=== PATIENT | male | born 1950 | race Caucasian/White ===

== ENCOUNTER 2024-11-06 18:40 | Inpatient (IN) | payer MEDICARE, SELFPAY ==
--- NOTE | 2024-11-06 | ECG_ITS ---
Test Reason : AMS Blood Pressure : */* mmHG Vent. Rate : 89 BPM Atrial Rate : 89 BPM P-R Int : 200 ms QRS Dur : 84 ms QT Int : 394 ms P-R-T Axes : 104 58 30 degrees QTcB Int : 479 ms Normal sinus rhythm Nonspecific ST abnormality Abnormal ECG No previous ECGs available Referred By: Generic ED Physician Electronically Signed By: HERNAN SERRANO MD
--- NOTE | ~2024-11-06 | CT_ITS ---
CLINICAL HISTORY: AMS fall CT head without contrast Comparison: None provided Findings: No intra-axial mass, midline shift, hydrocephalus, or acute hemorrhage. Moderate atrophy-like change or white matter disease. The visualized paranasal sinuses and mastoid air cells are normal. The orbits are unremarkable. No skull fracture. IMPRESSION: 1. No acute intracranial findings, specifically no acute intracranial hemorrhage. 2. Moderate atrophy-like change or white matter disease. This document has been electronically signed by: Lobo Rodriguez MD on 11/06/2024 23:25:53
--- NOTE | ~2024-11-06 | US_ITS ---
EXAMINATION: US KIDNEY BILATERAL HISTORY: Acute urinary retention question hydronephrosis, BARRIE TECHNIQUE: Real-time grayscale ultrasound imaging of the kidneys was performed and images were reviewed. COMPARISON: There are no prior studies available for comparison. FINDINGS: Right kidney: The right kidney measures 11.1 x 4.9 x 5.0 cm. Renal parenchymal echotexture and thickness are normal. There are no masses. There is no hydronephrosis or renal calculi. Left Kidney: The left kidney measures 9.7 x 5.4 x 4.4 cm. Renal parenchymal echotexture and thickness are normal. There are no masses. There is no hydronephrosis or renal calculi. US/US renal BI IMPRESSION: Unremarkable renal ultrasound. Electronically signed by: Isreal Cox MD 11/20/2024 10:17 AM EDT
--- NOTE | ~2024-11-06 | XR_ITS ---
CLINICAL HISTORY: fall injury 3 view right elbow Comparison: None provided Findings: No acute fractures. Normal alignment. No significant arthritic change or erosions. No joint effusion. No radiopaque foreign body. IMPRESSION: 1. No acute findings. This document has been electronically signed by: Lobo Rodriguez MD on 11/06/2024 22:04:33
--- NOTE | ~2024-11-06 | CT_ITS ---
CLINICAL HISTORY: seizure CT head without contrast Comparison: CT/SR - CT HEAD/BRAIN WO IV CON - 11/06/24 22:14 EDT Findings: No intra-axial mass, midline shift, hydrocephalus, or acute hemorrhage. Involutional change of brain parenchyma, advanced for age. Moderately severe white matter disease. Chronic focus of infarction within the left basal ganglia. Mild partial opacification of the bilateral mastoid air cells, slightly improved since the prior study. Moderate mucosal thickening within the right sphenoid sinus. Mild mucosal thickening within the left maxillary sinus. Chronic deformity of the right lamina papyracea. No acute fracture. IMPRESSION: No acute abnormality of the brain. Atrophy and advanced white matter disease noted. This document has been electronically signed by: Cristina Shaikh MD on 11/12/2024 09:48:10
--- NOTE | ~2024-11-06 | CT_ITS ---
CLINICAL HISTORY: AMS fall CT cervical spine without contrast Comparison: None provided Findings: Normal vertebral body alignment. Moderate multilevel spondylosis the disc space narrowing, endplate sclerosis, and facet arthropathy. No acute fractures or dislocations. No acute findings on limited view of the intracranial contents. No cervical fluid collections or masses. Lung apices are clear. IMPRESSION: No evidence of acute fracture or traumatic listhesis of the cervical spine. Moderate multilevel spondylosis. This document has been electronically signed by: Lobo Rodriguez MD on 11/06/2024 23:25:44
--- NOTE | ~2024-11-06 | XR_ITS ---
CLINICAL HISTORY: altered mental status 1 view chest x-ray Comparison: None provided Findings: No consolidation or effusion. Heart size is normal. No acute fracture. IMPRESSION: 1. No acute findings. This document has been electronically signed by: Lobo Rodriguez MD on 11/06/2024 21:11:23
[2024-11-06 18:55] VITALS: BP 189/91; PULSE 96; O2SAT 100
[2024-11-06 19:29] VITALS: BP 200/85; PULSE 100; RESP 16; TEMP 36.8; O2SAT 100; BMI 17.1
[2024-11-06 19:47] LABS: MANUAL DIFF FLAG NO
[2024-11-06 19:48] LABS: Hematocrit 31.9 % (42.0-52.0); Hemoglobin 11.7 g/dl (14.0-18.0); Imm Gran Abs Auto 0.03 X10*3/uL (0.00-0.03); Imm Gran Pct Auto 0.4 % (0.0-0.4); Lymphocytes Absolute Auto 1.2 X10*3/uL (1.2-4.9); Mean Corpuscular HGB Conc 36.7 g/dl (31.0-36.0); Mean Corpuscular Hemoglobin 36.0 pg (27.0-33.0); Mean Corpuscular Volume 98.2 fL (80.0-98.0); NRBC Abs Auto 0.000 X10*3/uL (0.0-0.012); NRBC Pct Auto 0.0 /100WBC (0.0-0.2); Platelet Count 155 X10*3/uL (160-400); Red Blood Count 3.25 X10*6/uL (4.60-5.80); White Blood Count 7.5 X10*3/uL (4.8-10.8)
[2024-11-06 20:05] LABS: Anion Gap 17 (12-20); Blood Urea Nitrogen 11 mg/dL (9-16); Calcium 8.9 mg/dL (8.4-10.2); Carbon Dioxide 20 mmol/L (22-29); Chloride 110 mmol/L (96-108); Creatinine Clr Calc Pharmacy 46.2; Estimated Glomerular Filt Rate > 60; Magnesium 1.9 mg/dL (1.6-2.6); Potassium 3.5 mmol/L (3.3-5.1); Sodium 143 mmol/L (135-145)
[2024-11-06 20:09] VITALS: BP 180/75; PULSE 93; RESP 16; TEMP 37.1; O2SAT 100
--- OUTSIDE RECORDS SUMMARY | 2024-11-06 20:53 | XMS_ITS | Clinical Summary ---
Author Organization [facility] Address [address] [place] [id number] Phone Care Team Providers Care Admin Asst Name Role Phone Nelson Elmore MD Unavailable [phone] Pcp, Unknown Primary Care Provider Unavailabl e Allergies No known active allergies Medications aspirin 81 MG EC tablet Take 1 tablet by mouth daily. Active thiamine (VITAMIN B-1) 100 MG tablet Take 1 tablet (100 mg total) by mouth daily. 90 tablet 1 12/27/19 20 Active lovastatin (MEVACOR) 40 MG tabletIndications:Pure hypercholesterolemia TAKE 1 TABLET BY MOUTH DAILY WITH MEAL 90 tablet 1 09/16/19 22 Active lisinopril (PRINIVIL,ZESTRIL) 20 MG tabletIndications:Essent ial hypertension TAKE 1 TABLET BY MOUTH DAILY 90 tablet 3 09/16/19 22 Active Active Problems Problem Noted Date Diagnosed Date Male erectile disorder 07/05/2017 Essential hypertension 07/05/2017 Headache 07/05/2017 Hypertension 07/05/2017 Hyperlipidemia 07/05/2017 New onset seizure 07/05/2017 Peripheral vascular disease 07/05/2017 Tobacco use disorder 07/05/2017 Seizure disorder 07/05/2017 Screening for prostate cancer 07/05/2017 Immunizations Immunization Administration Dates Next Due INFLUENZA, SPLIT VIRUS, TRIVALENT W/ PRESERVATIV E IM 02/20/2014 Influenza High-Dose Quadrivalent Preservative Fr ee IM 12/26/2019 Pneumococcal polysaccharide PPSV23 08/08/2018 Tdap 08/08/2018 Family History Medical History Relation Comments Heart disease Father Diabetes Mother Cancer Sister Diabetes Sister Relation Status Comments Father Mother Sister Social History Tobacco Use Types Packs/Day Years Used Date Smoking Tobacco: Every Day Cigarettes 1 63.7 Started: 1961 Smokeless Tobacco: Never Alcohol Use Standard Drinks/Week Comments Yes 0 (1 standard drink = 0.6 oz pur e alcohol) 12-16 cans of beer QD Child or Family Care Answer Date Record ed Do you have problems with on e of the following making it difficult for you to work, study, or receive health care? No 01/27/2021 Education Answer Date Recorded Are you interested in more education? Not on roopa e 02/03/2023 Are you concerned about learning? Not on file 02/03/2023 No 02/03/2023 No 02/03/2023 Food Answer Date Recorded Within the past 6 months we worried whether our food would run out before we got money to buy more. Never True 01/27/2021 Within the past 6 months the food we bought just didn't last and we didn't have enough money to get more. Never True Residential Stability Answer Date Recor ded What is your housing situation today? I have luara fernandez 01/27/2021 How many times have you move d in the past 12 months? Zero (I did not move) 01/27/2021 Paying for Meds Answer Date Recorded Do you have trouble paying for medicines? No 01/27/2021 Paying Utility Bills Answer Date Record ed Do you have trouble paying your heating or elect ricity bill? No 01/27/2021 Transportation Answer Date Recorded Has the lack of transportati on kept you from medical appointments or from getting medications? No 01/27/2021 Unemployment Answer Date Recorded Are you currently unemployed or working on a part-time or temporary basis, and looking for work? No 01/27/2021 Digital Access Answer Date Recorded No 07/27/2022 No 07/27/2022 Reliable internet access at home? Not on file 07/27/2022 Device with a working camera? Not on file Sex and Gender Information Value Date Recorded Sex Assigned at Not on file Legal Sex Male 10:02 PM EDT Gender Identity Not on file Sexual Orientation Not on file Last Filed Vital Signs Vital Sign Reading Time Taken Comments Blood Pressure 154/80 06/24/2021 2:42 PM EDT 188/72 on L arm, sitting Pulse 59 06/24/2021 2:42 PM EDT Temperature 36.3 C (97.3 F) 06/24/2021 2:42 PM EDT Respiratory Rate 20 06/24/2021 2:42 PM EDT Oxygen Saturation 99% 06/24/2021 2:4 2 PM EDT Inhaled Oxygen Concentration - - Weight 59.5 kg (131 lb 3.2 oz) 06/24/2021 2:42 PM EDT Height 165.4 cm (5' 5.12 ) 06/24/2021 2 :42 PM EDT Body Mass Index 21.75 06/24/2021 2:42 PM EDT Plan of Treatment Health Maintenance Due Date Last Done Comments BLOOD PRESSURE 1950 SMOKING Hx and SMOKELESS TOBACCO SCREENING 1963 COLOGUARD 1995 FIT TEST 1995 FOBT 1995 SIGMOIDOSCOPY 1995 VIRTUAL COLONOSCOPY 1995 ZOSTER VACCINES (1 of 2) 2000 PNEUMOCOCCAL VACCINES (50+ years) (2 of 2 - PCV) 08/09/2019 08/08/2018 COLONOSCOPY 05/05/2020 05/05/2010 COLORECTAL CANCER SCREENING 05/05/2020 DEPRESSION SCREENING 06/22/2022 06/22/2021, 01/28/20 21 CREATININE LEVEL 06/24/2022 06/24/2021, , 12/26/2019, Additional history exists POTASSIUM LEVEL 06/24/2022 06/24/2021, 01/01, 12/26/2019, Additional history exists INFLUENZA VACCINE (#1) 2024 12/26/2019, 2013 COVID-19 VACCINE ( - 2023- season) 2024 RSV VACCINE (1 - 1-dose 75+ series) 2025 LIPID PANEL 01/28/2026 01/28/2021, 11/30, 05/23/2018, Additional history exists Adult Td,Tdap Booster 08/08/2028 08/08/2018 HEPATITIS C SCREENING Completed 12/26/2019 ABDOMINAL AORTIC ANEURYSM (AAA) SCREENING Completed 01/09/2020 HEPATITIS A VACCINES Aged Out No long er eligible based on patient's age to complete this topic HIB VACCINES Aged Out No longer eligi ble based on patient's age to complete this topic MENINGOCOCCAL VACCINES (ACWY) Aged Out No longer eligible based on patient's age to complete this topic MENINGOCOCCAL VACCINES (B) Aged Out N o longer eligible based on patient's age to complete this topic Medical Devices Not on file Procedures Procedure Name Priority Date/Time Associated Diagnosis Comments COMPREHENSIVE METABOLIC PANEL Routine 06/24/2021 3:47 PM EDT Pure hypercholesterolemia Solitary pulmonary nodule on lung CT LIPID PANEL Routine 01/28/2021 10:49 AM EST Pure hypercholesterolemia CT ABDOMEN/PELVIS Routine 01/09/2020 HEPATITIS C ANTIBODY, QUALITATIVE Routine 12/26/2019 11:16 AM EDT Need for hepatitis C screening test from Last 3 Months or Most Recently Relevant to Health Maintenance Results * (ABNORMAL) Comprehensive metabolic panel (06/24/2021 3:47 PM EDT) SODIUM 135 133 - 146 mmol/L [facility] POTASSIUM 4.1 3.3 - 5.1 mmol/L [facility] CHLORIDE 99 96 - 108 mmol/L [facility] CO2 22 21 - 35 mmol/L [facility] BUN 9 6 - 19 mg/dL [facility] CREATININE 0.90 0.5 - 1.5 mg/dL [facility] GLUCOSE 99 70 - 99 mg/dL [facility] ALBUMIN 4.9(H) 3.9 - 4.8 g/dL [facility] TOTAL PROTEIN 8.5(H) 6.5 - 8.0 g/dL [facility] CALCIUM 10.5(H) 8.4 - 10.3 mg/dL [facility] ALKALINE PHOSPHATASE 75 39 - 117 U/L [facility] TOTAL BILIRUBIN 0.6 0.0 - 1.2 mg/dL [facility] AST 20 0 - 37 U/L [facility] ALT 13 0 - 40 U/L [facility] GLOBULIN 3.6 1 - 4.8 g/dL [facility] EGFR 91 >59 mL/min/1.7 3m2 [facility] Comment:Estimated glomerular filtration rate calculated using the CKD-EPI refit equation. ANION GAP 18 10 - 20 mmol/L [facility] Blood 06/24/2021 3:47 PM EDT 06/24/2021 3:55 PM EDT us Nelson Elmore MD LAB BLOOD ORDERABLES Final Re sult Performing Organization Address City/[facility]/ZIP Co de Phone Number [address] [phone] * (ABNORMAL) Lipid panel (01/28/2021 10:49 AM EST) HDL 142 mg/dL [facility] Comment: Interpretation <40 mg/dL: Low HDL cholesterol (major risk factor for CHD) Greater than or equal to 60 mg/dL: High HDL cholesterol ( negative risk factor for CHD) HDL - cholesterol is affected by a number of factors, e.g. smoking, excerise, hormones, sex and age. CHOLESTEROL 253(H) 0 - 240 mg/dL [facility] TRIGLYCERIDES 71 30 - 160 mg/dL [facility] LDL 97 50 - 129 mg/dL [facility] Comment: LDL levels in terms of risk for coronary heart disease: <100 mg/dL: Optimal 100-129 mg/dL: Near or above optimal 130-159 mg/dL: Borderline high 160-189 mg/dL: High >190 mg/dL: Very High CARDIAC RISK RATIO 1.8(L) 3.4 - 5.0 [facility] Blood 01/28/2021 10:4 9 AM EST 01/28/2021 10:53 AM EST us Nelson Elmore MD LAB BLOOD ORDERABLES Final Re sult Performing Organization Address City/[facility]/ZIP Co de Phone Number [address] [phone] * CT Abdomen/Pelvis (01/09/2020) Anatomical Region Laterality Modality Abdomen, Pelvis CT Diagnostic us Nelson Elmore MD IMG CT ABD/PELVIS Edited Resu lt - Final * Hepatitis C antibody, qualitative (12/26/2019 11:16 AM EDT) HCV NON-REACTIV E NON-REACTI VE [facility] Blood 12/26/2019 11:1 6 AM EDT 12/26/2019 11:21 AM EDT us Nelson Elmore MD LAB BLOOD ORDERABLES Final Re sult [facility] [address] [place] [address] from Last 3 Months or Most Recently Relevant to Health Maintenance Insurance MEDICARE A [facility] MEDICARE A [facility] MEDICARE A [facility] Care Teams Admin Asst Relationship Specialty Start Date End Date Pcp, Unknown PCP - General 03/29/24 Nelson Elmore MD [address] [place] [id number] [email or web address] Historical LMR Provider 12/19/16 Additional Source Comments The information contained in this document represents components of the legal health record. It is not the complete legal health record.[facility]
[2024-11-06 21:06] LABS: Appearance Urine Clear; Glucose Urine UA Negative (Negative); PH 7.0 (5.0-9.0); Specific Gravity - Urine 1.020 (1.005-1.025); UMIC TRIGGER UA YES
--- NOTE | 2024-11-06 21:14 | ED_ITS ---
HPI - General Adult General Chief complaint: Altered Mental Status Stated complaint: R elbow lac s/p fall Time Seen by Provider: 11/06/24 21:01 Source: patient, family and EMS Mode of arrival: EMS Limitations: altered mental status History of Present Illness ED Provider: Dr. Sheridan Coy HPI narrative: 74-year-old male with a history of HTN, HLD, PAD, CVA on Plavix, tobacco use, presenting after an unwitnessed fall that occurred at home. EMS reports they are called to the scene for patient that was falling with a right elbow injury. Found sitting on his doorstep with slight confusion. According to his neighbors, this is his baseline. Patient unable to give any information secondary to his altered mental status. He denies pain. Denies shortness of breath or nausea. Related Data Home Medications ?Medication ?Instructions ?Recorded ?Confirmed clopidogrel 75 mg tablet 75 mg PO DAILY 11/07/2411/23 lisinopril 30 mg tablet 30 mg PO DAILY 11/07/2411/23 rosuvastatin 40 mg tablet 40 mg PO DAILY 11/07/2411/23 tamsulosin 0.4 mg capsule 0.4 mg PO DAILY 11/07/2411/23 Allergies Allergy/AdvReac Type Severity Reaction Status Date / Time Unable to Assess Allergy Verified 11/06/24 19:36 Review of Systems 2 Review of Systems: As per HPI, full review of systems performed and negative but for the above mentioned pertinent positives and negatives. [facility] Social History Social History Household Members: None Housing: Unknown / Unable to assess Unable to assess alcohol history related to: Unable to respond Patient Tobacco Use Status: Tobacco use Unknown Use of substances other than those prescribed or required for medical reasons: Unable to respond Currently Displaying Signs/Symptoms of Drug Intoxication Withdrawal: No Advance Directives: No Advance Directives Information Provided: No Advance Directives on File: No Do you have a plan to hurt others: No Plan Recently lost weight without trying: Unsure Nutrition Risks: No Nutritional Risk Poor oral hygiene: No service: No Physical Exam ED Exam Exam: GENERAL: Unkempt, no acute distress. SKIN: Normal skin color for ethnicity, warm, dry, superficial abrasion overlying the right elbow, bilateral knees. HEENT: Normocephalic, atraumatic, no stridor, posterior oropharynx nonerythematous, dentition intact, EOMI. NECK: Soft, supple, full ROM, midline tenderness at C3 - 5, no step-offs, no deformities, no lymphadenopathy. CHEST: Heart regular rate and rhythm, no murmurs, symmetric chest rise and fall. PULMONARY: Clear to auscultation bilaterally, no labored breathing, no wheezes/rhales/ rhonchi. ABDOMINAL: Soft, nondistended, nontender, positive bowel sounds in all quadrants. : Deferred. MUSCULOSKELETAL: Normal tone, full range of motion, right elbow with contusion, full active range of motion, neurovascularly intact distally, full function of the radial, median and ulnar nerves of the right hand, swelling of the right ankle, neurovascularly intact distally. NEURO: Alert and oriented to person, CN II through XII intact, equal strength and sensation bilateral upper and lower extremities, no focal neurologic deficits. PSYCHIATRIC: Flat affect, poor eye contact, withdrawn Vital Signs: Vital Signs - 24 hr 11/11/24 14:38 11/11/24 22:00 11/12/24 06:23 Temperature 98.3 F 98.4 F 99.0 F Pulse Rate 80 75 89 Respiratory Rate 16 16 16 Blood Pressure 170/73 H 168/70 H 155/71 H Pulse Oximetry 98 98 99 Oxygen Delivery Method Room Air Room Air Room Air Oxygen Flow Rate 11/12/24 08:10 11/12/24 08:27 11/12/24 08:27 Temperature 99.1 F Pulse Rate 127 H 123 H Respiratory Rate 18 14 Blood Pressure 216/94 H 106/61 Pulse Oximetry 99 92 96 Oxygen Delivery Method Room Air Room Air Nasal Cannula Oxygen Flow Rate 2 11/12/24 08:39 11/12/24 09:43 Temperature 98.6 F 98.2 F Pulse Rate 111 H 99 Respiratory Rate 17 18 Blood Pressure 112/60 180/81 H Pulse Oximetry 96 97 Oxygen Delivery Method Nasal Cannula Room Air Oxygen Flow Rate 2 BMI result Body Mass Index 17.1 Course Course Course Narrative: Time: 08:19 Date: 11/07/24 Provider: YOHANNES Macario Patient in physician observation for case management needs. Patient agitated this morning, confused, difficult to redirect. Prior to my arrival, patient was given po zyprexa. No current issues or complaints. hypertensive, vitals are otherwise wnl. med rec pending. Patient is pending placement PT/CM eval. Will continue to monitor. 11/09/24 10:25 SANDY Van: Physician observation continued. Notified by nursing this morning that no code status entered. Discussed code status with patient's healthcare proxy, daughter Bindu, who would like patient to be DNR/DNI. MOLST form completed, order placed in computer. Case management following for disposition. 11/09/24 1721 SANDY Van: Chelita from case management requesting daily medication for agitation. Patient seen by psychiatry and they recommended 25 milligrams of trazodone q.h.s., however, patient is agitated throughout the day. Will try 25 milligrams of Seroquel daily and reassess. Reevaluation(s) Reevaluation #1: Patient is hypertensive, he did receive a scheduled medication, amlodipine was added on, the thought is that he is becoming agitated, he may be withdrawing from alcohol, I added Zyprexa Tylenol and melatonin, my attending added Ativan Reevaluation #2: Time: 08:32 Date: 11/08/24 Provider: YOHANNES Macario Patient in physician observation for case management needs. VS stable. patient medicated w/ olanzepine + tylenol + melatonin + ativan over night with good effect. Patient is pending placement at facility/CM eval. Will continue to monitor. Reevaluation #3: Receiving call from [facility], the patient needs medication for sleep, he was assessed by Psychiatry, they had recommended trazodone 25 mg at night, we will add a standing order Additional Reevaluation(s): 117 am receiving another call from [facility], the patient remains agitated, the trazodone was not helpful, adding on Ines Nina 11/10 Physician observation continued. Uneventful night. Vital signs stable. No complaints from nursing overnight. Med reconciliation reviewed and done. Pending disposition. Will continue to monitor. Consultations Consultation #1: Time: 08:17 Date: 11/11/24 Provider: YOHANNES Macario Patient in physician observation for case management needs. No acute events reported overnight.? No current issues or complaints. VS stable. Patient is pending placement at facility per CM. Will continue to monitor. Consultation #2: 11/12/2024, 08:16: Dr. Arana The patient has been in our overflow unit for several days after initially presenting to the hospital 6 days ago on November 06 following a fall at home. The patient's workup in the emergency room was negative but the the patient was felt to be quite debilitated and possibly also exhibiting signs of dementia and so he was not discharged but kept in our emergency room for placement. Initially he had some agitation that was treated with olanzapine and Ativan. He was seen by Psychiatry who recommended trazodone. Today the patient had a seizure. He is not currently on any antiepileptic medications and his documentation at this hospital does not mention any history of seizures. The seizure lasted less than 1-2 minutes. His blood sugar was 120. The patient apparently has a history of alcoholism. It is not clear when his last alcohol might has been. I reviewed records from [facility]. The patient was last discharged from that hospital on 03/16/2023. He has been hospitalized after he presented for an elective vascular surgery of his lower extremities by Dr. Sierra. The documentation of that hospitalization indicates that the patient has a history of a seizure that was thought likely to be related to alcohol withdrawal. Apparently the possible seizure episode happened before March 2021. The note indicates that the patient stopped drinking in March of 2021. Because the patient had a seizure he was moved back to the main emergency room. We will obtain a CT scan and repeat labs. On exam the patient was clearly postictal and not responsive to verbal stimuli. His pupils were very small. He was maintaining his airway. He seemed to have symmetrical tone. No obvious lateralizing findings. 11/12/2024, 10:56: The patient has head CT was negative. The patient had an initial EKG that showed a lot of changes and a much longer QTC. Repeat labs were done. The patient's magnesium is normal. I think the EKG changes were probably postictal. The patient had repeat labs that showed what looks like an acute kidney injury with a rise in the patient's BUN and creatinine. Apparently the patient has taken very little by mouth over the last several days. The patient was therefore given a bolus of IV fluids. I called the patient's daughter, Bindu, who confirmed that the patient has a remote history of an alcohol withdrawal seizure. She also confirmed that he stopped drinking alcohol about 5 years ago. She also confirmed that the patient's mental status has been deteriorating significantly over the last several months. I explained to the daughter that the patient had had a seizure and would be hospitalized at this point. The patient's mental status improved from his initial postictal state. He was awake but extremely poorly oriented and unable to have any significant communication or conversation. I do not think this is very far from his mental status over the previous few days. Medications Administered Generic Name Dose Route Start Last Admin Trade Name Freq PRN Reason Stop Dose Admin Amlodipine Besylate 5 mg 11/12/24 10:45 11/16/24 08:53 Amlodipine Besylate 5 Mg Tablet PO 5 mg DAILY LEÓN Administration Protocol Atorvastatin Calcium 80 mg 11/07/24 13:30 11/16/24 08:53 Atorvastatin Calcium 80 Mg Tablet PO 80 mg DAILY LEÓN Administration Ceftriaxone Sodium 1 gm 11/15/24 09:00 11/16/24 08:53 Ceftriaxone Sodium 1 Gm Vial IVPUSH 1 gm Q24H LEÓN Administration Clopidogrel Bisulfate 75 mg 11/07/24 13:30 11/16/24 08:53 Clopidogrel Bisulfate 75 Mg Tablet PO 75 mg DAILY LEÓN Administration Finasteride 5 mg 11/15/24 10:30 11/16/24 08:53 Finasteride 5 Mg Tablet PO 5 mg DAILY LEÓN Administration Folic Acid 1 mg 11/13/24 17:45 11/16/24 08:53 Folic Acid 1 Mg Tablet PO 1 mg DAILY LEÓN Administration Heparin Sodium (Porcine) 5,000 unit 11/12/24 11:00 11/16/24 11:15 Heparin Sodium,Porcine 5,000 Unit/Ml Vial SUBCUT 5,000 unit Q12H LEÓN Administration Quetiapine Fumarate 25 mg 11/10/24 09:00 11/16/24 08:53 Quetiapine Fumarate 25 Mg Tablet PO 25 mg DAILY LEÓN Administration Sodium Chloride 3 ml 11/12/24 16:00 11/16/24 08:53 0.9 % Sodium Chloride Flush 3 Ml Syringe IVFLUSH 3 ml QSHIFT LEÓN Administration Tamsulosin HCl 0.4 mg 11/07/24 13:30 11/16/24 08:53 Tamsulosin Hcl 0.4 Mg Capsule PO 0.4 mg DAILY LEÓN Administration Thiamine HCl 100 mg 11/13/24 17:45 11/16/24 08:53 Thiamine Hcl 100 Mg Tablet PO 100 mg DAILY LEÓN Administration Trazodone HCl 25 mg 11/08/24 22:30 11/15/24 21:31 Trazodone Hcl 25 Mg Halftab PO 25 mg BEDTIME LEÓN Administration Discontinued Medications Generic Name Dose Route Start Last Admin Trade Name Harris PRN Reason Stop Dose Admin Acetaminophen 975 mg 11/07/24 21:40 11/07/24 23:16 Acetaminophen 325 Mg Tablet PO 11/07/24 21:41 975 mg ONCE ONE Administration Amlodipine Besylate 5 mg 11/07/24 19:06 11/07/24 19:42 Amlodipine Besylate 5 Mg Tablet PO 11/07/24 19:07 5 mg DAILY ONE Administration Protocol Heparin Sodium (Porcine) 5,000 unit 11/12/24 10:45 11/12/24 10:43 Heparin Sodium,Porcine 5,000 Unit/Ml Vial SUBCUT Not Given Q12H LEÓN Lactated Ringer's 1,000 mls @ 999 mls/hr 11/06/24 21:56 11/07/24 00:56 Lr IV 11/06/24 22:56 Infused .Q1H1M ONE Infusion Lactated Ringer's 1,000 mls @ 999 mls/hr 11/11/24 11:00 11/12/24 10:33 Lr IV 11/11/24 12:00 Infused .Q1H1M LEÓN Infusion Lactated Ringer's 1,000 mls @ 999 mls/hr 11/12/24 09:00 11/12/24 10:33 Lr IV 11/12/24 10:00 Infused .Q1H1M LEÓN Infusion Potassium Chloride 10 meq in 100 mls @ 100 mls/hr 11/12/24 11:45 11/12/24 14:43 Potassium Chloride/H20 IV 11/12/24 13:44 Infused Q1H LEÓN Infusion Lisinopril 30 mg 11/07/24 13:30 11/12/24 08:43 Lisinopril 10 Mg Tablet PO Not Given DAILY LEÓN Protocol Lorazepam 1 mg 11/07/24 21:50 11/07/24 22:08 Lorazepam 1 Mg Tablet PO 11/07/24 21:51 1 mg ONCE ONE Administration Melatonin 9 mg 11/07/24 21:40 11/08/24 00:44 Melatonin 3 Mg Tablet PO 11/07/24 21:41 Not Given ONCE ONE Olanzapine 5 mg 11/07/24 07:31 11/07/24 07:36 Olanzapine 5 Mg Tablet PO 11/07/24 07:32 5 mg ONCE ONE Administration Olanzapine 5 mg 11/07/24 19:05 11/07/24 19:42 Olanzapine 5 Mg Tablet PO 11/07/24 19:06 5 mg ONCE ONE Administration Olanzapine 10 mg 11/07/24 21:40 11/08/24 00:44 Olanzapine 10 Mg Tablet PO 11/07/24 21:41 Not Given ONCE ONE Olanzapine 10 mg 11/09/24 01:18 11/09/24 02:13 Olanzapine 10 Mg Tablet PO 11/09/24 01:19 10 mg ONCE ONE Administration Medical Decision Making Medical Decision Making [facility] Narrative: Patient presents today with a chief complaint of altered mental status. Differential diagnosis for AMS is incredibly broad and includes infection, intracranial process such as hemorrhage, stroke or mass, electrolyte abnormality, hypercarbia, hypoxia, toxic encephalopathy, among many others. Broad-based workup was initiated to further evaluate the etiology of patient's symptoms based on the above exam and history. CT imaging shows no evidence of acute traumatic process. Patient is confused. I spoke with his daughter, Bindu, who reports that this has been an ongoing issue for the last several months and he has been resistant to coming to the hospital. Has been having multiple falls at home. He lives alone. Patient is unable to give any information. Concern for safety in the setting of living by himself with frequent falls, unsteady gait. Plan for social work and physical therapy consults. Signing out to oncoming provider pending consultation and final disposition. Differential Diagnosis Differential Diagnoses: The differential diagnosis associated with the presentation includes (As above) Admission/Observation Consideration of admission/observation: Escalation of care including admission/observation considered Lab Data [facility] Lab Attestation statement: I reviewed the patient's lab results. 11/16/24 05:49 11/16/24 05:49 Labs: Lab Results 11/06/24 11/06/24 11/06/24 Range/Units 19:43 20:59 21:41 WBC 7.5 (4.8-10.8) X10*3/uL RBC 3.25 L (4.60-5.80) X10*6/uL Hgb 11.7 L (14.0-18.0) g/dl Hct 31.9 L (42.0-52.0) % MCV 98.2 H (80.0-98.0) fL MCH 36.0 H (27.0-33.0) pg MCHC 36.7 H (31.0-36.0) g/dl RDW 15.1 (11.0-16.0) % Plt Count 155 L (160-400) X10*3/uL MPV 9.6 (9.4-12.4) fL Immature Gran % (Auto) 0.4 (0.0-0.4) % Neut % (Auto) 77.5 H (45-73) % Lymph % (Auto) 15.8 L (20-40) % [place] % (Auto) 5.5 (2-11) % Eos % (Auto) 0.4 (0-4) % Baso % (Auto) 0.4 (0-2) % Lymph # (Auto) 1.2 (1.2-4.9) X10*3/uL [place] # (Auto) 0.4 (0.1-1.2) X10*3/uL Eos # (Auto) 0.0 (0.0-0.4) X10*3/uL Baso # (Auto) 0.0 (0.0-0.2) X10*3/uL Abs Immat Gran (auto) 0.03 (0.00-0.03) X10*3/uL Absolute Neuts (auto) 5.8 (2.0-8.3) x10*3/uL Absolute Nucleated RBC 0.000 (0.0-0.012) X10*3/uL Nucleated RBC % (auto) 0.0 (0.0-0.2) /100WBC Sodium 143 (135-145) mmol/L Potassium 3.5 (3.3-5.1) mmol/L Chloride 110 H (96-108) mmol/L Carbon Dioxide 20 L (22-29) mmol/L Anion Gap 17 (12-20) BUN 11 (9-16) mg/dL Creatinine 1.04 (0.5-1.4) mg/dL Estim Creat Clear Calc 46.2 Estimated GFR > 60 POC Glucose (60-115) mg/dL Random Glucose 120 H (60-115) mg/dL Calcium 8.9 (8.4-10.2) mg/dL Magnesium 1.9 (1.6-2.6) mg/dL Total Bilirubin 1.0 (0.0-1.0) mg/dL Direct Bilirubin 0.3 (0.0-0.5) mg/dL AST 29 (5-37) U/L ALT 13 (0-40) U/L Alkaline Phosphatase 62 (39-117) U/L Total Creatine Kinase 214 H (38-174) U/L Troponin I High Sens 11.3 (<3.5-35.0) ng/L Total Protein 7.0 (6.5-8.0) g/dL Albumin 4.2 (3.5-5.0) g/dL Urine Color Yellow Urine Appearance Clear Urine pH 7.0 (5.0-9.0) Ur Specific [place] 1.020 (1.005-1.025) Urine Protein 300 (3+) H (Neg-Trace) mg/dL Urine Glucose (UA) Negative (Negative) mg/dL Urine Ketones Negative (Negative) mg/dL Urine Blood Small (1+) H (Negative) Urine Nitrite Negative (Negative) Ur Leukocyte Esterase Negative (Negative) Urine RBC 3-5 H (0-2) /HPF Urine WBC 0-5 (0-5) /HPF Ur Squamous Epith Cells 0-2 (0-2) /HPF Urine Bacteria None Seen (None Seen) Hyaline Casts 0-2 (0-2) /LPF Urine Opiates Screen Not Detected (Not Detect) Ur Buprenorphine Scrn Not Detected (Not Detect) ng/mL Ur Oxycodone Screen Not Detected (Not Detect) ng/mL Urine Methadone Screen Not Detected (Not Detect) ng/mL Urine Fentanyl Screen Not Detected (Not Detect) Ur Barbiturates Screen Not Detected (Not Detect) Ur Phencyclidine Scrn Not Detected (Not Detect) Ur Amphetamines Screen Not Detected (Not Detect) U Benzodiazepines Scrn Not Detected (Not Detect) Urine Cocaine Screen Not Detected (Not Detect) U Marijuana (THC) Screen Not Detected (Not Detect) Influenza Type A (PCR) (Negative) Influenza Type B (PCR) (Negative) RSV RNA Qual (PCR) (Negative) SARS-CoV-2 RNA (RT-PCR) (Negative) 11/07/24 11/12/24 11/12/24 Range/Units 14:40 08:04 08:19 WBC 11.3 H (4.8-10.8) X10*3/uL RBC 3.41 L (4.60-5.80) X10*6/uL Hgb 11.9 L (14.0-18.0) g/dl Hct 34.1 L (42.0-52.0) % MCV 100.0 H (80.0-98.0) fL MCH 34.9 H (27.0-33.0) pg MCHC 34.9 (31.0-36.0) g/dl RDW 15.3 (11.0-16.0) % Plt Count 152 L (160-400) X10*3/uL MPV 9.6 (9.4-12.4) fL Immature Gran % (Auto) 0.4 (0.0-0.4) % Neut % (Auto) 76.5 H (45-73) % Lymph % (Auto) 15.1 L (20-40) % [place] % (Auto) 7.1 (2-11) % Eos % (Auto) 0.6 (0-4) % Baso % (Auto) 0.3 (0-2) % Lymph # (Auto) 1.7 (1.2-4.9) X10*3/uL [place] # (Auto) 0.8 (0.1-1.2) X10*3/uL Eos # (Auto) 0.1 (0.0-0.4) X10*3/uL Baso # (Auto) 0.0 (0.0-0.2) X10*3/uL Abs Immat Gran (auto) 0.05 H (0.00-0.03) X10*3/uL Absolute Neuts (auto) 8.7 H (2.0-8.3) x10*3/uL Absolute Nucleated RBC 0.000 (0.0-0.012) X10*3/uL Nucleated RBC % (auto) 0.0 (0.0-0.2) /100WBC Sodium 142 (135-145) mmol/L Potassium 3.2 L (3.3-5.1) mmol/L Chloride 108 (96-108) mmol/L Carbon Dioxide 14 L (22-29) mmol/L Anion Gap 23 H (12-20) BUN 29 H (9-16) mg/dL Creatinine 1.82 H (0.5-1.4) mg/dL Estim Creat Clear Calc 26.4 Estimated GFR 37 POC Glucose 122 H (60-115) mg/dL Random Glucose 132 H (60-115) mg/dL Calcium 8.8 (8.4-10.2) mg/dL Magnesium 2.0 (1.6-2.6) mg/dL Total Bilirubin 1.5 H (0.0-1.0) mg/dL Direct Bilirubin 0.6 H (0.0-0.5) mg/dL AST 27 (5-37) U/L ALT 13 (0-40) U/L Alkaline Phosphatase 63 (39-117) U/L Total Creatine Kinase (38-174) U/L Troponin I High Sens (<3.5-35.0) ng/L Total Protein 6.2 L (6.5-8.0) g/dL Albumin 3.5 (3.5-5.0) g/dL Urine Color Urine Appearance Urine pH (5.0-9.0) Ur Specific [place] (1.005-1.025) Urine Protein (Neg-Trace) mg/dL Urine Glucose (UA) (Negative) mg/dL Urine Ketones (Negative) mg/dL Urine Blood (Negative) Urine Nitrite (Negative) Ur Leukocyte Esterase (Negative) Urine RBC (0-2) /HPF Urine WBC (0-5) /HPF Ur Squamous Epith Cells (0-2) /HPF Urine Bacteria (None Seen) Hyaline Casts (0-2) /LPF Urine Opiates Screen (Not Detect) Ur Buprenorphine Scrn (Not Detect) ng/mL Ur Oxycodone Screen (Not Detect) ng/mL Urine Methadone Screen (Not Detect) ng/mL Urine Fentanyl Screen (Not Detect) Ur Barbiturates Screen (Not Detect) Ur Phencyclidine Scrn (Not Detect) Ur Amphetamines Screen (Not Detect) U Benzodiazepines Scrn (Not Detect) Urine Cocaine Screen (Not Detect) U Marijuana (THC) Screen (Not Detect) Influenza Type A (PCR) NEGATIVE (Negative) Influenza Type B (PCR) NEGATIVE (Negative) RSV RNA Qual (PCR) NEGATIVE (Negative) SARS-CoV-2 RNA (RT-PCR) NEGATIVE (Negative) Independent Interpretation I performed an independent interpretation of an: EKG Interpretation: My independent interpretation of the ECG reveals normal sinus rhythm with rate of 89, normal axis, normal intervals, no ST elevations or depressions to suggest ischemic changes, no previous for comparison. Radiology Impression Discussion of test interpretation with radiology: I have reviewed the radiologist's reading. Independent Historian Clinical information obtained from an independent historian. History obtained from or confirmed by: EMS and Other (Daughter) Chronic Conditions Patient?s care impacted by: Hypertension and Other (PAD, CVA) Social Determinants Patient?s care significantly limited by Social Determinants of Health including: Low income and Other Social Determinant of Health Discharge Plan Discharge Clinical Impression: Altered mental status, Frequent falls, Contusion of right elbow, initial encounter, Seizure, Acute kidney injury Patient Disposition: Admitted As Inpatient Interventions: Admission Worksheet (ED) Last Done: 11/12/24 14:01 Discharge Date/Time: 11/12/24 20:48
[2024-11-06 21:55] LABS: Alanine Aminotransferase 13 U/L (0-40); Albumin Level 4.2 g/dL (3.5-5.0); Alkaline Phosphatase 62 U/L (39-117); Aspartate Amino Transferase 29 U/L (5-37); Total Protein 7.0 g/dL (6.5-8.0)
[2024-11-06 22:07] LABS: Troponin-I High Sensitivity 11.3 ng/L (<3.5-35.0)
[2024-11-06] MEDS: Lactated Ringers 1,000 ML 999 ML IV (22:54)
[2024-11-07] VITALS (12 sets, daily range): BP systolic 160–210; BP diastolic 68–90; PULSE 56–90; RESP 16–20; TEMP 36.5–37.5; O2SAT 93–100
--- NOTE | 2024-11-07 07:57 | PC.NURSE ---
Pt repeatedly climbing OOB, very confused and difficult to redirect; pt also hypertensive at 179/70; provider made aware; placing pt on a sitter camera for safety
--- NOTE | 2024-11-07 10:45 | PC.NURSE ---
Pt sleeping at thia time; PT here earlier to attempt ordered eval and pt refused; case mgt made aware; pt on sitter camera for safety at this time
[2024-11-07 11:20] LABS: Cannabinoid Screen Urine Not Detected (Not Detect)
--- NOTE | 2024-11-07 12:48 | MHC.CM.ED ---
Received case management consult overnight. Patient came to the ER due to fall with right elbow lac. Patient typically goes to [facility]. Has never been to [facility]. Work up essentially negative. Physical therapy eval completed. Rehab is recommended. Attempted to meet with patient in regards to discharge planning. Patient currently sleeping. Spoke with patient's emergency contact, Shasha, via telephone at [phone]. Shasha reports she is patient's ex-. She believes patient lives alone but that is all she knows about him medically at this time. Shasha provided patient's daughter's name, Radha Lin and telephone number: [phone]. Spoke with Radha via telephone. Radha reports patient lives alone, ambulates independently and had no services prior to coming to the hospital. Radha verifies patient typically goes to [facility]. PCP verified as Janneth Skinner in [place]. Patient uses [facility] on [address] in [place]. Copy of HCP requested from [facility]. Radha verifies patient had no qualifying stay in the past 30 days. Agreeable to referral being broadcasted to all 3 acute rehab facilities. Continue to monitor for d/c needs.
--- NOTE | 2024-11-07 13:34 | PHA.MEDREC ---
Pharmacy Consult ? Medication Reconciliation REVIEWED MED REC DONE BY NURSING.
[2024-11-07 15:46] LABS: Resp Syncy Virus RNA Qual PCR NEGATIVE (Negative); SARS COV2 PCR INHOUSE NEGATIVE (Negative)
--- NOTE | 2024-11-07 16:11 | PC.NURSE ---
Pt continuously trying to climb OOB; difficult to redirect; 1:[address] for safety; pt urinating frequently, afebrile; UA yesterday negative for UTI; pt's regular meds gv but BP remains high at 190's systolic; provider aware
--- NOTE | 2024-11-07 16:20 | MHC.EDTECH ---
pt was 2 assist to the commode and voided 300ml
--- NOTE | 2024-11-07 17:24 | MHC.EDTECH ---
pt ate 50% of dinner
--- NOTE | 2024-11-07 18:02 | MHC.EDTECH ---
pt voided in the urinal 200ml
--- NOTE | 2024-11-07 21:14 | MHC.EDTECH ---
pt voided 150ml in the urinal
[2024-11-08 00:15] VITALS: RESP 16
[2024-11-08 04:00] VITALS: BP 126/71; PULSE 67; RESP 18; TEMP 36.6; O2SAT 98
--- NOTE | 2024-11-08 06:30 | PC.NURSE ---
Assumed care of pt at 1900. Pt confused, alert to self only. Pt restless and agitated at start?of shift. ED provider notified, one time order of olanzapine given per APR. Blood pressure elevated, ED provider notified. One time dose?amlodipine?given?per APR. Pt continues to be agitated, ED provider notified, one time dose lorazepam given per APR with good effect. 1:1 sit[address] camera in place. Bed in lowest position, wheels locked, with bed alarm on. Call cuba in reach.?
[2024-11-08 09:30] VITALS: BP 163/66; PULSE 63; RESP 16; TEMP 36.4; O2SAT 100
--- NOTE | 2024-11-08 10:05 | MHC.CM.ED ---
Patient remains in ER overflow. No acute rehab bed offers. Patient does not have Medicare B because he had secondary insurance from his ex-, Shasha, until she changed jobs recently. Bindu has been working to obtain Medicare B but has been having difficulties. Patient suffered from CVA 10/2022. September 2023, PCP was questioning vascular dementia. Bindu feels patient is no longer able to safely live at home. He is unable to live with Bindu because she works full-time and will not be able to care for him. Bindu is interested in pursuing LTC. Medicare questionnaire and list of documents required for [employer] [facility] application. Also explained [facility] Financial Counselors will reach out to her to discuss LTC application. Bindu is aware there are only certain facilities that are able to offer a bed under [facility] pending. Continue to monitor for d/c needs.
--- NOTE | 2024-11-08 13:05 | P.CNPS_ITS ---
History of Present Illness Date of Service: 11/08/2024 Chief Complaint: R elbow lac s/p fall Reason for Consult: Medication recommendation for ? Undiagnosed dementia Requesting physician: Breanna Wade Discussed with referring provider: Yes Sources of Information: patient interviewed and chart reviewed HPI Narrative: The following report is from [facility] ED: 74-year-old male with a history of HTN, HLD, PAD, CVA on Plavix, tobacco use, presenting after an unwitnessed fall that occurred at home. EMS reports they are called to the scene for patient that was falling with a right elbow injury. Found sitting on his doorstep with slight confusion. According to his neighbors, this is his baseline. Patient unable to give any information secondary to his altered mental status. He denies pain. Denies shortness of breath or nausea. Patient found sleeping in his bed with sitter at bedside. He is very confused and alert and oriented only to his name. He speaks in very shorts sentences and most of his words are unclear. According to nursing, he was very agitated last night and attempted to jump out of his bed. He eventually fell asleep after given medication for sleep and agitation. Medical Evaluation Reviewed: Yes Diagnostics Vital Signs (24Hr): Vital Signs - 24 hr 11/07/24 14:32 11/07/24 14:38 11/07/24 16:00 Temperature 98.8 F 98.7 F Pulse Rate 68 Respiratory Rate 16 Blood Pressure 188/79 H 198/80 H Pulse Oximetry 100 Oxygen Delivery Method Room Air 11/07/24 19:27 11/07/24 19:42 11/07/24 20:45 Temperature 99.5 F Pulse Rate 90 Respiratory Rate 20 Blood Pressure 210/80 H 210/80 H 210/90 H Pulse Oximetry 99 Oxygen Delivery Method Room Air 11/07/24 22:54 11/07/24 23:45 11/08/24 00:15 Temperature 98.6 F Pulse Rate 78 Respiratory Rate 18 16 Blood Pressure 183/89 H 180/68 H Pulse Oximetry 97 Oxygen Delivery Method Room Air 11/08/24 04:00 11/08/24 09:30 Temperature 98 F 97.5 F Pulse Rate 67 63 Respiratory Rate 18 16 Blood Pressure 126/71 163/66 H Pulse Oximetry 98 100 Oxygen Delivery Method Room Air Room Air BMI result Body Mass Index 17.1 Labs 11/06/24 19:43 11/06/24 19:43 Labs: Laboratory Results - last 48 hr 11/06/24 11/06/24 11/06/24 19:43 20:59 21:41 WBC 7.5 RBC 3.25 L Hgb 11.7 L Hct 31.9 L MCV 98.2 H MCH 36.0 H MCHC 36.7 H RDW 15.1 Plt Count 155 L MPV 9.6 Immature Gran % (Auto) 0.4 Neut % (Auto) 77.5 H Lymph % (Auto) 15.8 L [place] % (Auto) 5.5 Eos % (Auto) 0.4 Baso % (Auto) 0.4 Lymph # (Auto) 1.2 [place] # (Auto) 0.4 Eos # (Auto) 0.0 Baso # (Auto) 0.0 Abs Immat Gran (auto) 0.03 Absolute Neuts (auto) 5.8 Absolute Nucleated RBC 0.000 Nucleated RBC % (auto) 0.0 Sodium 143 Potassium 3.5 Chloride 110 H Carbon Dioxide 20 L Anion Gap 17 BUN 11 Creatinine 1.04 Estim Creat Clear Calc 46.2 Estimated GFR > 60 Random Glucose 120 H Calcium 8.9 Magnesium 1.9 Total Bilirubin 1.0 Direct Bilirubin 0.3 AST 29 ALT 13 Alkaline Phosphatase 62 Total Creatine Kinase 214 H Troponin I High Sens 11.3 Total Protein 7.0 Albumin 4.2 Urine Color Yellow Urine Appearance Clear Urine pH 7.0 Ur Specific [place] 1.020 Urine Protein 300 (3+) H Urine Glucose (UA) Negative Urine Ketones Negative Urine Blood Small (1+) H Urine Nitrite Negative Ur Leukocyte Esterase Negative Urine RBC 3-5 H Urine WBC 0-5 Ur Squamous Epith Cells 0-2 Urine Bacteria None Seen Hyaline Casts 0-2 Urine Opiates Screen Not Detected Ur Buprenorphine Scrn Not Detected Ur Oxycodone Screen Not Detected Urine Methadone Screen Not Detected Urine Fentanyl Screen Not Detected Ur Barbiturates Screen Not Detected Ur Phencyclidine Scrn Not Detected Ur Amphetamines Screen Not Detected U Benzodiazepines Scrn Not Detected Urine Cocaine Screen Not Detected U Marijuana (THC) Screen Not Detected Influenza Type A (PCR) Influenza Type B (PCR) RSV RNA Qual (PCR) SARS-CoV-2 RNA (RT-PCR) 11/07/24 14:40 WBC RBC Hgb Hct MCV MCH MCHC RDW Plt Count MPV Immature Gran % (Auto) Neut % (Auto) Lymph % (Auto) [place] % (Auto) Eos % (Auto) Baso % (Auto) Lymph # (Auto) [place] # (Auto) Eos # (Auto) Baso # (Auto) Abs Immat Gran (auto) Absolute Neuts (auto) Absolute Nucleated RBC Nucleated RBC % (auto) Sodium Potassium Chloride Carbon Dioxide Anion Gap BUN Creatinine Estim Creat Clear Calc Estimated GFR Random Glucose Calcium Magnesium Total Bilirubin Direct Bilirubin AST ALT Alkaline Phosphatase Total Creatine Kinase Troponin I High Sens Total Protein Albumin Urine Color Urine Appearance Urine pH Ur Specific [place] Urine Protein Urine Glucose (UA) Urine Ketones Urine Blood Urine Nitrite Ur Leukocyte Esterase Urine RBC Urine WBC Ur Squamous Epith Cells Urine Bacteria Hyaline Casts Urine Opiates Screen Ur Buprenorphine Scrn Ur Oxycodone Screen Urine Methadone Screen Urine Fentanyl Screen Ur Barbiturates Screen Ur Phencyclidine Scrn Ur Amphetamines Screen U Benzodiazepines Scrn Urine Cocaine Screen U Marijuana (THC) Screen Influenza Type A (PCR) NEGATIVE Influenza Type B (PCR) NEGATIVE RSV RNA Qual (PCR) NEGATIVE SARS-CoV-2 RNA (RT-PCR) NEGATIVE Mental Status Exam Mental Status Exam Narrative: Appearance: Casually dressed, frail, disheveled Behavior: Calm and cooperative throughout the interview. Minimal eye contact, and there are no signs of psychomotor agitation or retardation Speech: Poverty of speech Thought process: Confused Thought content: Not assessed Mood: Calm Affect: Flat SI: Not assessed HI: Not assessed VH/AH: Not assessed Delusions: Not assessed Insight/judgment: Impaired insight and judgment Memory/cog: Alert and oriented to self Medications Medications Current Medications Atorvastatin Calcium (Atorvastatin Calcium 80 Mg Tablet) 80 mg PO DAILY COUNTS INCLUDE 234 BEDS AT THE [facility] Last Admin: 11/08/24 09:39 Dose: 80 mg Clopidogrel Bisulfate (Clopidogrel Bisulfate 75 Mg Tablet) 75 mg PO DAILY COUNTS INCLUDE 234 BEDS AT THE [facility] Last Admin: 11/08/24 09:39 Dose: 75 mg Lisinopril (Lisinopril 10 Mg Tablet) 30 mg PO DAILY COUNTS INCLUDE 234 BEDS AT THE [facility]; Protocol Last Admin: 11/08/24 09:39 Dose: 30 mg Tamsulosin HCl (Tamsulosin Hcl 0.4 Mg Capsule) 0.4 mg PO DAILY COUNTS INCLUDE 234 BEDS AT THE [facility] Last Admin: 11/08/24 09:39 Dose: 0.4 mg Allergies Allergies Allergy/AdvReac Type Severity Reaction Status Date / Time Unable to Assess Allergy Verified 11/06/24 19:36 Assessment & Plan Assessment & Plan (1) Altered mental status: Status: Acute Code(s): R41.82 - Altered mental status, unspecified Assessment and Plan: Patient evaluated for medication recommendation for ? undiagnosed dementia. Patient found sleeping in his bed with sitter at bedside. He is very confused and alert and oriented only to his name. He speaks in very shorts sentences and most of his words are unclear. According to nursing, he was very agitated last night and attempted to jump out of his bed. He eventually fell asleep after given medication for sleep and agitation. Recommended trial of trazodone 25 mg at bedtime to provider; may titrate. Total time managing care of this patient today ____ minutes. Patient educated on: therapeutic strategies
--- NOTE | 2024-11-08 20:54 | PC.NURSE ---
pt alert while awake but intermittently sleeping. He did not know his name this morning but does respond to it at times. He did know his birthday but was of to location, time, and situation. bed alarm, camera, and 1:1 engine wiper for safety. He took meds well an tolerated at least half of meals. Pt had visitors today and interacted with them.
[2024-11-08 23:34] VITALS: BP 165/69; PULSE 69; RESP 16; TEMP 36.8; O2SAT 96
[2024-11-08] MEDS: traZODone HCL 25 MG HALFTAB PO (23:36)
[2024-11-09 05:59] VITALS: BP 162/74; PULSE 75; RESP 18; TEMP 36.7; O2SAT 98
--- NOTE | 2024-11-09 07:20 | PC.NURSE ---
Assumed care of pt at 1900. Pt confused, alert to self only. Pt restless and agitated at start?of shift. YOHANNES Chisholm ordered trazodone po, given per APR. Pt continues to be restless, one time order of olanzapine from YOHANNES Chisholm given per APR. 1:[address] in place. Bed in lowest position, wheels locked, with bed alarm on. Call cuba in reach.
[2024-11-09 08:33] VITALS: BP 157/80; PULSE 81; RESP 16; TEMP 36.7; O2SAT 98
[2024-11-09 08:35] VITALS: BP 157/80
--- NOTE | 2024-11-09 14:23 | MHC.CM.ED ---
Patient remains in ER overflow. Spoke with patient's daughter, Bindu, via telephone. Bindu is in the process of obtaining [facility] and completing [facility] Questionnaire. Should have Medicaid Questionnaire and 6 months of bank statements tomorrow. Continue to monitor for d/c needs.
[2024-11-09 14:43] VITALS: BP 178/94; PULSE 80; RESP 16; TEMP 36.8; O2SAT 99
--- NOTE | 2024-11-09 17:02 | PC.NURSE ---
Purewick changed due to air leak. Connected to wall suction. Sitter remains at bedside. Patient alert & oriented to self only. Has been in behavioral control since this RN assumed care of the patient at 11:00AM today. Patient occasionally mumbles to himself or his surroundings. Dinner tray given at this time. Care ongoing by this RN. STR bedsearch continues per case management.
--- NOTE | 2024-11-09 18:38 | MHC.CM.ED ---
Pt now has scheduled Seroquel 25 mg po daily and trazadone at bedtime. Family continues to work on paperwork for MH application. Family in daily contact with AL
[2024-11-09 20:23] VITALS: BP 185/79; PULSE 86; RESP 18; O2SAT 97
[2024-11-09] MEDS: traZODone HCL 25 MG HALFTAB PO (21:11)
[2024-11-10 06:00] VITALS: BP 155/78; PULSE 89; RESP 18; TEMP 37.1; O2SAT 99
--- NOTE | 2024-11-10 07:52 | PC.NURSE ---
Patient is a 74-year-old male with a history of HTN, HLD, PAD, CVA on Plavix, tobacco use, presenting after an unwitnessed fall that occurred at home. EMS reports they are called to the scene for patient that was falling with a right elbow injury. Found sitting on his doorstep with slight confusion. According to his neighbors, this is his baseline. Patient evaluated by psychiatry and added seroquel and trazodone at night for periods of agitation. Patient confused. Avasure and sitter maintained for patients safety. Patient resting quietly. Lungs essentially clear. Respirations even and non-labored. Abdomen flat soft, non-tender with positive bowel sounds. Positive pedal pulses with no edema noted.
--- NOTE | 2024-11-10 12:01 | MHC.CM.ED ---
Patient remains in ER overflow. Medicaid Questionnaire provided by daughter, Bindu. Bindu will be away for work. However, she is actively obtaining bank statements and other documents required for LTC [facility] application. Referral has already been made to [facility] Financial Counselors. Bindu is awaiting their telephone call. There is a family member that is currently in LTC at [facility]. [facility] would be 1st choice. Referral sent to [place] via [employer] with the hopes that they will be able to accept him as [facility] pending. Continue to monitor for d/c needs.
--- NOTE | 2024-11-10 13:48 | MHC.CM.ED ---
Received case management consult overnight. Physical therapy eval completed. Short term rehab is recommended. Patient agreeable to referral being broadcasted locally for bed offers. Continue to monitor for d/c needs.
[2024-11-10 14:00] VITALS: BP 170/65; PULSE 79; RESP 16; TEMP 36.6; O2SAT 97
[2024-11-10 20:03] VITALS: BP 155/70; PULSE 90; RESP 18; TEMP 37.2; O2SAT 97
[2024-11-11 05:54] VITALS: BP 177/81; PULSE 82; RESP 18; TEMP 36.7; O2SAT 97
--- NOTE | 2024-11-11 07:21 | PC.NURSE ---
Patient is a 74-year-old male with a history of HTN, HLD, PAD, CVA on Plavix, tobacco use, presenting after an unwitnessed fall that occurred at home. EMS reports they are called to the scene for patient that was falling with a right elbow injury. Found sitting on his doorstep with slight confusion. According to his neighbors, this is his baseline. Patient evaluated by psychiatry and added seroquel and trazodone at night for periods of agitation. Patient extremely confused with minimal capability to answer simple questions. Avasure and sitter maintained for patients safety. Patient resting quietly. Lungs essentially clear. Respirations even and non-labored. Abdomen flat soft, non-tender with positive bowel sounds. Purewick patent and intact draining milagro urine. Positive pedal pulses with no edema noted. PO intake poor even with encouragement and attempts to feed. Family is working [facility].
--- NOTE | 2024-11-11 08:03 | MHC.EDTECH ---
1:1 feed, Refused his breakfast this morning RN aware.
--- NOTE | 2024-11-11 08:16 | MHC.CM.ED ---
Pt remains holding in the ED [facility] Pt's dtr is in the process of obtaining financial records and [facility] financial will assist with the application. Pt has referrals made for LTC placement. No offers at this time. ED CM to follow.
--- NOTE | 2024-11-11 11:00 | PC.NURSE ---
Bed bath and bed change provided. Purewick changed. Patient's PO intake poor, refusing to eat and taking PO liquids in small amounts. Provider notified and maintenance IVF' initiated.
[2024-11-11] MEDS: Lactated Ringers 1,000 ML 999 ML IV (11:02)
[2024-11-11 14:38] VITALS: BP 170/73; PULSE 80; RESP 16; TEMP 36.8; O2SAT 98
[2024-11-11] MEDS: traZODone HCL 25 MG HALFTAB PO (21:12)
[2024-11-11 22:00] VITALS: BP 168/70; PULSE 75; RESP 16; TEMP 36.9; O2SAT 98
[2024-11-12] VITALS (32 sets, daily range): BP systolic 106–216; BP diastolic 55–150; PULSE 79–127; RESP 13–25; TEMP 36.4–37.3; O2SAT 92–100; BMI 18.4
[2024-11-12 08:08] LABS: Glucose, Whole Blood 122 mg/dL (60-115)
--- NOTE | 2024-11-12 08:10 | ECG_ITS ---
Test Reason : SEIZURE Blood Pressure : */* mmHG Vent. Rate : 119 BPM Atrial Rate : 119 BPM P-R Int : 112 ms QRS Dur : 74 ms QT Int : 442 ms P-R-T Axes : * 59 85 degrees QTcB Int : 621 ms Sinus tachycardia with Premature supraventricular complexes Nonspecific ST and T wave abnormality Prolonged QT Abnormal ECG When compared with ECG of 06-Nov-2024 19:58, Premature supraventricular complexes are now Present ST more depressed Anterior leads Nonspecific T wave abnormality no longer evident in Inferior leads Nonspecific T wave abnormality now evident in Lateral leads Referred By: Dmitriy Arana Electronically Signed By: HERNAN SERRANO MD
--- NOTE | 2024-11-12 08:13 | PC.NURSE ---
Rn to RN with [facility] in ED. Pt transferred to ED following sz at aprox 8am pt was heard makig high pitch sounds, camera alerted staff. Sz was full tonic clonic affecting all extremities, lasted aprox 45 seconds. pt was unresponsive even to moderate physical stimuli following. color remained good throughout sz. was never dusky or [place] in color. Additional ED staff were summoned to Overflow and arrived after Sz activity stopped. IV established and patient transfered to ED.
[2024-11-12 08:23] LABS: MANUAL DIFF FLAG NO
[2024-11-12 08:27] LABS: Hematocrit 34.1 % (42.0-52.0); Hemoglobin 11.9 g/dl (14.0-18.0); Imm Gran Abs Auto 0.05 X10*3/uL (0.00-0.03); Imm Gran Pct Auto 0.4 % (0.0-0.4); Lymphocytes Absolute Auto 1.7 X10*3/uL (1.2-4.9); Mean Corpuscular HGB Conc 34.9 g/dl (31.0-36.0); Mean Corpuscular Hemoglobin 34.9 pg (27.0-33.0); Mean Corpuscular Volume 100.0 fL (80.0-98.0); NRBC Abs Auto 0.000 X10*3/uL (0.0-0.012); NRBC Pct Auto 0.0 /100WBC (0.0-0.2); Platelet Count 152 X10*3/uL (160-400); Red Blood Count 3.41 X10*6/uL (4.60-5.80); White Blood Count 11.3 X10*3/uL (4.8-10.8)
--- NOTE | 2024-11-12 08:43 | PC.NURSE ---
Pt [facility] s/p witnessed seizure. No hx of seizures. Pt post ictal on arrival to ED4. Arouses to sternal rub. Confused. DNFC. VIERA. Pt placed on monitor, 2LNC. VSS. ST on the monitor. Rectal temp 99.1. EKG obtained. CT head pending. Video monitor to be placed in room d/t pt not following commands and increased confusion. Unable to give PO meds at this time d/t AMS.
[2024-11-12 08:45] LABS: Alanine Aminotransferase 13 U/L (0-40); Albumin Level 3.5 g/dL (3.5-5.0); Alkaline Phosphatase 63 U/L (39-117); Anion Gap 23 (12-20); Aspartate Amino Transferase 27 U/L (5-37); Blood Urea Nitrogen 29 mg/dL (9-16); Calcium 8.8 mg/dL (8.4-10.2); Carbon Dioxide 14 mmol/L (22-29); Chloride 108 mmol/L (96-108); Creatinine Clr Calc Pharmacy 26.4; Estimated Glomerular Filt Rate 37; Magnesium 2.0 mg/dL (1.6-2.6); Potassium 3.2 mmol/L (3.3-5.1); Sodium 142 mmol/L (135-145); Total Protein 6.2 g/dL (6.5-8.0)
[2024-11-12] MEDS: Lactated Ringers 1,000 ML 999 ML IV (09:11)
--- NOTE | 2024-11-12 10:10 | P.HPHOSP_ITS ---
History of Present Illness Date of Service: 11/12/24 Chief Complaint: Medical consultation 74-year-old male with a history of HTN, HLD, PAD, CVA on Plavix, tobacco use, presenting after an unwitnessed fall that occurred at home. EMS reports they were called to the scene for patient that was falling with a right elbow injury. Found sitting on his doorstep with slight confusion. According to his neighbors, this is his baseline. Patient unable to give any information secondary to his altered mental status. He did not even know his name or . Head CT negative, elevated blood pressure readings, creat 1.82, potassium 3.2. He was given IV fluids, IV potassium in the ED. Review of Systems 2 Review of Systems: Yes Unobtainable due to mental status PMFSH Social History Unable to assess alcohol history related to: Unable to respond Use of substances other than those prescribed or required for medical reasons: Unable to respond Advance Directives: No Advance Directives Information Provided: No Do you have a plan to hurt others: No Plan Meds Allergies Allergy/AdvReac Type Severity Reaction Status Date / Time Unable to Assess Allergy Verified 11/06/24 19:36 Active Medications: Current Medications Atorvastatin Calcium (Atorvastatin Calcium 80 Mg Tablet) 80 mg PO DAILY [facility] Last Admin: 11/12/24 08:42 Dose: Not Given Clopidogrel Bisulfate (Clopidogrel Bisulfate 75 Mg Tablet) 75 mg PO DAILY [facility] Last Admin: 11/12/24 08:42 Dose: Not Given Lisinopril (Lisinopril 10 Mg Tablet) 30 mg PO DAILY [facility]; Protocol Last Admin: 11/12/24 08:43 Dose: Not Given Quetiapine Fumarate (Quetiapine Fumarate 25 Mg Tablet) 25 mg PO DAILY [facility] Last Admin: 11/12/24 08:43 Dose: Not Given Tamsulosin HCl (Tamsulosin Hcl 0.4 Mg Capsule) 0.4 mg PO DAILY [facility] Last Admin: 11/12/24 08:43 Dose: Not Given Trazodone HCl (Trazodone Hcl 25 Mg Halftab) 25 mg PO BEDTIME [facility] Last Admin: 11/11/24 21:12 Dose: 25 mg Home Medications ?Medication ?Instructions ?Recorded ?Confirmed ?Last Taken ?Type clopidogrel 75 mg tablet 75 mg PO DAILY 11/07/2411/23 Unknown History lisinopril 30 mg tablet 30 mg PO DAILY 11/07/2411/23 Unknown History rosuvastatin 40 mg tablet 40 mg PO DAILY 11/07/2411/23 Unknown History tamsulosin 0.4 mg capsule 0.4 mg PO DAILY 11/07/2411/23 Unknown History Physical Exam 2 Vital Signs and Narrative: Vital Signs: Last Vital Signs Temp 98.2 F 11/12/24 09:43 Pulse 99 11/12/24 09:43 Resp 18 11/12/24 09:43 BP 180/81 H 11/12/24 09:43 Pulse Ox 97 11/12/24 09:43 O2 Del Method Room Air 11/12/24 09:43 O2 Flow Rate 2 11/12/24 08:39 BMI result Body Mass Index 17.1 Appearing in no acute distress head is normocephalic atraumatic eyes pupils are PERRLA sclera is anicteric mouth throat mucous membranes are intact and moist neck is supple no lymphadenopathy, no JVD noted lung sounds are clear to auscultation heart regular rate rhythm, clear S1, S2 positive bowel sounds, abdomen is soft, nontender neuro patient is alert, confused Results Labs 11/12/24 08:19 11/12/24 08:19 Labs: Laboratory Results - last 24 hr 11/12/24 11/12/24 08:04 08:19 MCV 100.0 H MCH 34.9 H MCHC 34.9 RDW 15.3 Plt Count 152 L MPV 9.6 Immature Gran % (Auto) 0.4 Neut % (Auto) 76.5 H Lymph % (Auto) 15.1 L [place] % (Auto) 7.1 Eos % (Auto) 0.6 Baso % (Auto) 0.3 Lymph # (Auto) 1.7 [place] # (Auto) 0.8 Eos # (Auto) 0.1 Baso # (Auto) 0.0 Abs Immat Gran (auto) 0.05 H Absolute Neuts (auto) 8.7 H Absolute Nucleated RBC 0.000 Nucleated RBC % (auto) 0.0 Anion Gap 23 H Estim Creat Clear Calc 26.4 Estimated GFR 37 POC Glucose 122 H Random Glucose 132 H Calcium 8.8 Magnesium 2.0 Total Bilirubin 1.5 H Direct Bilirubin 0.6 H AST 27 ALT 13 Alkaline Phosphatase 63 Total Protein 6.2 L Albumin 3.5 Assessment and Plan (1) Acute kidney injury: Status: Acute Plan 74 year old man admitted for new onset seizure and BARRIE. Patient was boarding in ED with plans for Placement to STR New onset seizure No significant electrolytes abnormalities seizure precautions EEG monitor labs closely Metabolic encephalopathy vs dementia monitor mental status with improvement of renal function and electrolyte abnormality Falls PT consultation>rec STR BARRIE Lisinopril stopped IV fluids Hypokalemia replete HTN with elevated blood pressure readings Hold lisinopril due to BARRIE Normocytic anemia No obvious blood loss Monitor DVT prophylaxis with Heparin DNR/DNI Quality Stroke Does the patient have a stroke diagnosis?: No VTE Prior VTE?: No VTE Risk Level:: Medical - moderate - high VTE Device Contraindication: Treatment Not Indicated VTE Drug Contraindication: N/A - Med Ordered
--- NOTE | 2024-11-12 10:12 | ECG_ITS ---
Test Reason : REPEAT EKG Blood Pressure : */* mmHG Vent. Rate : 90 BPM Atrial Rate : 90 BPM P-R Int : 148 ms QRS Dur : 72 ms QT Int : 380 ms P-R-T Axes : 68 58 71 degrees QTcB Int : 464 ms Normal sinus rhythm with sinus arrhythmia Nonspecific ST and T wave abnormality Abnormal ECG When compared with ECG of 12-Nov-2024 08:31, Premature supraventricular complexes are no longer Present Referred By: Dmitriy Arana Electronically Signed By: MARIZA FERRARI
[2024-11-12] MEDS: Potassium Chloride/H20 10 MEQ/100 ML PIGGYBACK 100 MEQ IV ×2 (12:08→12:57)
[2024-11-12] MEDS: traZODone HCL 25 MG HALFTAB PO (20:42)
[2024-11-12] MEDS: 0.9 % Sodium Chloride Flush 3 ML SYRINGE IVFLUSH (22:59)
[2024-11-13 03:31] VITALS: BP 155/67; PULSE 81; RESP 19; TEMP 36.6; O2SAT 97
[2024-11-13 07:18] VITALS: BP 144/66; PULSE 79; RESP 16; TEMP 36.6; O2SAT 98
--- NOTE | 2024-11-13 07:36 | P.PNIM_ITS ---
Subjective Subjective Date of Service: 11/13/24 Interval History: Significant decline in patient's health per daughter who is the healthcare proxy Patient has been falling at home, limited ADLs Prior history of alcohol use disorder, substance use disorder, Healthcare proxy invoked healthcare proxy invoked Family has been working on long-term placement If patient were to decompensate-reach out to family prior to escalating care Review of Systems Review of Systems: Yes Unobtainable due to mental condition and Unobtainable due to mental status Physical Exam 2 Exam: Exam: General: AOx3, no acute distress, pleasantly confused Resp: CTA bilaterally CVS: S1, S2, RRR GI: +BS, NT, no distention Neuro: Unable to follow directions hence exam limited Vital Signs: Vital Signs: Last Vital Signs Temp 97.8 F 11/13/24 07:18 Pulse 79 11/13/24 07:18 Resp 16 11/13/24 07:18 BP 144/66 H 11/13/24 07:18 Pulse Ox 98 11/13/24 07:18 O2 Del Method Room Air 11/13/24 07:18 O2 Flow Rate 2 11/12/24 09:51 BMI result Body Mass Index 18.4 Objective Data Active Medications Acetaminophen (Acetaminophen 325 Mg Tablet) 650 mg PO Q6H PRN PRN Reason: Pain, Mild 1-3,fever,headache Amlodipine Besylate (Amlodipine Besylate 5 Mg Tablet) 5 mg PO DAILY [facility]; Protocol Last Admin: 11/12/24 11:23 Dose: 5 mg Documented By: TREVOR Atorvastatin Calcium (Atorvastatin Calcium 80 Mg Tablet) 80 mg PO DAILY [facility] Last Admin: 11/12/24 08:42 Dose: Not Given Documented By: TREVOR Non-Admin Reason: See Note Calcium Carbonate (Calcium Carbonate 750 Mg Tab.Chew) 750 mg PO Q4H PRN PRN Reason: Heartburn Clopidogrel Bisulfate (Clopidogrel Bisulfate 75 Mg Tablet) 75 mg PO DAILY [facility] Last Admin: 11/12/24 08:42 Dose: Not Given Documented By: TREVOR Non-Admin Reason: See Note Heparin Sodium (Porcine) (Heparin Sodium,Porcine 5,000 Unit/Ml Vial) 5,000 unit SUBCUT Q12H [facility] Last Admin: 11/12/24 22:59 Dose: 5,000 unit Documented By: WALLACE Hydralazine HCl (Hydralazine Hcl 20 Mg/Ml Vial) 5 mg IVPUSH Q6H PRN; Protocol PRN Reason: SBP>190 Magnesium Hydroxide (Milk Of Magnesia 30 Ml Oral.Susp) 30 ml PO DAILY PRN PRN Reason: Constipation Magnesium Hydroxide (Milk Of Magnesia 30 Ml Oral.Susp) 30 ml PO DAILY PRN PRN Reason: Constipation Melatonin (Melatonin 3 Mg Tablet) 6 mg PO BEDTIME PRN PRN Reason: Insomnia Quetiapine Fumarate (Quetiapine Fumarate 25 Mg Tablet) 25 mg PO DAILY [facility] Last Admin: 11/12/24 08:43 Dose: Not Given Documented By: TREVOR Non-Admin Reason: See Note Sodium Chloride (0.9 % Sodium Chloride Flush 3 Ml Syringe) 3 ml IVFLUSH QSHIFT [facility] Last Admin: 11/12/24 22:59 Dose: 3 ml Documented By: WALLACE Tamsulosin HCl (Tamsulosin Hcl 0.4 Mg Capsule) 0.4 mg PO DAILY [facility] Last Admin: 11/12/24 08:43 Dose: Not Given Documented By: TREVOR Non-Admin Reason: See Note Trazodone HCl (Trazodone Hcl 25 Mg Halftab) 25 mg PO BEDTIME [facility] Last Admin: 11/12/24 20:42 Dose: 25 mg Documented By: BRAXTON Labs 11/13/24 09:30 11/13/24 09:30 Labs: Laboratory Results - last 24 hr 11/12/24 11/12/24 08:04 08:19 MCV 100.0 H MCH 34.9 H MCHC 34.9 RDW 15.3 Plt Count 152 L MPV 9.6 Immature Gran % (Auto) 0.4 Neut % (Auto) 76.5 H Lymph % (Auto) 15.1 L [place] % (Auto) 7.1 Eos % (Auto) 0.6 Baso % (Auto) 0.3 Lymph # (Auto) 1.7 [place] # (Auto) 0.8 Eos # (Auto) 0.1 Baso # (Auto) 0.0 Abs Immat Gran (auto) 0.05 H Absolute Neuts (auto) 8.7 H Absolute Nucleated RBC 0.000 Nucleated RBC % (auto) 0.0 Anion Gap 23 H Estim Creat Clear Calc 26.4 Estimated GFR 37 POC Glucose 122 H Random Glucose 132 H Calcium 8.8 Magnesium 2.0 Total Bilirubin 1.5 H Direct Bilirubin 0.6 H AST 27 ALT 13 Alkaline Phosphatase 63 Total Protein 6.2 L Albumin 3.5 Assessment and Plan (1) Frequent falls: Status: Acute Plan Patient is an elderly who appears to have gradually declining health over the past few weeks and months, with notable Alzheimer's dementia, PMH HTN, HLD, PVD, CVA on Plavix, prior substance use, alcohol use disorder who has been falling at home per his daughter who is the primary historian and healthcare proxy. Falls likely physical deconditioning ?Wernicke's encephalopathy Advanced Alzheimers Prior substance use Prior alcohol use Likely secondary to declining health Fall precautions We will check B12, folate and we will supplement Patient requires rehab Per daughter, patient has limited ADLs and they were in the process of looking for placement for him HTN HLD CVA Continue home meds Patient needs rehab placement and permanent long-term placement Patient not safe to reach PTOT consulted manager safe informed This note is constructed using voice recognition software. While every effort has been made to ensure accuracy, correction officer city or county jail errors may have been included. Quality Stroke Does the patient have a stroke diagnosis?: No VTE Prior VTE?: No VTE Risk Level:: Medical - moderate - high VTE Device Contraindication: Treatment Not Indicated VTE Drug Contraindication: N/A - Med Ordered
[2024-11-13] MEDS: 0.9 % Sodium Chloride Flush 3 ML SYRINGE IVFLUSH ×2 (08:54→18:02)
[2024-11-13 09:51] LABS: Hematocrit 31.5 % (42.0-52.0); Hemoglobin 11.1 g/dl (14.0-18.0); Mean Corpuscular HGB Conc 35.2 g/dl (31.0-36.0); Mean Corpuscular Hemoglobin 35.2 pg (27.0-33.0); Mean Corpuscular Volume 100.0 fL (80.0-98.0); NRBC Abs Auto 0.000 X10*3/uL (0.0-0.012); NRBC Pct Auto 0.0 /100WBC (0.0-0.2); Platelet Count 169 X10*3/uL (160-400); Red Blood Count 3.15 X10*6/uL (4.60-5.80); White Blood Count 10.7 X10*3/uL (4.8-10.8)
[2024-11-13 10:07] LABS: Magnesium 2.0 mg/dL (1.6-2.6)
[2024-11-13 10:32] VITALS: BMI 18.4
--- NOTE | 2024-11-13 10:34 | MHC.CLN ---
PT IS MODERATELY MALNOURISHED PT WITH MILDLY DEPLETED SUBCUTANEOUS FAT AND MUSCLE MASS WITH BMI 18.4 DIET RX: 2GM NA RECOMMEND ADDING ENSURE BID TO INCREASE KCALS SUPP TO PROVIDE 700KCALS, 40G PROTEIN MONITOR PO INTAKE AND ENCOURAGE SUPPLEMENTS SEE FULL ASSESSMENT
--- NOTE | 2024-11-13 10:42 | MHC.CM.PN ---
IMM 11/13/24, Discussed with HCP, MD Radha reported that pt. has AMS. Pt. was living alone, HCP reports that this was dangerous for him, goal is LTC in SNF, first choice is [facility]. HCP is working with financial counselor here on [facility].. CM to follow for DC needs, referral out to [facility].
[2024-11-13 11:00] LABS: Anion Gap 17 (12-20); Blood Urea Nitrogen 39 mg/dL (9-16); Calcium 9.0 mg/dL (8.4-10.2); Carbon Dioxide 20 mmol/L (22-29); Chloride 108 mmol/L (96-108); Creatinine Clr Calc Pharmacy 18.8; Estimated Glomerular Filt Rate 23; Potassium 3.9 mmol/L (3.3-5.1); Sodium 141 mmol/L (135-145)
[2024-11-13 11:25] VITALS: BP 153/70; PULSE 73; RESP 18; TEMP 36.5; O2SAT 98
--- NOTE | 2024-11-13 13:14 | HO.HCP ---
Health Care Proxy Invocation Health Care Proxy Declaration: I, , on the date cited below, have determined that, ____Bayron Lin , lacks the capacity to make or communicate, informed health care decision. This determination is made in accordance with accepted standards of medical judgment and pursuant to [place] 201[place], the [facility] Care Proxy Law. The cause, nature, extent and probable duration of the patient's inapacity are described below: Cause: Moderate to severe Alzheimer's Nature: Natural Extent: Profound Probable Duration of Patient's Incapacity: Indefinite
[2024-11-13 15:55] VITALS: BP 152/68; PULSE 78; RESP 19; TEMP 36.7; O2SAT 97
[2024-11-13 19:31] VITALS: BP 155/74; PULSE 87; RESP 18; TEMP 36.5; O2SAT 98
[2024-11-13 19:50] LABS: Folate 4.7 ng/mL (> or = 4.0); Vitamin B12 427 pg/mL (200-900)
[2024-11-13] MEDS: traZODone HCL 25 MG HALFTAB PO (20:04)
[2024-11-13 23:24] VITALS: BP 177/77; PULSE 83; RESP 18; TEMP 37.1; O2SAT 92
[2024-11-14 03:14] VITALS: BP 123/60; PULSE 89; RESP 18; TEMP 36.4; O2SAT 98
--- NOTE | 2024-11-14 07:20 | P.PNIM_ITS ---
Subjective Subjective Date of Service: 11/14/24 Interval History: contract associate manager looking for placement Appears to be significantly better-he appears to be sleeping and more peaceful Review of Systems Review of Systems: Yes Unobtainable due to mental condition and Unobtainable due to mental status Physical Exam 2 Exam: Exam: General: AOx3, no acute distress, pleasantly confused Resp: CTA bilaterally CVS: S1, S2, RRR GI: +BS, NT, no distention Neuro: Unable to follow directions hence exam limited Vital Signs: Vital Signs: Last Vital Signs Temp 97.6 F 11/14/24 03:14 Pulse 89 11/14/24 03:14 Resp 18 11/14/24 03:14 BP 123/60 11/14/24 03:14 Pulse Ox 98 11/14/24 03:14 O2 Del Method Room Air 11/14/24 03:14 O2 Flow Rate 2 11/12/24 09:51 BMI result Body Mass Index 18.4 Objective Data Active Medications Acetaminophen (Acetaminophen 325 Mg Tablet) 650 mg PO Q6H PRN PRN Reason: Pain, Mild 1-3,fever,headache Amlodipine Besylate (Amlodipine Besylate 5 Mg Tablet) 5 mg PO DAILY [facility]; Protocol Last Admin: 11/13/24 08:55 Dose: 5 mg Documented By: SHERI Atorvastatin Calcium (Atorvastatin Calcium 80 Mg Tablet) 80 mg PO DAILY [facility] Last Admin: 11/13/24 08:55 Dose: 80 mg Documented By: SHERI Calcium Carbonate (Calcium Carbonate 750 Mg Tab.Chew) 750 mg PO Q4H PRN PRN Reason: Heartburn Clopidogrel Bisulfate (Clopidogrel Bisulfate 75 Mg Tablet) 75 mg PO DAILY [facility] Last Admin: 11/13/24 08:55 Dose: 75 mg Documented By: SHERI Folic Acid (Folic Acid 1 Mg Tablet) 1 mg PO DAILY [facility] Last Admin: 11/13/24 19:04 Dose: 1 mg Documented By: GRACIE Heparin Sodium (Porcine) (Heparin Sodium,Porcine 5,000 Unit/Ml Vial) 5,000 unit SUBCUT Q12H [facility] Last Admin: 11/13/24 23:45 Dose: 5,000 unit Documented By: LOPEZ Hydralazine HCl (Hydralazine Hcl 20 Mg/Ml Vial) 5 mg IVPUSH Q6H PRN; Protocol PRN Reason: SBP>190 Magnesium Hydroxide (Milk Of Magnesia 30 Ml Oral.Susp) 30 ml PO DAILY PRN PRN Reason: Constipation Magnesium Hydroxide (Milk Of Magnesia 30 Ml Oral.Susp) 30 ml PO DAILY PRN PRN Reason: Constipation Melatonin (Melatonin 3 Mg Tablet) 6 mg PO BEDTIME PRN PRN Reason: Insomnia Quetiapine Fumarate (Quetiapine Fumarate 25 Mg Tablet) 25 mg PO DAILY [facility] Last Admin: 11/13/24 08:55 Dose: 25 mg Documented By: SHERI Sodium Chloride (0.9 % Sodium Chloride Flush 3 Ml Syringe) 3 ml IVFLUSH QSHIFT [facility] Last Admin: 11/14/24 00:10 Dose: Not Given Documented By: LOPEZ Non-Admin Reason: Previously Administered Tamsulosin HCl (Tamsulosin Hcl 0.4 Mg Capsule) 0.4 mg PO DAILY [facility] Last Admin: 11/13/24 08:55 Dose: 0.4 mg Documented By: SHERI Thiamine HCl (Thiamine Hcl 100 Mg Tablet) 100 mg PO DAILY [facility] Last Admin: 11/13/24 19:04 Dose: 100 mg Documented By: GRACIE Trazodone HCl (Trazodone Hcl 25 Mg Halftab) 25 mg PO BEDTIME [facility] Last Admin: 11/13/24 20:04 Dose: 25 mg Documented By: LOPEZ Labs 11/14/24 12:56 11/14/24 12:56 Labs: Laboratory Results - last 24 hr 11/13/24 11/13/24 09:30 18:50 MCV 100.0 H MCH 35.2 H MCHC 35.2 RDW 15.5 Plt Count 169 MPV 9.4 Absolute Nucleated RBC 0.000 Nucleated RBC % (auto) 0.0 Anion Gap 17 Estim Creat Clear Calc 18.8 Estimated GFR 23 Random Glucose 105 Calcium 9.0 Magnesium 2.0 Vitamin B12 427 Folate 4.7 Assessment and Plan (1) Frequent falls: Status: Acute Plan Patient is an elderly who appears to have gradually declining health over the past few weeks and months, with notable Alzheimer's dementia, PMH HTN, HLD, PVD, CVA on Plavix, prior substance use, alcohol use disorder who has been falling at home per his daughter who is the primary historian and healthcare proxy. Falls likely physical deconditioning ?Wernicke's encephalopathy Advanced Alzheimers Prior substance use Prior alcohol use Likely secondary to declining health Fall precautions Continue B12 and folate Patient requires rehab -showcase maker working on it Per daughter, patient has limited ADLs and they were in the process of looking for placement for him-will likely need permanent long-term placement HTN HLD CVA Continue home meds Patient needs rehab placement and permanent long-term placement Patient not safe to reach PTOT consulted contract associate manager informed This note is constructed using voice recognition software. While every effort has been made to ensure accuracy, shirt closer errors may have been included. Quality Stroke Does the patient have a stroke diagnosis?: No VTE Prior VTE?: No VTE Risk Level:: Medical - moderate - high VTE Device Contraindication: Treatment Not Indicated VTE Drug Contraindication: N/A - Med Ordered
[2024-11-14 07:41] VITALS: BP 130/52; PULSE 79; RESP 17; TEMP 36.3; O2SAT 97
[2024-11-14 11:25] VITALS: BP 150/58; PULSE 82; RESP 18; TEMP 36.5; O2SAT 95
--- NOTE | 2024-11-14 12:23 | MHC.SL.SWA ---
Speech Pathologist Impression: Risk of Aspiration Due to: Dysphasia Diet Status: Liquid Consistency and Strategies for Safe Swallow: Liquid Intake Recommendation: Thin Liquid Intake Strategies: Solid Food Consistency: Dietary Recommendations: Chopped/Advanced (NDD3) Additional Modifications to Solid Foods: Oral Medication Intake: Whole with Puree Please contact the pharmacy regarding appropriate crushable or liquid drug formulations that are available whenever modified delivery is recommended. Compensatory Strategies and Precautions to be Taken for Safe Swallow: Recommend direct supervision at meals with assistance as needed (e.g. preparation and orientation to tray items, open all containers, encourage patient to try different foods/eat, cue to slow if drinking too rapidly) Supervision While Eating and Drinking for Safe Swallow: Direct Supervision (1:1) Foods to Avoid: Tough, difficult to chew solids, mixed consistencies. Swallowing Recommended Treatments: Recommendation for Speech: Inpatient Speech Therapy Comment: Patient presents with mild oral pharyngeal dysphagia, with dyspepsia/burping and some throat clearing noted on thin liquids, and aversion/guarding noted when presented with solid foods. Patient is highly confused. Recommend DOWNGRADE diet to CHOPPED/ADVANCED (NDD3) continue on thin liquids, pills whole or crushed in puree as tolerated by patient. Patient is at risk for FTT due to behaviors. Recommend direct supervision at meals with assistance as needed (e.g. preparation and orientation to tray items, open all containers, encourage patient to try different foods/eat, cue to slow if drinking too rapidly). MD/RD/RN notified of recommendations by secure text, MANAGER OF CHANGE adjusted diet in expanse, will continue to follow while inpatient for toleration. Frequency/Duration: Date Range for Service Req: Timeline to reassess: Telegrapher Agent Clinican/Clinical Fellow: No Supervisory Statement: I have reviewed and agree with the student/clinical fellow's documentation: N/A Speech Language Pathologist: Leslie Ontiveros M.A., [facility]-MANAGER OF CHANGE
--- NOTE | 2024-11-14 12:59 | MHC.CM.PN ---
[facility] financial counselor working with HCP on LTC [facility]. Gave her info on 11/13/24, list of docs needed.
[2024-11-14 13:00] LABS: MANUAL DIFF FLAG NO
[2024-11-14 13:03] LABS: Hematocrit 33.4 % (42.0-52.0); Hemoglobin 11.5 g/dl (14.0-18.0); Imm Gran Abs Auto 0.05 X10*3/uL (0.00-0.03); Imm Gran Pct Auto 0.5 % (0.0-0.4); Lymphocytes Absolute Auto 1.0 X10*3/uL (1.2-4.9); Mean Corpuscular HGB Conc 34.4 g/dl (31.0-36.0); Mean Corpuscular Hemoglobin 34.2 pg (27.0-33.0); Mean Corpuscular Volume 99.4 fL (80.0-98.0); NRBC Abs Auto 0.000 X10*3/uL (0.0-0.012); NRBC Pct Auto 0.0 /100WBC (0.0-0.2); Platelet Count 181 X10*3/uL (160-400); Red Blood Count 3.36 X10*6/uL (4.60-5.80); White Blood Count 10.1 X10*3/uL (4.8-10.8)
[2024-11-14 13:21] LABS: Alanine Aminotransferase 20 U/L (0-40); Albumin Level 3.5 g/dL (3.5-5.0); Alkaline Phosphatase 66 U/L (39-117); Anion Gap 13 (12-20); Aspartate Amino Transferase 41 U/L (5-37); Blood Urea Nitrogen 42 mg/dL (9-16); Calcium 9.1 mg/dL (8.4-10.2); Carbon Dioxide 25 mmol/L (22-29); Chloride 110 mmol/L (96-108); Creatinine Clr Calc Pharmacy 23.5; Estimated Glomerular Filt Rate 29; Potassium 3.5 mmol/L (3.3-5.1); Sodium 144 mmol/L (135-145); Total Protein 6.5 g/dL (6.5-8.0)
[2024-11-14 15:18] VITALS: BP 152/60; PULSE 87; RESP 17; TEMP 36.7; O2SAT 99
--- NOTE | 2024-11-14 19:20 | PC.NURSE ---
Patient refused morning medication including heparin injection. Impulsive requiring frequent re-direction. Confused, resistive to care, incontinent of urine, no BM.
[2024-11-14 19:52] VITALS: BP 179/74; PULSE 78; RESP 18; TEMP 36.2; O2SAT 98
[2024-11-14] MEDS: traZODone HCL 25 MG HALFTAB PO (20:02)
[2024-11-14] MEDS: 0.9 % Sodium Chloride Flush 3 ML SYRINGE IVFLUSH (20:04)
[2024-11-14 21:00] VITALS: BP 170/65
[2024-11-15] VITALS (7 sets, daily range): BP systolic 136–174; BP diastolic 58–66; PULSE 74–99; RESP 16–20; TEMP 35.7–36.5; O2SAT 95–100
--- NOTE | 2024-11-15 05:39 | PM.EVENT ---
Event Note Date of Service: 11/15/24 Event Note: 05:34 - Patient was found to have urinary retention by nursing; bladder scan showed 1300 mL as residual. We will place a indwelling urinary catheter for bladder decompression in the setting of acute kidney injury. Time Spent With Patient Time: Total time managing care of this patient today ____ minutes.
[2024-11-15 06:09] LABS: Appearance Urine Clear; Glucose Urine UA Negative (Negative); PH 7.0 (5.0-9.0); Specific Gravity - Urine 1.015 (1.005-1.025); UMIC TRIGGER UACC YES
--- NOTE | 2024-11-15 06:10 | PC.NURSE ---
Patient bladder scanned at 05:34 for 1,300mls. notified. Chisholm catheter ordered and placed. UA ordered and obtained. Chisholm draining dark yellow urine
[2024-11-15 06:11] LABS: UACC Culture Trigger YES
[2024-11-15 06:24] LABS: MANUAL DIFF FLAG NO
[2024-11-15 06:27] LABS: Hematocrit 31.7 % (42.0-52.0); Hemoglobin 11.2 g/dl (14.0-18.0); Imm Gran Abs Auto 0.06 X10*3/uL (0.00-0.03); Imm Gran Pct Auto 0.6 % (0.0-0.4); Lymphocytes Absolute Auto 1.4 X10*3/uL (1.2-4.9); Mean Corpuscular HGB Conc 35.3 g/dl (31.0-36.0); Mean Corpuscular Hemoglobin 34.8 pg (27.0-33.0); Mean Corpuscular Volume 98.4 fL (80.0-98.0); NRBC Abs Auto 0.000 X10*3/uL (0.0-0.012); NRBC Pct Auto 0.0 /100WBC (0.0-0.2); Platelet Count 190 X10*3/uL (160-400); Red Blood Count 3.22 X10*6/uL (4.60-5.80); White Blood Count 9.4 X10*3/uL (4.8-10.8)
[2024-11-15 06:46] LABS: Alanine Aminotransferase 19 U/L (0-40); Albumin Level 3.4 g/dL (3.5-5.0); Alkaline Phosphatase 68 U/L (39-117); Anion Gap 12 (12-20); Aspartate Amino Transferase 37 U/L (5-37); Blood Urea Nitrogen 46 mg/dL (9-16); Calcium 8.9 mg/dL (8.4-10.2); Carbon Dioxide 24 mmol/L (22-29); Chloride 109 mmol/L (96-108); Creatinine Clr Calc Pharmacy 16.6; Estimated Glomerular Filt Rate 20; Potassium 3.4 mmol/L (3.3-5.1); Sodium 142 mmol/L (135-145); Total Protein 6.3 g/dL (6.5-8.0)
--- NOTE | 2024-11-15 08:43 | P.PNIM_ITS ---
Subjective Subjective Date of Service: 11/15/24 Interval History: Apparently overnight patient appears to have had acute urinary retention Physical Exam 2 Exam: Exam: General: AOx3, no acute distress, pleasantly confused Resp: CTA bilaterally CVS: S1, S2, RRR GI: +BS, NT, no distention : Has a Chisholm catheter in place draining clear yellow colored urine Neuro: Unable to follow directions hence exam limited Vital Signs: Vital Signs: Last Vital Signs Temp 97.6 F 11/15/24 04:00 Pulse 99 11/15/24 04:00 Resp 16 11/15/24 04:00 BP 174/58 H 11/15/24 04:00 Pulse Ox 99 11/15/24 04:00 O2 Del Method Room Air 11/15/24 04:00 O2 Flow Rate 2 11/12/24 09:51 BMI result Body Mass Index 18.4 Objective Data Active Medications Acetaminophen (Acetaminophen 325 Mg Tablet) 650 mg PO Q6H PRN PRN Reason: Pain, Mild 1-3,fever,headache Amlodipine Besylate (Amlodipine Besylate 5 Mg Tablet) 5 mg PO DAILY [facility]; Protocol Last Admin: 11/14/24 10:53 Dose: Not Given Documented By: YESENIA Non-Admin Reason: Patient Refused Atorvastatin Calcium (Atorvastatin Calcium 80 Mg Tablet) 80 mg PO DAILY [facility] Last Admin: 11/14/24 10:53 Dose: Not Given Documented By: YESENIA Non-Admin Reason: Patient Refused Calcium Carbonate (Calcium Carbonate 750 Mg Tab.Chew) 750 mg PO Q4H PRN PRN Reason: Heartburn Ceftriaxone Sodium (Ceftriaxone Sodium 1 Gm Vial) 1 gm IVPUSH Q24H [facility] Clopidogrel Bisulfate (Clopidogrel Bisulfate 75 Mg Tablet) 75 mg PO DAILY [facility] Last Admin: 11/14/24 10:54 Dose: Not Given Documented By: YESENIA Non-Admin Reason: Patient Refused Folic Acid (Folic Acid 1 Mg Tablet) 1 mg PO DAILY [facility] Last Admin: 11/14/24 10:54 Dose: Not Given Documented By: YESENIA Non-Admin Reason: Patient Refused Heparin Sodium (Porcine) (Heparin Sodium,Porcine 5,000 Unit/Ml Vial) 5,000 unit SUBCUT Q12H [facility] Last Admin: 11/14/24 23:36 Dose: 5,000 unit Documented By: NATASHA Hydralazine HCl (Hydralazine Hcl 20 Mg/Ml Vial) 5 mg IVPUSH Q6H PRN; Protocol PRN Reason: SBP>190 Magnesium Hydroxide (Milk Of Magnesia 30 Ml Oral.Susp) 30 ml PO DAILY PRN PRN Reason: Constipation Melatonin (Melatonin 3 Mg Tablet) 6 mg PO BEDTIME PRN PRN Reason: Insomnia Quetiapine Fumarate (Quetiapine Fumarate 25 Mg Tablet) 25 mg PO DAILY [facility] Last Admin: 11/14/24 10:54 Dose: Not Given Documented By: YESENIA Non-Admin Reason: Patient Refused Sodium Chloride (0.9 % Sodium Chloride Flush 3 Ml Syringe) 3 ml IVFLUSH QSHIFT [facility] Last Admin: 11/14/24 20:04 Dose: 3 ml Documented By: NATASHA Tamsulosin HCl (Tamsulosin Hcl 0.4 Mg Capsule) 0.4 mg PO DAILY [facility] Last Admin: 11/14/24 10:54 Dose: Not Given Documented By: YESENIA Non-Admin Reason: Patient Refused Thiamine HCl (Thiamine Hcl 100 Mg Tablet) 100 mg PO DAILY [facility] Last Admin: 11/14/24 10:54 Dose: Not Given Documented By: YESENIA Non-Admin Reason: Patient Refused Trazodone HCl (Trazodone Hcl 25 Mg Halftab) 25 mg PO BEDTIME [facility] Last Admin: 11/14/24 20:02 Dose: 25 mg Documented By: NATASHA Labs 11/15/24 05:57 11/15/24 05:57 Labs: Laboratory Results - last 24 hr 11/14/24 11/15/24 11/15/24 12:56 05:45 05:57 MCV 99.4 H 98.4 H MCH 34.2 H 34.8 H MCHC 34.4 35.3 RDW 15.6 15.1 Plt Count 181 190 MPV 9.1 L 9.5 Immature Gran % (Auto) 0.5 H 0.6 H Neut % (Auto) 81.6 H 77.6 H Lymph % (Auto) 10.1 L 14.8 L [place] % (Auto) 6.8 5.9 Eos % (Auto) 0.7 0.8 Baso % (Auto) 0.3 0.3 Lymph # (Auto) 1.0 L 1.4 [place] # (Auto) 0.7 0.6 Eos # (Auto) 0.1 0.1 Baso # (Auto) 0.0 0.0 Abs Immat Gran (auto) 0.05 H 0.06 H Absolute Neuts (auto) 8.2 7.3 Absolute Nucleated RBC 0.000 0.000 Nucleated RBC % (auto) 0.0 0.0 Anion Gap 13 12 Estim Creat Clear Calc 23.5 16.6 Estimated GFR 29 20 Random Glucose 133 H 118 H Calcium 9.1 8.9 Total Bilirubin 0.6 0.7 AST 41 H 37 ALT 20 19 Alkaline Phosphatase 66 68 Total Protein 6.5 6.3 L Albumin 3.5 3.4 L Urine Color Yellow Urine Appearance Clear Urine pH 7.0 Ur Specific [place] 1.015 Urine Protein 100 (2+) H Urine Glucose (UA) Negative Urine Ketones Negative Urine Blood Large (3+) H Urine Nitrite Positive H Ur Leukocyte Esterase Small (1+) H Urine RBC >20 H Urine WBC 11-20 H Ur Squamous Epith Cells 0-2 Urine Bacteria 4+ Hyaline Casts 0-2 Assessment and Plan (1) Frequent falls: Status: Acute Plan Patient is an elderly who appears to have gradually declining health over the past few weeks and months, with notable Alzheimer's dementia, PMH HTN, HLD, PVD, CVA on Plavix, prior substance use, alcohol use disorder who has been falling at home per his daughter who is the primary historian and healthcare proxy. BARRIE prerenal-started IV fluids Acute urinary retention - Chisholm catheter placed overnight as of 11 14 2024 ? Possible UTI- likely secondary to urinary retention Started the patient on ceftriaxone and IV fluids with good response-remains hemodynamically stable, can deescalate based on C/S Patient has likely developed prerenal azotemia in the setting of acute urinary retention likely in the setting of BPH versus deconditioning Chisholm was placed and is now draining clear yellow urine Falls likely physical deconditioning ?Wernicke's encephalopathy Advanced Alzheimers Prior substance use Prior alcohol use Likely secondary to declining health Fall precautions Continue B12 and folate Patient requires rehab -high risk case manager working on it Per daughter, patient has limited ADLs and they were in the process of looking for placement for him-will likely need permanent long-term placement HTN HLD CVA Continue home meds Patient needs rehab placement and permanent long-term placement Patient not safe to reach PTOT consulted preparation room manager informed This note is constructed using voice recognition software. While every effort has been made to ensure accuracy, medical insurance collector errors may have been included. Quality Stroke Does the patient have a stroke diagnosis?: No VTE Prior VTE?: No VTE Risk Level:: Medical - moderate - high VTE Device Contraindication: Treatment Not Indicated VTE Drug Contraindication: N/A - Med Ordered
--- NOTE | 2024-11-15 09:15 | P.CONNP_ITS ---
History of Present Illness Reason for Consult Consult date: 11/15/24 Chief Complaint Chief complaint: barrie, seizure History of Present Illness Narrative: 74 y/o male with alzheimer's dementia, HTN, HLD, PAD, CVA on plavix, tobacco use. 11/12 presented after unwitnessed fall at home. found on doorstep at home with confusion (reportedly his baseline). CK 214. Nephrology consulted for BARRIE creatinine prior to admission on 11/06 was 1.04 11/12 1.82 11/13 2.75 11/14 2.20 11/15 3.10 11/15 a.m. bladder scanned and found to have 1300mL urine in bladder, drained with short. patient was on lisinopril 30mg daily at home, this has been held since arrival. patient resting comfortably at bedside. Review of Systems Review of Systems Yes Unobtainable due to mental status PMFSH Social History Social History Household Members: None Housing: Unknown / Unable to assess Unable to assess alcohol history related to: Unable to respond Patient Tobacco Use Status: Tobacco use Unknown Use of substances other than those prescribed or required for medical reasons: Unable to respond Currently Displaying Signs/Symptoms of Drug Intoxication Withdrawal: No Advance Directives: No Advance Directives Information Provided: No Advance Directives on File: No Do you have a plan to hurt others: No Plan Recently lost weight without trying: Unsure Nutrition Risks: No Nutritional Risk Poor oral hygiene: No service: No Meds Allergies Allergy/AdvReac Type Severity Reaction Status Date / Time Unable to Assess Allergy Verified 11/06/24 19:36 Active Medications: Current Medications Acetaminophen (Acetaminophen 325 Mg Tablet) 650 mg PO Q6H PRN PRN Reason: Pain, Mild 1-3,fever,headache Amlodipine Besylate (Amlodipine Besylate 5 Mg Tablet) 5 mg PO DAILY [facility]; Protocol Last Admin: 11/14/24 10:53 Dose: Not Given Atorvastatin Calcium (Atorvastatin Calcium 80 Mg Tablet) 80 mg PO DAILY [facility] Last Admin: 11/14/24 10:53 Dose: Not Given Calcium Carbonate (Calcium Carbonate 750 Mg Tab.Chew) 750 mg PO Q4H PRN PRN Reason: Heartburn Ceftriaxone Sodium (Ceftriaxone Sodium 1 Gm Vial) 1 gm IVPUSH Q24H [facility] Clopidogrel Bisulfate (Clopidogrel Bisulfate 75 Mg Tablet) 75 mg PO DAILY [facility] Last Admin: 11/14/24 10:54 Dose: Not Given Folic Acid (Folic Acid 1 Mg Tablet) 1 mg PO DAILY [facility] Last Admin: 11/14/24 10:54 Dose: Not Given Heparin Sodium (Porcine) (Heparin Sodium,Porcine 5,000 Unit/Ml Vial) 5,000 unit SUBCUT Q12H [facility] Last Admin: 11/14/24 23:36 Dose: 5,000 unit Hydralazine HCl (Hydralazine Hcl 20 Mg/Ml Vial) 5 mg IVPUSH Q6H PRN; Protocol PRN Reason: SBP>190 Magnesium Hydroxide (Milk Of Magnesia 30 Ml Oral.Susp) 30 ml PO DAILY PRN PRN Reason: Constipation Melatonin (Melatonin 3 Mg Tablet) 6 mg PO BEDTIME PRN PRN Reason: Insomnia Quetiapine Fumarate (Quetiapine Fumarate 25 Mg Tablet) 25 mg PO DAILY [facility] Last Admin: 11/14/24 10:54 Dose: Not Given Sodium Chloride (0.9 % Sodium Chloride Flush 3 Ml Syringe) 3 ml IVFLUSH QSHIFT [facility] Last Admin: 11/14/24 20:04 Dose: 3 ml Tamsulosin HCl (Tamsulosin Hcl 0.4 Mg Capsule) 0.4 mg PO DAILY [facility] Last Admin: 11/14/24 10:54 Dose: Not Given Thiamine HCl (Thiamine Hcl 100 Mg Tablet) 100 mg PO DAILY [facility] Last Admin: 11/14/24 10:54 Dose: Not Given Trazodone HCl (Trazodone Hcl 25 Mg Halftab) 25 mg PO BEDTIME [facility] Last Admin: 11/14/24 20:02 Dose: 25 mg Home Medications ?Medication ?Instructions ?Recorded ?Confirmed ?Last Taken ?Type clopidogrel 75 mg tablet 75 mg PO DAILY 11/07/2411/23 Unknown History lisinopril 30 mg tablet 30 mg PO DAILY 11/07/2411/23 Unknown History rosuvastatin 40 mg tablet 40 mg PO DAILY 11/07/2411/23 Unknown History tamsulosin 0.4 mg capsule 0.4 mg PO DAILY 11/07/2411/23 Unknown History Physical Exam Vital Signs: Last Vital Signs Temp 97.6 F 11/15/24 04:00 Pulse 99 11/15/24 04:00 Resp 16 11/15/24 04:00 BP 174/58 H 11/15/24 04:00 Pulse Ox 99 11/15/24 04:00 O2 Del Method Room Air 11/15/24 04:00 O2 Flow Rate 2 11/12/24 09:51 BMI result Body Mass Index 18.4 Const General: no acute distress Resp Effort & Inspection: normal respiratory effort Auscultation: clear to auscultation bilaterally Cardio Rate: regular rate Rhythm: regular rhythm Heart sounds: S1 normal heart sound present and S2 normal heart sound present GI Palpation (GI): Soft to palpation and nontender Skin Rashes: no rashes Extrem General: No edema Results Lab Results 11/15/24 05:57 11/15/24 05:57 Lab results: Chemistry 11/13/24 11/14/24 11/15/24 09:30 12:56 05:57 Sodium 141 144 142 Potassium 3.9 D 3.5 3.4 Carbon Dioxide 20 L 25 24 BUN 39 H 42 H 46 H Creatinine 2.75 H 2.20 H 3.10 H Calcium 9.0 9.1 8.9 Hematology 11/13/24 11/14/24 11/15/24 09:30 12:56 05:57 WBC 10.7 10.1 9.4 Hgb 11.1 L 11.5 L 11.2 L Plt Count 169 181 190 Urinalysis 11/15/24 05:45 Urine Color Yellow Urine Appearance Clear Urine pH 7.0 Ur Specific [place] 1.015 Urine Protein 100 (2+) H Urine Glucose (UA) Negative Urine Ketones Negative Urine Blood Large (3+) H Urine Nitrite Positive H Ur Leukocyte Esterase Small (1+) H Urine RBC >20 H Urine WBC 11-20 H Ur Squamous Epith Cells 0-2 Hyaline Casts 0-2 Assessment and Plan (1) Acute kidney injury: Status: Acute Plan BARRIE likely multifactorial ATN- urinary obstruction, lisinopril use as outpatient in setting of hypovolemia, and hemodynamic BARRIE. may have initially also had a component of ATN from dehydration in setting of reduced oral intake while taking an fred inhibitor, may also have had some obstruction on presentation, as documented urine output minimal since arrival recommend urology consult, short recommend IVF renal ultrasound and urine protein/creatinine ratio orders placed recommend avoiding nephrotoxins recommend regular blood pressure checks, clsoe I&O monitoring, daily weights recommend daily renal function and electrolyte studies continue supportive care Discussed with Dr Rivera Procedures Date of Service Date of Service: 11/15/24
--- NOTE | 2024-11-15 10:09 | PM.UROCN ---
History of Present Illness Consult details Consult date: 11/15/24 Narrative: CC: urinary retention 74-year-old male Admitted with question of dementia versus new onset seizure Unwitnessed fall at home Was found at door step with slight confusion. According to reports this is baseline Initial creatinine 1.8 Went into urinary retention in hospital. Escalating creatinine. Chisholm catheter placed for 1400 cc Catheter to remain for 4 weeks Start alpha-delicia and Proscar Outpatient voiding trial May benefit from catheter cap if has adequate hand dexterity and acuity Review of Systems Constitutional: Constitutional: Reports as per HPI and Reports no additional constitutional complaints Cardiovascular: Cardiovascular: Reports as per HPI and Reports no additional cardiovascular complaints Respiratory: Respiratory: Reports as per HPI and Reports no additional respiratory complaints Gastrointestinal: Gastrointestinal: Reports as per HPI and Reports no additional gastrointestinal complaints Genitourinary: Genitourinary: Reports as per HPI Musculoskeletal: Musculoskeletal: Reports no additional musculoskeletal complaints and Reports as per HPI Neurologic: Reports system reviewed and no additional complaints, except as documented and Reports as per HPI [facility] Social History Social History Household Members: None Housing: Unknown / Unable to assess Unable to assess alcohol history related to: Unable to respond Patient Tobacco Use Status: Tobacco use Unknown Use of substances other than those prescribed or required for medical reasons: Unable to respond Currently Displaying Signs/Symptoms of Drug Intoxication Withdrawal: No Advance Directives: No Advance Directives Information Provided: No Advance Directives on File: No Do you have a plan to hurt others: No Plan Recently lost weight without trying: Unsure Nutrition Risks: No Nutritional Risk Poor oral hygiene: No service: No Meds Allergies Allergy/AdvReac Type Severity Reaction Status Date / Time Unable to Assess Allergy Verified 11/06/24 19:36 Active Medications: Current Medications Acetaminophen (Acetaminophen 325 Mg Tablet) 650 mg PO Q6H PRN PRN Reason: Pain, Mild 1-3,fever,headache Amlodipine Besylate (Amlodipine Besylate 5 Mg Tablet) 5 mg PO DAILY [facility]; Protocol Last Admin: 11/14/24 10:53 Dose: Not Given Atorvastatin Calcium (Atorvastatin Calcium 80 Mg Tablet) 80 mg PO DAILY [facility] Last Admin: 11/14/24 10:53 Dose: Not Given Calcium Carbonate (Calcium Carbonate 750 Mg Tab.Chew) 750 mg PO Q4H PRN PRN Reason: Heartburn Ceftriaxone Sodium (Ceftriaxone Sodium 1 Gm Vial) 1 gm IVPUSH Q24H [facility] Clopidogrel Bisulfate (Clopidogrel Bisulfate 75 Mg Tablet) 75 mg PO DAILY [facility] Last Admin: 11/14/24 10:54 Dose: Not Given Folic Acid (Folic Acid 1 Mg Tablet) 1 mg PO DAILY [facility] Last Admin: 11/14/24 10:54 Dose: Not Given Heparin Sodium (Porcine) (Heparin Sodium,Porcine 5,000 Unit/Ml Vial) 5,000 unit SUBCUT Q12H [facility] Last Admin: 11/14/24 23:36 Dose: 5,000 unit Hydralazine HCl (Hydralazine Hcl 20 Mg/Ml Vial) 5 mg IVPUSH Q6H PRN; Protocol PRN Reason: SBP>190 Magnesium Hydroxide (Milk Of Magnesia 30 Ml Oral.Susp) 30 ml PO DAILY PRN PRN Reason: Constipation Melatonin (Melatonin 3 Mg Tablet) 6 mg PO BEDTIME PRN PRN Reason: Insomnia Quetiapine Fumarate (Quetiapine Fumarate 25 Mg Tablet) 25 mg PO DAILY [facility] Last Admin: 11/14/24 10:54 Dose: Not Given Sodium Chloride (0.9 % Sodium Chloride Flush 3 Ml Syringe) 3 ml IVFLUSH QSHIFT [facility] Last Admin: 11/14/24 20:04 Dose: 3 ml Tamsulosin HCl (Tamsulosin Hcl 0.4 Mg Capsule) 0.4 mg PO DAILY [facility] Last Admin: 11/14/24 10:54 Dose: Not Given Thiamine HCl (Thiamine Hcl 100 Mg Tablet) 100 mg PO DAILY [facility] Last Admin: 11/14/24 10:54 Dose: Not Given Trazodone HCl (Trazodone Hcl 25 Mg Halftab) 25 mg PO BEDTIME [facility] Last Admin: 11/14/24 20:02 Dose: 25 mg Home Medications ?Medication ?Instructions ?Recorded ?Confirmed ?Last Taken ?Type clopidogrel 75 mg tablet 75 mg PO DAILY 11/07/24 11/07/24 Unknown History lisinopril 30 mg tablet 30 mg PO DAILY 11/07/24 11/07/24 Unknown History rosuvastatin 40 mg tablet 40 mg PO DAILY 11/07/24 11/07/24 Unknown History tamsulosin 0.4 mg capsule 0.4 mg PO DAILY 11/07/24 11/07/24 Unknown History Physical Exam Vital Signs: Vital Signs: Last Vital Signs Temp 97.5 F 11/15/24 08:00 Pulse 74 11/15/24 08:00 Resp 16 11/15/24 08:00 BP 152/60 H 11/15/24 08:00 Pulse Ox 100 11/15/24 08:00 O2 Del Method Room Air 11/15/24 08:00 O2 Flow Rate 2 11/12/24 09:51 BMI result Body Mass Index 18.4 Const: General: cooperative, healthy appearing, comfortable and no acute distress Orientation/consciousness: patient oriented x3 HEENT: Face and sinus: Yes normal facial exam Mouth: moist mucous membranes Neck: Neck: Yes normal visual inspection, Yes full ROM and Yes trachea midline Chest: Chest palpation & inspection: normal inspection of the chest Resp: Effort & Inspection: normal respiratory effort, able to speak in complete sentences and no respiratory distress GI: Inspection: Yes normal to inspection Back/Spine/Pelvis: Cervical Spine: normal cervical lordosis Thoracic/Lumbar Spine: thoracic and lumbar spine normal to inspection Skin: General skin exam: no rashes or lesions noted Neuro: General: patient oriented x3, tone normal and moves all extremities Extrem: General: Yes normal to inspection and Yes capillary refill normal Results Labs 11/15/24 05:57 11/15/24 05:57 Labs: Abnormal lab results 11/14/24 11/15/24 11/15/24 Range/Units 12:56 05:45 05:57 RBC 3.36 L 3.22 L (4.60-5.80) X10*6/uL Hgb 11.5 L 11.2 L (14.0-18.0) g/dl Hct 33.4 L 31.7 L (42.0-52.0) % MCV 99.4 H 98.4 H (80.0-98.0) fL MCH 34.2 H 34.8 H (27.0-33.0) pg MPV 9.1 L (9.4-12.4) fL Immature Gran % (Auto) 0.5 H 0.6 H (0.0-0.4) % Neut % (Auto) 81.6 H 77.6 H (45-73) % Lymph % (Auto) 10.1 L 14.8 L (20-40) % Lymph # (Auto) 1.0 L (1.2-4.9) X10*3/uL Abs Immat Gran (auto) 0.05 H 0.06 H (0.00-0.03) X10*3/uL Chloride 110 H 109 H (96-108) mmol/L BUN 42 H 46 H (9-16) mg/dL Creatinine 2.20 H 3.10 H (0.5-1.4) mg/dL Random Glucose 133 H 118 H (60-115) mg/dL AST 41 H (5-37) U/L Total Protein 6.3 L (6.5-8.0) g/dL Albumin 3.4 L (3.5-5.0) g/dL Urine Protein 100 (2+) H (Neg-Trace) mg/dL Urine Blood Large (3+) H (Negative) Urine Nitrite Positive H (Negative) Ur Leukocyte Esterase Small (1+) H (Negative) Urine RBC >20 H (0-2) /HPF Urine WBC 11-20 H (0-5) /HPF Short CBC 11/14/24 11/15/24 Range/Units 12:56 05:57 WBC 10.1 9.4 (4.8-10.8) X10*3/uL Hgb 11.5 L 11.2 L (14.0-18.0) g/dl Hct 33.4 L 31.7 L (42.0-52.0) % Plt Count 181 190 (160-400) X10*3/uL BMP 11/14/24 11/15/24 12:56 05:57 Sodium 144 142 Potassium 3.5 3.4 Chloride 110 H 109 H Carbon Dioxide 25 24 BUN 42 H 46 H Creatinine 2.20 H 3.10 H Calcium 9.1 8.9 Liver Function 11/14/24 11/15/24 Range/Units 12:56 05:57 Total Bilirubin 0.6 0.7 (0.0-1.0) mg/dL AST 41 H 37 (5-37) U/L ALT 20 19 (0-40) U/L Alkaline Phosphatase 66 68 (39-117) U/L Albumin 3.5 3.4 L (3.5-5.0) g/dL Urine 11/06/24 11/15/24 Range/Units 20:59 05:45 Urine Color Yellow Yellow Urine Appearance Clear Clear Urine pH 7.0 7.0 (5.0-9.0) Ur Specific [place] 1.020 1.015 (1.005-1.025) Urine Protein 300 (3+) H 100 (2+) H (Neg-Trace) mg/dL Urine Glucose (UA) Negative Negative (Negative) mg/dL All other labs normal. Assessment and Plan (1) Obstructive uropathy: Status: Acute Plan Alpha-delicia Proscar Four week follow-up voiding trial Procedures Date of Service Date of Service: 11/15/24
[2024-11-15] MEDS: 0.9 % Sodium Chloride Flush 3 ML SYRINGE IVFLUSH ×2 (10:30→21:32)
--- NOTE | 2024-11-15 11:19 | MHC.CLN ---
F/U PT IS MODERATELY MALNOURISHED SEE FULL ASSESSMENT DATED 11/13/24 PO INTAKE 0-50% DIET RX: 2GM NA CHOPPED RECEIVING ENSURE BID TO INCREASE KCALS SUPP PROVIDES 700KCALS, 40G PROTEIN MONITOR PO INTAKE AND ENCOURAGE SUPPLEMENTS
--- NOTE | 2024-11-15 11:59 | MHC.SLORD ---
Speech Language Pathology Order Status: RN at bedside, noted pt pocketed meds, RN administered pt meds crushed in puree. Pt looks at others when spoken to, occasionally responding but generally confused. Pt refused PO this morning and afternoon. Pt endorsed being comfortable in bed, ceased interaction as he was watching TV. PLASTIC SURGERY SPECIALIST to check PO tolerance this afternoon as possible downgrade indicated given evidence of pocketing.
--- NOTE | 2024-11-15 13:15 | MHC.CM.PN ---
Per rounds, pt. retaining urine last night, will have urology consult. DCP: LTC, [facility].
[2024-11-15 18:41] LABS: Protein/Creatinine Ratio, Ur 1.61 (<0.2); Total Protein Urine Random 140 mg/dL (<12)
[2024-11-15] MEDS: traZODone HCL 25 MG HALFTAB PO (21:31)
[2024-11-16 03:50] VITALS: BP 155/69; PULSE 75; RESP 16; TEMP 36.3; O2SAT 97
[2024-11-16 06:04] LABS: MANUAL DIFF FLAG NO
[2024-11-16 06:07] LABS: Hematocrit 30.6 % (42.0-52.0); Hemoglobin 10.5 g/dl (14.0-18.0); Imm Gran Abs Auto 0.05 X10*3/uL (0.00-0.03); Imm Gran Pct Auto 0.6 % (0.0-0.4); Lymphocytes Absolute Auto 1.7 X10*3/uL (1.2-4.9); Mean Corpuscular HGB Conc 34.3 g/dl (31.0-36.0); Mean Corpuscular Hemoglobin 34.2 pg (27.0-33.0); Mean Corpuscular Volume 99.7 fL (80.0-98.0); NRBC Abs Auto 0.000 X10*3/uL (0.0-0.012); NRBC Pct Auto 0.0 /100WBC (0.0-0.2); Platelet Count 191 X10*3/uL (160-400); Red Blood Count 3.07 X10*6/uL (4.60-5.80); White Blood Count 8.4 X10*3/uL (4.8-10.8)
[2024-11-16 06:44] LABS: Alanine Aminotransferase 39 U/L (0-40); Albumin Level 3.0 g/dL (3.5-5.0); Alkaline Phosphatase 101 U/L (39-117); Anion Gap 12 (12-20); Aspartate Amino Transferase 76 U/L (5-37); Blood Urea Nitrogen 29 mg/dL (9-16); Calcium 8.5 mg/dL (8.4-10.2); Carbon Dioxide 22 mmol/L (22-29); Chloride 113 mmol/L (96-108); Creatinine Clr Calc Pharmacy 46.5; Estimated Glomerular Filt Rate > 60; Potassium 3.2 mmol/L (3.3-5.1); Sodium 144 mmol/L (135-145); Total Protein 5.7 g/dL (6.5-8.0)
[2024-11-16 07:25] VITALS: BP 150/62; PULSE 78; RESP 18; TEMP 36.6; O2SAT 94
--- NOTE | 2024-11-16 08:01 | HO.PM.IMPN ---
Subjective Subjective Date of Service: 11/16/24 Interval History: Patient appears more alert today Physical Exam Exam: Exam: General: AOx3, no acute distress, pleasantly confused Resp: CTA bilaterally CVS: S1, S2, RRR GI: +BS, NT, no distention : Has a Chisholm catheter in place draining clear yellow colored urine Neuro: Unable to follow directions hence exam limited Vital Signs: Vital Signs: Last Vital Signs Temp 97.6 F 11/15/24 04:00 Pulse 99 11/15/24 04:00 Resp 16 11/15/24 04:00 BP 174/58 H 11/15/24 04:00 Pulse Ox 99 11/15/24 04:00 O2 Del Method Room Air 11/15/24 04:00 O2 Flow Rate 2 11/12/24 09:51 BMI result Body Mass Index 18.4 Objective Data Active Medications Acetaminophen (Acetaminophen 325 Mg Tablet) 650 mg PO Q6H PRN PRN Reason: Pain, Mild 1-3,fever,headache Amlodipine Besylate (Amlodipine Besylate 5 Mg Tablet) 5 mg PO DAILY [facility]; Protocol Last Admin: 11/15/24 10:29 Dose: 5 mg Documented By: YESENIA Atorvastatin Calcium (Atorvastatin Calcium 80 Mg Tablet) 80 mg PO DAILY [facility] Last Admin: 11/15/24 10:29 Dose: 80 mg Documented By: YESENIA Calcium Carbonate (Calcium Carbonate 750 Mg Tab.Chew) 750 mg PO Q4H PRN PRN Reason: Heartburn Ceftriaxone Sodium (Ceftriaxone Sodium 1 Gm Vial) 1 gm IVPUSH Q24H [facility] Last Admin: 11/15/24 10:30 Dose: 1 gm Documented By: YESENIA Clopidogrel Bisulfate (Clopidogrel Bisulfate 75 Mg Tablet) 75 mg PO DAILY [facility] Last Admin: 11/15/24 10:29 Dose: 75 mg Documented By: YESENIA Finasteride (Finasteride 5 Mg Tablet) 5 mg PO DAILY [facility] Last Admin: 11/15/24 10:29 Dose: 5 mg Documented By: YESENIA Folic Acid (Folic Acid 1 Mg Tablet) 1 mg PO DAILY [facility] Last Admin: 11/15/24 10:29 Dose: 1 mg Documented By: YESENIA Heparin Sodium (Porcine) (Heparin Sodium,Porcine 5,000 Unit/Ml Vial) 5,000 unit SUBCUT Q12H [facility] Last Admin: 11/15/24 22:37 Dose: 5,000 unit Documented By: KIMMIE Hydralazine HCl (Hydralazine Hcl 20 Mg/Ml Vial) 5 mg IVPUSH Q6H PRN; Protocol PRN Reason: SBP>190 Magnesium Hydroxide (Milk Of Magnesia 30 Ml Oral.Susp) 30 ml PO DAILY PRN PRN Reason: Constipation Melatonin (Melatonin 3 Mg Tablet) 6 mg PO BEDTIME PRN PRN Reason: Insomnia Quetiapine Fumarate (Quetiapine Fumarate 25 Mg Tablet) 25 mg PO DAILY [facility] Last Admin: 11/15/24 10:29 Dose: 25 mg Documented By: YESENIA Sodium Chloride (0.9 % Sodium Chloride Flush 3 Ml Syringe) 3 ml IVFLUSH QSHIFT [facility] Last Admin: 11/15/24 21:32 Dose: 3 ml Documented By: KIMMIE Tamsulosin HCl (Tamsulosin Hcl 0.4 Mg Capsule) 0.4 mg PO DAILY [facility] Last Admin: 11/15/24 10:29 Dose: 0.4 mg Documented By: YESENIA Thiamine HCl (Thiamine Hcl 100 Mg Tablet) 100 mg PO DAILY [facility] Last Admin: 11/15/24 10:29 Dose: 100 mg Documented By: YESENIA Trazodone HCl (Trazodone Hcl 25 Mg Halftab) 25 mg PO BEDTIME [facility] Last Admin: 11/15/24 21:31 Dose: 25 mg Documented By: KIMMIE Labs 11/16/24 05:49 11/16/24 05:49 Labs: Laboratory Results - last 24 hr 11/15/24 11/16/24 18:01 05:49 MCV 99.7 H MCH 34.2 H MCHC 34.3 RDW 15.2 Plt Count 191 MPV 9.1 L Immature Gran % (Auto) 0.6 H Neut % (Auto) 69.6 Lymph % (Auto) 19.7 L [place] % (Auto) 6.6 Eos % (Auto) 3.0 Baso % (Auto) 0.5 Lymph # (Auto) 1.7 [place] # (Auto) 0.6 Eos # (Auto) 0.3 Baso # (Auto) 0.0 Abs Immat Gran (auto) 0.05 H Absolute Neuts (auto) 5.8 Absolute Nucleated RBC 0.000 Nucleated RBC % (auto) 0.0 Anion Gap 12 Estim Creat Clear Calc 46.5 Estimated GFR > 60 Random Glucose 109 Calcium 8.5 Total Bilirubin 0.5 AST 76 H ALT 39 Alkaline Phosphatase 101 Total Protein 5.7 L Albumin 3.0 L U Random Total Protein 140 H Urine Creatinine 86.96 Protein/Creatinin Ratio 1.61 H Assessment and Plan (1) Frequent falls: Status: Acute Plan Patient is an elderly who appears to have gradually declining health over the past few weeks and months, with notable Alzheimer's dementia, PMH HTN, HLD, PVD, CVA on Plavix, prior substance use, alcohol use disorder who has been falling at home per his daughter who is the primary historian and healthcare proxy. Also was noted to have acute prerenal, postrenal and intrarenal BARRIE with acute urinary retention, strep UTI requiring a Chisholm. BARRIE prerenal-started IV fluids responding Acute urinary retention - Chisholm catheter placed overnight as of 11 14 2024 Intrarenal,Possible UTI- likely secondary to urinary retention Switch ceftriaxone to Augmentin, DC fluids Patient has likely developed prerenal azotemia in the setting of acute urinary retention likely in the setting of BPH versus deconditioning Postrenal- Chisholm was placed on 11/15/2024 we will need Chisholm and outpatient voiding trials If patient remains hemodynamically stable can be discharged to rehab tomorrow For BPH-initiated on finasteride and tamsulosin by Urology, we will continue to follow output Falls likely physical deconditioning Advanced Alzheimers Prior substance use Prior alcohol use Likely secondary to declining health Fall precautions Continue B12 and folate Patient requires rehab -keycase assembler working on it Per daughter, patient has limited ADLs and they were in the process of looking for placement for him-will likely need permanent long-term placement HTN HLD CVA Continue home meds Patient needs rehab placement and permanent long-term placement Patient not safe to be placed back at home PTOT consulted manager integrity informed DVT prophylaxis with heparin This note is constructed using voice recognition software. While every effort has been made to ensure accuracy, concrete block plant supervisor errors may have been included. Quality Stroke Does the patient have a stroke diagnosis?: No VTE Prior VTE?: No VTE Risk Level:: Medical - moderate - high VTE Device Contraindication: Treatment Not Indicated VTE Drug Contraindication: N/A - Med Ordered
[2024-11-16] MEDS: 0.9 % Sodium Chloride Flush 3 ML SYRINGE IVFLUSH ×2 (08:53→19:49)
--- NOTE | 2024-11-16 09:27 | P.PNNP_ITS ---
Subjective Subjective Date of Service: 11/16/24 Interval history: Following for BARRIE. Creatinine 3.10 yesterday, 11/15. Had acute urinary retention, short placed and 1300ml urine drained. Today creatinine is 1.11. Physical Exam 2 Vital Signs: Vital Signs: Last Vital Signs Temp 97.9 F 11/16/24 07:25 Pulse 78 11/16/24 07:25 Resp 18 11/16/24 07:25 BP 150/62 H 11/16/24 07:25 Pulse Ox 94 11/16/24 07:25 O2 Del Method Room Air 11/16/24 07:25 O2 Flow Rate 2 11/12/24 09:51 BMI result Body Mass Index 18.4 Const: General: no acute distress Resp: Effort & Inspection: normal respiratory effort Auscultation: clear to auscultation bilaterally Cardio: Rate: regular rate Rhythm: regular rhythm Heart sounds: S1 normal heart sound present and S2 normal heart sound present GI: Palpation (GI): Soft to palpation and nontender Skin: Rashes: no rashes Extrem: General: No edema Objective Data Labs 11/16/24 05:49 11/16/24 05:49 Labs: Laboratory Results - last 24 hr 11/15/24 11/16/24 18:01 05:49 WBC 8.4 RBC 3.07 L Hgb 10.5 L Hct 30.6 L MCV 99.7 H MCH 34.2 H MCHC 34.3 RDW 15.2 Plt Count 191 MPV 9.1 L Immature Gran % (Auto) 0.6 H Neut % (Auto) 69.6 Lymph % (Auto) 19.7 L [place] % (Auto) 6.6 Eos % (Auto) 3.0 Baso % (Auto) 0.5 Lymph # (Auto) 1.7 [place] # (Auto) 0.6 Eos # (Auto) 0.3 Baso # (Auto) 0.0 Abs Immat Gran (auto) 0.05 H Absolute Neuts (auto) 5.8 Absolute Nucleated RBC 0.000 Nucleated RBC % (auto) 0.0 Sodium 144 Potassium 3.2 L Chloride 113 H Carbon Dioxide 22 Anion Gap 12 BUN 29 H Creatinine 1.11 Estim Creat Clear Calc 46.5 Estimated GFR > 60 Random Glucose 109 Calcium 8.5 Total Bilirubin 0.5 AST 76 H ALT 39 Alkaline Phosphatase 101 Total Protein 5.7 L Albumin 3.0 L U Random Total Protein 140 H Urine Creatinine 86.96 Protein/Creatinin Ratio 1.61 H Procedures Date of Service Date of Service: 11/16/24 Assessment & Plan Assessment and plan (1) Acute kidney injury: Status: Acute (2) Obstructive uropathy: Status: Acute Plan BARRIE likely multifactorial ATN- primarily urinary obstruction, lisinopril use in setting of hypovolemia and hemodynamic BARRIE may have also contributed. creatinine has essentially normalized, BARRIE has resolved. patient has significant proteinuria, 1.6 grams. Will ensure outpatient follow up upon discharge.Will sign off, happy to follow up if any changes or new concerns arise. recommend avoiding nephrotoxins continue supportive care Discussed with Dr Park. Time Spent With Patient Time: Total time managing care of this patient today ____ minutes. Progress Note: Quality Stroke Does the patient have a stroke diagnosis?: No
--- NOTE | 2024-11-16 10:10 | MHC.SL.SWA ---
Speech Pathologist Impression: Risk of Aspiration Due to: Dysphasia Diet Status: Recommend continue on current diet of CHOPPED/ADVANCED (NDD3) with THIN liquids, pills whole or crushed in puree. Liquid Consistency and Strategies for Safe Swallow: Liquid Intake Recommendation: Thin Liquid Intake Strategies: Solid Food Consistency: Dietary Recommendations: Chopped/Advanced (NDD3) Additional Modifications to Solid Foods: Oral Medication Intake: Whole with Puree Please contact the pharmacy regarding appropriate crushable or liquid drug formulations that are available whenever modified delivery is recommended. Compensatory Strategies and Precautions to be Taken for Safe Swallow: Sitting Upright (90 deg) Liquids from Cup Small Bites and Sips Alternate Liquids/Solids Supervision While Eating and Drinking for Safe Swallow: Direct Supervision (1:1) Foods to Avoid: Tough, difficult to chew solids, mixed consistencies. Swallowing Recommended Treatments: Compens. Strategy Educat. Recommendation for Speech: Inpatient Speech Therapy Comment: Patient seen at breakfast this morning, tray was already present, patient was well seated in bed and had begun meal. DRIP MOLDER assisted with adding syrup to Pancakes with patient agreeing to this. However, in general, DRIP MOLDER stood back while patient fed himself his meal, which he steadily engaged in while watching a movie on TV. Patient fed himself bites of both the pancake and eggs of the tray, producing good management of these foods, timely swallow. On sips of juice, patient again demonstrated burping immediately after swallow along with one episode of throat clearing. As patient was clearly engaged and progressing with his meal, DRIP MOLDER left to allow patient to continue without distraction. Recommend continue on current diet of CHOPPED/ADVANCED (NDD3) with THIN liquids, pills whole or crushed in puree. Frequency/Duration: Date Range for Service Req: Timeline to reassess: Burr Grinder Clinican/Clinical Fellow: No Supervisory Statement: I have reviewed and agree with the student/clinical fellow's documentation: N/A Speech Language Pathologist: Leslie Ontiveros M.A., [facility]-DRIP MOLDER
[2024-11-16 11:19] VITALS: BP 149/67; PULSE 69; RESP 16; TEMP 36.7; O2SAT 97
[2024-11-16 15:15] VITALS: BP 152/60; PULSE 75; RESP 16; TEMP 36.9; O2SAT 98
[2024-11-16 19:40] VITALS: BP 171/70; PULSE 83; RESP 18; TEMP 36.8; O2SAT 99
[2024-11-16] MEDS: traZODone HCL 25 MG HALFTAB PO (19:45)
[2024-11-16 23:36] VITALS: BP 161/72; PULSE 65; RESP 18; TEMP 36.6; O2SAT 99
[2024-11-17 03:11] VITALS: BP 153/70; PULSE 71; RESP 18; TEMP 36.6; O2SAT 98
[2024-11-17 06:14] LABS: MANUAL DIFF FLAG NO
[2024-11-17 06:20] LABS: Hematocrit 28.7 % (42.0-52.0); Hemoglobin 10.1 g/dl (14.0-18.0); Imm Gran Abs Auto 0.06 X10*3/uL (0.00-0.03); Imm Gran Pct Auto 0.8 % (0.0-0.4); Lymphocytes Absolute Auto 2.2 X10*3/uL (1.2-4.9); Mean Corpuscular HGB Conc 35.2 g/dl (31.0-36.0); Mean Corpuscular Hemoglobin 34.9 pg (27.0-33.0); Mean Corpuscular Volume 99.3 fL (80.0-98.0); NRBC Abs Auto 0.000 X10*3/uL (0.0-0.012); NRBC Pct Auto 0.0 /100WBC (0.0-0.2); Platelet Count 224 X10*3/uL (160-400); Red Blood Count 2.89 X10*6/uL (4.60-5.80); White Blood Count 7.1 X10*3/uL (4.8-10.8)
[2024-11-17 06:45] LABS: Alanine Aminotransferase 29 U/L (0-40); Albumin Level 3.1 g/dL (3.5-5.0); Alkaline Phosphatase 87 U/L (39-117); Anion Gap 9 (12-20); Aspartate Amino Transferase 44 U/L (5-37); Blood Urea Nitrogen 19 mg/dL (9-16); Calcium 8.5 mg/dL (8.4-10.2); Carbon Dioxide 28 mmol/L (22-29); Chloride 110 mmol/L (96-108); Creatinine Clr Calc Pharmacy 50.1; Estimated Glomerular Filt Rate > 60; Potassium 3.3 mmol/L (3.3-5.1); Sodium 144 mmol/L (135-145); Total Protein 5.7 g/dL (6.5-8.0)
--- NOTE | 2024-11-17 07:37 | HO.PM.IMPN ---
Subjective Subjective Date of Service: 11/17/24 Interval History: Continues to improve clinically Currently awaiting bed placement Physical Exam Exam: Exam: General: AOx3, no acute distress, pleasantly confused Resp: CTA bilaterally CVS: S1, S2, RRR GI: +BS, NT, no distention : Has a Short catheter in place draining clear yellow colored urine Neuro: Unable to follow directions hence exam limited Vital Signs: Vital Signs: Last Vital Signs Temp 97.9 F 11/17/24 03:11 Pulse 71 11/17/24 03:11 Resp 18 11/17/24 03:11 BP 153/70 H 11/17/24 03:11 Pulse Ox 98 11/17/24 03:11 O2 Del Method Room Air 11/17/24 03:11 O2 Flow Rate 2 11/12/24 09:51 BMI result Body Mass Index 18.4 Objective Data Active Medications Acetaminophen (Acetaminophen 325 Mg Tablet) 650 mg PO Q6H PRN PRN Reason: Pain, Mild 1-3,fever,headache Amlodipine Besylate (Amlodipine Besylate 5 Mg Tablet) 5 mg PO DAILY [facility]; Protocol Last Admin: 11/16/24 08:53 Dose: 5 mg Documented By: ALLYSSA Amoxicillin/Clavulanate Potassium (Amoxicillin/Potassium Clav 875 Mg Tablet) 875 mg PO Q12H [facility] Last Admin: 11/17/24 05:49 Dose: 875 mg Documented By: FIDE Atorvastatin Calcium (Atorvastatin Calcium 80 Mg Tablet) 80 mg PO DAILY [facility] Last Admin: 11/16/24 08:53 Dose: 80 mg Documented By: ALLYSSA Calcium Carbonate (Calcium Carbonate 750 Mg Tab.Chew) 750 mg PO Q4H PRN PRN Reason: Heartburn Clopidogrel Bisulfate (Clopidogrel Bisulfate 75 Mg Tablet) 75 mg PO DAILY [facility] Last Admin: 11/16/24 08:53 Dose: 75 mg Documented By: ALLYSSA Finasteride (Finasteride 5 Mg Tablet) 5 mg PO DAILY [facility] Last Admin: 11/16/24 08:53 Dose: 5 mg Documented By: ALLYSSA Folic Acid (Folic Acid 1 Mg Tablet) 1 mg PO DAILY [facility] Last Admin: 11/16/24 08:53 Dose: 1 mg Documented By: ALLYSSA Heparin Sodium (Porcine) (Heparin Sodium,Porcine 5,000 Unit/Ml Vial) 5,000 unit SUBCUT Q12H [facility] Last Admin: 11/16/24 23:42 Dose: 5,000 unit Documented By: FIDE Hydralazine HCl (Hydralazine Hcl 20 Mg/Ml Vial) 5 mg IVPUSH Q6H PRN; Protocol PRN Reason: SBP>190 Magnesium Hydroxide (Milk Of Magnesia 30 Ml Oral.Susp) 30 ml PO DAILY PRN PRN Reason: Constipation Melatonin (Melatonin 3 Mg Tablet) 6 mg PO BEDTIME PRN PRN Reason: Insomnia Quetiapine Fumarate (Quetiapine Fumarate 25 Mg Tablet) 25 mg PO DAILY [facility] Last Admin: 11/16/24 08:53 Dose: 25 mg Documented By: ALLYSSA Sodium Chloride (0.9 % Sodium Chloride Flush 3 Ml Syringe) 3 ml IVFLUSH QSHIFT [facility] Last Admin: 11/16/24 19:49 Dose: 3 ml Documented By: FIDE Tamsulosin HCl (Tamsulosin Hcl 0.4 Mg Capsule) 0.4 mg PO DAILY [facility] Last Admin: 11/16/24 08:53 Dose: 0.4 mg Documented By: ALLYSSA Thiamine HCl (Thiamine Hcl 100 Mg Tablet) 100 mg PO DAILY [facility] Last Admin: 11/16/24 08:53 Dose: 100 mg Documented By: ALLYSSA Trazodone HCl (Trazodone Hcl 25 Mg Halftab) 25 mg PO BEDTIME [facility] Last Admin: 11/16/24 19:45 Dose: 25 mg Documented By: FIDE Labs 11/17/24 05:37 11/17/24 05:37 Labs: Laboratory Results - last 24 hr 11/17/24 05:37 MCV 99.3 H MCH 34.9 H MCHC 35.2 RDW 15.3 Plt Count 224 MPV 10.3 Immature Gran % (Auto) 0.8 H Neut % (Auto) 54.7 Lymph % (Auto) 31.0 Dunn % (Auto) 9.0 Eos % (Auto) 4.1 H Baso % (Auto) 0.4 Lymph # (Auto) 2.2 Dunn # (Auto) 0.6 Eos # (Auto) 0.3 Baso # (Auto) 0.0 Abs Immat Gran (auto) 0.06 H Absolute Neuts (auto) 3.9 Absolute Nucleated RBC 0.000 Nucleated RBC % (auto) 0.0 Anion Gap 9 L Estim Creat Clear Calc 50.1 Estimated GFR > 60 Random Glucose 101 Calcium 8.5 Total Bilirubin 0.4 AST 44 H ALT 29 Alkaline Phosphatase 87 Total Protein 5.7 L Albumin 3.1 L Microbiology Microbiology Results: Microbiology 11/15/24 05:45 Urine Culture - Preliminary Urine Catheterized - Short Catheter Staphylococcus species Assessment and Plan (1) Frequent falls: Status: Acute Plan Patient is an elderly who appears to have gradually declining health over the past few weeks and months, with notable Alzheimer's dementia, PMH HTN, HLD, PVD, CVA on Plavix, prior substance use, alcohol use disorder who has been falling at home per his daughter who is the primary historian and healthcare proxy. Also was noted to have acute prerenal, postrenal and intrarenal BARRIE with acute urinary retention, strep UTI requiring a Short. HDS after abx and short, awaiting placement BARRIE prerenal-DC fluids as good po intake and sepsis resolving and to prevent clinical worsening Acute urinary retention - Short catheter placed overnight as of 11 14 2024 Intrarenal,Possible UTI- likely secondary to urinary retention, Cont Augmentin 5 day total abx course Patient has likely developed prerenal azotemia in the setting of acute urinary retention likely in the setting of BPH versus deconditioning Postrenal- Short was placed on 11/15/2024 we will need Short and outpatient voiding trials If patient remains hemodynamically stable can be discharged to rehab tomorrow - currently pending placement For BPH-initiated on finasteride and tamsulosin by Urology, we will continue to follow output post DC Falls likely physical deconditioning Advanced Alzheimers Prior substance use Prior alcohol use Likely secondary to declining health Fall precautions Continue B12 and folate Patient requires rehab -manager case management working on it Per daughter, patient has limited ADLs HTN HLD CVA Continue home meds Patient needs rehab placement PTOT consulted horticultural farm manager informed DVT prophylaxis with heparin This note is constructed using voice recognition software. While every effort has been made to ensure accuracy, core extruder errors may have been included. Quality Stroke Does the patient have a stroke diagnosis?: No VTE Prior VTE?: No VTE Risk Level:: Medical - moderate - high VTE Device Contraindication: Treatment Not Indicated VTE Drug Contraindication: N/A - Med Ordered
[2024-11-17] MEDS: 0.9 % Sodium Chloride Flush 3 ML SYRINGE IVFLUSH (07:39)
[2024-11-17 07:56] VITALS: BP 158/70; PULSE 68; RESP 16; TEMP 36.7; O2SAT 98
--- NOTE | 2024-11-17 10:18 | MHC.SL.SWA ---
Speech Pathologist Impression: Risk of Aspiration Due to: Dysphasia Diet Status: Recommend continue on current diet of CHOPPED/ADVANCED (NDD3) with THIN liquids, pills whole or crushed in puree. Liquid Consistency and Strategies for Safe Swallow: Liquid Intake Recommendation: Thin Liquid Intake Strategies: Solid Food Consistency: Dietary Recommendations: Chopped/Advanced (NDD3) Additional Modifications to Solid Foods: Oral Medication Intake: Whole with Puree Please contact the pharmacy regarding appropriate crushable or liquid drug formulations that are available whenever modified delivery is recommended. Compensatory Strategies and Precautions to be Taken for Safe Swallow: Sitting Upright (90 deg) Liquids from Cup Small Bites and Sips Alternate Liquids/Solids Supervision While Eating and Drinking for Safe Swallow: Direct Supervision (1:1) Foods to Avoid: Tough, difficult to chew solids, mixed consistencies. Swallowing Recommended Treatments: Compens. Strategy Educat. Recommendation for Speech: Inpatient Speech Therapy Comment: Patient seen at breakfast this morning. Patient was initially lethargic, closed eyes and appeared to fall asleep again as CAREER ADVISOR was assisting with tray and retrieving juices which did not come with tray this morning (no fluids present). However, after CAREER ADVISOR put a more engaging program on the television, patient woke, smiled at the program, and initiated eating independently (bites of [place] Amasa). Patient appears to be improving with engaging in routine of meals, current diet allows patient to reliably and safely eat independently (pre-cut soft foods) which is optimum. CAREER ADVISOR will continue to follow while inpatient, 2-3X per week. Frequency/Duration: Date Range for Service Req: Timeline to reassess: Vat Washer Clinican/Clinical Fellow: No Supervisory Statement: I have reviewed and agree with the student/clinical fellow's documentation: N/A Speech Language Pathologist: Leslie Ontiveros M.A., [facility]-CAREER ADVISOR
--- NOTE | 2024-11-17 11:18 | MHC.CLN ---
F/U PT IS MODERATELY MALNOURISHED PO INTAKE SLIGHTLY IMPROVED 75% X2 MEALS DIET RX: 2GM NA CHOPPED RECEIVING ENSURE BID TO INCREASE KCALS SUPP PROVIDES 700KCALS, 40G PROTEIN CONTINUE TO MONITOR PO INTAKE AND ENCOURAGE SUPPLEMENTS
--- NOTE | 2024-11-17 11:57 | MHC.CM.PN ---
Per rounds, pt. is very weak, he is eating and taking meds. Per financial counselor, dtr is working to obtain financial records for [facility]. awaiting this to refer pt. for LTC in SNF.
[2024-11-17 12:00] VITALS: BP 131/60; PULSE 77; RESP 16; TEMP 36.2; O2SAT 96
[2024-11-17 15:29] VITALS: BP 139/63; PULSE 85; RESP 18; TEMP 37.1; O2SAT 99
[2024-11-17 19:15] VITALS: BP 160/65; PULSE 99; RESP 16; TEMP 37.6; O2SAT 100
[2024-11-17] MEDS: traZODone HCL 25 MG HALFTAB PO (19:55)
[2024-11-18 03:22] VITALS: BP 114/75; PULSE 63; RESP 14; TEMP 36.3; O2SAT 97
[2024-11-18 07:04] LABS: MANUAL DIFF FLAG NO
[2024-11-18 07:10] LABS: Hematocrit 29.6 % (42.0-52.0); Hemoglobin 9.9 g/dl (14.0-18.0); Imm Gran Abs Auto 0.05 X10*3/uL (0.00-0.03); Imm Gran Pct Auto 0.9 % (0.0-0.4); Lymphocytes Absolute Auto 0.8 X10*3/uL (1.2-4.9); Mean Corpuscular HGB Conc 33.4 g/dl (31.0-36.0); Mean Corpuscular Hemoglobin 33.7 pg (27.0-33.0); Mean Corpuscular Volume 100.7 fL (80.0-98.0); NRBC Abs Auto 0.020 X10*3/uL (0.0-0.012); NRBC Pct Auto 0.4 /100WBC (0.0-0.2); Platelet Count 236 X10*3/uL (160-400); Red Blood Count 2.94 X10*6/uL (4.60-5.80); White Blood Count 5.6 X10*3/uL (4.8-10.8)
--- NOTE | 2024-11-18 07:25 | P.PNIM_ITS ---
Subjective Subjective Date of Service: 11/18/24 Interval History: Continues to improve clinically Currently awaiting bed placement Physical Exam 2 Exam: Exam: General: AOx3, no acute distress, pleasantly confused Resp: CTA bilaterally CVS: S1, S2, RRR GI: +BS, NT, no distention : Has a Short catheter in place draining clear yellow colored urine Neuro: Unable to follow directions hence exam limited Vital Signs: Vital Signs: Last Vital Signs Temp 97.3 F 11/18/24 03:22 Pulse 63 11/18/24 03:22 Resp 14 11/18/24 03:22 BP 114/75 11/18/24 03:22 Pulse Ox 97 11/18/24 03:22 O2 Del Method Room Air 11/18/24 03:22 O2 Flow Rate 2 11/12/24 09:51 BMI result Body Mass Index 18.4 Objective Data Active Medications Acetaminophen (Acetaminophen 325 Mg Tablet) 650 mg PO Q6H PRN PRN Reason: Pain, Mild 1-3,fever,headache Amlodipine Besylate (Amlodipine Besylate 5 Mg Tablet) 5 mg PO DAILY [facility]; Protocol Last Admin: 11/17/24 07:38 Dose: 5 mg Documented By: ALLYSSA Amoxicillin/Clavulanate Potassium (Amoxicillin/Potassium Clav 875 Mg Tablet) 875 mg PO Q12H [facility] Last Admin: 11/18/24 05:57 Dose: 875 mg Documented By: SAMANTHA Atorvastatin Calcium (Atorvastatin Calcium 80 Mg Tablet) 80 mg PO DAILY [facility] Last Admin: 11/17/24 07:38 Dose: 80 mg Documented By: ALLYSSA Calcium Carbonate (Calcium Carbonate 750 Mg Tab.Chew) 750 mg PO Q4H PRN PRN Reason: Heartburn Clopidogrel Bisulfate (Clopidogrel Bisulfate 75 Mg Tablet) 75 mg PO DAILY [facility] Last Admin: 11/17/24 07:38 Dose: 75 mg Documented By: ALLYSSA Finasteride (Finasteride 5 Mg Tablet) 5 mg PO DAILY [facility] Last Admin: 11/17/24 07:39 Dose: 5 mg Documented By: ALLYSSA Folic Acid (Folic Acid 1 Mg Tablet) 1 mg PO DAILY [facility] Last Admin: 11/17/24 07:38 Dose: 1 mg Documented By: ALLYSSA Heparin Sodium (Porcine) (Heparin Sodium,Porcine 5,000 Unit/Ml Vial) 5,000 unit SUBCUT Q12H [facility] Last Admin: 11/17/24 22:54 Dose: 5,000 unit Documented By: SAMANTHA Hydralazine HCl (Hydralazine Hcl 20 Mg/Ml Vial) 5 mg IVPUSH Q6H PRN; Protocol PRN Reason: SBP>190 Magnesium Hydroxide (Milk Of Magnesia 30 Ml Oral.Susp) 30 ml PO DAILY PRN PRN Reason: Constipation Melatonin (Melatonin 3 Mg Tablet) 6 mg PO BEDTIME PRN PRN Reason: Insomnia Last Admin: 11/17/24 19:54 Dose: 6 mg Documented By: SAMANTHA Quetiapine Fumarate (Quetiapine Fumarate 25 Mg Tablet) 25 mg PO DAILY [facility] Last Admin: 11/17/24 07:38 Dose: 25 mg Documented By: ALLYSSA Sodium Chloride (0.9 % Sodium Chloride Flush 3 Ml Syringe) 3 ml IVFLUSH QSHIFT [facility] Last Admin: 11/17/24 20:03 Dose: Not Given Documented By: SAMANTHA Non-Admin Reason: No Access Tamsulosin HCl (Tamsulosin Hcl 0.4 Mg Capsule) 0.4 mg PO DAILY [facility] Last Admin: 11/17/24 07:38 Dose: 0.4 mg Documented By: ALLYSSA Thiamine HCl (Thiamine Hcl 100 Mg Tablet) 100 mg PO DAILY [facility] Last Admin: 11/17/24 07:38 Dose: 100 mg Documented By: ALLYSSA Trazodone HCl (Trazodone Hcl 25 Mg Halftab) 25 mg PO BEDTIME [facility] Last Admin: 11/17/24 19:55 Dose: 25 mg Documented By: SAMANTHA Labs 11/18/24 05:49 11/18/24 05:49 Labs: Laboratory Results - last 24 hr 11/18/24 05:49 MCV 100.7 H MCH 33.7 H MCHC 33.4 RDW 14.9 Plt Count 236 MPV 10.1 Immature Gran % (Auto) 0.9 H Neut % (Auto) 67.2 Lymph % (Auto) 14.8 L Catron % (Auto) 14.1 H Eos % (Auto) 2.3 Baso % (Auto) 0.7 Lymph # (Auto) 0.8 L Catron # (Auto) 0.8 Eos # (Auto) 0.1 Baso # (Auto) 0.0 Abs Immat Gran (auto) 0.05 H Absolute Neuts (auto) 3.8 Absolute Nucleated RBC 0.020 H Nucleated RBC % (auto) 0.4 H Microbiology Microbiology Results: Microbiology 11/15/24 05:45 Urine Culture - Final Urine Catheterized - Short Catheter Staphylococcus epidermidis Assessment and Plan (1) Frequent falls: Status: Acute Plan Patient is an elderly who appears to have gradually declining health over the past few weeks and months, with notable Alzheimer's dementia, PMH HTN, HLD, PVD, CVA on Plavix, prior substance use, alcohol use disorder who has been falling at home per his daughter who is the primary historian and healthcare proxy. Also was noted to have acute prerenal, postrenal and intrarenal BARRIE with acute urinary retention, strep UTI requiring a Short. HDS after abx and hsort, awaiting placement BARRIE prerenal-DC fluids as good po intake and sepsis resolving and to prevent clinical worsening Acute urinary retention - Short catheter placed overnight as of 11 14 2024 Intrarenal,Possible UTI- likely secondary to urinary retention, Cont Augmentin 5 day total abx course Patient has likely developed prerenal azotemia in the setting of acute urinary retention likely in the setting of BPH versus deconditioning Postrenal- Short was placed on 11/15/2024 we will need Short and outpatient voiding trials If patient remains hemodynamically stable can be discharged to rehab tomorrow - currently pending placement For BPH-initiated on finasteride and tamsulosin by Urology, we will continue to follow output post DC Falls likely physical deconditioning Advanced Alzheimers Prior substance use Prior alcohol use Likely secondary to declining health Fall precautions Continue B12 and folate Patient requires rehab -foster care case manager working on it Per daughter, patient has limited ADLs HTN HLD CVA Continue home meds Patient needs rehab placement PTOT consulted admitting manager informed DVT prophylaxis with heparin This note is constructed using voice recognition software. While every effort has been made to ensure accuracy, rug measurer errors may have been included. Pt requires STR : awaiting short-term rehabilitation (STR) after a urinary tract infection (UTI) and deconditioning because they are too weak to return home safely. While the infection has been medically treated, the resulting physical decline requires intensive therapy to regain strength and mobility before discharge Quality Stroke Does the patient have a stroke diagnosis?: No VTE Prior VTE?: No VTE Risk Level:: Medical - moderate - high VTE Device Contraindication: Treatment Not Indicated VTE Drug Contraindication: N/A - Med Ordered
[2024-11-18 07:28] LABS: Alanine Aminotransferase 27 U/L (0-40); Albumin Level 3.0 g/dL (3.5-5.0); Alkaline Phosphatase 75 U/L (39-117); Anion Gap 9 (12-20); Aspartate Amino Transferase 42 U/L (5-37); Blood Urea Nitrogen 14 mg/dL (9-16); Calcium 8.4 mg/dL (8.4-10.2); Carbon Dioxide 24 mmol/L (22-29); Chloride 113 mmol/L (96-108); Creatinine Clr Calc Pharmacy 51.7; Estimated Glomerular Filt Rate > 60; Potassium 3.3 mmol/L (3.3-5.1); Sodium 143 mmol/L (135-145); Total Protein 5.8 g/dL (6.5-8.0)
[2024-11-18 07:29] VITALS: BP 138/64; PULSE 67; RESP 12; TEMP 36.8; O2SAT 98
[2024-11-18 09:13] VITALS: BP 121/72
[2024-11-18 14:57] VITALS: BP 129/61; PULSE 77; RESP 17; TEMP 37.2; O2SAT 98
--- NOTE | 2024-11-18 17:41 | PC.NURSE ---
Pt sleeping most of sleep but arousable when spoken to. A/O X1. Forgetful and confused. Feeds self if set up. Chisholm draining yellow urine. Denies pain. Foam to coccyx CDI- redness blanchable underneath foam.
[2024-11-18 19:13] VITALS: BP 139/63; PULSE 90; RESP 16; TEMP 37.3; O2SAT 98
[2024-11-18] MEDS: traZODone HCL 25 MG HALFTAB PO (19:40)
--- NOTE | 2024-11-19 06:56 | P.PNIM_ITS ---
Subjective Subjective Date of Service: 11/19/24 Interval History: Continues to improve clinically Currently awaiting bed placement Physical Exam 2 Exam: Exam: General: AOx3, no acute distress, pleasantly confused Resp: CTA bilaterally CVS: S1, S2, RRR GI: +BS, NT, no distention : Has a Short catheter in place draining clear yellow colored urine Neuro: Unable to follow directions hence exam limited Vital Signs: Vital Signs: Last Vital Signs Temp 99.1 F 11/18/24 19:13 Pulse 90 11/18/24 19:13 Resp 16 11/18/24 19:13 BP 139/63 11/18/24 19:13 Pulse Ox 98 11/18/24 19:13 O2 Del Method Room Air 11/18/24 19:13 O2 Flow Rate 2 11/12/24 09:51 BMI result Body Mass Index 18.4 Objective Data Active Medications Acetaminophen (Acetaminophen 325 Mg Tablet) 650 mg PO Q6H PRN PRN Reason: Pain, Mild 1-3,fever,headache Amlodipine Besylate (Amlodipine Besylate 5 Mg Tablet) 5 mg PO DAILY [facility]; Protocol Last Admin: 11/18/24 09:13 Dose: 5 mg Documented By: JENNIFER Amoxicillin/Clavulanate Potassium (Amoxicillin/Potassium Clav 875 Mg Tablet) 875 mg PO Q12H [facility] Last Admin: 11/19/24 05:56 Dose: 875 mg Documented By: SAMANTHA Atorvastatin Calcium (Atorvastatin Calcium 80 Mg Tablet) 80 mg PO DAILY [facility] Last Admin: 11/18/24 09:13 Dose: 80 mg Documented By: JENNIFER Calcium Carbonate (Calcium Carbonate 750 Mg Tab.Chew) 750 mg PO Q4H PRN PRN Reason: Heartburn Clopidogrel Bisulfate (Clopidogrel Bisulfate 75 Mg Tablet) 75 mg PO DAILY [facility] Last Admin: 11/18/24 09:13 Dose: 75 mg Documented By: JENNIFER Finasteride (Finasteride 5 Mg Tablet) 5 mg PO DAILY [facility] Last Admin: 11/18/24 09:13 Dose: 5 mg Documented By: JENNIFER Folic Acid (Folic Acid 1 Mg Tablet) 1 mg PO DAILY [facility] Last Admin: 11/18/24 09:13 Dose: 1 mg Documented By: JENNIFER Heparin Sodium (Porcine) (Heparin Sodium,Porcine 5,000 Unit/Ml Vial) 5,000 unit SUBCUT Q12H [facility] Last Admin: 11/18/24 22:23 Dose: Not Given Documented By: SAMANTHA Non-Admin Reason: Patient Asleep Comments: Hydralazine HCl (Hydralazine Hcl 20 Mg/Ml Vial) 5 mg IVPUSH Q6H PRN; Protocol PRN Reason: SBP>190 Magnesium Hydroxide (Milk Of Magnesia 30 Ml Oral.Susp) 30 ml PO DAILY PRN PRN Reason: Constipation Melatonin (Melatonin 3 Mg Tablet) 6 mg PO BEDTIME PRN PRN Reason: Insomnia Last Admin: 11/18/24 19:41 Dose: 6 mg Documented By: SAMANTHA Quetiapine Fumarate (Quetiapine Fumarate 25 Mg Tablet) 25 mg PO DAILY [facility] Last Admin: 11/18/24 09:13 Dose: 25 mg Documented By: JENNIFER Sodium Chloride (0.9 % Sodium Chloride Flush 3 Ml Syringe) 3 ml IVFLUSH QSHIFT [facility] Last Admin: 11/18/24 19:41 Dose: Not Given Documented By: SAMANTHA Non-Admin Reason: No Access Tamsulosin HCl (Tamsulosin Hcl 0.4 Mg Capsule) 0.4 mg PO DAILY [facility] Last Admin: 11/18/24 09:13 Dose: 0.4 mg Documented By: JENNIFER Thiamine HCl (Thiamine Hcl 100 Mg Tablet) 100 mg PO DAILY [facility] Last Admin: 11/18/24 09:13 Dose: 100 mg Documented By: JENNIFER Trazodone HCl (Trazodone Hcl 25 Mg Halftab) 25 mg PO BEDTIME [facility] Last Admin: 11/18/24 19:40 Dose: 25 mg Documented By: SAMANTHA Labs 11/19/24 06:07 11/19/24 06:07 Labs: Laboratory Results - last 24 hr 11/18/24 05:49 MCV 100.7 H MCH 33.7 H MCHC 33.4 RDW 14.9 Plt Count 236 MPV 10.1 Immature Gran % (Auto) 0.9 H Neut % (Auto) 67.2 Lymph % (Auto) 14.8 L [place] % (Auto) 14.1 H Eos % (Auto) 2.3 Baso % (Auto) 0.7 Lymph # (Auto) 0.8 L [place] # (Auto) 0.8 Eos # (Auto) 0.1 Baso # (Auto) 0.0 Abs Immat Gran (auto) 0.05 H Absolute Neuts (auto) 3.8 Absolute Nucleated RBC 0.020 H Nucleated RBC % (auto) 0.4 H Anion Gap 9 L Estim Creat Clear Calc 51.7 Estimated GFR > 60 Random Glucose 101 Calcium 8.4 Total Bilirubin 0.5 AST 42 H ALT 27 Alkaline Phosphatase 75 Total Protein 5.8 L Albumin 3.0 L Assessment and Plan (1) Frequent falls: Status: Acute Plan Patient is an elderly who appears to have gradually declining health over the past few weeks and months, with notable Alzheimer's dementia, PMH HTN, HLD, PVD, CVA on Plavix, prior substance use, alcohol use disorder who has been falling at home per his daughter who is the primary historian and healthcare proxy. Also was noted to have acute prerenal, postrenal and intrarenal BARRIE with acute urinary retention, strep UTI requiring a Short. HDS after abx and short, awaiting placement BARRIE prerenal-DC fluids as good po intake and sepsis resolving and to prevent clinical worsening Acute urinary retention - Short catheter placed overnight as of 11 14 2024 Intrarenal,Possible UTI- likely secondary to urinary retention, Cont Augmentin 5 day total abx course Patient has likely developed prerenal azotemia in the setting of acute urinary retention likely in the setting of BPH versus deconditioning Postrenal- Short was placed on 11/15/2024 we will need Short and outpatient voiding trials If patient remains hemodynamically stable can be discharged to rehab tomorrow - currently pending placement For BPH-initiated on finasteride and tamsulosin by Urology, we will continue to follow output post DC Falls likely physical deconditioning Advanced Alzheimers Prior substance use Prior alcohol use Likely secondary to declining health Fall precautions Continue B12 and folate Patient requires rehab -case work aide working on it Per daughter, patient has limited ADLs HTN HLD CVA Continue home meds Patient needs rehab placement PTOT consulted assurance sourcing manager informed DVT prophylaxis with heparin This note is constructed using voice recognition software. While every effort has been made to ensure accuracy, deputy sheriff lieutenant errors may have been included. Pt requires STR : awaiting short-term rehabilitation (STR) after a urinary tract infection (UTI) and deconditioning because they are too weak to return home safely. While the infection has been medically treated, the resulting physical decline requires intensive therapy to regain strength and mobility before discharge Quality Stroke Does the patient have a stroke diagnosis?: No VTE Prior VTE?: No VTE Risk Level:: Medical - moderate - high VTE Device Contraindication: Treatment Not Indicated VTE Drug Contraindication: N/A - Med Ordered
[2024-11-19 07:25] LABS: MANUAL DIFF FLAG NO
[2024-11-19 07:32] VITALS: BP 122/60; PULSE 64; RESP 16; TEMP 36.5; O2SAT 98
[2024-11-19 08:02] LABS: Hematocrit 29.0 % (42.0-52.0); Hemoglobin 10.0 g/dl (14.0-18.0); Imm Gran Abs Auto 0.03 X10*3/uL (0.00-0.03); Imm Gran Pct Auto 0.6 % (0.0-0.4); Lymphocytes Absolute Auto 1.4 X10*3/uL (1.2-4.9); Mean Corpuscular HGB Conc 34.5 g/dl (31.0-36.0); Mean Corpuscular Hemoglobin 34.5 pg (27.0-33.0); Mean Corpuscular Volume 100.0 fL (80.0-98.0); NRBC Abs Auto 0.000 X10*3/uL (0.0-0.012); NRBC Pct Auto 0.0 /100WBC (0.0-0.2); Platelet Count 229 X10*3/uL (160-400); Red Blood Count 2.90 X10*6/uL (4.60-5.80); White Blood Count 5.0 X10*3/uL (4.8-10.8)
[2024-11-19 08:09] LABS: Alanine Aminotransferase 31 U/L (0-40); Albumin Level 3.0 g/dL (3.5-5.0); Alkaline Phosphatase 71 U/L (39-117); Anion Gap 10 (12-20); Aspartate Amino Transferase 60 U/L (5-37); Blood Urea Nitrogen 15 mg/dL (9-16); Calcium 8.2 mg/dL (8.4-10.2); Carbon Dioxide 24 mmol/L (22-29); Chloride 108 mmol/L (96-108); Creatinine Clr Calc Pharmacy 50.1; Estimated Glomerular Filt Rate > 60; Potassium 3.4 mmol/L (3.3-5.1); Sodium 139 mmol/L (135-145); Total Protein 5.7 g/dL (6.5-8.0)
[2024-11-19 15:39] VITALS: BP 123/58; PULSE 71; RESP 14; TEMP 36.7; O2SAT 98
[2024-11-19] MEDS: traZODone HCL 25 MG HALFTAB PO (19:34)
[2024-11-19 19:37] VITALS: BP 145/64; PULSE 80; RESP 17; TEMP 36.6; O2SAT 98
[2024-11-20 03:49] VITALS: BP 139/67; PULSE 60; RESP 18; TEMP 36.4; O2SAT 98
[2024-11-20 06:07] LABS: MANUAL DIFF FLAG NO
[2024-11-20 06:16] LABS: Hematocrit 32.0 % (42.0-52.0); Hemoglobin 11.0 g/dl (14.0-18.0); Imm Gran Abs Auto 0.03 X10*3/uL (0.00-0.03); Imm Gran Pct Auto 0.6 % (0.0-0.4); Lymphocytes Absolute Auto 1.8 X10*3/uL (1.2-4.9); Mean Corpuscular HGB Conc 34.4 g/dl (31.0-36.0); Mean Corpuscular Hemoglobin 34.5 pg (27.0-33.0); Mean Corpuscular Volume 100.3 fL (80.0-98.0); NRBC Abs Auto 0.000 X10*3/uL (0.0-0.012); NRBC Pct Auto 0.0 /100WBC (0.0-0.2); Platelet Count 258 X10*3/uL (160-400); Red Blood Count 3.19 X10*6/uL (4.60-5.80); White Blood Count 5.2 X10*3/uL (4.8-10.8)
[2024-11-20 06:31] LABS: Alanine Aminotransferase 48 U/L (0-40); Albumin Level 3.1 g/dL (3.5-5.0); Alkaline Phosphatase 73 U/L (39-117); Anion Gap 8 (12-20); Aspartate Amino Transferase 81 U/L (5-37); Blood Urea Nitrogen 21 mg/dL (9-16); Calcium 8.2 mg/dL (8.4-10.2); Carbon Dioxide 26 mmol/L (22-29); Chloride 109 mmol/L (96-108); Creatinine Clr Calc Pharmacy 51.7; Estimated Glomerular Filt Rate > 60; Potassium 3.6 mmol/L (3.3-5.1); Sodium 139 mmol/L (135-145); Total Protein 5.7 g/dL (6.5-8.0)
--- NOTE | 2024-11-20 07:22 | P.PNIM_ITS ---
Subjective Subjective Date of Service: 11/20/24 Interval History: Placement pending Review of Systems Review of Systems: Yes Unobtainable due to mental condition and Unobtainable due to mental status Physical Exam 2 Exam: Exam: General: AOx3, no acute distress, pleasantly confused Resp: CTA bilaterally CVS: S1, S2, RRR GI: +BS, NT, no distention : Has a Short catheter in place draining clear yellow colored urine Neuro: Unable to follow directions hence exam limited Vital Signs: Vital Signs: Last Vital Signs Temp 97.5 F 11/20/24 03:49 Pulse 60 11/20/24 03:49 Resp 18 11/20/24 03:49 BP 139/67 11/20/24 03:49 Pulse Ox 98 11/20/24 03:49 O2 Del Method Room Air 11/20/24 03:49 O2 Flow Rate 2 11/12/24 09:51 BMI result Body Mass Index 18.4 Objective Data Active Medications Acetaminophen (Acetaminophen 325 Mg Tablet) 650 mg PO Q6H PRN PRN Reason: Pain, Mild 1-3,fever,headache Last Admin: 11/19/24 19:34 Dose: 650 mg Documented By: KAR Amlodipine Besylate (Amlodipine Besylate 5 Mg Tablet) 5 mg PO DAILY [facility]; Protocol Last Admin: 11/19/24 08:31 Dose: 5 mg Documented By: YOBANI Amoxicillin/Clavulanate Potassium (Amoxicillin/Potassium Clav 875 Mg Tablet) 875 mg PO Q12H [facility] Last Admin: 11/20/24 05:40 Dose: 875 mg Documented By: ZEN Atorvastatin Calcium (Atorvastatin Calcium 80 Mg Tablet) 80 mg PO DAILY [facility] Last Admin: 11/19/24 08:32 Dose: 80 mg Documented By: YOBANI Calcium Carbonate (Calcium Carbonate 750 Mg Tab.Chew) 750 mg PO Q4H PRN PRN Reason: Heartburn Clopidogrel Bisulfate (Clopidogrel Bisulfate 75 Mg Tablet) 75 mg PO DAILY [facility] Last Admin: 11/19/24 08:32 Dose: 75 mg Documented By: YOBANI Finasteride (Finasteride 5 Mg Tablet) 5 mg PO DAILY [facility] Last Admin: 11/19/24 08:32 Dose: 5 mg Documented By: YOBANI Folic Acid (Folic Acid 1 Mg Tablet) 1 mg PO DAILY [facility] Last Admin: 11/19/24 08:31 Dose: 1 mg Documented By: YOBANI Heparin Sodium (Porcine) (Heparin Sodium,Porcine 5,000 Unit/Ml Vial) 5,000 unit SUBCUT Q12H [facility] Last Admin: 11/19/24 20:05 Dose: 5,000 unit Documented By: KAR Hydralazine HCl (Hydralazine Hcl 20 Mg/Ml Vial) 5 mg IVPUSH Q6H PRN; Protocol PRN Reason: SBP>190 Magnesium Hydroxide (Milk Of Magnesia 30 Ml Oral.Susp) 30 ml PO DAILY PRN PRN Reason: Constipation Melatonin (Melatonin 3 Mg Tablet) 6 mg PO BEDTIME PRN PRN Reason: Insomnia Last Admin: 11/19/24 19:34 Dose: 6 mg Documented By: KAR Quetiapine Fumarate (Quetiapine Fumarate 25 Mg Tablet) 25 mg PO DAILY [facility] Last Admin: 11/19/24 08:32 Dose: 25 mg Documented By: YOBANI Sodium Chloride (0.9 % Sodium Chloride Flush 3 Ml Syringe) 3 ml IVFLUSH QSHIFT [facility] Last Admin: 11/20/24 00:19 Dose: Not Given Documented By: ZEN Non-Admin Reason: No Access Tamsulosin HCl (Tamsulosin Hcl 0.4 Mg Capsule) 0.4 mg PO DAILY [facility] Last Admin: 11/19/24 08:32 Dose: 0.4 mg Documented By: YOBANI Thiamine HCl (Thiamine Hcl 100 Mg Tablet) 100 mg PO DAILY [facility] Last Admin: 11/19/24 08:50 Dose: 100 mg Documented By: YOBANI Trazodone HCl (Trazodone Hcl 25 Mg Halftab) 25 mg PO BEDTIME [facility] Last Admin: 11/19/24 19:34 Dose: 25 mg Documented By: KAR Labs 11/20/24 05:28 11/20/24 05:28 Labs: Laboratory Results - last 24 hr 11/19/24 11/20/24 06:07 05:28 MCV 100.0 H 100.3 H MCH 34.5 H 34.5 H MCHC 34.5 34.4 RDW 15.5 15.3 Plt Count 229 258 MPV 9.2 L 9.6 Immature Gran % (Auto) 0.6 H 0.6 H Neut % (Auto) 54.2 49.9 Lymph % (Auto) 28.4 34.3 [place] % (Auto) 14.6 H 11.7 H Eos % (Auto) 1.6 3.1 Baso % (Auto) 0.6 0.4 Lymph # (Auto) 1.4 1.8 [place] # (Auto) 0.7 0.6 Eos # (Auto) 0.1 0.2 Baso # (Auto) 0.0 0.0 Abs Immat Gran (auto) 0.03 0.03 Absolute Neuts (auto) 2.7 2.6 Absolute Nucleated RBC 0.000 0.000 Nucleated RBC % (auto) 0.0 0.0 Anion Gap 10 L 8 L Estim Creat Clear Calc 50.1 51.7 Estimated GFR > 60 > 60 Random Glucose 98 102 Calcium 8.2 L 8.2 L Total Bilirubin 0.4 0.4 AST 60 H 81 H ALT 31 48 H Alkaline Phosphatase 71 73 Total Protein 5.7 L 5.7 L Albumin 3.0 L 3.1 L Assessment and Plan (1) Frequent falls: Status: Acute Plan Patient is an elderly who appears to have gradually declining health over the past few weeks and months, with notable Alzheimer's dementia, PMH HTN, HLD, PVD, CVA on Plavix, prior substance use, alcohol use disorder who has been falling at home per his daughter who is the primary historian and healthcare proxy. Also was noted to have acute prerenal, postrenal and intrarenal BARRIE with acute urinary retention, strep UTI requiring a Short. HDS after abx and short, awaiting placement BARRIE prerenal resolved with fluids Acute urinary retention - Short catheter placed overnight as of 11 14 2024 Intrarenal,Possible UTI- ATN- likely secondary to urinary retention, Cont Augmentin 5 day total abx course Patient has likely developed prerenal azotemia in the setting of acute urinary retention likely in the setting of BPH versus deconditioning Postrenal- Short was placed on 11/15/2024 we will need Short and outpatient voiding trials If patient remains hemodynamically stable can be discharged to rehab tomorrow - currently pending placement BPH For BPH-initiated on finasteride and tamsulosin by Urology, we will continue to follow output post DC Falls likely physical deconditioning Advanced cognitive decline Prior substance use Prior alcohol use Likely secondary to declining health Fall precautions Continue B12 and folate Patient requires rehab -bilingual patient support caseworker working on it Per daughter, patient has limited ADLs HTN HLD CVA Continue home meds Patient needs rehab placement , expected to last less than 30 days. PTOT consulted major gifts manager informed DVT prophylaxis with heparin This note is constructed using voice recognition software. While every effort has been made to ensure accuracy, mounter errors may have been included. Pt requires STR : awaiting short-term rehabilitation (STR) after a urinary tract infection (UTI) and deconditioning because they are too weak to return home safely. While the infection has been medically treated, the resulting physical decline requires intensive therapy to regain strength and mobility before discharge Quality Stroke Does the patient have a stroke diagnosis?: No VTE Prior VTE?: No VTE Risk Level:: Medical - moderate - high VTE Device Contraindication: Treatment Not Indicated VTE Drug Contraindication: N/A - Med Ordered
[2024-11-20 07:43] VITALS: BP 136/64; PULSE 65; RESP 18; TEMP 36.1; O2SAT 99
--- NOTE | 2024-11-20 11:12 | MHC.CM.PN ---
Patient medically cleared. Awaiting safe dc plan. PT will reattempt eval today. CM spoke w/ daughter/HCP Bindu. Reports she has obtained bank statements (current balance ~$1800) and is still waiting for life insurance information and SS letter in the mail. She lives in [place] and will deliver these documents to the hospital as soon as they are received. CM will continue to follow.
--- NOTE | 2024-11-20 13:38 | MHC.CLN ---
F/U DIET RX: 2GM NA CHOPPED. RECEIVING ENSURE BID TO INCREASE KCALS. SUPP PROVIDES 700KCALS, 40G PROTEIN. PO INTAKE VARIABLE, 25-75%. CONTINUE TO MONITOR PO INTAKE AND ENCOURAGE SUPPLEMENTS.
--- NOTE | 2024-11-20 14:49 | MHC.SL.SWA ---
Speech Pathologist Impression: Dysphagia secondary to confustion/poor PO intake Risk of Aspiration Due to: Deconditioning Confusion Dysphasia Diet Status: Recommend continue on current diet of CHOPPED/ADVANCED (NDD3) with THIN liquids, pills whole or crushed in puree. Liquid Consistency and Strategies for Safe Swallow: Liquid Intake Recommendation: Thin Liquid Intake Strategies: Solid Food Consistency: Dietary Recommendations: Chopped/Advanced (NDD3) Additional Modifications to Solid Foods: Oral Medication Intake: Whole with Puree Please contact the pharmacy regarding appropriate crushable or liquid drug formulations that are available whenever modified delivery is recommended. Compensatory Strategies and Precautions to be Taken for Safe Swallow: Sitting Upright (90 deg) Liquids from Cup Small Bites and Sips Alternate Liquids/Solids Supervision While Eating and Drinking for Safe Swallow: Direct Supervision (1:1) Foods to Avoid: Tough, difficult to chew solids, mixed consistencies. Swallowing Recommended Treatments: Compens. Strategy Educat. Recommendation for Speech: Inpatient Speech Therapy Comment: No changes to diet as pt is tolerating without difficulty. Pt remains at high risk for FTT d/t weakness, poor PO intake. MD and RN consulted. [facility] to follow up x2 as oropharyngeal swallow mechanism WFL. Frequency/Duration: Date Range for Service Req: Timeline to reassess: Window Dresser Clinican/Clinical Fellow: No Supervisory Statement: I have reviewed and agree with the student/clinical fellow's documentation: N/A Speech Language Pathologist: Traci Rodriguez M.S., [facility]
[2024-11-20 15:27] VITALS: BP 149/65; PULSE 74; RESP 16; TEMP 37; O2SAT 98
[2024-11-20 19:40] VITALS: BP 133/64; PULSE 76; RESP 18; TEMP 36.6; O2SAT 99
[2024-11-20] MEDS: traZODone HCL 25 MG HALFTAB PO (20:10)
[2024-11-21 04:00] VITALS: RESP 18
[2024-11-21 06:22] LABS: Hematocrit 30.6 % (42.0-52.0); Hemoglobin 10.6 g/dl (14.0-18.0); Mean Corpuscular Volume 99.7 fL (80.0-98.0); Platelet Count 255 X10*3/uL (160-400); Red Blood Count 3.07 X10*6/uL (4.60-5.80)
[2024-11-21 06:34] LABS: Calcium 8.1 mg/dL (8.4-10.2); Chloride 109 mmol/L (96-108); Potassium 3.9 mmol/L (3.3-5.1); Sodium 139 mmol/L (135-145)
--- NOTE | 2024-11-21 07:51 | P.PNIM_ITS ---
Subjective Subjective Date of Service: 11/21/24 Interval History: Patient was supposed to go to rehab, however he is unable to follow basic instructions hence he likely needs different placement Review of Systems Review of Systems: Yes all other systems are reviewed and are negative Physical Exam 2 Exam: Exam: General: AOx3, no acute distress, pleasantly confused Resp: CTA bilaterally CVS: S1, S2, RRR GI: +BS, NT, no distention : Has a Short catheter in place draining clear yellow colored urine Neuro: Unable to follow directions hence exam limited Vital Signs: Vital Signs: Last Vital Signs Temp 97.9 F 11/20/24 19:40 Pulse 76 11/20/24 19:40 Resp 18 11/21/24 04:00 BP 133/64 11/20/24 19:40 Pulse Ox 99 11/20/24 19:40 O2 Del Method Room Air 11/20/24 19:40 O2 Flow Rate 2 11/12/24 09:51 BMI result Body Mass Index 18.4 Objective Data Active Medications Acetaminophen (Acetaminophen 325 Mg Tablet) 650 mg PO Q6H PRN PRN Reason: Pain, Mild 1-3,fever,headache Last Admin: 11/19/24 19:34 Dose: 650 mg Documented By: KAR Amlodipine Besylate (Amlodipine Besylate 5 Mg Tablet) 5 mg PO DAILY [facility]; Protocol Last Admin: 11/20/24 08:16 Dose: 5 mg Documented By: SHREI Amoxicillin/Clavulanate Potassium (Amoxicillin/Potassium Clav 875 Mg Tablet) 875 mg PO Q12H [facility] Last Admin: 11/21/24 06:22 Dose: 875 mg Documented By: ZEN Atorvastatin Calcium (Atorvastatin Calcium 80 Mg Tablet) 80 mg PO DAILY [facility] Last Admin: 11/20/24 08:17 Dose: 80 mg Documented By: SHEIR Calcium Carbonate (Calcium Carbonate 750 Mg Tab.Chew) 750 mg PO Q4H PRN PRN Reason: Heartburn Clopidogrel Bisulfate (Clopidogrel Bisulfate 75 Mg Tablet) 75 mg PO DAILY [facility] Last Admin: 11/20/24 08:16 Dose: 75 mg Documented By: SHERI Finasteride (Finasteride 5 Mg Tablet) 5 mg PO DAILY [facility] Last Admin: 11/20/24 08:16 Dose: 5 mg Documented By: SHERI Folic Acid (Folic Acid 1 Mg Tablet) 1 mg PO DAILY [facility] Last Admin: 11/20/24 08:16 Dose: 1 mg Documented By: SHERI Heparin Sodium (Porcine) (Heparin Sodium,Porcine 5,000 Unit/Ml Vial) 5,000 unit SUBCUT Q12H [facility] Last Admin: 11/20/24 20:10 Dose: 5,000 unit Documented By: ZEN Hydralazine HCl (Hydralazine Hcl 20 Mg/Ml Vial) 5 mg IVPUSH Q6H PRN; Protocol PRN Reason: SBP>190 Magnesium Hydroxide (Milk Of Magnesia 30 Ml Oral.Susp) 30 ml PO DAILY PRN PRN Reason: Constipation Melatonin (Melatonin 3 Mg Tablet) 6 mg PO BEDTIME PRN PRN Reason: Insomnia Last Admin: 11/19/24 19:34 Dose: 6 mg Documented By: KAR Quetiapine Fumarate (Quetiapine Fumarate 25 Mg Tablet) 25 mg PO DAILY [facility] Last Admin: 11/20/24 08:17 Dose: 25 mg Documented By: SHERI Tamsulosin HCl (Tamsulosin Hcl 0.4 Mg Capsule) 0.4 mg PO DAILY [facility] Last Admin: 11/20/24 08:17 Dose: 0.4 mg Documented By: SHERI Thiamine HCl (Thiamine Hcl 100 Mg Tablet) 100 mg PO DAILY [facility] Last Admin: 11/20/24 08:17 Dose: 100 mg Documented By: SHERI Trazodone HCl (Trazodone Hcl 25 Mg Halftab) 25 mg PO BEDTIME [facility] Last Admin: 11/20/24 20:10 Dose: 25 mg Documented By: ZEN Labs 11/21/24 06:08 11/21/24 06:08 Labs: Laboratory Results - last 24 hr 11/21/24 06:08 MCV 99.7 H MCH 34.5 H MCHC 34.6 RDW 15.4 Plt Count 255 MPV 8.7 L Immature Gran % (Auto) 0.2 Neut % (Auto) 45.9 Lymph % (Auto) 39.9 [place] % (Auto) 10.3 Eos % (Auto) 3.3 Baso % (Auto) 0.4 Lymph # (Auto) 1.9 [place] # (Auto) 0.5 Eos # (Auto) 0.2 Baso # (Auto) 0.0 Abs Immat Gran (auto) 0.01 Absolute Neuts (auto) 2.2 Absolute Nucleated RBC 0.000 Nucleated RBC % (auto) 0.0 Anion Gap 9 L Estim Creat Clear Calc 59.4 Estimated GFR > 60 Random Glucose 101 Calcium 8.1 L Total Bilirubin 0.3 AST 68 H ALT 42 H Alkaline Phosphatase 70 Total Protein 5.6 L Albumin 3.0 L Assessment and Plan (1) Frequent falls: Status: Acute Plan Patient is an elderly who appears to have gradually declining health over the past few weeks and months, with notable Alzheimer's dementia, PMH HTN, HLD, PVD, CVA on Plavix, prior substance use, alcohol use disorder who has been falling at home per his daughter who is the primary historian and healthcare proxy. Also was noted to have acute prerenal, postrenal and intrarenal BARRIE with acute urinary retention, strep UTI requiring a Short. HDS after abx and short, awaiting placement which has been challenging case the patient unable to follow basic directions BARRIE prerenal likely secondary to resolved with fluids Intrarenal,Possible UTI- ATN-resolved, completed Augmentin 5 day total abx course as of 11/21/2024 BPH Patient has likely developed prerenal azotemia in the setting of acute urinary retention likely in the setting of BPH versus deconditioning Acute urinary retention - Short catheter placed overnight as of 11 14 2024 , per Urology we will need to be discharged on a Short and outpatient voiding trials Postrenal- Short was placed on 11/15/2024 we will need Short and outpatient voiding trials For BPH-initiated on finasteride and tamsulosin by Urology, we will continue to follow output post DC Falls likely physical deconditioning Advanced cognitive decline Prior substance use Prior alcohol use Likely secondary to declining health Fall precautions Continue B12 and folate Patient unable to follow basic directions, initially was supposed to go to short-term placement challenging given his inability to follow basic directions Per daughter, patient has limited ADLs HTN HLD CVA Continue home meds Patient unable to follow basic directions, initially was supposed to go to short-term placement challenging given his inability to follow basic directions PTOT consulted general manager land department informed DVT prophylaxis with heparin This note is constructed using voice recognition software. While every effort has been made to ensure accuracy, soap chipper errors may have been included. Pt requires STR : Patient unable to follow basic directions, initially was supposed to go to short-term placement challenging given his inability to follow basic directions awaiting placement after a urinary tract infection (UTI) and deconditioning because they are too weak to return home safely. While the infection has been medically treated, the resulting physical decline requires intensive therapy to regain strength and mobility before discharge Quality Stroke Does the patient have a stroke diagnosis?: No VTE Prior VTE?: No VTE Risk Level:: Medical - moderate - high VTE Device Contraindication: Treatment Not Indicated VTE Drug Contraindication: N/A - Med Ordered
[2024-11-21 08:05] VITALS: BP 139/63; PULSE 63; RESP 12; TEMP 36.4; O2SAT 99
[2024-11-21 16:02] VITALS: BP 129/63; PULSE 69; RESP 18; TEMP 36.4; O2SAT 98
--- NOTE | 2024-11-21 17:47 | MHC.SLORD ---
Speech Language Pathology Order Status: Patient not seen on 11/21/24, however FOOD PRODUCTION ASSOCIATE asked by both RN and SHOT POLISHER AND INSPECTOR about recommendation for direct supervision at meals. FOOD PRODUCTION ASSOCIATE clarified that patient needs tray set up and periodic checks, but has been eating independently and well over several days. Direct supervision is not required at this time. FOOD PRODUCTION ASSOCIATE adjusted white board in room, edited most recent note to reflect this level of support/need.
[2024-11-21 19:30] VITALS: BP 142/63; PULSE 68; RESP 18; TEMP 36.6; O2SAT 100
[2024-11-21] MEDS: traZODone HCL 25 MG HALFTAB PO (19:54)
[2024-11-22 04:00] VITALS: BP 157/67; PULSE 60; RESP 19; TEMP 35.9; O2SAT 99
[2024-11-22 05:55] LABS: MANUAL DIFF FLAG NO
[2024-11-22 06:06] LABS: Hematocrit 30.9 % (42.0-52.0); Hemoglobin 10.8 g/dl (14.0-18.0); Imm Gran Abs Auto 0.02 X10*3/uL (0.00-0.03); Imm Gran Pct Auto 0.4 % (0.0-0.4); Lymphocytes Absolute Auto 2.3 X10*3/uL (1.2-4.9); Mean Corpuscular HGB Conc 35.0 g/dl (31.0-36.0); Mean Corpuscular Hemoglobin 34.7 pg (27.0-33.0); Mean Corpuscular Volume 99.4 fL (80.0-98.0); NRBC Abs Auto 0.000 X10*3/uL (0.0-0.012); NRBC Pct Auto 0.0 /100WBC (0.0-0.2); Platelet Count 284 X10*3/uL (160-400); Red Blood Count 3.11 X10*6/uL (4.60-5.80); White Blood Count 5.1 X10*3/uL (4.8-10.8)
[2024-11-22 06:14] LABS: Alanine Aminotransferase 47 U/L (0-40); Albumin Level 3.1 g/dL (3.5-5.0); Alkaline Phosphatase 69 U/L (39-117); Anion Gap 10 (12-20); Aspartate Amino Transferase 67 U/L (5-37); Blood Urea Nitrogen 20 mg/dL (9-16); Calcium 8.2 mg/dL (8.4-10.2); Carbon Dioxide 25 mmol/L (22-29); Chloride 108 mmol/L (96-108); Creatinine Clr Calc Pharmacy 58.7; Estimated Glomerular Filt Rate > 60; Potassium 4.2 mmol/L (3.3-5.1); Sodium 139 mmol/L (135-145); Total Protein 5.9 g/dL (6.5-8.0)
[2024-11-22 08:00] VITALS: BP 153/69; PULSE 59; RESP 16; TEMP 36; O2SAT 99
--- NOTE | 2024-11-22 09:15 | MHC.CLN ---
F/U DIET RX: 2GM NA CHOPPED. RECEIVING ENSURE BID TO INCREASE KCALS. SUPP PROVIDES 700KCALS, 40G PROTEIN. PO INTAKE VARIABLE, 25-100%. CONTINUE TO MONITOR PO INTAKE AND ENCOURAGE SUPPLEMENTS.
--- NOTE | 2024-11-22 09:45 | HO.PM.IMPN ---
Subjective Subjective Date of Service: 11/22/24 Interval History: Patient was supposed to go to rehab, however he is unable to follow basic instructions hence he likely needs different placement Review of Systems Review of Systems: Yes all other systems are reviewed and are negative Physical Exam Vital Signs: Vital Signs: Last Vital Signs Temp 96.8 F 11/22/24 08:00 Pulse 59 11/22/24 08:00 Resp 16 11/22/24 08:00 BP 153/69 H 11/22/24 08:00 Pulse Ox 99 11/22/24 08:00 O2 Del Method Room Air 11/22/24 08:00 O2 Flow Rate 2 11/12/24 09:51 BMI result Body Mass Index 18.4 Objective Data Active Medications Acetaminophen (Acetaminophen 325 Mg Tablet) 650 mg PO Q6H PRN PRN Reason: Pain, Mild 1-3,fever,headache Last Admin: 11/19/24 19:34 Dose: 650 mg Documented By: KAR Amlodipine Besylate (Amlodipine Besylate 5 Mg Tablet) 5 mg PO DAILY [facility]; Protocol Last Admin: 11/22/24 08:38 Dose: 5 mg Documented By: AUBREY Atorvastatin Calcium (Atorvastatin Calcium 80 Mg Tablet) 80 mg PO DAILY [facility] Last Admin: 11/22/24 08:39 Dose: 80 mg Documented By: AUBREY Calcium Carbonate (Calcium Carbonate 750 Mg Tab.Chew) 750 mg PO Q4H PRN PRN Reason: Heartburn Clopidogrel Bisulfate (Clopidogrel Bisulfate 75 Mg Tablet) 75 mg PO DAILY [facility] Last Admin: 11/22/24 08:38 Dose: 75 mg Documented By: AUBREY Finasteride (Finasteride 5 Mg Tablet) 5 mg PO DAILY [facility] Last Admin: 11/22/24 08:38 Dose: 5 mg Documented By: AUBREY Folic Acid (Folic Acid 1 Mg Tablet) 1 mg PO DAILY [facility] Last Admin: 11/22/24 08:38 Dose: 1 mg Documented By: AUBREY Heparin Sodium (Porcine) (Heparin Sodium,Porcine 5,000 Unit/Ml Vial) 5,000 unit SUBCUT Q12H [facility] Last Admin: 11/22/24 08:38 Dose: 5,000 unit Documented By: AUBREY Hydralazine HCl (Hydralazine Hcl 20 Mg/Ml Vial) 5 mg IVPUSH Q6H PRN; Protocol PRN Reason: SBP>190 Magnesium Hydroxide (Milk Of Magnesia 30 Ml Oral.Susp) 30 ml PO DAILY PRN PRN Reason: Constipation Melatonin (Melatonin 3 Mg Tablet) 6 mg PO BEDTIME PRN PRN Reason: Insomnia Last Admin: 11/19/24 19:34 Dose: 6 mg Documented By: KAR Quetiapine Fumarate (Quetiapine Fumarate 25 Mg Tablet) 25 mg PO DAILY [facility] Last Admin: 11/22/24 08:38 Dose: 25 mg Documented By: AUBREY Tamsulosin HCl (Tamsulosin Hcl 0.4 Mg Capsule) 0.4 mg PO DAILY [facility] Last Admin: 11/22/24 08:38 Dose: 0.4 mg Documented By: AUBREY Thiamine HCl (Thiamine Hcl 100 Mg Tablet) 100 mg PO DAILY [facility] Last Admin: 11/22/24 08:38 Dose: 100 mg Documented By: AUBREY Trazodone HCl (Trazodone Hcl 25 Mg Halftab) 25 mg PO BEDTIME [facility] Last Admin: 11/21/24 19:54 Dose: 25 mg Documented By: ZEN Labs 11/23/24 05:33 11/23/24 05:33 Labs: Laboratory Results - last 24 hr 11/22/24 05:46 MCV 99.4 H MCH 34.7 H MCHC 35.0 RDW 15.5 Plt Count 284 MPV 9.5 Immature Gran % (Auto) 0.4 Neut % (Auto) 40.5 L Lymph % (Auto) 46.0 H [place] % (Auto) 8.5 Eos % (Auto) 4.2 H Baso % (Auto) 0.4 Lymph # (Auto) 2.3 [place] # (Auto) 0.4 Eos # (Auto) 0.2 Baso # (Auto) 0.0 Abs Immat Gran (auto) 0.02 Absolute Neuts (auto) 2.1 Absolute Nucleated RBC 0.000 Nucleated RBC % (auto) 0.0 Anion Gap 10 L Estim Creat Clear Calc 58.7 Estimated GFR > 60 Random Glucose 99 Calcium 8.2 L Total Bilirubin 0.3 AST 67 H ALT 47 H Alkaline Phosphatase 69 Total Protein 5.9 L Albumin 3.1 L Assessment and Plan (1) Frequent falls: Status: Acute Plan Patient is an elderly who appears to have gradually declining health over the past few weeks and months, with notable Alzheimer's dementia, PMH HTN, HLD, PVD, CVA on Plavix, prior substance use, alcohol use disorder who has been falling at home per his daughter who is the primary historian and healthcare proxy. Also was noted to have acute prerenal, postrenal and intrarenal BARRIE with acute urinary retention, strep UTI requiring a Short. HDS after abx and short, awaiting placement which has been challenging case the patient unable to follow basic directions BARRIE, likely pre renal, resolved with IVF0 Intrarenal,Possible UTI- ATN-resolved, completed Augmentin 5 day total abx course as of 11/21/2024 BPH Patient has likely developed prerenal azotemia in the setting of acute urinary retention likely in the setting of BPH versus deconditioning Acute urinary retention - Short catheter placed overnight as of 11 14 2024 , per Urology we will need to be discharged on a Short and outpatient voiding trials Postrenal- Short was placed on 11/15/2024 we will need Short and outpatient voiding trials For BPH-initiated on finasteride and tamsulosin by Urology, we will continue to follow output post DC Falls likely physical deconditioning Advanced cognitive decline Prior substance use Prior alcohol use Likely secondary to declining health Fall precautions Continue B12 and folate Patient unable to follow basic directions, initially was supposed to go to short-term placement challenging given his inability to follow basic directions Per daughter, patient has limited ADLs HTN HLD CVA Continue home meds Patient unable to follow basic directions, initially was supposed to go to short-term placement challenging given his inability to follow basic directions PTOT consulted supplier quality engineering manager informed DVT prophylaxis with heparin This note is constructed using voice recognition software. While every effort has been made to ensure accuracy, monorail crane operator errors may have been included. Pt requires STR : Patient unable to follow basic directions, initially was supposed to go to short-term placement challenging given his inability to follow basic directions awaiting placement after a urinary tract infection (UTI) and deconditioning because they are too weak to return home safely. While the infection has been medically treated, the resulting physical decline requires intensive therapy to regain strength and mobility before discharge Quality Stroke Does the patient have a stroke diagnosis?: No VTE Prior VTE?: No VTE Risk Level:: Medical - moderate - high VTE Device Contraindication: Treatment Not Indicated VTE Drug Contraindication: N/A - Med Ordered
--- NOTE | 2024-11-22 12:41 | MHC.CM.PN ---
DP LTC via BLS. Patient requires MH for LTC Payer source. HCP is working with [facility] Financial hardwood floor sander. The documents required are being obtained. [facility] has been referred and are following for MH.
--- NOTE | 2024-11-22 15:24 | MHC.SL.SWA ---
Speech Pathologist Impression: Oropharyngeal swallow WFL Risk of Aspiration Due to: Dysphasia Diet Status: Recommend continue on current diet of CHOPPED/ADVANCED (NDD3) with THIN liquids, pills whole or crushed in puree. Liquid Consistency and Strategies for Safe Swallow: Liquid Intake Recommendation: Thin Liquid Intake Strategies: Solid Food Consistency: Dietary Recommendations: Chopped/Advanced (NDD3) Additional Modifications to Solid Foods: Oral Medication Intake: Whole with Puree Please contact the pharmacy regarding appropriate crushable or liquid drug formulations that are available whenever modified delivery is recommended. Compensatory Strategies and Precautions to be Taken for Safe Swallow: Sitting Upright (90 deg) Liquids from Cup Small Bites and Sips Alternate Liquids/Solids Supervision While Eating and Drinking for Safe Swallow: Tray Set Up Foods to Avoid: Tough, difficult to chew solids, mixed consistencies. Swallowing Recommended Treatments: Compens. Strategy Educat. Recommendation for Speech: Inpatient Speech Therapy Comment: Pt seen for dysphagia treatment, pt is tolerating NDD3 diet with thin liquids as ordered without overt s/s of aspiration. RN and MD consulted. No further RADIOGRAPHY TECHNICIAN tx indicated at this time. RADIOGRAPHY TECHNICIAN signing off. Frequency/Duration: Date Range for Service Req: Timeline to reassess: Sales Merchandising Specialist Clinican/Clinical Fellow: No Supervisory Statement: I have reviewed and agree with the student/clinical fellow's documentation: N/A Speech Language Pathologist: Traci Rodriguez M.S., [facility]-RADIOGRAPHY TECHNICIAN
[2024-11-22 15:38] VITALS: BP 131/59; PULSE 68; RESP 14; TEMP 36.6; O2SAT 98
[2024-11-22 19:52] VITALS: BP 139/60; PULSE 65; RESP 18; TEMP 36.2; O2SAT 97
[2024-11-22] MEDS: traZODone HCL 25 MG HALFTAB PO (21:14)
[2024-11-23 06:14] LABS: MANUAL DIFF FLAG NO
[2024-11-23 06:26] LABS: Hematocrit 35.6 % (42.0-52.0); Hemoglobin 12.1 g/dl (14.0-18.0); Imm Gran Abs Auto 0.03 X10*3/uL (0.00-0.03); Imm Gran Pct Auto 0.3 % (0.0-0.4); Lymphocytes Absolute Auto 2.3 X10*3/uL (1.2-4.9); Mean Corpuscular HGB Conc 34.0 g/dl (31.0-36.0); Mean Corpuscular Hemoglobin 34.5 pg (27.0-33.0); Mean Corpuscular Volume 101.4 fL (80.0-98.0); NRBC Abs Auto 0.000 X10*3/uL (0.0-0.012); NRBC Pct Auto 0.0 /100WBC (0.0-0.2); Platelet Count 312 X10*3/uL (160-400); Red Blood Count 3.51 X10*6/uL (4.60-5.80); White Blood Count 9.0 X10*3/uL (4.8-10.8)
[2024-11-23 06:36] LABS: Alanine Aminotransferase 46 U/L (0-40); Albumin Level 3.5 g/dL (3.5-5.0); Alkaline Phosphatase 81 U/L (39-117); Anion Gap 13 (12-20); Aspartate Amino Transferase 58 U/L (5-37); Blood Urea Nitrogen 16 mg/dL (9-16); Calcium 8.7 mg/dL (8.4-10.2); Carbon Dioxide 23 mmol/L (22-29); Chloride 109 mmol/L (96-108); Creatinine Clr Calc Pharmacy 60.8; Estimated Glomerular Filt Rate > 60; Potassium 4.3 mmol/L (3.3-5.1); Sodium 141 mmol/L (135-145); Total Protein 6.6 g/dL (6.5-8.0)
[2024-11-23 07:09] VITALS: BP 139/63; PULSE 72; RESP 18; TEMP 36.1; O2SAT 98
--- NOTE | 2024-11-23 09:50 | P.PNIM_ITS ---
Subjective Subjective Date of Service: 11/22/24 Interval History: Patient was supposed to go to rehab, however he is unable to follow basic instructions hence he likely needs different placement Review of Systems Review of Systems: Yes all other systems are reviewed and are negative Physical Exam 2 Vital Signs: Vital Signs: Last Vital Signs Temp 96.9 F 11/23/24 07:09 Pulse 72 11/23/24 07:09 Resp 18 11/23/24 07:09 BP 139/63 11/23/24 07:09 Pulse Ox 98 11/23/24 07:09 O2 Del Method Room Air 11/23/24 07:09 O2 Flow Rate 2 11/12/24 09:51 BMI result Body Mass Index 18.4 Objective Data Active Medications Acetaminophen (Acetaminophen 325 Mg Tablet) 650 mg PO Q6H PRN PRN Reason: Pain, Mild 1-3,fever,headache Last Admin: 11/19/24 19:34 Dose: 650 mg Documented By: KAR Amlodipine Besylate (Amlodipine Besylate 5 Mg Tablet) 5 mg PO DAILY [facility]; Protocol Last Admin: 11/23/24 08:54 Dose: 5 mg Documented By: KAR Atorvastatin Calcium (Atorvastatin Calcium 80 Mg Tablet) 80 mg PO DAILY [facility] Last Admin: 11/23/24 08:54 Dose: 80 mg Documented By: KAR Calcium Carbonate (Calcium Carbonate 750 Mg Tab.Chew) 750 mg PO Q4H PRN PRN Reason: Heartburn Clopidogrel Bisulfate (Clopidogrel Bisulfate 75 Mg Tablet) 75 mg PO DAILY [facility] Last Admin: 11/23/24 08:54 Dose: 75 mg Documented By: KAR Finasteride (Finasteride 5 Mg Tablet) 5 mg PO DAILY [facility] Last Admin: 11/23/24 08:54 Dose: 5 mg Documented By: KAR Folic Acid (Folic Acid 1 Mg Tablet) 1 mg PO DAILY [facility] Last Admin: 11/23/24 08:54 Dose: 1 mg Documented By: KAR Heparin Sodium (Porcine) (Heparin Sodium,Porcine 5,000 Unit/Ml Vial) 5,000 unit SUBCUT Q12H [facility] Last Admin: 11/23/24 08:54 Dose: 5,000 unit Documented By: KAR Hydralazine HCl (Hydralazine Hcl 20 Mg/Ml Vial) 5 mg IVPUSH Q6H PRN; Protocol PRN Reason: SBP>190 Magnesium Hydroxide (Milk Of Magnesia 30 Ml Oral.Susp) 30 ml PO DAILY PRN PRN Reason: Constipation Melatonin (Melatonin 3 Mg Tablet) 6 mg PO BEDTIME PRN PRN Reason: Insomnia Last Admin: 11/19/24 19:34 Dose: 6 mg Documented By: KAR Quetiapine Fumarate (Quetiapine Fumarate 25 Mg Tablet) 25 mg PO DAILY [facility] Last Admin: 11/22/24 08:38 Dose: 25 mg Documented By: AUBREY Tamsulosin HCl (Tamsulosin Hcl 0.4 Mg Capsule) 0.4 mg PO DAILY [facility] Last Admin: 11/23/24 08:54 Dose: 0.4 mg Documented By: KAR Thiamine HCl (Thiamine Hcl 100 Mg Tablet) 100 mg PO DAILY [facility] Last Admin: 11/23/24 08:54 Dose: 100 mg Documented By: KAR Trazodone HCl (Trazodone Hcl 25 Mg Halftab) 25 mg PO BEDTIME [facility] Last Admin: 11/22/24 21:14 Dose: 25 mg Documented By: SAMANTHA Labs 11/23/24 05:33 11/23/24 05:33 Labs: Laboratory Results - last 24 hr 11/23/24 05:33 MCV 101.4 H MCH 34.5 H MCHC 34.0 RDW 15.4 Plt Count 312 MPV 9.5 Immature Gran % (Auto) 0.3 Neut % (Auto) 65.1 Lymph % (Auto) 25.1 [place] % (Auto) 6.8 Eos % (Auto) 2.3 Baso % (Auto) 0.4 Lymph # (Auto) 2.3 [place] # (Auto) 0.6 Eos # (Auto) 0.2 Baso # (Auto) 0.0 Abs Immat Gran (auto) 0.03 Absolute Neuts (auto) 5.9 Absolute Nucleated RBC 0.000 Nucleated RBC % (auto) 0.0 Anion Gap 13 Estim Creat Clear Calc 60.8 Estimated GFR > 60 Random Glucose 101 Calcium 8.7 D Total Bilirubin 0.5 AST 58 H ALT 46 H Alkaline Phosphatase 81 Total Protein 6.6 Albumin 3.5 Assessment and Plan (1) Frequent falls: Status: Acute Plan Patient is an elderly who appears to have gradually declining health over the past few weeks and months, with notable Alzheimer's dementia, PMH HTN, HLD, PVD, CVA on Plavix, prior substance use, alcohol use disorder who has been falling at home per his daughter who is the primary historian and healthcare proxy. Also was noted to have acute prerenal, postrenal and intrarenal BARRIE with acute urinary retention, strep UTI requiring a Short. HDS after abx and short, awaiting placement which has been challenging case the patient unable to follow basic directions BARRIE, likely pre renal, resolved with IVF0 Intrarenal,Possible UTI- ATN-resolved, completed Augmentin 5 day total abx course as of 11/21/2024 BPH Patient has likely developed prerenal azotemia in the setting of acute urinary retention likely in the setting of BPH versus deconditioning Acute urinary retention - Short catheter placed overnight as of 11 14 2024 , per Urology we will need to be discharged on a Short and outpatient voiding trials Postrenal- Short was placed on 11/15/2024 we will need Short and outpatient voiding trials For BPH-initiated on finasteride and tamsulosin by Urology, we will continue to follow output post DC Falls likely physical deconditioning Advanced cognitive decline Prior substance use Prior alcohol use Likely secondary to declining health Fall precautions Continue B12 and folate Patient unable to follow basic directions, initially was supposed to go to short-term placement challenging given his inability to follow basic directions Per daughter, patient has limited ADLs HTN HLD CVA Continue home meds Patient unable to follow basic directions, initially was supposed to go to short-term placement challenging given his inability to follow basic directions PTOT consulted area manager informed DVT prophylaxis with heparin This note is constructed using voice recognition software. While every effort has been made to ensure accuracy, certified wellness program coordinator errors may have been included. Pt requires STR : Patient unable to follow basic directions, initially was supposed to go to short-term placement challenging given his inability to follow basic directions awaiting placement after a urinary tract infection (UTI) and deconditioning because they are too weak to return home safely. While the infection has been medically treated, the resulting physical decline requires intensive therapy to regain strength and mobility before discharge Quality Stroke Does the patient have a stroke diagnosis?: No VTE Prior VTE?: No VTE Risk Level:: Medical - moderate - high VTE Device Contraindication: Treatment Not Indicated VTE Drug Contraindication: N/A - Med Ordered
--- NOTE | 2024-11-23 09:53 | HO.PM.IMPN ---
Subjective Subjective Date of Service: 11/23/24 Interval History: No new issues, awaiting placement Review of Systems Review of Systems: Yes all other systems are reviewed and are negative Physical Exam Vital Signs: Vital Signs: Last Vital Signs Temp 96.9 F 11/23/24 07:09 Pulse 72 11/23/24 07:09 Resp 18 11/23/24 07:09 BP 139/63 11/23/24 07:09 Pulse Ox 98 11/23/24 07:09 O2 Del Method Room Air 11/23/24 07:09 O2 Flow Rate 2 11/12/24 09:51 BMI result Body Mass Index 18.4 Objective Data Active Medications Acetaminophen (Acetaminophen 325 Mg Tablet) 650 mg PO Q6H PRN PRN Reason: Pain, Mild 1-3,fever,headache Last Admin: 11/19/24 19:34 Dose: 650 mg Documented By: KAR Amlodipine Besylate (Amlodipine Besylate 5 Mg Tablet) 5 mg PO DAILY [facility]; Protocol Last Admin: 11/23/24 08:54 Dose: 5 mg Documented By: KAR Atorvastatin Calcium (Atorvastatin Calcium 80 Mg Tablet) 80 mg PO DAILY [facility] Last Admin: 11/23/24 08:54 Dose: 80 mg Documented By: KAR Calcium Carbonate (Calcium Carbonate 750 Mg Tab.Chew) 750 mg PO Q4H PRN PRN Reason: Heartburn Clopidogrel Bisulfate (Clopidogrel Bisulfate 75 Mg Tablet) 75 mg PO DAILY [facility] Last Admin: 11/23/24 08:54 Dose: 75 mg Documented By: KAR Finasteride (Finasteride 5 Mg Tablet) 5 mg PO DAILY [facility] Last Admin: 11/23/24 08:54 Dose: 5 mg Documented By: KAR Folic Acid (Folic Acid 1 Mg Tablet) 1 mg PO DAILY [facility] Last Admin: 11/23/24 08:54 Dose: 1 mg Documented By: KAR Heparin Sodium (Porcine) (Heparin Sodium,Porcine 5,000 Unit/Ml Vial) 5,000 unit SUBCUT Q12H [facility] Last Admin: 11/23/24 08:54 Dose: 5,000 unit Documented By: KAR Hydralazine HCl (Hydralazine Hcl 20 Mg/Ml Vial) 5 mg IVPUSH Q6H PRN; Protocol PRN Reason: SBP>190 Magnesium Hydroxide (Milk Of Magnesia 30 Ml Oral.Susp) 30 ml PO DAILY PRN PRN Reason: Constipation Melatonin (Melatonin 3 Mg Tablet) 6 mg PO BEDTIME PRN PRN Reason: Insomnia Last Admin: 11/19/24 19:34 Dose: 6 mg Documented By: KAR Quetiapine Fumarate (Quetiapine Fumarate 25 Mg Tablet) 25 mg PO DAILY [facility] Last Admin: 11/22/24 08:38 Dose: 25 mg Documented By: AUBREY Tamsulosin HCl (Tamsulosin Hcl 0.4 Mg Capsule) 0.4 mg PO DAILY [facility] Last Admin: 11/23/24 08:54 Dose: 0.4 mg Documented By: KAR Thiamine HCl (Thiamine Hcl 100 Mg Tablet) 100 mg PO DAILY [facility] Last Admin: 11/23/24 08:54 Dose: 100 mg Documented By: KAR Trazodone HCl (Trazodone Hcl 25 Mg Halftab) 25 mg PO BEDTIME [facility] Last Admin: 11/22/24 21:14 Dose: 25 mg Documented By: SAMANTHA Labs 11/23/24 05:33 11/23/24 05:33 Labs: Laboratory Results - last 24 hr 11/23/24 05:33 MCV 101.4 H MCH 34.5 H MCHC 34.0 RDW 15.4 Plt Count 312 MPV 9.5 Immature Gran % (Auto) 0.3 Neut % (Auto) 65.1 Lymph % (Auto) 25.1 [place] % (Auto) 6.8 Eos % (Auto) 2.3 Baso % (Auto) 0.4 Lymph # (Auto) 2.3 [place] # (Auto) 0.6 Eos # (Auto) 0.2 Baso # (Auto) 0.0 Abs Immat Gran (auto) 0.03 Absolute Neuts (auto) 5.9 Absolute Nucleated RBC 0.000 Nucleated RBC % (auto) 0.0 Anion Gap 13 Estim Creat Clear Calc 60.8 Estimated GFR > 60 Random Glucose 101 Calcium 8.7 D Total Bilirubin 0.5 AST 58 H ALT 46 H Alkaline Phosphatase 81 Total Protein 6.6 Albumin 3.5 Assessment and Plan (1) Frequent falls: Status: Acute Plan Patient is an elderly who appears to have gradually declining health over the past few weeks and months, with notable Alzheimer's dementia, PMH HTN, HLD, PVD, CVA on Plavix, prior substance use, alcohol use disorder who has been falling at home per his daughter who is the primary historian and healthcare proxy. Also was noted to have acute prerenal, postrenal and intrarenal BARRIE with acute urinary retention, strep UTI requiring a Short. HDS after abx and short, awaiting placement which has been challenging case the patient unable to follow basic directions Essentially no new issues BARRIE, likely pre renal, resolved with IVF Intrarenal,Possible UTI- ATN-resolved, completed Augmentin 5 day total abx course as of 11/21/2024 BPH Patient has likely developed prerenal azotemia in the setting of acute urinary retention likely in the setting of BPH versus deconditioning Acute urinary retention - Short catheter placed overnight as of 11 14 2024 , per Urology we will need to be discharged on a Short and outpatient voiding trials Postrenal- Short was placed on 11/15/2024 we will need Short and outpatient voiding trials For BPH-initiated on finasteride and tamsulosin by Urology, we will continue to follow output post DC Falls likely physical deconditioning Advanced cognitive decline Prior substance use Prior alcohol use Likely secondary to declining health Fall precautions Continue B12 and folate Patient unable to follow basic directions, initially was supposed to go to short-term placement challenging given his inability to follow basic directions Per daughter, patient has limited ADLs HTN HLD CVA Continue home meds Patient unable to follow basic directions, initially was supposed to go to short-term placement challenging given his inability to follow basic directions PTOT consulted retail bakery manager informed DVT prophylaxis with heparin This note is constructed using voice recognition software. While every effort has been made to ensure accuracy, environmental educator errors may have been included. Pt requires STR : Patient unable to follow basic directions, initially was supposed to go to short-term placement challenging given his inability to follow basic directions awaiting placement after a urinary tract infection (UTI) and deconditioning because they are too weak to return home safely. While the infection has been medically treated, the resulting physical decline requires intensive therapy to regain strength and mobility before discharge Quality Stroke Does the patient have a stroke diagnosis?: No VTE Prior VTE?: No VTE Risk Level:: Medical - moderate - high VTE Device Contraindication: Treatment Not Indicated VTE Drug Contraindication: N/A - Med Ordered
[2024-11-23 17:50] VITALS: BP 151/72; PULSE 67; RESP 18; TEMP 36.4; O2SAT 94
[2024-11-23 19:27] VITALS: BP 149/67; PULSE 77; RESP 16; TEMP 36.1; O2SAT 99
[2024-11-23] MEDS: traZODone HCL 25 MG HALFTAB PO (21:02)
[2024-11-24 02:59] VITALS: BP 175/71; PULSE 75; RESP 14; TEMP 36.1; O2SAT 98
[2024-11-24 04:00] VITALS: BP 152/48
[2024-11-24 07:58] VITALS: BP 163/72; PULSE 82; RESP 18; TEMP 37.4; O2SAT 97
--- NOTE | 2024-11-24 09:41 | HO.PM.IMPN ---
Subjective Subjective Date of Service: 11/24/24 Interval History: No new issues, awaiting placement Review of Systems Review of Systems: Yes all other systems are reviewed and are negative Physical Exam Vital Signs: Vital Signs: Last Vital Signs Temp 99.3 F 11/24/24 07:58 Pulse 82 11/24/24 07:58 Resp 18 11/24/24 07:58 BP 163/72 H 11/24/24 07:58 Pulse Ox 97 11/24/24 07:58 O2 Del Method Room Air 11/24/24 07:58 O2 Flow Rate 2 11/12/24 09:51 BMI result Body Mass Index 18.4 Objective Data Active Medications Acetaminophen (Acetaminophen 325 Mg Tablet) 650 mg PO Q6H PRN PRN Reason: Pain, Mild 1-3,fever,headache Last Admin: 11/19/24 19:34 Dose: 650 mg Documented By: KAR Amlodipine Besylate (Amlodipine Besylate 5 Mg Tablet) 5 mg PO DAILY [facility]; Protocol Last Admin: 11/24/24 08:25 Dose: 5 mg Documented By: YOBANI Atorvastatin Calcium (Atorvastatin Calcium 80 Mg Tablet) 80 mg PO DAILY [facility] Last Admin: 11/24/24 08:25 Dose: 80 mg Documented By: YOBANI Calcium Carbonate (Calcium Carbonate 750 Mg Tab.Chew) 750 mg PO Q4H PRN PRN Reason: Heartburn Clopidogrel Bisulfate (Clopidogrel Bisulfate 75 Mg Tablet) 75 mg PO DAILY [facility] Last Admin: 11/24/24 08:25 Dose: 75 mg Documented By: YOBANI Finasteride (Finasteride 5 Mg Tablet) 5 mg PO DAILY [facility] Last Admin: 11/24/24 08:25 Dose: 5 mg Documented By: YOBANI Folic Acid (Folic Acid 1 Mg Tablet) 1 mg PO DAILY [facility] Last Admin: 11/24/24 08:25 Dose: 1 mg Documented By: YOBANI Heparin Sodium (Porcine) (Heparin Sodium,Porcine 5,000 Unit/Ml Vial) 5,000 unit SUBCUT Q12H [facility] Last Admin: 11/24/24 08:25 Dose: 5,000 unit Documented By: YOBANI Hydralazine HCl (Hydralazine Hcl 20 Mg/Ml Vial) 5 mg IVPUSH Q6H PRN; Protocol PRN Reason: SBP>190 Magnesium Hydroxide (Milk Of Magnesia 30 Ml Oral.Susp) 30 ml PO DAILY PRN PRN Reason: Constipation Melatonin (Melatonin 3 Mg Tablet) 6 mg PO BEDTIME PRN PRN Reason: Insomnia Last Admin: 11/23/24 21:02 Dose: 6 mg Documented By: MILLICENT Quetiapine Fumarate (Quetiapine Fumarate 25 Mg Tablet) 25 mg PO DAILY [facility] Last Admin: 11/24/24 08:25 Dose: 25 mg Documented By: YOBANI Tamsulosin HCl (Tamsulosin Hcl 0.4 Mg Capsule) 0.4 mg PO DAILY [facility] Last Admin: 11/24/24 08:25 Dose: 0.4 mg Documented By: YOBANI Thiamine HCl (Thiamine Hcl 100 Mg Tablet) 100 mg PO DAILY [facility] Last Admin: 11/24/24 08:25 Dose: 100 mg Documented By: YOBANI Trazodone HCl (Trazodone Hcl 25 Mg Halftab) 25 mg PO BEDTIME [facility] Last Admin: 11/23/24 21:02 Dose: 25 mg Documented By: MILLICENT Labs 11/23/24 05:33 11/23/24 05:33 Labs: Laboratory Results - last 24 hr 11/23/24 05:33 MCV 101.4 H MCH 34.5 H MCHC 34.0 RDW 15.4 Plt Count 312 MPV 9.5 Immature Gran % (Auto) 0.3 Neut % (Auto) 65.1 Lymph % (Auto) 25.1 [place] % (Auto) 6.8 Eos % (Auto) 2.3 Baso % (Auto) 0.4 Lymph # (Auto) 2.3 [place] # (Auto) 0.6 Eos # (Auto) 0.2 Baso # (Auto) 0.0 Abs Immat Gran (auto) 0.03 Absolute Neuts (auto) 5.9 Absolute Nucleated RBC 0.000 Nucleated RBC % (auto) 0.0 Anion Gap 13 Estim Creat Clear Calc 60.8 Estimated GFR > 60 Random Glucose 101 Calcium 8.7 D Total Bilirubin 0.5 AST 58 H ALT 46 H Alkaline Phosphatase 81 Total Protein 6.6 Albumin 3.5 Assessment and Plan (1) Frequent falls: Status: Acute Plan Patient is an elderly who appears to have gradually declining health over the past few weeks and months, with notable Alzheimer's dementia, PMH HTN, HLD, PVD, CVA on Plavix, prior substance use, alcohol use disorder who has been falling at home per his daughter who is the primary historian and healthcare proxy. Also was noted to have acute prerenal, postrenal and intrarenal BARRIE with acute urinary retention, strep UTI requiring a Short. HDS after abx and short, awaiting placement which has been challenging case the patient unable to follow basic directions Essentially no new issues BARRIE, likely pre renal, resolved with IVF Intrarenal,Possible UTI- ATN-resolved, completed Augmentin 5 day total abx course as of 11/21/2024 BPH Patient has likely developed prerenal azotemia in the setting of acute urinary retention likely in the setting of BPH versus deconditioning Acute urinary retention - Short catheter placed overnight as of 11 14 2024 , per Urology we will need to be discharged on a Short and outpatient voiding trials Postrenal- Short was placed on 11/15/2024 we will need Short and outpatient voiding trials For BPH-initiated on finasteride and tamsulosin by Urology, we will continue to follow output post DC Falls likely physical deconditioning Advanced cognitive decline Prior substance use Prior alcohol use Likely secondary to declining health Fall precautions Continue B12 and folate Patient unable to follow basic directions, initially was supposed to go to short-term placement challenging given his inability to follow basic directions Per daughter, patient has limited ADLs HTN HLD CVA Continue home meds Patient unable to follow basic directions, initially was supposed to go to short-term placement challenging given his inability to follow basic directions PTOT consulted manager of international informed DVT prophylaxis with heparin This note is constructed using voice recognition software. While every effort has been made to ensure accuracy, grievance manager errors may have been included. Pt requires STR : Patient unable to follow basic directions, initially was supposed to go to short-term placement challenging given his inability to follow basic directions awaiting placement after a urinary tract infection (UTI) and deconditioning because they are too weak to return home safely. While the infection has been medically treated, the resulting physical decline requires intensive therapy to regain strength and mobility before discharge Quality Stroke Does the patient have a stroke diagnosis?: No VTE Prior VTE?: No VTE Risk Level:: Medical - moderate - high VTE Device Contraindication: Treatment Not Indicated VTE Drug Contraindication: N/A - Med Ordered
--- NOTE | 2024-11-24 12:40 | MHC.CM.PN ---
DP LTC via BLS. [facility] is 1st choice. They have been referred and are following for MH. Patient requires MH for LTC Payer source. HCP is working with [facility] Financial product safety administrator. The documents required are being obtained by fabiano Perez. CM will continue to follow for placement.
[2024-11-24 16:00] VITALS: BP 143/63; PULSE 80; RESP 18; TEMP 36.3; O2SAT 98
[2024-11-24 19:09] VITALS: BP 125/56; PULSE 79; RESP 17; TEMP 36.3; O2SAT 99
[2024-11-24] MEDS: traZODone HCL 25 MG HALFTAB PO (20:32)
[2024-11-24 21:31] VITALS: RESP 20
[2024-11-25 03:04] VITALS: BP 143/67; PULSE 75; RESP 18; TEMP 36.6; O2SAT 100
--- NOTE | 2024-11-25 03:31 | PC.NURSE ---
0330 Pt sleeping in naps during the night and intermittently trying to get OOB. Pt denies pain. Persoanl care and short cath care provided. Warm blankets provided for comfort. VSS. Plan of care ongoing, will continue to observe for changes in behavior.
[2024-11-25 08:10] VITALS: BP 141/66; PULSE 75; RESP 16; TEMP 37.1; O2SAT 99
--- NOTE | 2024-11-25 10:20 | P.PNIM_ITS ---
Subjective Subjective Date of Service: 11/25/24 Interval History: No new issues, awaiting placement Review of Systems Review of Systems: Yes all other systems are reviewed and are negative Physical Exam 2 Vital Signs: Vital Signs: Last Vital Signs Temp 97.8 F 11/25/24 03:04 Pulse 75 11/25/24 03:04 Resp 18 11/25/24 03:04 BP 143/67 H 11/25/24 03:04 Pulse Ox 100 11/25/24 03:04 O2 Del Method Room Air 11/25/24 03:04 O2 Flow Rate 2 11/12/24 09:51 BMI result Body Mass Index 18.4 Objective Data Active Medications Acetaminophen (Acetaminophen 325 Mg Tablet) 650 mg PO Q6H PRN PRN Reason: Pain, Mild 1-3,fever,headache Last Admin: 11/19/24 19:34 Dose: 650 mg Documented By: KAR Amlodipine Besylate (Amlodipine Besylate 5 Mg Tablet) 5 mg PO DAILY [facility]; Protocol Last Admin: 11/25/24 09:07 Dose: 5 mg Documented By: TAL Atorvastatin Calcium (Atorvastatin Calcium 80 Mg Tablet) 80 mg PO DAILY [facility] Last Admin: 11/25/24 09:07 Dose: 80 mg Documented By: TAL Calcium Carbonate (Calcium Carbonate 750 Mg Tab.Chew) 750 mg PO Q4H PRN PRN Reason: Heartburn Clopidogrel Bisulfate (Clopidogrel Bisulfate 75 Mg Tablet) 75 mg PO DAILY [facility] Last Admin: 11/25/24 09:07 Dose: 75 mg Documented By: TAL Finasteride (Finasteride 5 Mg Tablet) 5 mg PO DAILY [facility] Last Admin: 11/25/24 09:07 Dose: 5 mg Documented By: TAL Folic Acid (Folic Acid 1 Mg Tablet) 1 mg PO DAILY [facility] Last Admin: 11/25/24 09:07 Dose: 1 mg Documented By: TAL Heparin Sodium (Porcine) (Heparin Sodium,Porcine 5,000 Unit/Ml Vial) 5,000 unit SUBCUT Q12H [facility] Last Admin: 11/25/24 09:07 Dose: 5,000 unit Documented By: TAL Hydralazine HCl (Hydralazine Hcl 20 Mg/Ml Vial) 5 mg IVPUSH Q6H PRN; Protocol PRN Reason: SBP>190 Magnesium Hydroxide (Milk Of Magnesia 30 Ml Oral.Susp) 30 ml PO DAILY PRN PRN Reason: Constipation Melatonin (Melatonin 3 Mg Tablet) 6 mg PO BEDTIME PRN PRN Reason: Insomnia Last Admin: 11/24/24 20:31 Dose: 6 mg Documented By: TISHA Comments: requested for sleep. pt reports I dont sleep well Quetiapine Fumarate (Quetiapine Fumarate 25 Mg Tablet) 25 mg PO DAILY [facility] Last Admin: 11/25/24 09:07 Dose: 25 mg Documented By: TAL Tamsulosin HCl (Tamsulosin Hcl 0.4 Mg Capsule) 0.4 mg PO DAILY [facility] Last Admin: 11/25/24 09:07 Dose: 0.4 mg Documented By: TAL Thiamine HCl (Thiamine Hcl 100 Mg Tablet) 100 mg PO DAILY [facility] Last Admin: 11/25/24 09:07 Dose: 100 mg Documented By: TAL Trazodone HCl (Trazodone Hcl 25 Mg Halftab) 25 mg PO BEDTIME [facility] Last Admin: 11/24/24 20:32 Dose: 25 mg Documented By: TISHA Labs 11/23/24 05:33 11/23/24 05:33 Labs: Laboratory Results - last 24 hr 11/23/24 05:33 MCV 101.4 H MCH 34.5 H MCHC 34.0 RDW 15.4 Plt Count 312 MPV 9.5 Immature Gran % (Auto) 0.3 Neut % (Auto) 65.1 Lymph % (Auto) 25.1 [place] % (Auto) 6.8 Eos % (Auto) 2.3 Baso % (Auto) 0.4 Lymph # (Auto) 2.3 [place] # (Auto) 0.6 Eos # (Auto) 0.2 Baso # (Auto) 0.0 Abs Immat Gran (auto) 0.03 Absolute Neuts (auto) 5.9 Absolute Nucleated RBC 0.000 Nucleated RBC % (auto) 0.0 Anion Gap 13 Estim Creat Clear Calc 60.8 Estimated GFR > 60 Random Glucose 101 Calcium 8.7 D Total Bilirubin 0.5 AST 58 H ALT 46 H Alkaline Phosphatase 81 Total Protein 6.6 Albumin 3.5 Assessment and Plan (1) Frequent falls: Status: Acute Plan Patient is an elderly who appears to have gradually declining health over the past few weeks and months, with notable Alzheimer's dementia, PMH HTN, HLD, PVD, CVA on Plavix, prior substance use, alcohol use disorder who has been falling at home per his daughter who is the primary historian and healthcare proxy. Also was noted to have acute prerenal, postrenal and intrarenal BARRIE with acute urinary retention, strep UTI requiring a Short. HDS after abx and short, awaiting placement which has been challenging case the patient unable to follow basic directions Essentially no new issues BARRIE, likely pre renal, resolved with IVF Intrarenal,Possible UTI- ATN-resolved, completed Augmentin 5 day total abx course as of 11/21/2024 BPH Patient has likely developed prerenal azotemia in the setting of acute urinary retention likely in the setting of BPH versus deconditioning Acute urinary retention - Short catheter placed overnight as of 11 14 2024 , per Urology we will need to be discharged on a Short and outpatient voiding trials Postrenal- Short was placed on 11/15/2024 we will need Short and outpatient voiding trials For BPH-initiated on finasteride and tamsulosin by Urology, we will continue to follow output post DC Falls likely physical deconditioning Advanced cognitive decline Prior substance use Prior alcohol use Likely secondary to declining health Fall precautions Continue B12 and folate Patient unable to follow basic directions, initially was supposed to go to short-term placement challenging given his inability to follow basic directions Per daughter, patient has limited ADLs HTN HLD CVA Continue home meds Patient unable to follow basic directions, initially was supposed to go to short-term placement challenging given his inability to follow basic directions PTOT consulted environmental conflict manager informed DVT prophylaxis with heparin This note is constructed using voice recognition software. While every effort has been made to ensure accuracy, corporate travel expert errors may have been included. Pt requires STR : Patient unable to follow basic directions, initially was supposed to go to short-term placement challenging given his inability to follow basic directions awaiting placement after a urinary tract infection (UTI) and deconditioning because they are too weak to return home safely. While the infection has been medically treated, the resulting physical decline requires intensive therapy to regain strength and mobility before discharge Quality Stroke Does the patient have a stroke diagnosis?: No VTE Prior VTE?: No VTE Risk Level:: Medical - moderate - high VTE Device Contraindication: Treatment Not Indicated VTE Drug Contraindication: N/A - Med Ordered
[2024-11-25 16:00] VITALS: BP 144/64; PULSE 73; RESP 16; TEMP 36.9; O2SAT 96
[2024-11-25 19:19] VITALS: BP 131/60; PULSE 103; RESP 22; TEMP 38.3; O2SAT 96
[2024-11-25 20:01] VITALS: PULSE 95; RESP 20; TEMP 38.1
[2024-11-25] MEDS: traZODone HCL 25 MG HALFTAB PO (20:06)
[2024-11-25 22:04] VITALS: TEMP 36.7
[2024-11-26 07:52] VITALS: BP 150/67; PULSE 73; RESP 18; TEMP 36.3; O2SAT 97
--- NOTE | 2024-11-26 10:33 | P.PNIM_ITS ---
Subjective Subjective Date of Service: 11/26/24 Interval History: No new issues, awaiting placement Review of Systems Review of Systems: Yes all other systems are reviewed and are negative Physical Exam 2 Vital Signs: Vital Signs: Last Vital Signs Temp 97.4 F 11/26/24 07:52 Pulse 73 11/26/24 07:52 Resp 18 11/26/24 07:52 BP 150/67 H 11/26/24 07:52 Pulse Ox 97 11/26/24 07:52 O2 Del Method Room Air 11/26/24 07:52 O2 Flow Rate 2 11/12/24 09:51 BMI result Body Mass Index 18.4 Objective Data Active Medications Acetaminophen (Acetaminophen 325 Mg Tablet) 650 mg PO Q6H PRN PRN Reason: Pain, Mild 1-3,fever,headache Last Admin: 11/25/24 20:06 Dose: 650 mg Documented By: SHRUTI Amlodipine Besylate (Amlodipine Besylate 5 Mg Tablet) 5 mg PO DAILY [facility]; Protocol Last Admin: 11/26/24 09:32 Dose: 5 mg Documented By: TAL Atorvastatin Calcium (Atorvastatin Calcium 80 Mg Tablet) 80 mg PO DAILY [facility] Last Admin: 11/26/24 09:32 Dose: 80 mg Documented By: TAL Calcium Carbonate (Calcium Carbonate 750 Mg Tab.Chew) 750 mg PO Q4H PRN PRN Reason: Heartburn Clopidogrel Bisulfate (Clopidogrel Bisulfate 75 Mg Tablet) 75 mg PO DAILY [facility] Last Admin: 11/26/24 09:32 Dose: 75 mg Documented By: TAL Finasteride (Finasteride 5 Mg Tablet) 5 mg PO DAILY [facility] Last Admin: 11/26/24 09:32 Dose: 5 mg Documented By: TAL Folic Acid (Folic Acid 1 Mg Tablet) 1 mg PO DAILY [facility] Last Admin: 11/26/24 09:32 Dose: 1 mg Documented By: TAL Heparin Sodium (Porcine) (Heparin Sodium,Porcine 5,000 Unit/Ml Vial) 5,000 unit SUBCUT Q12H [facility] Last Admin: 11/26/24 09:32 Dose: 5,000 unit Documented By: TAL Hydralazine HCl (Hydralazine Hcl 20 Mg/Ml Vial) 5 mg IVPUSH Q6H PRN; Protocol PRN Reason: SBP>190 Magnesium Hydroxide (Milk Of Magnesia 30 Ml Oral.Susp) 30 ml PO DAILY PRN PRN Reason: Constipation Melatonin (Melatonin 3 Mg Tablet) 6 mg PO BEDTIME PRN PRN Reason: Insomnia Last Admin: 11/25/24 20:06 Dose: 6 mg Documented By: SHRUTI Quetiapine Fumarate (Quetiapine Fumarate 25 Mg Tablet) 25 mg PO DAILY [facility] Last Admin: 11/26/24 09:32 Dose: 25 mg Documented By: TAL Tamsulosin HCl (Tamsulosin Hcl 0.4 Mg Capsule) 0.4 mg PO DAILY [facility] Last Admin: 11/26/24 09:32 Dose: 0.4 mg Documented By: TAL Thiamine HCl (Thiamine Hcl 100 Mg Tablet) 100 mg PO DAILY [facility] Last Admin: 11/26/24 09:32 Dose: 100 mg Documented By: TAL Trazodone HCl (Trazodone Hcl 25 Mg Halftab) 25 mg PO BEDTIME [facility] Last Admin: 11/25/24 20:06 Dose: 25 mg Documented By: SHRUTI Labs 11/23/24 05:33 11/23/24 05:33 Labs: Laboratory Results - last 24 hr 11/23/24 05:33 MCV 101.4 H MCH 34.5 H MCHC 34.0 RDW 15.4 Plt Count 312 MPV 9.5 Immature Gran % (Auto) 0.3 Neut % (Auto) 65.1 Lymph % (Auto) 25.1 [place] % (Auto) 6.8 Eos % (Auto) 2.3 Baso % (Auto) 0.4 Lymph # (Auto) 2.3 [place] # (Auto) 0.6 Eos # (Auto) 0.2 Baso # (Auto) 0.0 Abs Immat Gran (auto) 0.03 Absolute Neuts (auto) 5.9 Absolute Nucleated RBC 0.000 Nucleated RBC % (auto) 0.0 Anion Gap 13 Estim Creat Clear Calc 60.8 Estimated GFR > 60 Random Glucose 101 Calcium 8.7 D Total Bilirubin 0.5 AST 58 H ALT 46 H Alkaline Phosphatase 81 Total Protein 6.6 Albumin 3.5 Assessment and Plan (1) Frequent falls: Status: Acute Plan Elderly patient with advanced Alzheimer?s dementia, multiple comorbidities, and recent BARRIE/UTI now resolved, but with significant deconditioning and functional decline. Discharge planning is complicated by cognitive impairment and inability to follow directions. Awaiting placement for continued care and rehabilitation. Assessment and Plan 1. Acute Kidney Injury (BARRIE): * The patient experienced multifactorial BARRIE (prerenal, postrenal, and possible intrarenal components) in the setting of acute urinary retention and UTI. * Prerenal azotemia likely due to volume depletion and acute urinary retention, resolved with IV fluids. * Intrarenal component (possible ATN) likely secondary to UTI, now resolved after completing a 5-day course of Augmentin (completed 11/21/2024). * Postrenal component due to BPH and urinary retention; Chisholm catheter placed on 11/14/2024. * Plan: Continue to monitor renal function and urine output. Chisholm catheter to remain in place per Urology, with outpatient voiding trials planned after discharge. 2. Benign Prostatic Hyperplasia (BPH) and Acute Urinary Retention: * Acute urinary retention managed with Chisholm catheter. * Started on finasteride and tamsulosin per Urology recommendations. * Will require discharge with Chisholm and outpatient follow-up for voiding trials. * Monitor for signs of infection or catheter complications. 3. Urinary Tract Infection (UTI): * Streptococcal UTI treated with Augmentin, completed 11/21/2024. * No current signs or symptoms of ongoing infection. * Continue to monitor for recurrence, especially with indwelling Chisholm. 4. Falls and Physical Deconditioning: * Multiple recent falls at home, likely due to advanced cognitive decline, physical deconditioning, and overall declining health. * Patient is unable to follow basic directions, limiting rehabilitation potential and complicating discharge planning. * PT/OT consulted for ongoing assessment and therapy. * Fall precautions in place. * Continue B12 and folate supplementation. 5. Advanced Alzheimer?s Dementia: * Progressive cognitive decline with significant impairment in ADLs. * Daughter is primary historian and healthcare proxy. * Patient unable to participate in care planning or follow instructions, making short-term rehabilitation placement challenging. * Awaiting appropriate placement; case management involved. 6. Hypertension, Hyperlipidemia, History of CVA: * Continue home medications for blood pressure, lipid management, and secondary stroke prevention (on Plavix). * Monitor for any new neurological changes. 7. Prior Substance Use and Alcohol Use Disorder: * History noted; no acute withdrawal or related complications during this admission. 8. DVT Prophylaxis: * Continue prophylaxis with heparin while inpatient. DNR/DNI 9. Disposition: * Patient is medically stable after treatment of UTI and BARRIE but remains functionally and cognitively impaired. * Not safe for discharge home due to inability to follow directions and limited ADLs. * Awaiting placement in a facility capable of providing the necessary level of care and rehabilitation. * Case management and social work are actively involved in placement planning. Quality Stroke Does the patient have a stroke diagnosis?: No VTE Prior VTE?: No VTE Risk Level:: Medical - moderate - high VTE Device Contraindication: Treatment Not Indicated VTE Drug Contraindication: N/A - Med Ordered
[2024-11-26 16:00] VITALS: BP 143/61; PULSE 75; RESP 18; TEMP 36.8; O2SAT 96
[2024-11-26 20:00] VITALS: BP 120/59; PULSE 87; RESP 18; TEMP 36.7; O2SAT 94
[2024-11-26] MEDS: traZODone HCL 25 MG HALFTAB PO (20:11)
[2024-11-27 04:00] VITALS: BP 157/50; PULSE 83; RESP 18; TEMP 36.7; O2SAT 97
[2024-11-27 07:34] VITALS: BP 148/67; PULSE 80; RESP 16; TEMP 36.4; O2SAT 97
--- NOTE | 2024-11-27 09:32 | P.PNIM_ITS ---
Subjective Subjective Date of Service: 11/27/24 Interval History: Doing well, has no complaint this morning Review of Systems Review of Systems: Yes all other systems are reviewed and are negative Physical Exam 2 Vital Signs: Vital Signs: Last Vital Signs Temp 97.5 F 11/27/24 07:34 Pulse 80 11/27/24 07:34 Resp 16 11/27/24 07:34 BP 148/67 H 11/27/24 07:34 Pulse Ox 97 11/27/24 07:34 O2 Del Method Room Air 11/27/24 07:34 O2 Flow Rate 2 11/12/24 09:51 BMI result Body Mass Index 18.4 Objective Data Active Medications Acetaminophen (Acetaminophen 325 Mg Tablet) 650 mg PO Q6H PRN PRN Reason: Pain, Mild 1-3,fever,headache Last Admin: 11/25/24 20:06 Dose: 650 mg Documented By: SHRUTI Amlodipine Besylate (Amlodipine Besylate 5 Mg Tablet) 5 mg PO DAILY [facility]; Protocol Last Admin: 11/27/24 08:29 Dose: 5 mg Documented By: YOBANI Atorvastatin Calcium (Atorvastatin Calcium 80 Mg Tablet) 80 mg PO DAILY [facility] Last Admin: 11/27/24 08:29 Dose: 80 mg Documented By: YOBANI Calcium Carbonate (Calcium Carbonate 750 Mg Tab.Chew) 750 mg PO Q4H PRN PRN Reason: Heartburn Clopidogrel Bisulfate (Clopidogrel Bisulfate 75 Mg Tablet) 75 mg PO DAILY [facility] Last Admin: 11/27/24 08:29 Dose: 75 mg Documented By: YOBANI Finasteride (Finasteride 5 Mg Tablet) 5 mg PO DAILY [facility] Last Admin: 11/27/24 08:29 Dose: 5 mg Documented By: YOBANI Folic Acid (Folic Acid 1 Mg Tablet) 1 mg PO DAILY [facility] Last Admin: 11/27/24 08:29 Dose: 1 mg Documented By: YOBANI Heparin Sodium (Porcine) (Heparin Sodium,Porcine 5,000 Unit/Ml Vial) 5,000 unit SUBCUT Q12H [facility] Last Admin: 11/27/24 08:28 Dose: 5,000 unit Documented By: YOBANI Hydralazine HCl (Hydralazine Hcl 20 Mg/Ml Vial) 5 mg IVPUSH Q6H PRN; Protocol PRN Reason: SBP>190 Magnesium Hydroxide (Milk Of Magnesia 30 Ml Oral.Susp) 30 ml PO DAILY PRN PRN Reason: Constipation Melatonin (Melatonin 3 Mg Tablet) 6 mg PO BEDTIME PRN PRN Reason: Insomnia Last Admin: 11/26/24 20:11 Dose: 6 mg Documented By: ABEL Quetiapine Fumarate (Quetiapine Fumarate 25 Mg Tablet) 25 mg PO DAILY [facility] Last Admin: 11/27/24 08:29 Dose: 25 mg Documented By: YOBANI Tamsulosin HCl (Tamsulosin Hcl 0.4 Mg Capsule) 0.4 mg PO DAILY [facility] Last Admin: 11/27/24 08:29 Dose: 0.4 mg Documented By: YOBANI Thiamine HCl (Thiamine Hcl 100 Mg Tablet) 100 mg PO DAILY [facility] Last Admin: 11/27/24 08:29 Dose: 100 mg Documented By: YOBANI Trazodone HCl (Trazodone Hcl 25 Mg Halftab) 25 mg PO BEDTIME [facility] Last Admin: 11/26/24 20:11 Dose: 25 mg Documented By: ABEL Labs 11/23/24 05:33 11/23/24 05:33 Labs: Laboratory Results - last 24 hr 11/23/24 05:33 MCV 101.4 H MCH 34.5 H MCHC 34.0 RDW 15.4 Plt Count 312 MPV 9.5 Immature Gran % (Auto) 0.3 Neut % (Auto) 65.1 Lymph % (Auto) 25.1 [place] % (Auto) 6.8 Eos % (Auto) 2.3 Baso % (Auto) 0.4 Lymph # (Auto) 2.3 [place] # (Auto) 0.6 Eos # (Auto) 0.2 Baso # (Auto) 0.0 Abs Immat Gran (auto) 0.03 Absolute Neuts (auto) 5.9 Absolute Nucleated RBC 0.000 Nucleated RBC % (auto) 0.0 Anion Gap 13 Estim Creat Clear Calc 60.8 Estimated GFR > 60 Random Glucose 101 Calcium 8.7 D Total Bilirubin 0.5 AST 58 H ALT 46 H Alkaline Phosphatase 81 Total Protein 6.6 Albumin 3.5 Assessment and Plan (1) Frequent falls: Status: Acute Plan Elderly patient with advanced Alzheimer?s dementia, multiple comorbidities, and recent BARRIE/UTI now resolved, but with significant deconditioning and functional decline. Discharge planning is complicated by cognitive impairment and inability to follow directions. Awaiting placement for continued care and rehabilitation. Essentially no new issues Assessment and Plan 1. Acute Kidney Injury (BARRIE): * The patient experienced multifactorial BARRIE (prerenal, postrenal, and possible intrarenal components) in the setting of acute urinary retention and UTI. * Prerenal azotemia likely due to volume depletion and acute urinary retention, resolved with IV fluids. * Intrarenal component (possible ATN) likely secondary to UTI, now resolved after completing a 5-day course of Augmentin (completed 11/21/2024). * Postrenal component due to BPH and urinary retention; Chisholm catheter placed on 11/14/2024. * Plan: Continue to monitor renal function and urine output. Chisholm catheter to remain in place per Urology, with outpatient voiding trials planned after discharge. 2. Benign Prostatic Hyperplasia (BPH) and Acute Urinary Retention: * Acute urinary retention managed with Chisholm catheter. * Started on finasteride and tamsulosin per Urology recommendations. * Will require discharge with Chisholm and outpatient follow-up for voiding trials. * Monitor for signs of infection or catheter complications. 3. Urinary Tract Infection (UTI): * Streptococcal UTI treated with Augmentin, completed 11/21/2024. * No current signs or symptoms of ongoing infection. * Continue to monitor for recurrence, especially with indwelling Chisholm. 4. Falls and Physical Deconditioning: * Multiple recent falls at home, likely due to advanced cognitive decline, physical deconditioning, and overall declining health. * Patient is unable to follow basic directions, limiting rehabilitation potential and complicating discharge planning. * PT/OT consulted for ongoing assessment and therapy. * Fall precautions in place. * Continue B12 and folate supplementation. 5. Advanced Alzheimer?s Dementia: * Progressive cognitive decline with significant impairment in ADLs. * Daughter is primary historian and healthcare proxy. * Patient unable to participate in care planning or follow instructions, making short-term rehabilitation placement challenging. * Awaiting appropriate placement; case management involved. 6. Hypertension, Hyperlipidemia, History of CVA: * Continue home medications for blood pressure, lipid management, and secondary stroke prevention (on Plavix). * Monitor for any new neurological changes. 7. Prior Substance Use and Alcohol Use Disorder: * History noted; no acute withdrawal or related complications during this admission. 8. DVT Prophylaxis: * Continue prophylaxis with heparin while inpatient. DNR/DNI 9. Disposition: * Patient is medically stable after treatment of UTI and BARRIE but remains functionally and cognitively impaired. * Not safe for discharge home due to inability to follow directions and limited ADLs. * Awaiting placement in a facility capable of providing the necessary level of care and rehabilitation. * Case management and social work are actively involved in placement planning. Quality Stroke Does the patient have a stroke diagnosis?: No VTE Prior VTE?: No VTE Risk Level:: Medical - moderate - high VTE Device Contraindication: Treatment Not Indicated VTE Drug Contraindication: N/A - Med Ordered
--- NOTE | 2024-11-27 11:26 | MHC.CLN ---
F/U DIET RX: 2GM NA CHOPPED. RECEIVING ENSURE BID TO INCREASE KCALS. SUPP PROVIDES 700KCALS, 40G PROTEIN. PO INTAKE CONTINUES TO BE VARIABLE, 25-100%. AWAITING LTC PLACEMENT. FOLLOW FOR PO INTAKE. RD TO MONITOR WEEKLY.
--- NOTE | 2024-11-27 11:34 | MHC.CM.PN ---
DP LTC via S. He does not have a Payer for LTC. [facility] [place] Financial Clinical Assessment Manager is working with HCP towards MH application.
[2024-11-27 15:35] VITALS: PULSE 95; RESP 18; TEMP 37.6
[2024-11-27 16:19] VITALS: BP 135/63; PULSE 101
[2024-11-27] MEDS: traZODone HCL 25 MG HALFTAB PO (19:11)
[2024-11-27 19:36] VITALS: BP 128/60; PULSE 96; RESP 18; TEMP 38; O2SAT 94
[2024-11-28 03:15] VITALS: BP 115/59; PULSE 61; RESP 16; TEMP 36.1; O2SAT 96
[2024-11-28 07:56] VITALS: BP 146/66; PULSE 64; RESP 16; TEMP 36.6; O2SAT 97
--- NOTE | 2024-11-28 11:50 | P.PNIM_ITS ---
Subjective Subjective Date of Service: 11/28/24 Interval History: No new issues Review of Systems Review of Systems: Yes all other systems are reviewed and are negative Physical Exam 2 Vital Signs: Vital Signs: Last Vital Signs Temp 97.8 F 11/28/24 07:56 Pulse 64 11/28/24 07:56 Resp 16 11/28/24 07:56 BP 146/66 H 11/28/24 07:56 Pulse Ox 97 11/28/24 07:56 O2 Del Method Room Air 11/28/24 07:56 O2 Flow Rate 2 11/12/24 09:51 BMI result Body Mass Index 18.4 Objective Data Active Medications Acetaminophen (Acetaminophen 325 Mg Tablet) 650 mg PO Q6H PRN PRN Reason: Pain, Mild 1-3,fever,headache Last Admin: 11/28/24 04:05 Dose: 650 mg Documented By: ALYSON Amlodipine Besylate (Amlodipine Besylate 5 Mg Tablet) 5 mg PO DAILY [facility]; Protocol Last Admin: 11/28/24 08:57 Dose: 5 mg Documented By: YOBANI Atorvastatin Calcium (Atorvastatin Calcium 80 Mg Tablet) 80 mg PO DAILY [facility] Last Admin: 11/28/24 08:57 Dose: 80 mg Documented By: YOBANI Calcium Carbonate (Calcium Carbonate 750 Mg Tab.Chew) 750 mg PO Q4H PRN PRN Reason: Heartburn Clopidogrel Bisulfate (Clopidogrel Bisulfate 75 Mg Tablet) 75 mg PO DAILY [facility] Last Admin: 11/28/24 08:57 Dose: 75 mg Documented By: YOBANI Finasteride (Finasteride 5 Mg Tablet) 5 mg PO DAILY [facility] Last Admin: 11/28/24 08:57 Dose: 5 mg Documented By: YOBANI Folic Acid (Folic Acid 1 Mg Tablet) 1 mg PO DAILY [facility] Last Admin: 11/28/24 08:57 Dose: 1 mg Documented By: YOBANI Heparin Sodium (Porcine) (Heparin Sodium,Porcine 5,000 Unit/Ml Vial) 5,000 unit SUBCUT Q12H [facility] Last Admin: 11/28/24 08:57 Dose: 5,000 unit Documented By: YOBANI Hydralazine HCl (Hydralazine Hcl 20 Mg/Ml Vial) 5 mg IVPUSH Q6H PRN; Protocol PRN Reason: SBP>190 Magnesium Hydroxide (Milk Of Magnesia 30 Ml Oral.Susp) 30 ml PO DAILY PRN PRN Reason: Constipation Melatonin (Melatonin 3 Mg Tablet) 6 mg PO BEDTIME PRN PRN Reason: Insomnia Last Admin: 11/27/24 19:11 Dose: 6 mg Documented By: ALYSON Quetiapine Fumarate (Quetiapine Fumarate 25 Mg Tablet) 25 mg PO DAILY [facility] Last Admin: 11/28/24 08:57 Dose: 25 mg Documented By: YOBANI Tamsulosin HCl (Tamsulosin Hcl 0.4 Mg Capsule) 0.4 mg PO DAILY [facility] Last Admin: 11/28/24 08:57 Dose: 0.4 mg Documented By: YOBANI Thiamine HCl (Thiamine Hcl 100 Mg Tablet) 100 mg PO DAILY [facility] Last Admin: 11/28/24 08:57 Dose: 100 mg Documented By: YOBANI Trazodone HCl (Trazodone Hcl 25 Mg Halftab) 25 mg PO BEDTIME [facility] Last Admin: 11/27/24 19:11 Dose: 25 mg Documented By: ALYSON Labs 11/23/24 05:33 11/23/24 05:33 Labs: Laboratory Results - last 24 hr 11/23/24 05:33 MCV 101.4 H MCH 34.5 H MCHC 34.0 RDW 15.4 Plt Count 312 MPV 9.5 Immature Gran % (Auto) 0.3 Neut % (Auto) 65.1 Lymph % (Auto) 25.1 [place] % (Auto) 6.8 Eos % (Auto) 2.3 Baso % (Auto) 0.4 Lymph # (Auto) 2.3 [place] # (Auto) 0.6 Eos # (Auto) 0.2 Baso # (Auto) 0.0 Abs Immat Gran (auto) 0.03 Absolute Neuts (auto) 5.9 Absolute Nucleated RBC 0.000 Nucleated RBC % (auto) 0.0 Anion Gap 13 Estim Creat Clear Calc 60.8 Estimated GFR > 60 Random Glucose 101 Calcium 8.7 D Total Bilirubin 0.5 AST 58 H ALT 46 H Alkaline Phosphatase 81 Total Protein 6.6 Albumin 3.5 Assessment and Plan (1) Frequent falls: Status: Acute Plan Elderly patient with advanced Alzheimer?s dementia, multiple comorbidities, and recent BARRIE/UTI now resolved, but with significant deconditioning and functional decline. Discharge planning is complicated by cognitive impairment and inability to follow directions. Awaiting placement for continued care and rehabilitation. Essentially no new issues Assessment and Plan 1. Acute Kidney Injury (BARRIE): * The patient experienced multifactorial BARRIE (prerenal, postrenal, and possible intrarenal components) in the setting of acute urinary retention and UTI. * Prerenal azotemia likely due to volume depletion and acute urinary retention, resolved with IV fluids. * Intrarenal component (possible ATN) likely secondary to UTI, now resolved after completing a 5-day course of Augmentin (completed 11/21/2024). * Postrenal component due to BPH and urinary retention; Chisholm catheter placed on 11/14/2024. * Plan: Continue to monitor renal function and urine output. Chisholm catheter to remain in place per Urology, with outpatient voiding trials planned after discharge. 2. Benign Prostatic Hyperplasia (BPH) and Acute Urinary Retention: * Acute urinary retention managed with Chisholm catheter. * Started on finasteride and tamsulosin per Urology recommendations. * Will require discharge with Chisholm and outpatient follow-up for voiding trials. * Monitor for signs of infection or catheter complications. 3. Urinary Tract Infection (UTI): * Streptococcal UTI treated with Augmentin, completed 11/21/2024. * No current signs or symptoms of ongoing infection. * Continue to monitor for recurrence, especially with indwelling Chisholm. 4. Falls and Physical Deconditioning: * Multiple recent falls at home, likely due to advanced cognitive decline, physical deconditioning, and overall declining health. * Patient is unable to follow basic directions, limiting rehabilitation potential and complicating discharge planning. * PT/OT consulted for ongoing assessment and therapy. * Fall precautions in place. * Continue B12 and folate supplementation. 5. Advanced Alzheimer?s Dementia: * Progressive cognitive decline with significant impairment in ADLs. * Daughter is primary historian and healthcare proxy. * Patient unable to participate in care planning or follow instructions, making short-term rehabilitation placement challenging. * Awaiting appropriate placement; case management involved. 6. Hypertension, Hyperlipidemia, History of CVA: * Continue home medications for blood pressure, lipid management, and secondary stroke prevention (on Plavix). * Monitor for any new neurological changes. 7. Prior Substance Use and Alcohol Use Disorder: * History noted; no acute withdrawal or related complications during this admission. 8. DVT Prophylaxis: * Continue prophylaxis with heparin while inpatient. DNR/DNI 9. Disposition: * Patient is medically stable after treatment of UTI and BARRIE but remains functionally and cognitively impaired. * Not safe for discharge home due to inability to follow directions and limited ADLs. * Awaiting placement in a facility capable of providing the necessary level of care and rehabilitation. * Case management and social work are actively involved in placement planning. Quality Stroke Does the patient have a stroke diagnosis?: No VTE Prior VTE?: No VTE Risk Level:: Medical - moderate - high VTE Device Contraindication: Treatment Not Indicated VTE Drug Contraindication: N/A - Med Ordered
[2024-11-28] MEDS: Milk of Magnesia 30 ML ORAL.SUSP PO (14:41)
[2024-11-28 15:04] VITALS: BP 147/69; PULSE 77; RESP 18; TEMP 37; O2SAT 95
[2024-11-28 19:05] VITALS: BP 159/69; PULSE 91; RESP 17; TEMP 37.4; O2SAT 97
[2024-11-28] MEDS: traZODone HCL 25 MG HALFTAB PO (19:55)
[2024-11-29 08:00] VITALS: BP 144/66; PULSE 81; RESP 18; TEMP 36.8; O2SAT 96
--- NOTE | 2024-11-29 14:50 | MHC.CM.PN ---
In the process of completing a M.[facility]. application for LTC. Ninfa Alves working with the [facility] to obtain a LTC payer source. [facility] LTC via BLS.
[2024-11-29 16:00] VITALS: BP 140/63; PULSE 80; RESP 16; TEMP 36.9; O2SAT 98
--- NOTE | 2024-11-29 17:21 | P.PNIM_ITS ---
Subjective Subjective Date of Service: 11/30/24 Interval History: No new issues Review of Systems Patient has intermittent agitated, Taken out his Chisholm No other new events. Review of Systems: Yes all other systems are reviewed and are negative Physical Exam 2 Exam: Exam: Appearance: awake , comfortable cvs: rrr, [id number]. res: clear to auscultation ,no rhonchii or wheezing abd: no rebound or guarding ,nt, bs present. ext pulses present , no cyanosis. neuro:moves all ext Vital Signs: Vital Signs: Last Vital Signs Temp 98.4 F 11/29/24 16:00 Pulse 80 11/29/24 16:00 Resp 16 11/29/24 16:00 BP 140/63 H 11/29/24 16:00 Pulse Ox 98 11/29/24 16:00 O2 Del Method Room Air 11/29/24 16:00 O2 Flow Rate 2 11/12/24 09:51 BMI result Body Mass Index 18.4 Objective Data Active Medications Acetaminophen (Acetaminophen 325 Mg Tablet) 650 mg PO Q6H PRN PRN Reason: Pain, Mild 1-3,fever,headache Last Admin: 11/29/24 04:22 Dose: 650 mg Documented By: BRIE Amlodipine Besylate (Amlodipine Besylate 5 Mg Tablet) 5 mg PO DAILY [facility]; Protocol Last Admin: 11/29/24 08:41 Dose: 5 mg Documented By: YELITZA Atorvastatin Calcium (Atorvastatin Calcium 80 Mg Tablet) 80 mg PO DAILY [facility] Last Admin: 11/29/24 08:41 Dose: 80 mg Documented By: YELITZA Calcium Carbonate (Calcium Carbonate 750 Mg Tab.Chew) 750 mg PO Q4H PRN PRN Reason: Heartburn Clopidogrel Bisulfate (Clopidogrel Bisulfate 75 Mg Tablet) 75 mg PO DAILY [facility] Last Admin: 11/29/24 08:41 Dose: 75 mg Documented By: YELITZA Finasteride (Finasteride 5 Mg Tablet) 5 mg PO DAILY [facility] Last Admin: 11/29/24 08:41 Dose: 5 mg Documented By: YELITZA Folic Acid (Folic Acid 1 Mg Tablet) 1 mg PO DAILY [facility] Last Admin: 11/29/24 08:41 Dose: 1 mg Documented By: YELITZA Heparin Sodium (Porcine) (Heparin Sodium,Porcine 5,000 Unit/Ml Vial) 5,000 unit SUBCUT Q12H [facility] Last Admin: 11/29/24 08:41 Dose: 5,000 unit Documented By: YELITZA Hydralazine HCl (Hydralazine Hcl 20 Mg/Ml Vial) 5 mg IVPUSH Q6H PRN; Protocol PRN Reason: SBP>190 Magnesium Hydroxide (Milk Of Magnesia 30 Ml Oral.Susp) 30 ml PO DAILY PRN PRN Reason: Constipation Last Admin: 11/28/24 14:41 Dose: 30 ml Documented By: YOBANI Melatonin (Melatonin 3 Mg Tablet) 6 mg PO BEDTIME PRN PRN Reason: Insomnia Last Admin: 11/28/24 19:55 Dose: 6 mg Documented By: BRIE Quetiapine Fumarate (Quetiapine Fumarate 25 Mg Tablet) 25 mg PO DAILY [facility] Last Admin: 11/29/24 08:41 Dose: 25 mg Documented By: YELITZA Tamsulosin HCl (Tamsulosin Hcl 0.4 Mg Capsule) 0.4 mg PO DAILY [facility] Last Admin: 11/29/24 08:41 Dose: 0.4 mg Documented By: YELITZA Thiamine HCl (Thiamine Hcl 100 Mg Tablet) 100 mg PO DAILY [facility] Last Admin: 11/29/24 08:41 Dose: 100 mg Documented By: YELITZA Trazodone HCl (Trazodone Hcl 25 Mg Halftab) 25 mg PO BEDTIME [facility] Last Admin: 11/28/24 19:55 Dose: 25 mg Documented By: BRIE Labs 11/23/24 05:33 11/23/24 05:33 Assessment and Plan (1) Frequent falls: Status: Acute Plan Elderly patient with advanced Alzheimer?s dementia, multiple comorbidities, and recent BARRIE/UTI now resolved, but with significant deconditioning and functional decline. Discharge planning is complicated by cognitive impairment and inability to follow directions. Awaiting placement for continued care and rehabilitation. Essentially no new issues Assessment and Plan 1. Acute Kidney Injury (BARRIE): * The patient experienced multifactorial BARRIE (prerenal, postrenal, and possible intrarenal components) in the setting of acute urinary retention and UTI. * Prerenal azotemia likely due to volume depletion and acute urinary retention, resolved with IV fluids. * Intrarenal component (possible ATN) likely secondary to UTI, now resolved after completing a 5-day course of Augmentin (completed 11/21/2024). * Postrenal component due to BPH and urinary retention; Chisholm catheter placed on 11/14/2024. * Plan: Continue to monitor renal function and urine output. Chisholm catheter to remain in place per Urology, with outpatient voiding trials planned after discharge. 2. Benign Prostatic Hyperplasia (BPH) and Acute Urinary Retention: * Acute urinary retention managed with Chisholm catheter. * Started on finasteride and tamsulosin per Urology recommendations. * Will require discharge with Chisholm and outpatient follow-up for voiding trials. * Monitor for signs of infection or catheter complications. 3. Urinary Tract Infection (UTI): * Streptococcal UTI treated with Augmentin, completed 11/21/2024. * No current signs or symptoms of ongoing infection. * Continue to monitor for recurrence, especially with indwelling Chisholm. 4. Falls and Physical Deconditioning: * Multiple recent falls at home, likely due to advanced cognitive decline, physical deconditioning, and overall declining health. * Patient is unable to follow basic directions, limiting rehabilitation potential and complicating discharge planning. * PT/OT consulted for ongoing assessment and therapy. * Fall precautions in place. * Continue B12 and folate supplementation. 5. Advanced Alzheimer?s Dementia: * Progressive cognitive decline with significant impairment in ADLs. * Daughter is primary historian and healthcare proxy. * Patient unable to participate in care planning or follow instructions, making short-term rehabilitation placement challenging. * Awaiting appropriate placement; case management involved. 6. Hypertension, Hyperlipidemia, History of CVA: * Continue home medications for blood pressure, lipid management, and secondary stroke prevention (on Plavix). * Monitor for any new neurological changes. 7. Prior Substance Use and Alcohol Use Disorder: * History noted; no acute withdrawal or related complications during this admission. 8. DVT Prophylaxis: * Continue prophylaxis with heparin while inpatient. Urinary catheter is out: Monitor PVR/straight cath if needed. DNR/DNI 9. Disposition: * Patient is medically stable after treatment of UTI and BARRIE but remains functionally and cognitively impaired. * Not safe for discharge home due to inability to follow directions and limited ADLs. * Awaiting placement in a facility capable of providing the necessary level of care and rehabilitation. * Case management and social work are actively involved in placement planning. Quality Stroke Does the patient have a stroke diagnosis?: No VTE Prior VTE?: No VTE Risk Level:: Medical - moderate - high VTE Device Contraindication: Treatment Not Indicated VTE Drug Contraindication: N/A - Med Ordered
[2024-11-29] MEDS: traZODone HCL 25 MG HALFTAB PO (19:06)
[2024-11-29 19:32] VITALS: BP 136/63; PULSE 85; RESP 16; TEMP 37.2; O2SAT 95
--- NOTE | 2024-11-29 20:00 | PC.NURSE ---
pt agitated, trying to get out of bed, pulling at short catheter, being combative with staff. [place] text to Dr. Mendez, 2.5 mg IV Haldol ordered and administered at 1912. Will continue to monitor.
[2024-11-30 03:22] VITALS: BP 101/52; PULSE 69; RESP 14; TEMP 36.6; O2SAT 91
[2024-11-30 07:56] VITALS: BP 138/63; PULSE 76; RESP 16; TEMP 36.6; O2SAT 98
[2024-11-30 16:07] VITALS: BP 155/67; PULSE 75; RESP 12; TEMP 37; O2SAT 98
--- NOTE | 2024-11-30 16:25 | PC.NURSE ---
7012 pt removed short cath , pt ripped off port where we inflate the balloon so when pt pulled out short the balloon was not inflated . made aware , will attempt void trial , Pt DTV [id number]
--- NOTE | 2024-11-30 17:48 | PC.NURSE ---
1700 pt being resistive to care , pt attempting to get out of bed , not redirectable , pt combative . aware , new order for PO seroquil given at 1730 in ice cream
[2024-11-30] MEDS: traZODone HCL 25 MG HALFTAB PO (19:30)
[2024-11-30 20:00] VITALS: BP 115/56; PULSE 70; RESP 19; TEMP 36.4; O2SAT 98
--- NOTE | 2024-11-30 20:57 | PC.NURSE ---
pt agitated, being aggressive with staff, trying to hit staff, tiger text to Dr. Mendez - 2.5 mg IM haldol ordered and administered at 1958, will continue to monitor.
--- NOTE | 2024-11-30 22:57 | PC.NURSE ---
Pt bladder scanned for 185 ml, august continue to monitor.
--- NOTE | 2024-12-01 03:43 | PC.NURSE ---
bladder scanned pt for 318 ml, will continue to monitor.
[2024-12-01 04:00] VITALS: BP 130/61; PULSE 58; RESP 16; TEMP 36.1; O2SAT 98
--- NOTE | 2024-12-01 04:47 | PC.NURSE ---
Bladder scanned pt at 0400 and pt had 350 mL in the bladder. Pt straight catheterized at this time and 350 mL of clear yellow urine was drained. Patient was attempting to hit nurses during and was verbally redirected
--- NOTE | 2024-12-01 04:56 | PC.NURSE ---
Addendum entered by MAURO Davis 12/01/24 05:04: Patient is due to void at 11:30. Original Note: Pt was bladder scanned at 0400 and had 350 mL in bladder. Patient straight catheterized and 350 mL of clear yellow urine was drained. Patient was attempting to strike nurses, more staff was called to assist. Patient is now comfortably resting and will continue to monitor patient.
[2024-12-01 07:32] VITALS: BP 127/70; PULSE 68; RESP 16; TEMP 36.4; O2SAT 98
--- NOTE | 2024-12-01 08:01 | PM.IMPN ---
Progress Note: A&P (1) Acute kidney injury: Status: Acute Plan Elderly patient with advanced Alzheimer?s dementia, multiple comorbidities, and recent BARRIE/UTI now resolved, but with significant deconditioning and functional decline. Discharge planning is complicated by cognitive impairment and inability to follow directions. Awaiting placement for continued care and rehabilitation. Essentially no new issues dementis with behavioral agitation: Adjusted Seroquel, added sister, psych follow-up. Patient taken out Chisholm: Monitor PVR and if retains more than 350 mL consider straight cath. Assessment and Plan 1. Acute Kidney Injury (BARRIE): The patient experienced multifactorial BARRIE (prerenal, postrenal, and possible intrarenal components) in the setting of acute urinary retention and UTI. Prerenal azotemia likely due to volume depletion and acute urinary retention, resolved with IV fluids. Intrarenal component (possible ATN) likely secondary to UTI, now resolved after completing a 5-day course of Augmentin (completed 11/21/2024). Postrenal component due to BPH and urinary retention; Chisholm catheter placed on 11/14/2024. Plan: Continue to monitor renal function and urine output. Chisholm catheter to remain in place per Urology, with outpatient voiding trials planned after discharge. 2. Benign Prostatic Hyperplasia (BPH) and Acute Urinary Retention: Acute urinary retention managed with Chisholm catheter. Started on finasteride and tamsulosin per Urology recommendations. Will require discharge with Chisholm and outpatient follow-up for voiding trials. Monitor for signs of infection or catheter complications. 3. Urinary Tract Infection (UTI): Streptococcal UTI treated with Augmentin, completed 11/21/2024. No current signs or symptoms of ongoing infection. Continue to monitor for recurrence, especially with indwelling Chisholm. 4. Falls and Physical Deconditioning: Multiple recent falls at home, likely due to advanced cognitive decline, physical deconditioning, and overall declining health. Patient is unable to follow basic directions, limiting rehabilitation potential and complicating discharge planning. PT/OT consulted for ongoing assessment and therapy. Fall precautions in place. Continue B12 and folate supplementation. 5. Advanced Alzheimer?s Dementia: Progressive cognitive decline with significant impairment in ADLs. Daughter is primary historian and healthcare proxy. Patient unable to participate in care planning or follow instructions, making short-term rehabilitation placement challenging. Awaiting appropriate placement; case management involved. 6. Hypertension, Hyperlipidemia, History of CVA: Continue home medications for blood pressure, lipid management, and secondary stroke prevention (on Plavix). Monitor for any new neurological changes. 7. Prior Substance Use and Alcohol Use Disorder: History noted; no acute withdrawal or related complications during this admission.8. DVT Prophylaxis: Continue prophylaxis with heparin while inpatient.Urinary catheter is out: Monitor PVR/straight cath if needed. DNR/DNI 9. Disposition: Patient is medically stable after treatment of UTI and BARRIE but remains functionally and cognitively impaired. Not safe for discharge home due to inability to follow directions and limited ADLs. Awaiting placement in a facility capable of providing the necessary level of care and rehabilitation. Case management and social work are actively involved in placement planning. Subjective Subjective Date of Service: 12/01/24 Interval History: no new events , except has intermittent agitation Review of Systems Review of Systems: Yes all other systems are reviewed and are negative Physical Exam Exam: Exam: Appearance: awake , comfortable cvs: [id number], [id number]. res: clear to auscultation ,no rhonchii or wheezing abd: no rebound or guarding ,nt, bs present. ext pulses present , no cyanosis. neuro:moves all ext Vital Signs: Vital Signs: Last Vital Signs Temp 97.5 F 12/01/24 07:32 Pulse 68 12/01/24 07:32 Resp 16 12/01/24 07:32 BP 127/70 12/01/24 07:32 Pulse Ox 98 12/01/24 07:32 O2 Del Method Room Air 12/01/24 07:32 O2 Flow Rate 2 11/12/24 09:51 BMI result Body Mass Index 18.4 Objective Data Current Medications Acetaminophen (Acetaminophen 325 Mg Tablet) 650 mg PO Q6H PRN PRN Reason: Pain, Mild 1-3,fever,headache Last Admin: 11/30/24 19:30 Dose: 650 mg Amlodipine Besylate (Amlodipine Besylate 5 Mg Tablet) 5 mg PO DAILY [facility]; Protocol Last Admin: 12/01/24 07:49 Dose: 5 mg Atorvastatin Calcium (Atorvastatin Calcium 80 Mg Tablet) 80 mg PO DAILY [facility] Last Admin: 12/01/24 07:48 Dose: 80 mg Calcium Carbonate (Calcium Carbonate 750 Mg Tab.Chew) 750 mg PO Q4H PRN PRN Reason: Heartburn Clopidogrel Bisulfate (Clopidogrel Bisulfate 75 Mg Tablet) 75 mg PO DAILY [facility] Last Admin: 12/01/24 07:49 Dose: 75 mg Finasteride (Finasteride 5 Mg Tablet) 5 mg PO DAILY [facility] Last Admin: 12/01/24 07:48 Dose: 5 mg Folic Acid (Folic Acid 1 Mg Tablet) 1 mg PO DAILY [facility] Last Admin: 12/01/24 07:48 Dose: 1 mg Heparin Sodium (Porcine) (Heparin Sodium,Porcine 5,000 Unit/Ml Vial) 5,000 unit SUBCUT Q12H [facility] Last Admin: 12/01/24 07:49 Dose: 5,000 unit Hydralazine HCl (Hydralazine Hcl 20 Mg/Ml Vial) 5 mg IVPUSH Q6H PRN; Protocol PRN Reason: SBP>190 Magnesium Hydroxide (Milk Of Magnesia 30 Ml Oral.Susp) 30 ml PO DAILY PRN PRN Reason: Constipation Last Admin: 11/28/24 14:41 Dose: 30 ml Melatonin (Melatonin 3 Mg Tablet) 6 mg PO BEDTIME PRN PRN Reason: Insomnia Last Admin: 11/30/24 19:30 Dose: 6 mg Quetiapine Fumarate (Quetiapine Fumarate 25 Mg Tablet) 25 mg PO BID [facility] Last Admin: 12/01/24 07:50 Dose: 25 mg Tamsulosin HCl (Tamsulosin Hcl 0.4 Mg Capsule) 0.4 mg PO DAILY [facility] Last Admin: 12/01/24 07:49 Dose: 0.4 mg Thiamine HCl (Thiamine Hcl 100 Mg Tablet) 100 mg PO DAILY [facility] Last Admin: 12/01/24 07:48 Dose: 100 mg Trazodone HCl (Trazodone Hcl 25 Mg Halftab) 25 mg PO BEDTIME [facility] Last Admin: 11/30/24 19:30 Dose: 25 mg Labs 11/23/24 05:33 11/23/24 05:33 Microbiology Microbiology Results: Microbiology 11/15/24 05:45 Urine Catheterized - Chisholm Catheter Urine Culture - Final Staphylococcus epidermidis Quality Stroke Does the patient have a stroke diagnosis?: No VTE Prior VTE?: No VTE Risk Level:: Medical - moderate - high VTE Device Contraindication: Treatment Not Indicated VTE Drug Contraindication: N/A - Med Ordered
--- NOTE | 2024-12-01 09:35 | PC.NURSE ---
foam on coccyx for protection, skin red, bleachable.
--- NOTE | 2024-12-01 10:52 | MHC.CM.PN ---
PT AWAITING LTC PLACEMENT, MH PONCHO IN PROCESS. CM FOLLOWING FOR MH PENDING
[2024-12-01 15:29] VITALS: BP 149/64; PULSE 91; RESP 18; TEMP 36.3; O2SAT 96
--- NOTE | 2024-12-01 16:26 | PM.PSYCN ---
History of Present Illness Date of Service: 12/01/24 Chief Complaint: barrie, seizure Reason for Consult: ?dementia/behavioral agitation Requesting physician: Milagros Hernandez Discussed with referring provider: Yes Sources of Information: patient interviewed and chart reviewed HPI Narrative: Patient is a 74 year old male with advanced Alzheimer?s dementia, multiple comorbidities, and recent BARRIE/UTI now resolved, but with significant deconditioning and functional decline. Discharge planning is complicated by cognitive impairment and inability to follow directions. Awaiting placement for continued care and rehabilitation. Psychiatric consult placed for: ?dementia/behavioral agitation During psychiatric assessment, pt not oriented to self, place, time or situation. Laying in bed. When asked his name, pt responded with, I don't know my name . Speech is mumbled and unclear; difficult to understand. Confused. Disorganized. Per nursing, pt became agitated earlier in shift and attempted to hit sitter. Medical Evaluation Reviewed: Yes Diagnostics Vital Signs (24Hr): Vital Signs - 24 hr 11/30/24 20:00 12/01/24 04:00 12/01/24 07:32 Temperature 97.6 F 97 F 97.5 F Pulse Rate 70 58 68 Respiratory Rate 19 16 16 Blood Pressure 115/56 L 130/61 127/70 Pulse Oximetry 98 98 98 Oxygen Delivery Method Room Air Room Air Room Air 12/01/24 15:29 Temperature 97.3 F Pulse Rate 91 Respiratory Rate 18 Blood Pressure 149/64 H Pulse Oximetry 96 Oxygen Delivery Method Room Air BMI result Body Mass Index 18.4 Labs 11/23/24 05:33 11/23/24 05:33 Imaging Radiology Impressions: ITS Impressions Renal Ultrasound 11/15/24 13:53 IMPRESSION: Unremarkable renal ultrasound. Electronically signed by: Isreal Cox MD 11/20/2024 10:17 AM EDT RP Mental Status Exam Mental Status Exam Patient Appearance: Appropriate Level of Consciousness: Awake Patient Behavior: Good Eye Contact Mood Description: Calm Affect Description: Blunted Ability to Follow Directions: Fair Speech Pattern: Soft-Spoken, Mumbled and Includes Profanity Memory Description: Long-Term Impaired Thought Process: Confusion Thought Content: positive for Slowed Thinking Medications Medications Current Medications Acetaminophen (Acetaminophen 325 Mg Tablet) 650 mg PO Q6H PRN PRN Reason: Pain, Mild 1-3,fever,headache Last Admin: 11/30/24 19:30 Dose: 650 mg Amlodipine Besylate (Amlodipine Besylate 5 Mg Tablet) 5 mg PO DAILY [facility]; Protocol Last Admin: 12/01/24 07:49 Dose: 5 mg Atorvastatin Calcium (Atorvastatin Calcium 80 Mg Tablet) 80 mg PO DAILY [facility] Last Admin: 12/01/24 07:48 Dose: 80 mg Calcium Carbonate (Calcium Carbonate 750 Mg Tab.Chew) 750 mg PO Q4H PRN PRN Reason: Heartburn Clopidogrel Bisulfate (Clopidogrel Bisulfate 75 Mg Tablet) 75 mg PO DAILY [facility] Last Admin: 12/01/24 07:49 Dose: 75 mg Finasteride (Finasteride 5 Mg Tablet) 5 mg PO DAILY [facility] Last Admin: 12/01/24 07:48 Dose: 5 mg Folic Acid (Folic Acid 1 Mg Tablet) 1 mg PO DAILY [facility] Last Admin: 12/01/24 07:48 Dose: 1 mg Heparin Sodium (Porcine) (Heparin Sodium,Porcine 5,000 Unit/Ml Vial) 5,000 unit SUBCUT Q12H [facility] Last Admin: 12/01/24 07:49 Dose: 5,000 unit Hydralazine HCl (Hydralazine Hcl 20 Mg/Ml Vial) 5 mg IVPUSH Q6H PRN; Protocol PRN Reason: SBP>190 Magnesium Hydroxide (Milk Of Magnesia 30 Ml Oral.Susp) 30 ml PO DAILY PRN PRN Reason: Constipation Last Admin: 11/28/24 14:41 Dose: 30 ml Melatonin (Melatonin 3 Mg Tablet) 6 mg PO BEDTIME PRN PRN Reason: Insomnia Last Admin: 11/30/24 19:30 Dose: 6 mg Quetiapine Fumarate (Quetiapine Fumarate 25 Mg Tablet) 25 mg PO BID [facility] Last Admin: 12/01/24 07:50 Dose: 25 mg Tamsulosin HCl (Tamsulosin Hcl 0.4 Mg Capsule) 0.4 mg PO DAILY [facility] Last Admin: 12/01/24 07:49 Dose: 0.4 mg Thiamine HCl (Thiamine Hcl 100 Mg Tablet) 100 mg PO DAILY [facility] Last Admin: 12/01/24 07:48 Dose: 100 mg Trazodone HCl (Trazodone Hcl 25 Mg Halftab) 25 mg PO BEDTIME [facility] Last Admin: 11/30/24 19:30 Dose: 25 mg Allergies Allergies Allergy/AdvReac Type Severity Reaction Status Date / Time Unable to Assess Allergy Verified 11/06/24 19:36 Assessment & Plan Assessment & Plan (1) Altered mental status: Status: Acute Code(s): R41.82 - Altered mental status, unspecified Plan Recommendations: -check CMP for any acute abnormalities. -Increase seroquel to 25mg po TID. -Add olanzapine 2.5mg-5mg po q6h for agitation. -If severe agitation and needs IM can give Olanzapine 2.5mg-5mg IM. Monitor EKG, Qtc <500ms, k>4, Mg>2. -avoid over sedation, maintain appropriate hydration/nutrition, ambulate pt daily, maintain wake/sleep cycle. Total time managing care of this patient today _30___ minutes.
[2024-12-01 19:32] VITALS: BP 144/63; PULSE 85; RESP 18; TEMP 36.4; O2SAT 97
[2024-12-01] MEDS: traZODone HCL 25 MG HALFTAB PO (20:11)
[2024-12-02 03:15] VITALS: BP 136/56; PULSE 80; RESP 16; TEMP 36.2; O2SAT 97
--- NOTE | 2024-12-02 07:26 | PC.NURSE ---
Patient bladder scanned at 00 for >465, st cath at 0030 for 650 cloudy yellow urine. Bladder scanned at 0630 for 159.
[2024-12-02 07:32] VITALS: BP 143/67; PULSE 86; RESP 18; TEMP 36.3; O2SAT 98
--- NOTE | 2024-12-02 07:57 | P.PNIM_ITS ---
Subjective Subjective Date of Service: 12/02/24 Interval History: no new events Review of Systems has urinary retention less agiated Review of Systems: Yes all other systems are reviewed and are negative Physical Exam 2 Exam: Exam: Appearance: awake , comfortable cvs: rrr, [id number]. res: clear to auscultation ,no rhonchii or wheezing abd: no rebound or guarding ,nt, bs present. ext pulses present , no cyanosis. neuro:moves all ext Vital Signs: Vital Signs: Last Vital Signs Temp 97.4 F 12/02/24 07:32 Pulse 86 12/02/24 07:32 Resp 18 12/02/24 07:32 BP 143/67 H 12/02/24 07:32 Pulse Ox 98 12/02/24 07:32 O2 Del Method Room Air 12/02/24 07:32 O2 Flow Rate 2 11/12/24 09:51 BMI result Body Mass Index 18.4 Objective Data Active Medications Acetaminophen (Acetaminophen 325 Mg Tablet) 650 mg PO Q6H PRN PRN Reason: Pain, Mild 1-3,fever,headache Last Admin: 11/30/24 19:30 Dose: 650 mg Documented By: LINOQC Amlodipine Besylate (Amlodipine Besylate 5 Mg Tablet) 5 mg PO DAILY [facility]; Protocol Last Admin: 12/01/24 07:49 Dose: 5 mg Documented By: AUBREY Atorvastatin Calcium (Atorvastatin Calcium 80 Mg Tablet) 80 mg PO DAILY [facility] Last Admin: 12/01/24 07:48 Dose: 80 mg Documented By: AUBREY Calcium Carbonate (Calcium Carbonate 750 Mg Tab.Chew) 750 mg PO Q4H PRN PRN Reason: Heartburn Clopidogrel Bisulfate (Clopidogrel Bisulfate 75 Mg Tablet) 75 mg PO DAILY [facility] Last Admin: 12/01/24 07:49 Dose: 75 mg Documented By: AUBREY Finasteride (Finasteride 5 Mg Tablet) 5 mg PO DAILY [facility] Last Admin: 12/01/24 07:48 Dose: 5 mg Documented By: AUBREY Folic Acid (Folic Acid 1 Mg Tablet) 1 mg PO DAILY [facility] Last Admin: 12/01/24 07:48 Dose: 1 mg Documented By: AUBREY Heparin Sodium (Porcine) (Heparin Sodium,Porcine 5,000 Unit/Ml Vial) 5,000 unit SUBCUT Q12H [facility] Last Admin: 12/01/24 20:17 Dose: 5,000 unit Documented By: KATHERYN Hydralazine HCl (Hydralazine Hcl 20 Mg/Ml Vial) 5 mg IVPUSH Q6H PRN; Protocol PRN Reason: SBP>190 Magnesium Hydroxide (Milk Of Magnesia 30 Ml Oral.Susp) 30 ml PO DAILY PRN PRN Reason: Constipation Last Admin: 11/28/24 14:41 Dose: 30 ml Documented By: TROMBNINA Melatonin (Melatonin 3 Mg Tablet) 6 mg PO BEDTIME PRN PRN Reason: Insomnia Last Admin: 12/01/24 20:11 Dose: 6 mg Documented By: KATHERYN Quetiapine Fumarate (Quetiapine Fumarate 25 Mg Tablet) 25 mg PO BID [facility] Last Admin: 12/01/24 20:11 Dose: 25 mg Documented By: KATHERYN Tamsulosin HCl (Tamsulosin Hcl 0.4 Mg Capsule) 0.4 mg PO DAILY [facility] Last Admin: 12/01/24 07:49 Dose: 0.4 mg Documented By: AUBREY Thiamine HCl (Thiamine Hcl 100 Mg Tablet) 100 mg PO DAILY [facility] Last Admin: 12/01/24 07:48 Dose: 100 mg Documented By: AUBREY Trazodone HCl (Trazodone Hcl 25 Mg Halftab) 25 mg PO BEDTIME [facility] Last Admin: 12/01/24 20:11 Dose: 25 mg Documented By: KATHERYN Labs 11/23/24 05:33 11/23/24 05:33 Assessment and Plan (1) Frequent falls: Status: Acute Plan Elderly patient with advanced Alzheimer?s dementia, multiple comorbidities, and recent BARRIE/UTI now resolved, but with significant deconditioning and functional decline. Discharge planning is complicated by cognitive impairment and inability to follow directions. Awaiting placement for continued care and rehabilitation. Essentially no new issues Assessment and Plan 1. Acute Kidney Injury (BARRIE): * The patient experienced multifactorial BARRIE (prerenal, postrenal, and possible intrarenal components) in the setting of acute urinary retention and UTI. * Prerenal azotemia likely due to volume depletion and acute urinary retention, resolved with IV fluids. * Intrarenal component (possible ATN) likely secondary to UTI, now resolved after completing a 5-day course of Augmentin (completed 11/21/2024). * Postrenal component due to BPH and urinary retention; Chisholm catheter placed on 11/14/2024. * Plan: Continue to monitor renal function and urine output. Chisholm catheter to remain in place per Urology, with outpatient voiding trials planned after discharge. 2. Benign Prostatic Hyperplasia (BPH) and Acute Urinary Retention: * Acute urinary retention managed with Chisholm catheter. * Started on finasteride and tamsulosin per Urology recommendations. * Will require discharge with Chisholm and outpatient follow-up for voiding trials. * Monitor for signs of infection or catheter complications. 3. Urinary Tract Infection (UTI): * Streptococcal UTI treated with Augmentin, completed 11/21/2024. * No current signs or symptoms of ongoing infection. * Continue to monitor for recurrence, especially with indwelling Chisholm. 4. Falls and Physical Deconditioning: * Multiple recent falls at home, likely due to advanced cognitive decline, physical deconditioning, and overall declining health. * Patient is unable to follow basic directions, limiting rehabilitation potential and complicating discharge planning. * PT/OT consulted for ongoing assessment and therapy. * Fall precautions in place. * Continue B12 and folate supplementation. 5. Advanced Alzheimer?s Dementia: * Progressive cognitive decline with significant impairment in ADLs. * Daughter is primary historian and healthcare proxy. * Patient unable to participate in care planning or follow instructions, making short-term rehabilitation placement challenging. * Awaiting appropriate placement; case management involved. * adjusted seroquel to 25 mg tid ,may need to add olazapine prn if needed (please see psych note from 12/01/24) 6. Hypertension, Hyperlipidemia, History of CVA: * Continue home medications for blood pressure, lipid management, and secondary stroke prevention (on Plavix). * Monitor for any new neurological changes. 7. Prior Substance Use and Alcohol Use Disorder: * History noted; no acute withdrawal or related complications during this admission. 8. DVT Prophylaxis: * Continue prophylaxis with heparin while inpatient. * Urinary catheter is out: Monitor PVR/straight cath if needed. DNR/DNI 9. Disposition: * Patient is medically stable after treatment of UTI and BARRIE but remains functionally and cognitively impaired. * Not safe for discharge home due to inability to follow directions and limited ADLs. * Awaiting placement in a facility capable of providing the necessary level of care and rehabilitation. * Case management and social work are actively involved in placement planning. Quality Stroke Does the patient have a stroke diagnosis?: No VTE Prior VTE?: No VTE Risk Level:: Medical - moderate - high VTE Device Contraindication: Treatment Not Indicated VTE Drug Contraindication: N/A - Med Ordered
--- NOTE | 2024-12-02 07:57 | HO.PM.IMPN ---
Subjective Subjective Date of Service: 12/02/24 Interval History: no new events Review of Systems has urinary retention less agiated Review of Systems: Yes all other systems are reviewed and are negative Physical Exam Exam: Exam: Appearance: awake , comfortable cvs: rrr, [id number]. res: clear to auscultation ,no rhonchii or wheezing abd: no rebound or guarding ,nt, bs present. ext pulses present , no cyanosis. neuro:moves all ext Vital Signs: Vital Signs: Last Vital Signs Temp 97.4 F 12/02/24 07:32 Pulse 86 12/02/24 07:32 Resp 18 12/02/24 07:32 BP 143/67 H 12/02/24 07:32 Pulse Ox 98 12/02/24 07:32 O2 Del Method Room Air 12/02/24 07:32 O2 Flow Rate 2 11/12/24 09:51 BMI result Body Mass Index 18.4 Objective Data Active Medications Acetaminophen (Acetaminophen 325 Mg Tablet) 650 mg PO Q6H PRN PRN Reason: Pain, Mild 1-3,fever,headache Last Admin: 11/30/24 19:30 Dose: 650 mg Documented By: LINOQC Amlodipine Besylate (Amlodipine Besylate 5 Mg Tablet) 5 mg PO DAILY [facility]; Protocol Last Admin: 12/01/24 07:49 Dose: 5 mg Documented By: AUBREY Atorvastatin Calcium (Atorvastatin Calcium 80 Mg Tablet) 80 mg PO DAILY [facility] Last Admin: 12/01/24 07:48 Dose: 80 mg Documented By: AUBREY Calcium Carbonate (Calcium Carbonate 750 Mg Tab.Chew) 750 mg PO Q4H PRN PRN Reason: Heartburn Clopidogrel Bisulfate (Clopidogrel Bisulfate 75 Mg Tablet) 75 mg PO DAILY [facility] Last Admin: 12/01/24 07:49 Dose: 75 mg Documented By: AUBREY Finasteride (Finasteride 5 Mg Tablet) 5 mg PO DAILY [facility] Last Admin: 12/01/24 07:48 Dose: 5 mg Documented By: AUBREY Folic Acid (Folic Acid 1 Mg Tablet) 1 mg PO DAILY [facility] Last Admin: 12/01/24 07:48 Dose: 1 mg Documented By: AUBREY Heparin Sodium (Porcine) (Heparin Sodium,Porcine 5,000 Unit/Ml Vial) 5,000 unit SUBCUT Q12H [facility] Last Admin: 12/01/24 20:17 Dose: 5,000 unit Documented By: KATHERYN Hydralazine HCl (Hydralazine Hcl 20 Mg/Ml Vial) 5 mg IVPUSH Q6H PRN; Protocol PRN Reason: SBP>190 Magnesium Hydroxide (Milk Of Magnesia 30 Ml Oral.Susp) 30 ml PO DAILY PRN PRN Reason: Constipation Last Admin: 11/28/24 14:41 Dose: 30 ml Documented By: TROMBNINA Melatonin (Melatonin 3 Mg Tablet) 6 mg PO BEDTIME PRN PRN Reason: Insomnia Last Admin: 12/01/24 20:11 Dose: 6 mg Documented By: KATHERYN Quetiapine Fumarate (Quetiapine Fumarate 25 Mg Tablet) 25 mg PO BID [facility] Last Admin: 12/01/24 20:11 Dose: 25 mg Documented By: KATHERYN Tamsulosin HCl (Tamsulosin Hcl 0.4 Mg Capsule) 0.4 mg PO DAILY [facility] Last Admin: 12/01/24 07:49 Dose: 0.4 mg Documented By: AUBREY Thiamine HCl (Thiamine Hcl 100 Mg Tablet) 100 mg PO DAILY [facility] Last Admin: 12/01/24 07:48 Dose: 100 mg Documented By: AUBREY Trazodone HCl (Trazodone Hcl 25 Mg Halftab) 25 mg PO BEDTIME [facility] Last Admin: 12/01/24 20:11 Dose: 25 mg Documented By: KATHERYN Labs 11/23/24 05:33 11/23/24 05:33 Assessment and Plan (1) Frequent falls: Status: Acute Plan Elderly patient with advanced Alzheimer?s dementia, multiple comorbidities, and recent BARRIE/UTI now resolved, but with significant deconditioning and functional decline. Discharge planning is complicated by cognitive impairment and inability to follow directions. Awaiting placement for continued care and rehabilitation. Essentially no new issues Assessment and Plan 1. Acute Kidney Injury (BARRIE): The patient experienced multifactorial BARRIE (prerenal, postrenal, and possible intrarenal components) in the setting of acute urinary retention and UTI. Prerenal azotemia likely due to volume depletion and acute urinary retention, resolved with IV fluids. Intrarenal component (possible ATN) likely secondary to UTI, now resolved after completing a 5-day course of Augmentin (completed 11/21/2024). Postrenal component due to BPH and urinary retention; Chisholm catheter placed on 11/14/2024. Plan: Continue to monitor renal function and urine output. Chisholm catheter to remain in place per Urology, with outpatient voiding trials planned after discharge. 2. Benign Prostatic Hyperplasia (BPH) and Acute Urinary Retention: Acute urinary retention managed with Chisholm catheter. Started on finasteride and tamsulosin per Urology recommendations. Will require discharge with Chisholm and outpatient follow-up for voiding trials. Monitor for signs of infection or catheter complications. 3. Urinary Tract Infection (UTI): Streptococcal UTI treated with Augmentin, completed 11/21/2024. No current signs or symptoms of ongoing infection. Continue to monitor for recurrence, especially with indwelling Chisholm. 4. Falls and Physical Deconditioning: Multiple recent falls at home, likely due to advanced cognitive decline, physical deconditioning, and overall declining health. Patient is unable to follow basic directions, limiting rehabilitation potential and complicating discharge planning. PT/OT consulted for ongoing assessment and therapy. Fall precautions in place. Continue B12 and folate supplementation. 5. Advanced Alzheimer?s Dementia: Progressive cognitive decline with significant impairment in ADLs. Daughter is primary historian and healthcare proxy. Patient unable to participate in care planning or follow instructions, making short-term rehabilitation placement challenging. Awaiting appropriate placement; case management involved. adjusted seroquel to 25 mg tid ,may need to add olazapine prn if needed (please see psych note from 12/01/24) 6. Hypertension, Hyperlipidemia, History of CVA: Continue home medications for blood pressure, lipid management, and secondary stroke prevention (on Plavix). Monitor for any new neurological changes. 7. Prior Substance Use and Alcohol Use Disorder: History noted; no acute withdrawal or related complications during this admission. 8. DVT Prophylaxis: Continue prophylaxis with heparin while inpatient. Urinary catheter is out: Monitor PVR/straight cath if needed. DNR/DNI 9. Disposition: Patient is medically stable after treatment of UTI and BARRIE but remains functionally and cognitively impaired. Not safe for discharge home due to inability to follow directions and limited ADLs. Awaiting placement in a facility capable of providing the necessary level of care and rehabilitation. Case management and social work are actively involved in placement planning. Quality Stroke Does the patient have a stroke diagnosis?: No VTE Prior VTE?: No VTE Risk Level:: Medical - moderate - high VTE Device Contraindication: Treatment Not Indicated VTE Drug Contraindication: N/A - Med Ordered
[2024-12-02 16:00] VITALS: BP 122/58; PULSE 89; RESP 18; TEMP 36.9; O2SAT 98
--- NOTE | 2024-12-02 17:59 | PC.NURSE ---
Pt up into recliner this am. Attempting to gett out of chair. Telesitter in room. Assisted by 2 back to bed where pt continuously attempting to get out of bed. Sitter placed at bedside for safety. Assisted with meals.
[2024-12-02 20:00] VITALS: BP 154/67; PULSE 76; RESP 18; TEMP 36.9; O2SAT 98
--- NOTE | 2024-12-02 21:00 | PC.NURSE ---
pt refusing to take 2100 meds, spitting pudding at staff, will continue to try to administer.
[2024-12-02] MEDS: traZODone HCL 25 MG HALFTAB PO (23:31)
[2024-12-03 04:00] VITALS: BP 149/67; PULSE 75; RESP 19; TEMP 36.7; O2SAT 98
[2024-12-03 07:08] VITALS: BP 149/68; PULSE 80; RESP 20; TEMP 36.4; O2SAT 96
--- NOTE | 2024-12-03 08:08 | P.PNIM_ITS ---
Subjective Subjective Date of Service: 12/03/24 Interval History: no new events Review of Systems sitting ,eating breakfast seems calm Review of Systems: Yes all other systems are reviewed and are negative Physical Exam 2 Exam: Exam: Appearance: awake , comfortable cvs: rrr, [id number]. res: clear to auscultation ,no rhonchii or wheezing abd: no rebound or guarding ,nt, bs present. ext pulses present , no cyanosis. neuro:moves all ext Vital Signs: Vital Signs: Last Vital Signs Temp 97.5 F 12/03/24 07:08 Pulse 80 12/03/24 07:08 Resp 20 12/03/24 07:08 BP 149/68 H 12/03/24 07:08 Pulse Ox 96 12/03/24 07:08 O2 Del Method Room Air 12/03/24 07:08 O2 Flow Rate 2 11/12/24 09:51 BMI result Body Mass Index 18.4 Objective Data Active Medications Acetaminophen (Acetaminophen 325 Mg Tablet) 650 mg PO Q6H PRN PRN Reason: Pain, Mild 1-3,fever,headache Last Admin: 11/30/24 19:30 Dose: 650 mg Documented By: ALYSON Amlodipine Besylate (Amlodipine Besylate 5 Mg Tablet) 5 mg PO DAILY [facility]; Protocol Last Admin: 12/02/24 08:15 Dose: 5 mg Documented By: JENNIFER Atorvastatin Calcium (Atorvastatin Calcium 80 Mg Tablet) 80 mg PO DAILY [facility] Last Admin: 12/02/24 08:14 Dose: 80 mg Documented By: JENNIFER Calcium Carbonate (Calcium Carbonate 750 Mg Tab.Chew) 750 mg PO Q4H PRN PRN Reason: Heartburn Clopidogrel Bisulfate (Clopidogrel Bisulfate 75 Mg Tablet) 75 mg PO DAILY [facility] Last Admin: 12/02/24 08:15 Dose: 75 mg Documented By: JENNIFER Finasteride (Finasteride 5 Mg Tablet) 5 mg PO DAILY [facility] Last Admin: 12/02/24 08:14 Dose: 5 mg Documented By: JENNIFER Folic Acid (Folic Acid 1 Mg Tablet) 1 mg PO DAILY [facility] Last Admin: 12/02/24 08:14 Dose: 1 mg Documented By: JENNIFER Heparin Sodium (Porcine) (Heparin Sodium,Porcine 5,000 Unit/Ml Vial) 5,000 unit SUBCUT Q12H [facility] Last Admin: 12/02/24 21:00 Dose: 5,000 unit Documented By: RAHEL Hydralazine HCl (Hydralazine Hcl 20 Mg/Ml Vial) 5 mg IVPUSH Q6H PRN; Protocol PRN Reason: SBP>190 Magnesium Hydroxide (Milk Of Magnesia 30 Ml Oral.Susp) 30 ml PO DAILY PRN PRN Reason: Constipation Last Admin: 11/28/24 14:41 Dose: 30 ml Documented By: YOBANI Melatonin (Melatonin 3 Mg Tablet) 6 mg PO BEDTIME PRN PRN Reason: Insomnia Last Admin: 12/01/24 20:11 Dose: 6 mg Documented By: KATHERYN Quetiapine Fumarate (Quetiapine Fumarate 25 Mg Tablet) 25 mg PO TID [facility] Last Admin: 12/02/24 23:31 Dose: 25 mg Documented By: RAHEL Comments: pt refused Tamsulosin HCl (Tamsulosin Hcl 0.4 Mg Capsule) 0.4 mg PO DAILY [facility] Last Admin: 12/02/24 08:14 Dose: 0.4 mg Documented By: JENNIFER Thiamine HCl (Thiamine Hcl 100 Mg Tablet) 100 mg PO DAILY [facility] Last Admin: 12/02/24 08:15 Dose: 100 mg Documented By: JENNIFER Trazodone HCl (Trazodone Hcl 25 Mg Halftab) 25 mg PO BEDTIME [facility] Last Admin: 12/02/24 23:31 Dose: 25 mg Documented By: RAHEL Labs 11/23/24 05:33 11/23/24 05:33 Assessment and Plan (1) Frequent falls: Status: Acute Plan Elderly patient with advanced Alzheimer?s dementia, multiple comorbidities, and recent BARRIE/UTI now resolved, but with significant deconditioning and functional decline. Discharge planning is complicated by cognitive impairment and inability to follow directions. Awaiting placement for continued care and rehabilitation. Essentially no new issues Assessment and Plan 1. Acute Kidney Injury (BARRIE): * The patient experienced multifactorial BARRIE (prerenal, postrenal, and possible intrarenal components) in the setting of acute urinary retention and UTI. * Prerenal azotemia likely due to volume depletion and acute urinary retention, resolved with IV fluids. * Intrarenal component (possible ATN) likely secondary to UTI, now resolved after completing a 5-day course of Augmentin (completed 11/21/2024). * Postrenal component due to BPH and urinary retention; Chisholm catheter placed on 11/14/2024. * Plan: Continue to monitor renal function and urine output. Chisholm catheter to remain in place per Urology, with outpatient voiding trials planned after discharge. 2. Benign Prostatic Hyperplasia (BPH) and Acute Urinary Retention: * Acute urinary retention managed with Chisholm catheter. * Started on finasteride and tamsulosin per Urology recommendations. * Will require discharge with Chisholm and outpatient follow-up for voiding trials. * Monitor for signs of infection or catheter complications. 3. Urinary Tract Infection (UTI): * Streptococcal UTI treated with Augmentin, completed 11/21/2024. * No current signs or symptoms of ongoing infection. * Continue to monitor for recurrence, especially with indwelling Chisholm. 4. Falls and Physical Deconditioning: * Multiple recent falls at home, likely due to advanced cognitive decline, physical deconditioning, and overall declining health. * Patient is unable to follow basic directions, limiting rehabilitation potential and complicating discharge planning. * PT/OT consulted for ongoing assessment and therapy. * Fall precautions in place. * Continue B12 and folate supplementation. 5. Advanced Alzheimer?s Dementia: * Progressive cognitive decline with significant impairment in ADLs. * Daughter is primary historian and healthcare proxy. * Patient unable to participate in care planning or follow instructions, making short-term rehabilitation placement challenging. * Awaiting appropriate placement; case management involved. * adjusted seroquel to 25 mg tid ,may need to add olazapine prn if needed (please see psych note from 12/01/24) 6. Hypertension, Hyperlipidemia, History of CVA: * Continue home medications for blood pressure, lipid management, and secondary stroke prevention (on Plavix). * Monitor for any new neurological changes. 7. Prior Substance Use and Alcohol Use Disorder: * History noted; no acute withdrawal or related complications during this admission. 8. DVT Prophylaxis: * Continue prophylaxis with heparin while inpatient. * Urinary catheter is out: Monitor PVR/straight cath if needed. DNR/DNI 9. Disposition: * Patient is medically stable after treatment of UTI and BARRIE but remains functionally and cognitively impaired. * Not safe for discharge home due to inability to follow directions and limited ADLs. * Awaiting placement in a facility capable of providing the necessary level of care and rehabilitation. * Case management and social work are actively involved in placement planning. Quality Stroke Does the patient have a stroke diagnosis?: No VTE Prior VTE?: No VTE Risk Level:: Medical - moderate - high VTE Device Contraindication: Treatment Not Indicated VTE Drug Contraindication: N/A - Med Ordered
--- NOTE | 2024-12-03 08:08 | HO.PM.IMPN ---
Subjective Subjective Date of Service: 12/03/24 Interval History: no new events Review of Systems sitting ,eating breakfast seems calm Review of Systems: Yes all other systems are reviewed and are negative Physical Exam Exam: Exam: Appearance: awake , comfortable cvs: rrr, [id number]. res: clear to auscultation ,no rhonchii or wheezing abd: no rebound or guarding ,nt, bs present. ext pulses present , no cyanosis. neuro:moves all ext Vital Signs: Vital Signs: Last Vital Signs Temp 97.5 F 12/03/24 07:08 Pulse 80 12/03/24 07:08 Resp 20 12/03/24 07:08 BP 149/68 H 12/03/24 07:08 Pulse Ox 96 12/03/24 07:08 O2 Del Method Room Air 12/03/24 07:08 O2 Flow Rate 2 11/12/24 09:51 BMI result Body Mass Index 18.4 Objective Data Active Medications Acetaminophen (Acetaminophen 325 Mg Tablet) 650 mg PO Q6H PRN PRN Reason: Pain, Mild 1-3,fever,headache Last Admin: 11/30/24 19:30 Dose: 650 mg Documented By: ALYSON Amlodipine Besylate (Amlodipine Besylate 5 Mg Tablet) 5 mg PO DAILY [facility]; Protocol Last Admin: 12/02/24 08:15 Dose: 5 mg Documented By: JENNIFER Atorvastatin Calcium (Atorvastatin Calcium 80 Mg Tablet) 80 mg PO DAILY [facility] Last Admin: 12/02/24 08:14 Dose: 80 mg Documented By: JENNIFER Calcium Carbonate (Calcium Carbonate 750 Mg Tab.Chew) 750 mg PO Q4H PRN PRN Reason: Heartburn Clopidogrel Bisulfate (Clopidogrel Bisulfate 75 Mg Tablet) 75 mg PO DAILY [facility] Last Admin: 12/02/24 08:15 Dose: 75 mg Documented By: JENNIFER Finasteride (Finasteride 5 Mg Tablet) 5 mg PO DAILY [facility] Last Admin: 12/02/24 08:14 Dose: 5 mg Documented By: JENNIFER Folic Acid (Folic Acid 1 Mg Tablet) 1 mg PO DAILY [facility] Last Admin: 12/02/24 08:14 Dose: 1 mg Documented By: JENNIFER Heparin Sodium (Porcine) (Heparin Sodium,Porcine 5,000 Unit/Ml Vial) 5,000 unit SUBCUT Q12H [facility] Last Admin: 12/02/24 21:00 Dose: 5,000 unit Documented By: RAHEL Hydralazine HCl (Hydralazine Hcl 20 Mg/Ml Vial) 5 mg IVPUSH Q6H PRN; Protocol PRN Reason: SBP>190 Magnesium Hydroxide (Milk Of Magnesia 30 Ml Oral.Susp) 30 ml PO DAILY PRN PRN Reason: Constipation Last Admin: 11/28/24 14:41 Dose: 30 ml Documented By: YOBANI Melatonin (Melatonin 3 Mg Tablet) 6 mg PO BEDTIME PRN PRN Reason: Insomnia Last Admin: 12/01/24 20:11 Dose: 6 mg Documented By: KATHERYN Quetiapine Fumarate (Quetiapine Fumarate 25 Mg Tablet) 25 mg PO TID [facility] Last Admin: 12/02/24 23:31 Dose: 25 mg Documented By: RAHEL Comments: pt refused Tamsulosin HCl (Tamsulosin Hcl 0.4 Mg Capsule) 0.4 mg PO DAILY [facility] Last Admin: 12/02/24 08:14 Dose: 0.4 mg Documented By: JENNIFER Thiamine HCl (Thiamine Hcl 100 Mg Tablet) 100 mg PO DAILY [facility] Last Admin: 12/02/24 08:15 Dose: 100 mg Documented By: JENNIFER Trazodone HCl (Trazodone Hcl 25 Mg Halftab) 25 mg PO BEDTIME [facility] Last Admin: 12/02/24 23:31 Dose: 25 mg Documented By: RAHEL Labs 11/23/24 05:33 11/23/24 05:33 Assessment and Plan (1) Frequent falls: Status: Acute Plan Elderly patient with advanced Alzheimer?s dementia, multiple comorbidities, and recent BARRIE/UTI now resolved, but with significant deconditioning and functional decline. Discharge planning is complicated by cognitive impairment and inability to follow directions. Awaiting placement for continued care and rehabilitation. Essentially no new issues Assessment and Plan 1. Acute Kidney Injury (BARRIE): The patient experienced multifactorial BARRIE (prerenal, postrenal, and possible intrarenal components) in the setting of acute urinary retention and UTI. Prerenal azotemia likely due to volume depletion and acute urinary retention, resolved with IV fluids. Intrarenal component (possible ATN) likely secondary to UTI, now resolved after completing a 5-day course of Augmentin (completed 11/21/2024). Postrenal component due to BPH and urinary retention; Chisholm catheter placed on 11/14/2024. Plan: Continue to monitor renal function and urine output. Chisholm catheter to remain in place per Urology, with outpatient voiding trials planned after discharge. 2. Benign Prostatic Hyperplasia (BPH) and Acute Urinary Retention: Acute urinary retention managed with Chisholm catheter. Started on finasteride and tamsulosin per Urology recommendations. Will require discharge with Chisholm and outpatient follow-up for voiding trials. Monitor for signs of infection or catheter complications. 3. Urinary Tract Infection (UTI): Streptococcal UTI treated with Augmentin, completed 11/21/2024. No current signs or symptoms of ongoing infection. Continue to monitor for recurrence, especially with indwelling Chisholm. 4. Falls and Physical Deconditioning: Multiple recent falls at home, likely due to advanced cognitive decline, physical deconditioning, and overall declining health. Patient is unable to follow basic directions, limiting rehabilitation potential and complicating discharge planning. PT/OT consulted for ongoing assessment and therapy. Fall precautions in place. Continue B12 and folate supplementation. 5. Advanced Alzheimer?s Dementia: Progressive cognitive decline with significant impairment in ADLs. Daughter is primary historian and healthcare proxy. Patient unable to participate in care planning or follow instructions, making short-term rehabilitation placement challenging. Awaiting appropriate placement; case management involved. adjusted seroquel to 25 mg tid ,may need to add olazapine prn if needed (please see psych note from 12/01/24) 6. Hypertension, Hyperlipidemia, History of CVA: Continue home medications for blood pressure, lipid management, and secondary stroke prevention (on Plavix). Monitor for any new neurological changes. 7. Prior Substance Use and Alcohol Use Disorder: History noted; no acute withdrawal or related complications during this admission. 8. DVT Prophylaxis: Continue prophylaxis with heparin while inpatient. Urinary catheter is out: Monitor PVR/straight cath if needed. DNR/DNI 9. Disposition: Patient is medically stable after treatment of UTI and BARRIE but remains functionally and cognitively impaired. Not safe for discharge home due to inability to follow directions and limited ADLs. Awaiting placement in a facility capable of providing the necessary level of care and rehabilitation. Case management and social work are actively involved in placement planning. Quality Stroke Does the patient have a stroke diagnosis?: No VTE Prior VTE?: No VTE Risk Level:: Medical - moderate - high VTE Device Contraindication: Treatment Not Indicated VTE Drug Contraindication: N/A - Med Ordered
[2024-12-03 09:08] VITALS: BP 150/68
[2024-12-03] MEDS: Milk of Magnesia 30 ML ORAL.SUSP PO (09:09)
--- NOTE | 2024-12-03 12:25 | HO.NURTONUR ---
B......1120- bladder scanned for 191ml. Will continue to monitor
--- NOTE | 2024-12-03 14:37 | PC.NURSE ---
bladder scanned for 234ml, will continue to monitor
[2024-12-03 15:45] VITALS: BP 146/62; PULSE 90; RESP 18; TEMP 36.3; O2SAT 98
[2024-12-03 20:00] VITALS: BP 137/64; PULSE 83; RESP 16; TEMP 36.1; O2SAT 95
[2024-12-03] MEDS: traZODone HCL 25 MG HALFTAB PO (20:57)
--- NOTE | 2024-12-04 00:32 | PC.NURSE ---
Bladder scanned pt at 2040 for 237 ml, bladder scanned pt at 0000 for 367 ml, straight cath'd pt at 0015 for 350 ml, will continue to monitor.
[2024-12-04 03:38] VITALS: BP 136/55; PULSE 78; RESP 16; TEMP 36; O2SAT 95
--- NOTE | 2024-12-04 06:13 | PC.NURSE ---
Bladder scanned pt at 0610 for 76 ml, will continue to monitor.
[2024-12-04 07:41] VITALS: BP 134/72; PULSE 72; RESP 16; TEMP 36.6; O2SAT 97
[2024-12-04 09:26] VITALS: BP 130/70
[2024-12-04 12:15] VITALS: BMI 18.4
--- NOTE | 2024-12-04 12:24 | MHC.CLN ---
F/U DIET LIBERALIZED FROM 2 GRAM SODIUM TO REGULAR TO PROMOTE PO INTAKE. DIET RX: REGULAR, CHOPPED WITH ENSURE BID. SUPPLEMENT PROVIDES 700 KCALS, 40 G PROTEIN. AVERAGE PO INTAKE APPROX 25% WITH PATIENT REFUSING SOME MEALS. PER PROVIDER, START PPN TODAY. REC PPN AT 45 ML PER HOUR TO PROVIDE 46 G PROTEIN, 108 G DEXTROSE, 551 KCALS. REPLETE LYUES S NEEDED, CHECK TRIGLYCERIDES. MONITOR LABS, PO INTAKE, PPN TOLERANCE AND PLAN OF CARE.
[2024-12-04 12:59] LABS: Anion Gap 11 (12-20); Blood Urea Nitrogen 32 mg/dL (9-16); Calcium 9.5 mg/dL (8.4-10.2); Carbon Dioxide 26 mmol/L (22-29); Chloride 110 mmol/L (96-108); Creatinine Clr Calc Pharmacy 39.4; Estimated Glomerular Filt Rate 53; Magnesium 2.9 mg/dL (1.6-2.6); Potassium 5.3 mmol/L (3.3-5.1); Sodium 142 mmol/L (135-145)
--- NOTE | 2024-12-04 14:08 | MHC.CM.PN ---
CM CONTINUES TO WORK ON LTC PLACEMENT. [facility] WORKING WITH DAUGHTER ON FINANCIALS. [facility] REACHING OUT TO DAUGHTER CARIN TO OBTAIN MORE INFO ON FINANCIAL SITUATION . CM WILL CONTINUE TO FOLLOW.
--- NOTE | 2024-12-04 15:24 | HO.PM.IMPN ---
Subjective Subjective Date of Service: 12/04/24 Interval History: no new events Review of Systems awake ,calm\ po intake low Review of Systems: Yes all other systems are reviewed and are negative Physical Exam Exam: Exam: Appearance: awake , comfortable cvs: rrr, [id number]. res: clear to auscultation ,no rhonchii or wheezing abd: no rebound or guarding ,nt, bs present. ext pulses present , no cyanosis. neuro:moves all ext Vital Signs: Vital Signs: Last Vital Signs Temp 98 F 12/04/24 07:41 Pulse 72 12/04/24 07:41 Resp 16 12/04/24 07:41 BP 130/70 12/04/24 09:26 Pulse Ox 97 12/04/24 07:41 O2 Del Method Room Air 12/04/24 07:41 O2 Flow Rate 2 11/12/24 09:51 BMI result Body Mass Index 18.4 Objective Data Active Medications Acetaminophen (Acetaminophen 325 Mg Tablet) 650 mg PO Q6H PRN PRN Reason: Pain, Mild 1-3,fever,headache Last Admin: 12/03/24 20:57 Dose: 650 mg Documented By: ALYSON Amlodipine Besylate (Amlodipine Besylate 5 Mg Tablet) 5 mg PO DAILY [facility]; Protocol Last Admin: 12/04/24 09:26 Dose: 5 mg Documented By: JENNIFER Atorvastatin Calcium (Atorvastatin Calcium 80 Mg Tablet) 80 mg PO DAILY [facility] Last Admin: 12/04/24 09:27 Dose: 80 mg Documented By: JENNIFER Calcium Carbonate (Calcium Carbonate 750 Mg Tab.Chew) 750 mg PO Q4H PRN PRN Reason: Heartburn Clopidogrel Bisulfate (Clopidogrel Bisulfate 75 Mg Tablet) 75 mg PO DAILY [facility] Last Admin: 12/04/24 09:27 Dose: 75 mg Documented By: JENNIFER Finasteride (Finasteride 5 Mg Tablet) 5 mg PO DAILY [facility] Last Admin: 12/04/24 09:27 Dose: 5 mg Documented By: JENNIFER Folic Acid (Folic Acid 1 Mg Tablet) 1 mg PO DAILY [facility] Last Admin: 12/04/24 09:27 Dose: 1 mg Documented By: JENNIFER Heparin Sodium (Porcine) (Heparin Sodium,Porcine 5,000 Unit/Ml Vial) 5,000 unit SUBCUT Q12H [facility] Last Admin: 12/04/24 09:41 Dose: 5,000 unit Documented By: JENNIFER Hydralazine HCl (Hydralazine Hcl 20 Mg/Ml Vial) 5 mg IVPUSH Q6H PRN; Protocol PRN Reason: SBP>190 Nutrition (Parenteral) (Parenteral Nutrition) 1,080 mls @ 45 mls/hr IV .Q24H [facility]; Protocol Stop: 12/05/24 20:59 Magnesium Hydroxide (Milk Of Magnesia 30 Ml Oral.Susp) 30 ml PO DAILY PRN PRN Reason: Constipation Last Admin: 12/03/24 09:09 Dose: 30 ml Documented By: JENNIFER Melatonin (Melatonin 3 Mg Tablet) 6 mg PO BEDTIME PRN PRN Reason: Insomnia Last Admin: 12/03/24 20:57 Dose: 6 mg Documented By: ALYSON Pharmacy Consult (Consult Rx Parenteral Nutrition Ordering) 1 each MISCELLANE DAILY PRN PRN Reason: Consult order Quetiapine Fumarate (Quetiapine Fumarate 25 Mg Tablet) 25 mg PO TID [facility] Last Admin: 12/04/24 09:27 Dose: 25 mg Documented By: JENNIFER Tamsulosin HCl (Tamsulosin Hcl 0.4 Mg Capsule) 0.4 mg PO DAILY [facility] Last Admin: 12/04/24 09:27 Dose: 0.4 mg Documented By: JENNIFER Thiamine HCl (Thiamine Hcl 100 Mg Tablet) 100 mg PO DAILY [facility] Last Admin: 12/04/24 09:26 Dose: 100 mg Documented By: JENNIFER Trazodone HCl (Trazodone Hcl 25 Mg Halftab) 25 mg PO BEDTIME [facility] Last Admin: 12/03/24 20:57 Dose: 25 mg Documented By: ALYSON Labs 11/23/24 05:33 12/04/24 12:39 Labs: Laboratory Results - last 24 hr 12/04/24 12:39 Anion Gap 11 L Estim Creat Clear Calc 39.4 Estimated GFR 53 Random Glucose 117 H Calcium 9.5 D Phosphorus 4.2 Magnesium 2.9 H Assessment and Plan (1) Frequent falls: Status: Acute Plan Elderly patient with advanced Alzheimer?s dementia, multiple comorbidities, and recent BARRIE/UTI now resolved, but with significant deconditioning and functional decline. Discharge planning is complicated by cognitive impairment and inability to follow directions. Awaiting placement for continued care and rehabilitation. Essentially no new issues Assessment and Plan 1. Acute Kidney Injury (BARRIE): The patient experienced multifactorial BARRIE (prerenal, postrenal, and possible intrarenal components) in the setting of acute urinary retention and UTI. Prerenal azotemia likely due to volume depletion and acute urinary retention, resolved with IV fluids. Intrarenal component (possible ATN) likely secondary to UTI, now resolved after completing a 5-day course of Augmentin (completed 11/21/2024). Postrenal component due to BPH and urinary retention; Chisholm catheter placed on 11/14/2024. Plan: Continue to monitor renal function and urine output. Chisholm catheter to remain in place per Urology, with outpatient voiding trials planned after discharge. 2. Benign Prostatic Hyperplasia (BPH) and Acute Urinary Retention: Acute urinary retention managed with Chisholm catheter. Started on finasteride and tamsulosin per Urology recommendations. Will require discharge with Chisholm and outpatient follow-up for voiding trials. Monitor for signs of infection or catheter complications. 3. Urinary Tract Infection (UTI): Streptococcal UTI treated with Augmentin, completed 11/21/2024. No current signs or symptoms of ongoing infection. Continue to monitor for recurrence, especially with indwelling Chisholm. 4. Falls and Physical Deconditioning: Multiple recent falls at home, likely due to advanced cognitive decline, physical deconditioning, and overall declining health. Patient is unable to follow basic directions, limiting rehabilitation potential and complicating discharge planning. PT/OT consulted for ongoing assessment and therapy. Fall precautions in place. Continue B12 and folate supplementation. 5. Advanced Alzheimer?s Dementia: Progressive cognitive decline with significant impairment in ADLs. Daughter is primary historian and healthcare proxy. Patient unable to participate in care planning or follow instructions, making short-term rehabilitation placement challenging. Awaiting appropriate placement; case management involved. adjusted seroquel to 25 mg tid ,may need to add olazapine prn if needed (please see psych note from 12/01/24) 6. Hypertension, Hyperlipidemia, History of CVA: Continue home medications for blood pressure, lipid management, and secondary stroke prevention (on Plavix). Monitor for any new neurological changes. 7. Prior Substance Use and Alcohol Use Disorder: History noted; no acute withdrawal or related complications during this admission. 8. DVT Prophylaxis: Continue prophylaxis with heparin while inpatient. Urinary catheter is out: Monitor PVR/straight cath if needed. DNR/DNI 9. Disposition: Patient is medically stable after treatment of UTI and BARRIE but remains functionally and cognitively impaired. Not safe for discharge home due to inability to follow directions and limited ADLs. Awaiting placement in a facility capable of providing the necessary level of care and rehabilitation. Case management and social work are actively involved in placement planning. need ppn for dec po intake. called patient daughter miss murphy ([phone]) and message left. Quality Stroke Does the patient have a stroke diagnosis?: No VTE Prior VTE?: No VTE Risk Level:: Medical - moderate - high VTE Device Contraindication: Treatment Not Indicated VTE Drug Contraindication: N/A - Med Ordered
[2024-12-04 15:53] VITALS: BP 114/56; PULSE 79; RESP 20; TEMP 37.1; O2SAT 93
--- NOTE | 2024-12-04 17:41 | PC.NURSE ---
Pt drowsy most of shift but arousable. Only answered to name, did not answer other questions of orientation. Does not appear to have pain. Po food and drink intake poor. Takes po meds in pudding. Resistive to care at times. Bladder scanned at 1115 for 122ml, 1430 for 178ml and 1720 for 247 ml. Will continue to monitor. This RN requested Dr Hernandez to contact daughter with an update on pt.
--- NOTE | 2024-12-04 18:27 | PC.NURSE ---
IV placed to left forearm for PPN to be started this evening. IV site wrapped and VMT room notified to monitor pt as pt pulls at clothing and tubes
[2024-12-04 19:47] VITALS: BP 123/60; PULSE 86; RESP 18; TEMP 36.3; O2SAT 96
[2024-12-04] MEDS: Parenteral Nutrition 1,080 ML 45 ML IV (20:29)
[2024-12-04] MEDS: traZODone HCL 25 MG HALFTAB PO (20:30)
[2024-12-05 03:34] VITALS: BP 104/51; PULSE 77; RESP 18; TEMP 36.2; O2SAT 96
[2024-12-05 06:42] LABS: Albumin Level 3.3 g/dL (3.5-5.0); Anion Gap 14 (12-20); Blood Urea Nitrogen 41 mg/dL (9-16); Calcium 9.2 mg/dL (8.4-10.2); Carbon Dioxide 22 mmol/L (22-29); Chloride 111 mmol/L (96-108); Creatinine Clr Calc Pharmacy 40.0; Estimated Glomerular Filt Rate 54; Magnesium 2.9 mg/dL (1.6-2.6); Potassium 5.1 mmol/L (3.3-5.1); Sodium 142 mmol/L (135-145)
--- NOTE | 2024-12-05 07:08 | PC.NURSE ---
patient bladder scanned at 00:25 for 188cc, then again at 06:30 for 449cc. attempted to get patient OOB to void but no success, straight cath performed and let it drain for about 30 min and only 350 came out with PVR 81cc
[2024-12-05 07:58] VITALS: BP 155/65; PULSE 77; RESP 18; TEMP 37.2; O2SAT 96
--- NOTE | 2024-12-05 09:50 | MHC.CLN ---
F/U DIET RX: REGULAR, CHOPPED WITH ENSURE BID. SUPPLEMENT PROVIDES 700 KCALS, 40 G PROTEIN. PO INTAKE USUALLY POOR, 0-25%. CONTINUES WITH PPN. REVIEWED LABS. COMMUNICATED WITH PHARMACY. REC ADVANCE PPN TO 70 ML PER HOUR TO PROVIDE 71 G PROTEIN (1.3 G/KG), 168 G DEXTROSE, 857 KCALS. REPLETE LYTES NEEDED, CHECK TRIGLYCERIDES. MONITOR LABS, PO INTAKE, PPN TOLERANCE AND PLAN OF CARE.
--- NOTE | 2024-12-05 10:51 | PC.NURSE ---
at 1030 pt noted to have pulled IV out. PPN paused until access can be resumed.
--- NOTE | 2024-12-05 11:34 | MHC.CM.PN ---
This policy writer typist placed call to [employer]- no answer. Placed call to Shasha (ex-) reports she will attempt to text [employer] for assistance.
--- NOTE | 2024-12-05 13:18 | MHC.CM.PN ---
CM PLACED CALL TO CARIN CASTRO (HCP) REGARDING BRINGING FINANCIAL DOCUMENTS TO FINANCIAL COUNSELOR, NO ANSWER. MESSAGE LEFT WITH RETURN CALL INFORMATION. THIS CM EXPRESSED THE SENSE OF URGENCY TO PROVIDE THESE DOCUMENTS.
--- NOTE | 2024-12-05 15:27 | HO.PM.IMPN ---
Subjective Subjective Date of Service: 12/05/24 Interval History: no new events low po intake Review of Systems as above Review of Systems: Yes all other systems are reviewed and are negative Physical Exam Exam: Exam: Appearance: awake , comfortable cvs: rrr, [id number]. res: clear to auscultation ,no rhonchii or wheezing abd: no rebound or guarding ,nt, bs present. ext pulses present , no cyanosis. neuro:moves all ext Vital Signs: Vital Signs: Last Vital Signs Temp 98.9 F 12/05/24 07:58 Pulse 77 12/05/24 07:58 Resp 18 12/05/24 07:58 BP 155/65 H 12/05/24 07:58 Pulse Ox 96 12/05/24 07:58 O2 Del Method Room Air 12/05/24 07:58 O2 Flow Rate 2 11/12/24 09:51 BMI result Body Mass Index 18.4 Objective Data Active Medications Acetaminophen (Acetaminophen 325 Mg Tablet) 650 mg PO Q6H PRN PRN Reason: Pain, Mild 1-3,fever,headache Last Admin: 12/05/24 15:02 Dose: 650 mg Documented By: ALYSON Amlodipine Besylate (Amlodipine Besylate 5 Mg Tablet) 5 mg PO DAILY [facility]; Protocol Last Admin: 12/05/24 10:48 Dose: 5 mg Documented By: JOSE ALFREDO Atorvastatin Calcium (Atorvastatin Calcium 80 Mg Tablet) 80 mg PO DAILY [facility] Last Admin: 12/05/24 10:48 Dose: 80 mg Documented By: JOSE ALFREDO Calcium Carbonate (Calcium Carbonate 750 Mg Tab.Chew) 750 mg PO Q4H PRN PRN Reason: Heartburn Clopidogrel Bisulfate (Clopidogrel Bisulfate 75 Mg Tablet) 75 mg PO DAILY [facility] Last Admin: 12/05/24 10:48 Dose: 75 mg Documented By: JOSE ALFREDO Finasteride (Finasteride 5 Mg Tablet) 5 mg PO DAILY [facility] Last Admin: 12/05/24 10:48 Dose: 5 mg Documented By: JOSE ALFREDO Folic Acid (Folic Acid 1 Mg Tablet) 1 mg PO DAILY [facility] Last Admin: 12/05/24 10:48 Dose: 1 mg Documented By: JOSE ALFREDO Heparin Sodium (Porcine) (Heparin Sodium,Porcine 5,000 Unit/Ml Vial) 5,000 unit SUBCUT Q12H [facility] Last Admin: 12/05/24 10:47 Dose: 5,000 unit Documented By: JOSE ALFREDO Hydralazine HCl (Hydralazine Hcl 20 Mg/Ml Vial) 5 mg IVPUSH Q6H PRN; Protocol PRN Reason: SBP>190 Nutrition (Parenteral) (Parenteral Nutrition) 1,080 mls @ 45 mls/hr IV .Q24H [facility]; Protocol Stop: 12/05/24 20:59 Last Admin: 12/04/24 20:29 Dose: 45 mls/hr Documented By: KESHA Nutrition (Parenteral) (Parenteral Nutrition) 1,680 mls @ 70 mls/hr IV .Q24H [facility]; Protocol Stop: 12/06/24 20:59 Magnesium Hydroxide (Milk Of Magnesia 30 Ml Oral.Susp) 30 ml PO DAILY PRN PRN Reason: Constipation Last Admin: 12/03/24 09:09 Dose: 30 ml Documented By: JENNIFER Melatonin (Melatonin 3 Mg Tablet) 6 mg PO BEDTIME PRN PRN Reason: Insomnia Last Admin: 12/04/24 20:30 Dose: 6 mg Documented By: KESHA Pharmacy Consult (Consult Rx Parenteral Nutrition Ordering) 1 each MISCELLANE DAILY PRN PRN Reason: Consult order Quetiapine Fumarate (Quetiapine Fumarate 25 Mg Tablet) 25 mg PO TID [facility] Last Admin: 12/05/24 15:02 Dose: 25 mg Documented By: ALYSON Tamsulosin HCl (Tamsulosin Hcl 0.4 Mg Capsule) 0.4 mg PO DAILY [facility] Last Admin: 12/05/24 10:48 Dose: 0.4 mg Documented By: JOSE ALFREDO Thiamine HCl (Thiamine Hcl 100 Mg Tablet) 100 mg PO DAILY [facility] Last Admin: 12/05/24 10:48 Dose: 100 mg Documented By: JOSE ALFREDO Trazodone HCl (Trazodone Hcl 25 Mg Halftab) 25 mg PO BEDTIME [facility] Last Admin: 12/04/24 20:30 Dose: 25 mg Documented By: KESHA Labs 11/23/24 05:33 12/05/24 05:39 Labs: Laboratory Results - last 24 hr 12/05/24 05:39 Anion Gap 14 Estim Creat Clear Calc 40.0 Estimated GFR 54 Random Glucose 111 Calcium 9.2 Phosphorus 4.3 Magnesium 2.9 H Albumin 3.3 L Assessment and Plan (1) Frequent falls: Status: Acute Plan Elderly patient with advanced Alzheimer?s dementia, multiple comorbidities, and recent BARRIE/UTI now resolved, but with significant deconditioning and functional decline. Discharge planning is complicated by cognitive impairment and inability to follow directions. Awaiting placement for continued care and rehabilitation. Essentially no new issues Assessment and Plan 1. Acute Kidney Injury (BARRIE): The patient experienced multifactorial BARRIE (prerenal, postrenal, and possible intrarenal components) in the setting of acute urinary retention and UTI. Prerenal azotemia likely due to volume depletion and acute urinary retention, resolved with IV fluids. Intrarenal component (possible ATN) likely secondary to UTI, now resolved after completing a 5-day course of Augmentin (completed 11/21/2024). Postrenal component due to BPH and urinary retention; Chisholm catheter placed on 11/14/2024. Plan: Continue to monitor renal function and urine output. Chisholm catheter to remain in place per Urology, with outpatient voiding trials planned after discharge. 2. Benign Prostatic Hyperplasia (BPH) and Acute Urinary Retention: Acute urinary retention managed with Chisholm catheter. Started on finasteride and tamsulosin per Urology recommendations. Will require discharge with Chisholm and outpatient follow-up for voiding trials. Monitor for signs of infection or catheter complications. 3. Urinary Tract Infection (UTI): Streptococcal UTI treated with Augmentin, completed 11/21/2024. No current signs or symptoms of ongoing infection. Continue to monitor for recurrence, especially with indwelling Chisholm. 4. Falls and Physical Deconditioning: Multiple recent falls at home, likely due to advanced cognitive decline, physical deconditioning, and overall declining health. Patient is unable to follow basic directions, limiting rehabilitation potential and complicating discharge planning. PT/OT consulted for ongoing assessment and therapy. Fall precautions in place. Continue B12 and folate supplementation. 5. Advanced Alzheimer?s Dementia: Progressive cognitive decline with significant impairment in ADLs. Daughter is primary historian and healthcare proxy. Patient unable to participate in care planning or follow instructions, making short-term rehabilitation placement challenging. Awaiting appropriate placement; case management involved. adjusted seroquel to 25 mg tid ,may need to add olazapine prn if needed (please see psych note from 12/01/24) 6. Hypertension, Hyperlipidemia, History of CVA: Continue home medications for blood pressure, lipid management, and secondary stroke prevention (on Plavix). Monitor for any new neurological changes. 7. Prior Substance Use and Alcohol Use Disorder: History noted; no acute withdrawal or related complications during this admission. 8. DVT Prophylaxis: Continue prophylaxis with heparin while inpatient. Urinary catheter is out: Monitor PVR/straight cath if needed. DNR/DNI 9. Disposition: Patient is medically stable after treatment of UTI and BARRIE but remains functionally and cognitively impaired. Not safe for discharge home due to inability to follow directions and limited ADLs. Awaiting placement in a facility capable of providing the necessary level of care and rehabilitation. Case management and social work are actively involved in placement planning. need ppn for dec po intake. called patient daughter miss murphy ([phone]) and message left. Quality Stroke Does the patient have a stroke diagnosis?: No VTE Prior VTE?: No VTE Risk Level:: Medical - moderate - high VTE Device Contraindication: Treatment Not Indicated VTE Drug Contraindication: N/A - Med Ordered
[2024-12-05 16:00] VITALS: BP 131/60; PULSE 82; RESP 18; TEMP 36.8; O2SAT 96
[2024-12-05 20:00] VITALS: BP 138/62; PULSE 80; RESP 20; TEMP 36.5; O2SAT 96
[2024-12-05] MEDS: traZODone HCL 25 MG HALFTAB PO (20:02)
[2024-12-05] MEDS: Parenteral Nutrition 1,680 ML 70 ML IV (20:08)
[2024-12-06 03:05] VITALS: BP 126/61; PULSE 59; RESP 18; TEMP 35.8; O2SAT 97
[2024-12-06 06:10] LABS: Albumin Level 3.4 g/dL (3.5-5.0); Anion Gap 13 (12-20); Blood Urea Nitrogen 39 mg/dL (9-16); Calcium 9.4 mg/dL (8.4-10.2); Carbon Dioxide 24 mmol/L (22-29); Chloride 109 mmol/L (96-108); Creatinine Clr Calc Pharmacy 47.4; Estimated Glomerular Filt Rate > 60; Magnesium 2.3 mg/dL (1.6-2.6); Potassium 4.6 mmol/L (3.3-5.1); Sodium 141 mmol/L (135-145); Triglycerides 47 mg/dL (<150)
[2024-12-06 07:22] VITALS: BP 152/71; PULSE 83; RESP 15; TEMP 36; O2SAT 96
[2024-12-06 08:39] VITALS: BP 150/74
--- NOTE | 2024-12-06 10:32 | MHC.CLN ---
F/U DIET RX: REGULAR, CHOPPED WITH ENSURE BID. SUPPLEMENT PROVIDES 700 KCALS, 40 G PROTEIN. PO INTAKE USUALLY POOR, 0-25%. CONTINUES WITH PPN. REVIEWED LABS. COMMUNICATED WITH PHARMACY. REC MAX GOAL PPN AT 70 ML PER HOUR, ADD 75 G LIPIDS TO PROVIDE 71 G PROTEIN (1.3 G/KG), 168 G DEXTROSE, 1607 TOTAL KCALS (28.5 KCALS/KG). REPLETE LYTES NEEDED. MONITOR LABS, PO INTAKE, PPN TOLERANCE AND PLAN OF CARE.
--- NOTE | 2024-12-06 12:00 | MHC.CM.PN ---
DP LTC via BLS once insurance obtained for LTC. Documents required and requested 12/05/24.
--- NOTE | 2024-12-06 13:15 | P.PNIM_ITS ---
Subjective Subjective Date of Service: 12/06/24 Interval History: no new events low po intake Review of Systems as above Review of Systems: Yes all other systems are reviewed and are negative Physical Exam 2 Exam: Exam: Appearance: awake , comfortable cvs: [id number], [id number]. res: clear to auscultation ,no rhonchii or wheezing abd: no rebound or guarding ,nt, bs present. ext pulses present , no cyanosis. neuro:moves all ext Vital Signs: Vital Signs: Last Vital Signs Temp 96.8 F 12/06/24 07:22 Pulse 83 12/06/24 07:22 Resp 15 12/06/24 07:22 BP 150/74 H 12/06/24 08:39 Pulse Ox 96 12/06/24 07:22 O2 Del Method Room Air 12/06/24 07:22 O2 Flow Rate 2 11/12/24 09:51 BMI result Body Mass Index 18.4 Objective Data Active Medications Acetaminophen (Acetaminophen 325 Mg Tablet) 650 mg PO Q6H PRN PRN Reason: Pain, Mild 1-3,fever,headache Last Admin: 12/05/24 15:02 Dose: 650 mg Documented By: ALYSON Amlodipine Besylate (Amlodipine Besylate 5 Mg Tablet) 5 mg PO DAILY [facility]; Protocol Last Admin: 12/06/24 08:41 Dose: 5 mg Documented By: KARL Atorvastatin Calcium (Atorvastatin Calcium 80 Mg Tablet) 80 mg PO DAILY [facility] Last Admin: 12/06/24 08:41 Dose: 80 mg Documented By: KARL Calcium Carbonate (Calcium Carbonate 750 Mg Tab.Chew) 750 mg PO Q4H PRN PRN Reason: Heartburn Clopidogrel Bisulfate (Clopidogrel Bisulfate 75 Mg Tablet) 75 mg PO DAILY [facility] Last Admin: 12/06/24 08:42 Dose: 75 mg Documented By: KRAL Finasteride (Finasteride 5 Mg Tablet) 5 mg PO DAILY [facility] Last Admin: 12/06/24 08:50 Dose: Not Given Documented By: KARL Non-Admin Reason: Patient Refused Folic Acid (Folic Acid 1 Mg Tablet) 1 mg PO DAILY [facility] Last Admin: 12/06/24 08:41 Dose: 1 mg Documented By: KARL Heparin Sodium (Porcine) (Heparin Sodium,Porcine 5,000 Unit/Ml Vial) 5,000 unit SUBCUT Q12H [facility] Last Admin: 12/06/24 08:41 Dose: 5,000 unit Documented By: KARL Hydralazine HCl (Hydralazine Hcl 20 Mg/Ml Vial) 5 mg IVPUSH Q6H PRN; Protocol PRN Reason: SBP>190 Nutrition (Parenteral) (Parenteral Nutrition) 1,680 mls @ 70 mls/hr IV .Q24H [facility]; Protocol Stop: 12/06/24 20:59 Last Admin: 12/05/24 20:08 Dose: 70 mls/hr Documented By: JACEY Nutrition (Parenteral) (Parenteral Nutrition) 1,680 mls @ 70 mls/hr IV .Q24H [facility]; Protocol Stop: 12/07/24 20:59 Magnesium Hydroxide (Milk Of Magnesia 30 Ml Oral.Susp) 30 ml PO DAILY PRN PRN Reason: Constipation Last Admin: 12/03/24 09:09 Dose: 30 ml Documented By: JENNIFER Melatonin (Melatonin 3 Mg Tablet) 6 mg PO BEDTIME PRN PRN Reason: Insomnia Last Admin: 12/05/24 20:02 Dose: 6 mg Documented By: JACEY Pharmacy Consult (Consult Rx Parenteral Nutrition Ordering) 1 each MISCELLANE DAILY PRN PRN Reason: Consult order Quetiapine Fumarate (Quetiapine Fumarate 25 Mg Tablet) 25 mg PO TID [facility] Last Admin: 12/06/24 08:41 Dose: 25 mg Documented By: KARL Tamsulosin HCl (Tamsulosin Hcl 0.4 Mg Capsule) 0.4 mg PO DAILY [facility] Last Admin: 12/06/24 08:50 Dose: Not Given Documented By: KARL Non-Admin Reason: Patient Refused Thiamine HCl (Thiamine Hcl 100 Mg Tablet) 100 mg PO DAILY [facility] Last Admin: 12/06/24 08:41 Dose: 100 mg Documented By: KARL Trazodone HCl (Trazodone Hcl 25 Mg Halftab) 25 mg PO BEDTIME [facility] Last Admin: 12/05/24 20:02 Dose: 25 mg Documented By: JACEY Labs 11/23/24 05:33 12/06/24 05:39 Labs: Laboratory Results - last 24 hr 10/08/25 05:39 Hold Purple Top SEE NOTE Anion Gap 13 Estim Creat Clear Calc 47.4 Estimated GFR > 60 Random Glucose 145 H Calcium 9.4 Phosphorus 4.0 Magnesium 2.3 Albumin 3.4 L Triglycerides 47 Assessment and Plan (1) Frequent falls: Status: Acute Plan Elderly patient with advanced Alzheimer?s dementia, multiple comorbidities, and recent BARRIE/UTI now resolved, but with significant deconditioning and functional decline. Discharge planning is complicated by cognitive impairment and inability to follow directions. Awaiting placement for continued care and rehabilitation. Essentially no new issues Assessment and Plan 1. Acute Kidney Injury (BARRIE): * The patient experienced multifactorial BARRIE (prerenal, postrenal, and possible intrarenal components) in the setting of acute urinary retention and UTI. * Prerenal azotemia likely due to volume depletion and acute urinary retention, resolved with IV fluids. * Intrarenal component (possible ATN) likely secondary to UTI, now resolved after completing a 5-day course of Augmentin (completed 11/21/2024). * Postrenal component due to BPH and urinary retention; Chisholm catheter placed on 11/14/2024. * Plan: Continue to monitor renal function and urine output. Chisholm catheter to remain in place per Urology, with outpatient voiding trials planned after discharge. 2. Benign Prostatic Hyperplasia (BPH) and Acute Urinary Retention: * Acute urinary retention managed with Chisholm catheter. * Started on finasteride and tamsulosin per Urology recommendations. * Will require discharge with Chisholm and outpatient follow-up for voiding trials. * Monitor for signs of infection or catheter complications. 3. Urinary Tract Infection (UTI): * Streptococcal UTI treated with Augmentin, completed 11/21/2024. * No current signs or symptoms of ongoing infection. * Continue to monitor for recurrence, especially with indwelling Chisholm. 4. Falls and Physical Deconditioning: * Multiple recent falls at home, likely due to advanced cognitive decline, physical deconditioning, and overall declining health. * Patient is unable to follow basic directions, limiting rehabilitation potential and complicating discharge planning. * PT/OT consulted for ongoing assessment and therapy. * Fall precautions in place. * Continue B12 and folate supplementation. 5. Advanced Alzheimer?s Dementia: * Progressive cognitive decline with significant impairment in ADLs. * Daughter is primary historian and healthcare proxy. * Patient unable to participate in care planning or follow instructions, making short-term rehabilitation placement challenging. * Awaiting appropriate placement; case management involved. * adjusted seroquel to 25 mg tid ,may need to add olazapine prn if needed (please see psych note from 12/01/24) 6. Hypertension, Hyperlipidemia, History of CVA: * Continue home medications for blood pressure, lipid management, and secondary stroke prevention (on Plavix). * Monitor for any new neurological changes. 7. Prior Substance Use and Alcohol Use Disorder: * History noted; no acute withdrawal or related complications during this admission. 8. DVT Prophylaxis: * Continue prophylaxis with heparin while inpatient. * Urinary catheter is out: Monitor PVR/straight cath if needed. DNR/DNI 9. Disposition: * Patient is medically stable after treatment of UTI and BARRIE but remains functionally and cognitively impaired. * Not safe for discharge home due to inability to follow directions and limited ADLs. * Awaiting placement in a facility capable of providing the necessary level of care and rehabilitation. * Case management and social work are actively involved in placement planning. * need ppn for dec po intake. Quality Stroke Does the patient have a stroke diagnosis?: No VTE Prior VTE?: No VTE Risk Level:: Medical - moderate - high VTE Device Contraindication: Treatment Not Indicated VTE Drug Contraindication: N/A - Med Ordered
--- NOTE | 2024-12-06 13:15 | HO.PM.IMPN ---
Subjective Subjective Date of Service: 12/06/24 Interval History: no new events low po intake Review of Systems as above Review of Systems: Yes all other systems are reviewed and are negative Physical Exam Exam: Exam: Appearance: awake , comfortable cvs: [id number], [id number]. res: clear to auscultation ,no rhonchii or wheezing abd: no rebound or guarding ,nt, bs present. ext pulses present , no cyanosis. neuro:moves all ext Vital Signs: Vital Signs: Last Vital Signs Temp 96.8 F 12/06/24 07:22 Pulse 83 12/06/24 07:22 Resp 15 12/06/24 07:22 BP 150/74 H 12/06/24 08:39 Pulse Ox 96 12/06/24 07:22 O2 Del Method Room Air 12/06/24 07:22 O2 Flow Rate 2 11/12/24 09:51 BMI result Body Mass Index 18.4 Objective Data Active Medications Acetaminophen (Acetaminophen 325 Mg Tablet) 650 mg PO Q6H PRN PRN Reason: Pain, Mild 1-3,fever,headache Last Admin: 12/05/24 15:02 Dose: 650 mg Documented By: ALYSON Amlodipine Besylate (Amlodipine Besylate 5 Mg Tablet) 5 mg PO DAILY [facility]; Protocol Last Admin: 12/06/24 08:41 Dose: 5 mg Documented By: KARL Atorvastatin Calcium (Atorvastatin Calcium 80 Mg Tablet) 80 mg PO DAILY [facility] Last Admin: 12/06/24 08:41 Dose: 80 mg Documented By: KARL Calcium Carbonate (Calcium Carbonate 750 Mg Tab.Chew) 750 mg PO Q4H PRN PRN Reason: Heartburn Clopidogrel Bisulfate (Clopidogrel Bisulfate 75 Mg Tablet) 75 mg PO DAILY [facility] Last Admin: 12/06/24 08:42 Dose: 75 mg Documented By: KARL Finasteride (Finasteride 5 Mg Tablet) 5 mg PO DAILY [facility] Last Admin: 12/06/24 08:50 Dose: Not Given Documented By: KARL Non-Admin Reason: Patient Refused Folic Acid (Folic Acid 1 Mg Tablet) 1 mg PO DAILY [facility] Last Admin: 12/06/24 08:41 Dose: 1 mg Documented By: KARL Heparin Sodium (Porcine) (Heparin Sodium,Porcine 5,000 Unit/Ml Vial) 5,000 unit SUBCUT Q12H [facility] Last Admin: 12/06/24 08:41 Dose: 5,000 unit Documented By: KARL Hydralazine HCl (Hydralazine Hcl 20 Mg/Ml Vial) 5 mg IVPUSH Q6H PRN; Protocol PRN Reason: SBP>190 Nutrition (Parenteral) (Parenteral Nutrition) 1,680 mls @ 70 mls/hr IV .Q24H [facility]; Protocol Stop: 12/06/24 20:59 Last Admin: 12/05/24 20:08 Dose: 70 mls/hr Documented By: JACEY Nutrition (Parenteral) (Parenteral Nutrition) 1,680 mls @ 70 mls/hr IV .Q24H [facility]; Protocol Stop: 12/07/24 20:59 Magnesium Hydroxide (Milk Of Magnesia 30 Ml Oral.Susp) 30 ml PO DAILY PRN PRN Reason: Constipation Last Admin: 12/03/24 09:09 Dose: 30 ml Documented By: JENNIFER Melatonin (Melatonin 3 Mg Tablet) 6 mg PO BEDTIME PRN PRN Reason: Insomnia Last Admin: 12/05/24 20:02 Dose: 6 mg Documented By: JACEY Pharmacy Consult (Consult Rx Parenteral Nutrition Ordering) 1 each MISCELLANE DAILY PRN PRN Reason: Consult order Quetiapine Fumarate (Quetiapine Fumarate 25 Mg Tablet) 25 mg PO TID [facility] Last Admin: 12/06/24 08:41 Dose: 25 mg Documented By: KARL Tamsulosin HCl (Tamsulosin Hcl 0.4 Mg Capsule) 0.4 mg PO DAILY [facility] Last Admin: 12/06/24 08:50 Dose: Not Given Documented By: KARL Non-Admin Reason: Patient Refused Thiamine HCl (Thiamine Hcl 100 Mg Tablet) 100 mg PO DAILY [facility] Last Admin: 12/06/24 08:41 Dose: 100 mg Documented By: KARL Trazodone HCl (Trazodone Hcl 25 Mg Halftab) 25 mg PO BEDTIME [facility] Last Admin: 12/05/24 20:02 Dose: 25 mg Documented By: JACEY Labs 11/23/24 05:33 12/06/24 05:39 Labs: Laboratory Results - last 24 hr 12/06/24 05:39 Hold Purple Top SEE NOTE Anion Gap 13 Estim Creat Clear Calc 47.4 Estimated GFR > 60 Random Glucose 145 H Calcium 9.4 Phosphorus 4.0 Magnesium 2.3 Albumin 3.4 L Triglycerides 47 Assessment and Plan (1) Frequent falls: Status: Acute Plan Elderly patient with advanced Alzheimer?s dementia, multiple comorbidities, and recent BARRIE/UTI now resolved, but with significant deconditioning and functional decline. Discharge planning is complicated by cognitive impairment and inability to follow directions. Awaiting placement for continued care and rehabilitation. Essentially no new issues Assessment and Plan 1. Acute Kidney Injury (BARRIE): The patient experienced multifactorial BARRIE (prerenal, postrenal, and possible intrarenal components) in the setting of acute urinary retention and UTI. Prerenal azotemia likely due to volume depletion and acute urinary retention, resolved with IV fluids. Intrarenal component (possible ATN) likely secondary to UTI, now resolved after completing a 5-day course of Augmentin (completed 11/21/2024). Postrenal component due to BPH and urinary retention; Chisholm catheter placed on 11/14/2024. Plan: Continue to monitor renal function and urine output. Chisholm catheter to remain in place per Urology, with outpatient voiding trials planned after discharge. 2. Benign Prostatic Hyperplasia (BPH) and Acute Urinary Retention: Acute urinary retention managed with Chisholm catheter. Started on finasteride and tamsulosin per Urology recommendations. Will require discharge with Chisholm and outpatient follow-up for voiding trials. Monitor for signs of infection or catheter complications. 3. Urinary Tract Infection (UTI): Streptococcal UTI treated with Augmentin, completed 11/21/2024. No current signs or symptoms of ongoing infection. Continue to monitor for recurrence, especially with indwelling Chisholm. 4. Falls and Physical Deconditioning: Multiple recent falls at home, likely due to advanced cognitive decline, physical deconditioning, and overall declining health. Patient is unable to follow basic directions, limiting rehabilitation potential and complicating discharge planning. PT/OT consulted for ongoing assessment and therapy. Fall precautions in place. Continue B12 and folate supplementation. 5. Advanced Alzheimer?s Dementia: Progressive cognitive decline with significant impairment in ADLs. Daughter is primary historian and healthcare proxy. Patient unable to participate in care planning or follow instructions, making short-term rehabilitation placement challenging. Awaiting appropriate placement; case management involved. adjusted seroquel to 25 mg tid ,may need to add olazapine prn if needed (please see psych note from 12/01/24) 6. Hypertension, Hyperlipidemia, History of CVA: Continue home medications for blood pressure, lipid management, and secondary stroke prevention (on Plavix). Monitor for any new neurological changes. 7. Prior Substance Use and Alcohol Use Disorder: History noted; no acute withdrawal or related complications during this admission. 8. DVT Prophylaxis: Continue prophylaxis with heparin while inpatient. Urinary catheter is out: Monitor PVR/straight cath if needed. DNR/DNI 9. Disposition: Patient is medically stable after treatment of UTI and BARRIE but remains functionally and cognitively impaired. Not safe for discharge home due to inability to follow directions and limited ADLs. Awaiting placement in a facility capable of providing the necessary level of care and rehabilitation. Case management and social work are actively involved in placement planning. need ppn for dec po intake. Quality Stroke Does the patient have a stroke diagnosis?: No VTE Prior VTE?: No VTE Risk Level:: Medical - moderate - high VTE Device Contraindication: Treatment Not Indicated VTE Drug Contraindication: N/A - Med Ordered
[2024-12-06 15:55] VITALS: BP 149/66; PULSE 75; RESP 20; TEMP 36.8; O2SAT 94
[2024-12-06] MEDS: traZODone HCL 25 MG HALFTAB PO (19:48)
[2024-12-06] MEDS: OLANZapine 10 MG VIAL 5 MG IM (19:52)
[2024-12-06 20:00] VITALS: BP 164/74; PULSE 77; RESP 19; TEMP 36.5; O2SAT 97
[2024-12-06] MEDS: Parenteral Nutrition 1,680 ML 70 ML IV (20:15)
[2024-12-07 04:00] VITALS: BP 121/62; PULSE 67; RESP 18; TEMP 36.1
[2024-12-07 06:44] LABS: Albumin Level 3.5 g/dL (3.5-5.0); Anion Gap 12 (12-20); Blood Urea Nitrogen 35 mg/dL (9-16); Calcium 9.7 mg/dL (8.4-10.2); Carbon Dioxide 22 mmol/L (22-29); Chloride 108 mmol/L (96-108); Creatinine Clr Calc Pharmacy 56.8; Estimated Glomerular Filt Rate > 60; Magnesium 1.9 mg/dL (1.6-2.6); Potassium 4.2 mmol/L (3.3-5.1); Sodium 138 mmol/L (135-145)
[2024-12-07 07:42] VITALS: BP 144/65; PULSE 71; RESP 18; TEMP 36.3; O2SAT 97
--- NOTE | 2024-12-07 09:42 | P.PNIM_ITS ---
Subjective Subjective Date of Service: 12/07/24 Interval History: diet improved, non participatory Physical Exam 2 Exam: Exam: Appearance: awake , comfortable cvs: rrr, [id number]. res: clear to auscultation ,no rhonchii or wheezing abd: no rebound or guarding ,nt, bs present. ext pulses present , no cyanosis. neuro:moves all ext Vital Signs: Vital Signs: Last Vital Signs Temp 97.4 F 12/07/24 07:42 Pulse 71 12/07/24 07:42 Resp 18 12/07/24 07:42 BP 144/65 H 12/07/24 07:42 Pulse Ox 97 12/07/24 07:42 O2 Del Method Room Air 12/07/24 07:42 O2 Flow Rate 2 11/12/24 09:51 BMI result Body Mass Index 18.4 Objective Data Active Medications Acetaminophen (Acetaminophen 325 Mg Tablet) 650 mg PO Q6H PRN PRN Reason: Pain, Mild 1-3,fever,headache Last Admin: 12/05/24 15:02 Dose: 650 mg Documented By: ALYSON Amlodipine Besylate (Amlodipine Besylate 5 Mg Tablet) 5 mg PO DAILY [facility]; Protocol Last Admin: 12/06/24 08:41 Dose: 5 mg Documented By: KARL Atorvastatin Calcium (Atorvastatin Calcium 80 Mg Tablet) 80 mg PO DAILY [facility] Last Admin: 12/06/24 08:41 Dose: 80 mg Documented By: KARL Calcium Carbonate (Calcium Carbonate 750 Mg Tab.Chew) 750 mg PO Q4H PRN PRN Reason: Heartburn Clopidogrel Bisulfate (Clopidogrel Bisulfate 75 Mg Tablet) 75 mg PO DAILY [facility] Last Admin: 12/06/24 08:42 Dose: 75 mg Documented By: KARL Finasteride (Finasteride 5 Mg Tablet) 5 mg PO DAILY [facility] Last Admin: 12/06/24 08:50 Dose: Not Given Documented By: KARL Non-Admin Reason: Patient Refused Folic Acid (Folic Acid 1 Mg Tablet) 1 mg PO DAILY [facility] Last Admin: 12/06/24 08:41 Dose: 1 mg Documented By: KARL Heparin Sodium (Porcine) (Heparin Sodium,Porcine 5,000 Unit/Ml Vial) 5,000 unit SUBCUT Q12H [facility] Last Admin: 12/06/24 20:01 Dose: 5,000 unit Documented By: RAHEL Hydralazine HCl (Hydralazine Hcl 20 Mg/Ml Vial) 5 mg IVPUSH Q6H PRN; Protocol PRN Reason: SBP>190 Nutrition (Parenteral) (Parenteral Nutrition) 1,680 mls @ 70 mls/hr IV .Q24H [facility]; Protocol Stop: 12/07/24 20:59 Last Admin: 12/06/24 20:15 Dose: 70 mls/hr Documented By: RAHEL Nutrition (Parenteral) (Parenteral Nutrition) 1,680 mls @ 70 mls/hr IV .Q24H [facility]; Protocol Stop: 12/08/24 20:59 Magnesium Hydroxide (Milk Of Magnesia 30 Ml Oral.Susp) 30 ml PO DAILY PRN PRN Reason: Constipation Last Admin: 12/03/24 09:09 Dose: 30 ml Documented By: JENNIFER Melatonin (Melatonin 3 Mg Tablet) 6 mg PO BEDTIME PRN PRN Reason: Insomnia Last Admin: 12/05/24 20:02 Dose: 6 mg Documented By: JACEY Pharmacy Consult (Consult Rx Parenteral Nutrition Ordering) 1 each MISCELLANE DAILY PRN PRN Reason: Consult order Quetiapine Fumarate (Quetiapine Fumarate 25 Mg Tablet) 25 mg PO TID [facility] Last Admin: 12/06/24 19:52 Dose: 25 mg Documented By: RAHEL Tamsulosin HCl (Tamsulosin Hcl 0.4 Mg Capsule) 0.4 mg PO DAILY [facility] Last Admin: 12/06/24 08:50 Dose: Not Given Documented By: KARL Non-Admin Reason: Patient Refused Thiamine HCl (Thiamine Hcl 100 Mg Tablet) 100 mg PO DAILY [facility] Last Admin: 12/06/24 08:41 Dose: 100 mg Documented By: KARL Trazodone HCl (Trazodone Hcl 25 Mg Halftab) 25 mg PO BEDTIME [facility] Last Admin: 12/06/24 19:48 Dose: 25 mg Documented By: RAHEL Labs 11/23/24 05:33 12/07/24 06:05 Labs: Laboratory Results - last 24 hr 12/07/24 06:05 Anion Gap 12 Estim Creat Clear Calc 56.8 Estimated GFR > 60 Random Glucose 118 H Calcium 9.7 Phosphorus 3.8 Magnesium 1.9 Albumin 3.5 Assessment and Plan (1) Frequent falls: Status: Acute Plan Elderly patient with advanced Alzheimer?s dementia, multiple comorbidities, and recent BARRIE/UTI now resolved, but with significant deconditioning and functional decline. Discharge planning is complicated by cognitive impairment and inability to follow directions. Awaiting placement for continued care and rehabilitation. Essentially no new issues Assessment and Plan 1. Acute Kidney Injury (BARRIE): * The patient experienced multifactorial BARRIE (prerenal, postrenal, and possible intrarenal components) in the setting of acute urinary retention and UTI. * Prerenal azotemia likely due to volume depletion and acute urinary retention, resolved with IV fluids. * Intrarenal component (possible ATN) likely secondary to UTI, now resolved after completing a 5-day course of Augmentin (completed 11/21/2024). * Postrenal component due to BPH and urinary retention; Chisholm catheter placed on 11/14/2024. * Plan: Continue to monitor renal function and urine output. Chisholm catheter to remain in place per Urology, with outpatient voiding trials planned after discharge. 2. Benign Prostatic Hyperplasia (BPH) and Acute Urinary Retention: * Acute urinary retention managed with Chisholm catheter. * Started on finasteride and tamsulosin per Urology recommendations. * eventual voiding trial 3. Urinary Tract Infection (UTI): * Streptococcal UTI treated with Augmentin, completed 11/21/2024. * No current signs or symptoms of ongoing infection. * Continue to monitor for recurrence, especially with indwelling Chisholm. 4. Falls and Physical Deconditioning: * Multiple recent falls at home, likely due to advanced cognitive decline, physical deconditioning, and overall declining health. * Patient is unable to follow basic directions, limiting rehabilitation potential and complicating discharge planning. * PT/OT consulted for ongoing assessment and therapy. * Fall precautions in place. * Continue B12 and folate supplementation. 5. Advanced Alzheimer?s Dementia: * Progressive cognitive decline with significant impairment in ADLs. * Daughter is primary historian and healthcare proxy. * Patient unable to participate in care planning or follow instructions, making short-term rehabilitation placement challenging. * Awaiting appropriate placement; case management involved. * adjusted seroquel to 25 mg tid ,may need to add olazapine prn if needed (please see psych note from 12/01/24) 6. Hypertension, Hyperlipidemia, History of CVA: * Continue home medications for blood pressure, lipid management, and secondary stroke prevention (on Plavix). * Monitor for any new neurological changes. 7. Prior Substance Use and Alcohol Use Disorder: * History noted; no acute withdrawal or related complications during this admission. 8. DVT Prophylaxis: * Continue prophylaxis with heparin while inpatient. poor intake on ppn, but appetite starting to pickling grader DNR/DNI 9. Disposition: * Patient is medically stable after treatment of UTI and BARRIE but remains functionally and cognitively impaired. * Not safe for discharge home due to inability to follow directions and limited ADLs. * Awaiting placement in a facility capable of providing the necessary level of care and rehabilitation. * Case management and social work are actively involved in placement planning. * need ppn for dec po intake. Quality Stroke Does the patient have a stroke diagnosis?: No VTE Prior VTE?: No VTE Risk Level:: Medical - moderate - high VTE Device Contraindication: Treatment Not Indicated VTE Drug Contraindication: N/A - Med Ordered
[2024-12-07 09:58] VITALS: BP 140/62
--- NOTE | 2024-12-07 10:14 | MHC.CLN ---
F/U PO INTAKE SLIGHTLY IMPROVED TO 25-50% DIET RX: REGULAR, CHOPPED WITH ENSURE BID SUPPLEMENT PROVIDES 700 KCALS, 40 G PROTEIN CONTINUES WITH PPN REVIEWED LABS COMMUNICATED WITH PHARMACY CONTINUE PPN AT MAX GOAL RATE OF 70 ML PER HOUR WITH 75 G LIPIDS PROVIDES 1607 TOTAL KCALS (28.5 KCALS/KG), 71 G PROTEIN (1.3 G/KG), 168 G DEXTROSE REPLETE LYTES NEEDED MONITOR LABS, PO INTAKE, PPN TOLERANCE AND PLAN OF CARE
[2024-12-07 16:05] VITALS: BP 156/67; PULSE 73; RESP 18; TEMP 36.5; O2SAT 96
[2024-12-07 19:47] VITALS: BP 144/64; PULSE 80; RESP 18; TEMP 36.6; O2SAT 97
[2024-12-07] MEDS: Parenteral Nutrition 1,680 ML 70 ML IV (20:52)
[2024-12-07] MEDS: traZODone HCL 25 MG HALFTAB PO (20:53)
[2024-12-08 05:36] VITALS: BP 137/61; PULSE 66; RESP 18; TEMP 35.9; O2SAT 99
--- NOTE | 2024-12-08 05:57 | PC.NURSE ---
Pt seen on bed alert, confused, combative and impulsive at times, redirected and reoriented, meds crushed and tolerated, TPN changed and running at 70 ml/hr, slept fairly after.
[2024-12-08 06:39] LABS: Albumin Level 3.4 g/dL (3.5-5.0); Anion Gap 14 (12-20); Blood Urea Nitrogen 38 mg/dL (9-16); Calcium 10.0 mg/dL (8.4-10.2); Carbon Dioxide 23 mmol/L (22-29); Chloride 106 mmol/L (96-108); Creatinine Clr Calc Pharmacy 54.4; Estimated Glomerular Filt Rate > 60; Magnesium 1.8 mg/dL (1.6-2.6); Potassium 4.3 mmol/L (3.3-5.1); Sodium 139 mmol/L (135-145)
[2024-12-08 07:52] VITALS: BP 121/59; PULSE 75
--- NOTE | 2024-12-08 09:50 | P.PNIM_ITS ---
Subjective Subjective Date of Service: 12/08/24 Interval History: Adequate p.o. nutritional intake for the last 48 hours Physical Exam 2 Exam: Exam: Appearance: awake , comfortable cvs: [id number], [id number]. res: clear to auscultation ,no rhonchii or wheezing abd: no rebound or guarding ,nt, bs present. ext pulses present , no cyanosis. neuro:moves all ext Vital Signs: Vital Signs: Last Vital Signs Temp 96.7 F L 12/08/24 05:36 Pulse 75 12/08/24 07:52 Resp 18 12/08/24 05:36 BP 121/59 L 12/08/24 07:52 Pulse Ox 99 12/08/24 05:36 O2 Del Method Room Air 12/08/24 05:36 O2 Flow Rate 2 11/12/24 09:51 BMI result Body Mass Index 18.4 Objective Data Active Medications Acetaminophen (Acetaminophen 325 Mg Tablet) 650 mg PO Q6H PRN PRN Reason: Pain, Mild 1-3,fever,headache Last Admin: 12/05/24 15:02 Dose: 650 mg Documented By: ALYSON Amlodipine Besylate (Amlodipine Besylate 5 Mg Tablet) 5 mg PO DAILY [facility]; Protocol Last Admin: 12/08/24 07:52 Dose: 5 mg Documented By: KAITY Atorvastatin Calcium (Atorvastatin Calcium 80 Mg Tablet) 80 mg PO DAILY [facility] Last Admin: 12/08/24 07:47 Dose: 80 mg Documented By: KAITY Calcium Carbonate (Calcium Carbonate 750 Mg Tab.Chew) 750 mg PO Q4H PRN PRN Reason: Heartburn Clopidogrel Bisulfate (Clopidogrel Bisulfate 75 Mg Tablet) 75 mg PO DAILY [facility] Last Admin: 12/08/24 07:48 Dose: 75 mg Documented By: KAITY Finasteride (Finasteride 5 Mg Tablet) 5 mg PO DAILY [facility] Last Admin: 12/08/24 07:47 Dose: 5 mg Documented By: KAITY Folic Acid (Folic Acid 1 Mg Tablet) 1 mg PO DAILY [facility] Last Admin: 12/08/24 07:48 Dose: 1 mg Documented By: KAITY Heparin Sodium (Porcine) (Heparin Sodium,Porcine 5,000 Unit/Ml Vial) 5,000 unit SUBCUT Q12H [facility] Last Admin: 12/08/24 07:45 Dose: 5,000 unit Documented By: KAITY Hydralazine HCl (Hydralazine Hcl 20 Mg/Ml Vial) 5 mg IVPUSH Q6H PRN; Protocol PRN Reason: SBP>190 Magnesium Hydroxide (Milk Of Magnesia 30 Ml Oral.Susp) 30 ml PO DAILY PRN PRN Reason: Constipation Last Admin: 12/03/24 09:09 Dose: 30 ml Documented By: JENNIFER Melatonin (Melatonin 3 Mg Tablet) 6 mg PO BEDTIME PRN PRN Reason: Insomnia Last Admin: 12/07/24 20:53 Dose: 6 mg Documented By: PATRICIA Quetiapine Fumarate (Quetiapine Fumarate 25 Mg Tablet) 25 mg PO TID [facility] Last Admin: 12/08/24 07:47 Dose: 25 mg Documented By: KAITY Tamsulosin HCl (Tamsulosin Hcl 0.4 Mg Capsule) 0.4 mg PO DAILY [facility] Last Admin: 12/08/24 07:47 Dose: 0.4 mg Documented By: KAITY Thiamine HCl (Thiamine Hcl 100 Mg Tablet) 100 mg PO DAILY [facility] Last Admin: 12/08/24 07:48 Dose: 100 mg Documented By: KAITY Trazodone HCl (Trazodone Hcl 25 Mg Halftab) 25 mg PO BEDTIME [facility] Last Admin: 12/07/24 20:53 Dose: 25 mg Documented By: PATRICIA Labs 11/23/24 05:33 12/08/24 05:47 Labs: Laboratory Results - last 24 hr 12/08/24 05:47 Hold Purple Top SEE NOTE Anion Gap 14 Estim Creat Clear Calc 54.4 Estimated GFR > 60 Random Glucose 115 Calcium 10.0 Phosphorus 4.8 H Magnesium 1.8 Albumin 3.4 L Assessment and Plan (1) Frequent falls: Status: Acute Plan Elderly patient with advanced Alzheimer?s dementia, multiple comorbidities, and recent BARRIE/UTI now resolved, but with significant deconditioning and functional decline. Discharge planning is complicated by cognitive impairment and inability to follow directions. Awaiting placement for continued care and rehabilitation. Essentially no new issues Assessment and Plan 1. Acute Kidney Injury (BARRIE): * The patient experienced multifactorial BARRIE (prerenal, postrenal, and possible intrarenal components) in the setting of acute urinary retention and UTI. * Prerenal azotemia likely due to volume depletion and acute urinary retention, resolved with IV fluids. * Intrarenal component (possible ATN) likely secondary to UTI, now resolved after completing a 5-day course of Augmentin (completed 11/21/2024). * Postrenal component due to BPH and urinary retention; Chisholm catheter placed on 11/14/2024. * Plan: Continue to monitor renal function and urine output. Chisholm catheter to remain in place per Urology, with outpatient voiding trials planned after discharge. 2. Benign Prostatic Hyperplasia (BPH) and Acute Urinary Retention: * Acute urinary retention managed with Chisholm catheter. * Started on finasteride and tamsulosin per Urology recommendations. * eventual voiding trial 3. Urinary Tract Infection (UTI): * Streptococcal UTI treated with Augmentin, completed 11/21/2024. * No current signs or symptoms of ongoing infection. * Continue to monitor for recurrence, especially with indwelling Chisholm. 4. Falls and Physical Deconditioning: * Multiple recent falls at home, likely due to advanced cognitive decline, physical deconditioning, and overall declining health. * Patient is unable to follow basic directions, limiting rehabilitation potential and complicating discharge planning. * PT/OT consulted for ongoing assessment and therapy. * Fall precautions in place. * Continue B12 and folate supplementation. 5. Advanced Alzheimer?s Dementia: * Progressive cognitive decline with significant impairment in ADLs. * Daughter is primary historian and healthcare proxy. * Patient unable to participate in care planning or follow instructions, making short-term rehabilitation placement challenging. * Awaiting appropriate placement; case management involved. * adjusted seroquel to 25 mg tid ,may need to add olazapine prn if needed (please see psych note from 12/01/24) 6. Hypertension, Hyperlipidemia, History of CVA: * Continue home medications for blood pressure, lipid management, and secondary stroke prevention (on Plavix). * Monitor for any new neurological changes. 7. Prior Substance Use and Alcohol Use Disorder: * History noted; no acute withdrawal or related complications during this admission. 8. DVT Prophylaxis: * Continue prophylaxis with heparin while inpatient. poor intake Has had adequate nutritional intake p.o. for last 48 hours will discontinue PPN for now DNR/DNI 9. Disposition: * Patient is medically stable after treatment of UTI and BARRIE but remains functionally and cognitively impaired. * Not safe for discharge home due to inability to follow directions and limited ADLs. * Awaiting placement in a facility capable of providing the necessary level of care and rehabilitation. * Case management and social work are actively involved in placement planning. Quality Stroke Does the patient have a stroke diagnosis?: No VTE Prior VTE?: No VTE Risk Level:: Medical - moderate - high VTE Device Contraindication: Treatment Not Indicated VTE Drug Contraindication: N/A - Med Ordered
--- NOTE | 2024-12-08 10:42 | MHC.CLN ---
F/U PPN DISCONTINUED PER PROVIDER DUE TO TAKING ADEQUATE NUTRITION X 48 HOURS. DIET RX GROUND. ENSURE BID PROVIDES 700 KCALS, 40 G PROTEIN. CONTINUE TO MONITOR FOR PO INTAKE AND PLAN OF CARE.
--- NOTE | 2024-12-08 13:25 | MHC.CM.PN ---
EMR REVIEWED AND PER MD ROUNDS, PT'S PPN WILL BE DC TODAY, APPETITE HAS IMPROVED. CM SPOKE WITH [facility] FINANCIAL COUNSELOR WHO IS WORKING ON [facility]. WITH HCP CARIN. CM WILL CONTINUE TO FOLLOW FOR PLACEMENT. [facility] FOLLOWING AND CLINICALLY UPDATED VIA [facility]
[2024-12-08 16:04] VITALS: BP 123/58; PULSE 74; RESP 18; TEMP 36.7; O2SAT 96
[2024-12-08 19:31] VITALS: BP 143/65; PULSE 90; RESP 18; TEMP 37.1; O2SAT 99
[2024-12-08] MEDS: traZODone HCL 25 MG HALFTAB PO (20:02)
[2024-12-09 03:55] VITALS: BP 129/62; PULSE 73; RESP 16; TEMP 36.1; O2SAT 98
[2024-12-09 06:17] LABS: Albumin Level 3.3 g/dL (3.5-5.0); Anion Gap 12 (12-20); Blood Urea Nitrogen 45 mg/dL (9-16); Calcium 9.4 mg/dL (8.4-10.2); Carbon Dioxide 23 mmol/L (22-29); Chloride 109 mmol/L (96-108); Creatinine Clr Calc Pharmacy 53.8; Estimated Glomerular Filt Rate > 60; Magnesium 2.0 mg/dL (1.6-2.6); Potassium 4.4 mmol/L (3.3-5.1); Sodium 140 mmol/L (135-145)
[2024-12-09 08:00] VITALS: BP 150/67; PULSE 70; RESP 14; TEMP 36.6; O2SAT 99
--- NOTE | 2024-12-09 09:33 | P.PNIM_ITS ---
Subjective Subjective Date of Service: 12/09/24 Interval History: Adequate p.o. nutritional intake for the last 48 hours Physical Exam 2 Exam: Exam: Appearance: awake , comfortable cvs: [id number], [id number]. res: clear to auscultation ,no rhonchii or wheezing abd: no rebound or guarding ,nt, bs present. ext pulses present , no cyanosis. neuro:moves all ext Vital Signs: Vital Signs: Last Vital Signs Temp 97.9 F 12/09/24 08:00 Pulse 70 12/09/24 08:00 Resp 14 12/09/24 08:00 BP 150/67 H 12/09/24 08:00 Pulse Ox 99 12/09/24 08:00 O2 Del Method Room Air 12/09/24 08:00 O2 Flow Rate 2 11/12/24 09:51 BMI result Body Mass Index 18.4 Objective Data Active Medications Acetaminophen (Acetaminophen 325 Mg Tablet) 650 mg PO Q6H PRN PRN Reason: Pain, Mild 1-3,fever,headache Last Admin: 12/05/24 15:02 Dose: 650 mg Documented By: ALYSON Amlodipine Besylate (Amlodipine Besylate 5 Mg Tablet) 5 mg PO DAILY [facility]; Protocol Last Admin: 12/09/24 09:06 Dose: 5 mg Documented By: NA Atorvastatin Calcium (Atorvastatin Calcium 80 Mg Tablet) 80 mg PO DAILY [facility] Last Admin: 12/09/24 09:06 Dose: 80 mg Documented By: NA Calcium Carbonate (Calcium Carbonate 750 Mg Tab.Chew) 750 mg PO Q4H PRN PRN Reason: Heartburn Clopidogrel Bisulfate (Clopidogrel Bisulfate 75 Mg Tablet) 75 mg PO DAILY [facility] Last Admin: 12/09/24 09:06 Dose: 75 mg Documented By: NA Finasteride (Finasteride 5 Mg Tablet) 5 mg PO DAILY [facility] Last Admin: 12/09/24 09:06 Dose: 5 mg Documented By: NA Folic Acid (Folic Acid 1 Mg Tablet) 1 mg PO DAILY [facility] Last Admin: 12/09/24 09:06 Dose: 1 mg Documented By: NA Heparin Sodium (Porcine) (Heparin Sodium,Porcine 5,000 Unit/Ml Vial) 5,000 unit SUBCUT Q12H [facility] Last Admin: 12/09/24 09:11 Dose: 5,000 unit Documented By: NA Hydralazine HCl (Hydralazine Hcl 20 Mg/Ml Vial) 5 mg IVPUSH Q6H PRN; Protocol PRN Reason: SBP>190 Magnesium Hydroxide (Milk Of Magnesia 30 Ml Oral.Susp) 30 ml PO DAILY PRN PRN Reason: Constipation Last Admin: 12/03/24 09:09 Dose: 30 ml Documented By: JENNIFER Melatonin (Melatonin 3 Mg Tablet) 6 mg PO BEDTIME PRN PRN Reason: Insomnia Last Admin: 12/08/24 20:02 Dose: 6 mg Documented By: JACEY Quetiapine Fumarate (Quetiapine Fumarate 25 Mg Tablet) 25 mg PO TID [facility] Last Admin: 12/09/24 09:06 Dose: 25 mg Documented By: NA Tamsulosin HCl (Tamsulosin Hcl 0.4 Mg Capsule) 0.4 mg PO DAILY [facility] Last Admin: 12/09/24 09:06 Dose: 0.4 mg Documented By: NA Thiamine HCl (Thiamine Hcl 100 Mg Tablet) 100 mg PO DAILY [facility] Last Admin: 12/09/24 09:06 Dose: 100 mg Documented By: NA Trazodone HCl (Trazodone Hcl 25 Mg Halftab) 25 mg PO BEDTIME [facility] Last Admin: 12/08/24 20:02 Dose: 25 mg Documented By: JACEY Labs 11/23/24 05:33 12/09/24 05:23 Labs: Laboratory Results - last 24 hr 12/09/24 05:23 Hold Purple Top SEE NOTE Anion Gap 12 Estim Creat Clear Calc 53.8 Estimated GFR > 60 Random Glucose 108 Calcium 9.4 Phosphorus 3.9 Magnesium 2.0 Albumin 3.3 L Assessment and Plan (1) Frequent falls: Status: Acute Plan Elderly patient with advanced Alzheimer?s dementia, multiple comorbidities, and recent BARRIE/UTI now resolved, but with significant deconditioning and functional decline. Discharge planning is complicated by cognitive impairment and inability to follow directions. Awaiting placement for continued care and rehabilitation. Essentially no new issues Assessment and Plan 1. Acute Kidney Injury (BARRIE): * The patient experienced multifactorial BARRIE (prerenal, postrenal, and possible intrarenal components) in the setting of acute urinary retention and UTI. * Prerenal azotemia likely due to volume depletion and acute urinary retention, resolved with IV fluids. * Intrarenal component (possible ATN) likely secondary to UTI, now resolved after completing a 5-day course of Augmentin (completed 11/21/2024). * Postrenal component due to BPH and urinary retention; Chisholm catheter placed on 11/14/2024. * Plan: Continue to monitor renal function and urine output. Chisholm catheter to remain in place per Urology, with outpatient voiding trials planned after discharge. 2. Benign Prostatic Hyperplasia (BPH) and Acute Urinary Retention: * Acute urinary retention managed with Chisholm catheter. * Started on finasteride and tamsulosin per Urology recommendations. * eventual voiding trial 3. Urinary Tract Infection (UTI): * Streptococcal UTI treated with Augmentin, completed 11/21/2024. * No current signs or symptoms of ongoing infection. * Continue to monitor for recurrence, especially with indwelling Chisholm. 4. Falls and Physical Deconditioning: * Multiple recent falls at home, likely due to advanced cognitive decline, physical deconditioning, and overall declining health. * Patient is unable to follow basic directions, limiting rehabilitation potential and complicating discharge planning. * PT/OT consulted for ongoing assessment and therapy. * Fall precautions in place. * Continue B12 and folate supplementation. 5. Advanced Alzheimer?s Dementia: * Progressive cognitive decline with significant impairment in ADLs. * Daughter is primary historian and healthcare proxy. * Patient unable to participate in care planning or follow instructions, making short-term rehabilitation placement challenging. * Awaiting appropriate placement; case management involved. * adjusted seroquel to 25 mg tid ,may need to add olazapine prn if needed (please see psych note from 12/01/24) 6. Hypertension, Hyperlipidemia, History of CVA: * Continue home medications for blood pressure, lipid management, and secondary stroke prevention (on Plavix). * Monitor for any new neurological changes. 7. Prior Substance Use and Alcohol Use Disorder: * History noted; no acute withdrawal or related complications during this admission. 8. DVT Prophylaxis: * Continue prophylaxis with heparin while inpatient. poor intake Has had adequate nutritional intake p.o. for last 48 hours will discontinue PPN for now DNR/DNI 9. Disposition: * Patient is medically stable after treatment of UTI and BARRIE but remains functionally and cognitively impaired. * Not safe for discharge home due to inability to follow directions and limited ADLs. * Awaiting placement in a facility capable of providing the necessary level of care and rehabilitation. * Case management and social work are actively involved in placement planning. Quality Stroke Does the patient have a stroke diagnosis?: No VTE Prior VTE?: No VTE Risk Level:: Medical - moderate - high VTE Device Contraindication: Treatment Not Indicated VTE Drug Contraindication: N/A - Med Ordered
[2024-12-09 15:16] VITALS: BP 121/58; PULSE 79; RESP 18; TEMP 36.6; O2SAT 100
[2024-12-09] MEDS: OLANZapine 10 MG VIAL 5 MG IM (17:24)
[2024-12-09 19:32] VITALS: BP 152/66; PULSE 87; RESP 17; TEMP 36.8; O2SAT 99
[2024-12-09] MEDS: traZODone HCL 25 MG HALFTAB PO (21:38)
[2024-12-10 04:00] VITALS: BP 163/68; PULSE 77; RESP 17; TEMP 35.9; O2SAT 97
[2024-12-10 06:14] VITALS: RESP 16
[2024-12-10 08:00] VITALS: BP 185/81; PULSE 67; RESP 14; TEMP 36.1; O2SAT 94
--- NOTE | 2024-12-10 08:42 | P.PNIM_ITS ---
Subjective Subjective Date of Service: 12/10/24 Interval History: Adequate p.o. nutritional intake Physical Exam 2 Exam: Exam: Appearance: awake , comfortable cvs: rrr, [id number]. res: clear to auscultation ,no rhonchii or wheezing abd: no rebound or guarding ,nt, bs present. ext pulses present , no cyanosis. neuro:moves all ext Vital Signs: Vital Signs: Last Vital Signs Temp 97.0 F 12/10/24 08:00 Pulse 67 12/10/24 08:00 Resp 14 12/10/24 08:00 BP 185/81 H 12/10/24 08:00 Pulse Ox 94 12/10/24 08:00 O2 Del Method Room Air 12/10/24 08:00 O2 Flow Rate 2 11/12/24 09:51 BMI result Body Mass Index 18.4 Objective Data Active Medications Acetaminophen (Acetaminophen 325 Mg Tablet) 650 mg PO Q6H PRN PRN Reason: Pain, Mild 1-3,fever,headache Last Admin: 12/10/24 05:14 Dose: 650 mg Documented By: LOPEZ Amlodipine Besylate (Amlodipine Besylate 5 Mg Tablet) 5 mg PO DAILY [facility]; Protocol Last Admin: 12/10/24 08:21 Dose: 5 mg Documented By: NA Atorvastatin Calcium (Atorvastatin Calcium 80 Mg Tablet) 80 mg PO DAILY [facility] Last Admin: 12/10/24 08:21 Dose: 80 mg Documented By: NA Calcium Carbonate (Calcium Carbonate 750 Mg Tab.Chew) 750 mg PO Q4H PRN PRN Reason: Heartburn Clopidogrel Bisulfate (Clopidogrel Bisulfate 75 Mg Tablet) 75 mg PO DAILY [facility] Last Admin: 12/10/24 08:21 Dose: 75 mg Documented By: NA Finasteride (Finasteride 5 Mg Tablet) 5 mg PO DAILY [facility] Last Admin: 12/10/24 08:21 Dose: 5 mg Documented By: NA Folic Acid (Folic Acid 1 Mg Tablet) 1 mg PO DAILY [facility] Last Admin: 12/10/24 08:21 Dose: 1 mg Documented By: NA Heparin Sodium (Porcine) (Heparin Sodium,Porcine 5,000 Unit/Ml Vial) 5,000 unit SUBCUT Q12H [facility] Last Admin: 12/10/24 08:28 Dose: 5,000 unit Documented By: NA Hydralazine HCl (Hydralazine Hcl 20 Mg/Ml Vial) 5 mg IVPUSH Q6H PRN; Protocol PRN Reason: SBP>190 Magnesium Hydroxide (Milk Of Magnesia 30 Ml Oral.Susp) 30 ml PO DAILY PRN PRN Reason: Constipation Last Admin: 12/03/24 09:09 Dose: 30 ml Documented By: JENNIFER Melatonin (Melatonin 3 Mg Tablet) 6 mg PO BEDTIME PRN PRN Reason: Insomnia Last Admin: 12/08/24 20:02 Dose: 6 mg Documented By: JACEY Quetiapine Fumarate (Quetiapine Fumarate 25 Mg Tablet) 25 mg PO TID [facility] Last Admin: 12/10/24 08:21 Dose: 25 mg Documented By: NA Tamsulosin HCl (Tamsulosin Hcl 0.4 Mg Capsule) 0.4 mg PO DAILY [facility] Last Admin: 12/10/24 08:21 Dose: 0.4 mg Documented By: NA Thiamine HCl (Thiamine Hcl 100 Mg Tablet) 100 mg PO DAILY [facility] Last Admin: 12/10/24 08:21 Dose: 100 mg Documented By: NA Trazodone HCl (Trazodone Hcl 25 Mg Halftab) 25 mg PO BEDTIME [facility] Last Admin: 12/09/24 21:38 Dose: 25 mg Documented By: CASAJU Labs 11/23/24 05:33 12/09/24 05:23 Assessment and Plan (1) Frequent falls: Status: Acute Plan Elderly patient with advanced Alzheimer?s dementia, multiple comorbidities, and recent BARRIE/UTI now resolved, but with significant deconditioning and functional decline. Discharge planning is complicated by cognitive impairment and inability to follow directions. Awaiting placement for continued care and rehabilitation. Essentially no new issues Assessment and Plan 1. Acute Kidney Injury (BARRIE): * The patient experienced multifactorial BARRIE (prerenal, postrenal, and possible intrarenal components) in the setting of acute urinary retention and UTI. * Prerenal azotemia likely due to volume depletion and acute urinary retention, resolved with IV fluids. * Intrarenal component (possible ATN) likely secondary to UTI, now resolved after completing a 5-day course of Augmentin (completed 11/21/2024). * Postrenal component due to BPH and urinary retention; Chisholm catheter placed on 11/14/2024. * Plan: Continue to monitor renal function and urine output. Chisholm catheter to remain in place per Urology, with outpatient voiding trials planned after discharge. 2. Benign Prostatic Hyperplasia (BPH) and Acute Urinary Retention: * Acute urinary retention managed with Chisholm catheter. * Started on finasteride and tamsulosin per Urology recommendations. * eventual voiding trial 3. Urinary Tract Infection (UTI): * Streptococcal UTI treated with Augmentin, completed 11/21/2024. * No current signs or symptoms of ongoing infection. * Continue to monitor for recurrence, especially with indwelling Chisholm. 4. Falls and Physical Deconditioning: * Multiple recent falls at home, likely due to advanced cognitive decline, physical deconditioning, and overall declining health. * Patient is unable to follow basic directions, limiting rehabilitation potential and complicating discharge planning. * PT/OT consulted for ongoing assessment and therapy. * Fall precautions in place. * Continue B12 and folate supplementation. 5. Advanced Alzheimer?s Dementia: * Progressive cognitive decline with significant impairment in ADLs. * Daughter is primary historian and healthcare proxy. * Patient unable to participate in care planning or follow instructions, making short-term rehabilitation placement challenging. * Awaiting appropriate placement; case management involved. * adjusted seroquel to 25 mg tid ,may need to add olazapine prn if needed (please see psych note from 12/01/24) 6. Hypertension, Hyperlipidemia, History of CVA: * Continue home medications for blood pressure, lipid management, and secondary stroke prevention (on Plavix). * Monitor for any new neurological changes. 7. Prior Substance Use and Alcohol Use Disorder: * History noted; no acute withdrawal or related complications during this admission. 8. DVT Prophylaxis: * Continue prophylaxis with heparin while inpatient. poor intake Has had adequate nutritional intake p.o. discontinued PPN for now DNR/DNI 9. Disposition: * Patient is medically stable after treatment of UTI and BARRIE but remains functionally and cognitively impaired. * Not safe for discharge home due to inability to follow directions and limited ADLs. * Awaiting placement in a facility capable of providing the necessary level of care and rehabilitation. * Case management and social work are actively involved in placement planning. Quality Stroke Does the patient have a stroke diagnosis?: No VTE Prior VTE?: No VTE Risk Level:: Medical - moderate - high VTE Device Contraindication: Treatment Not Indicated VTE Drug Contraindication: N/A - Med Ordered
--- NOTE | 2024-12-10 08:42 | HO.PM.IMPN ---
Subjective Subjective Date of Service: 12/10/24 Interval History: Adequate p.o. nutritional intake Physical Exam Exam: Exam: Appearance: awake , comfortable cvs: [id number], [id number]. res: clear to auscultation ,no rhonchii or wheezing abd: no rebound or guarding ,nt, bs present. ext pulses present , no cyanosis. neuro:moves all ext Vital Signs: Vital Signs: Last Vital Signs Temp 97.0 F 12/10/24 08:00 Pulse 67 12/10/24 08:00 Resp 14 12/10/24 08:00 BP 185/81 H 12/10/24 08:00 Pulse Ox 94 12/10/24 08:00 O2 Del Method Room Air 12/10/24 08:00 O2 Flow Rate 2 11/12/24 09:51 BMI result Body Mass Index 18.4 Objective Data Active Medications Acetaminophen (Acetaminophen 325 Mg Tablet) 650 mg PO Q6H PRN PRN Reason: Pain, Mild 1-3,fever,headache Last Admin: 12/10/24 05:14 Dose: 650 mg Documented By: LOPEZ Amlodipine Besylate (Amlodipine Besylate 5 Mg Tablet) 5 mg PO DAILY [facility]; Protocol Last Admin: 12/10/24 08:21 Dose: 5 mg Documented By: NA Atorvastatin Calcium (Atorvastatin Calcium 80 Mg Tablet) 80 mg PO DAILY [facility] Last Admin: 12/10/24 08:21 Dose: 80 mg Documented By: NA Calcium Carbonate (Calcium Carbonate 750 Mg Tab.Chew) 750 mg PO Q4H PRN PRN Reason: Heartburn Clopidogrel Bisulfate (Clopidogrel Bisulfate 75 Mg Tablet) 75 mg PO DAILY [facility] Last Admin: 12/10/24 08:21 Dose: 75 mg Documented By: NA Finasteride (Finasteride 5 Mg Tablet) 5 mg PO DAILY [facility] Last Admin: 12/10/24 08:21 Dose: 5 mg Documented By: NA Folic Acid (Folic Acid 1 Mg Tablet) 1 mg PO DAILY [facility] Last Admin: 12/10/24 08:21 Dose: 1 mg Documented By: NA Heparin Sodium (Porcine) (Heparin Sodium,Porcine 5,000 Unit/Ml Vial) 5,000 unit SUBCUT Q12H [facility] Last Admin: 12/10/24 08:28 Dose: 5,000 unit Documented By: NA Hydralazine HCl (Hydralazine Hcl 20 Mg/Ml Vial) 5 mg IVPUSH Q6H PRN; Protocol PRN Reason: SBP>190 Magnesium Hydroxide (Milk Of Magnesia 30 Ml Oral.Susp) 30 ml PO DAILY PRN PRN Reason: Constipation Last Admin: 12/03/24 09:09 Dose: 30 ml Documented By: JENNIFER Melatonin (Melatonin 3 Mg Tablet) 6 mg PO BEDTIME PRN PRN Reason: Insomnia Last Admin: 12/08/24 20:02 Dose: 6 mg Documented By: LEFRANGEL Quetiapine Fumarate (Quetiapine Fumarate 25 Mg Tablet) 25 mg PO TID [facility] Last Admin: 12/10/24 08:21 Dose: 25 mg Documented By: NA Tamsulosin HCl (Tamsulosin Hcl 0.4 Mg Capsule) 0.4 mg PO DAILY [facility] Last Admin: 12/10/24 08:21 Dose: 0.4 mg Documented By: NA Thiamine HCl (Thiamine Hcl 100 Mg Tablet) 100 mg PO DAILY [facility] Last Admin: 12/10/24 08:21 Dose: 100 mg Documented By: NA Trazodone HCl (Trazodone Hcl 25 Mg Halftab) 25 mg PO BEDTIME [facility] Last Admin: 12/09/24 21:38 Dose: 25 mg Documented By: CASAJU Labs 11/23/24 05:33 12/09/24 05:23 Assessment and Plan (1) Frequent falls: Status: Acute Plan Elderly patient with advanced Alzheimer?s dementia, multiple comorbidities, and recent BARRIE/UTI now resolved, but with significant deconditioning and functional decline. Discharge planning is complicated by cognitive impairment and inability to follow directions. Awaiting placement for continued care and rehabilitation. Essentially no new issues Assessment and Plan 1. Acute Kidney Injury (BARRIE): The patient experienced multifactorial BARRIE (prerenal, postrenal, and possible intrarenal components) in the setting of acute urinary retention and UTI. Prerenal azotemia likely due to volume depletion and acute urinary retention, resolved with IV fluids. Intrarenal component (possible ATN) likely secondary to UTI, now resolved after completing a 5-day course of Augmentin (completed 11/21/2024). Postrenal component due to BPH and urinary retention; Chisholm catheter placed on 11/14/2024. Plan: Continue to monitor renal function and urine output. Chisholm catheter to remain in place per Urology, with outpatient voiding trials planned after discharge. 2. Benign Prostatic Hyperplasia (BPH) and Acute Urinary Retention: Acute urinary retention managed with Chisholm catheter. Started on finasteride and tamsulosin per Urology recommendations. eventual voiding trial 3. Urinary Tract Infection (UTI): Streptococcal UTI treated with Augmentin, completed 11/21/2024. No current signs or symptoms of ongoing infection. Continue to monitor for recurrence, especially with indwelling Chisholm. 4. Falls and Physical Deconditioning: Multiple recent falls at home, likely due to advanced cognitive decline, physical deconditioning, and overall declining health. Patient is unable to follow basic directions, limiting rehabilitation potential and complicating discharge planning. PT/OT consulted for ongoing assessment and therapy. Fall precautions in place. Continue B12 and folate supplementation. 5. Advanced Alzheimer?s Dementia: Progressive cognitive decline with significant impairment in ADLs. Daughter is primary historian and healthcare proxy. Patient unable to participate in care planning or follow instructions, making short-term rehabilitation placement challenging. Awaiting appropriate placement; case management involved. adjusted seroquel to 25 mg tid ,may need to add olazapine prn if needed (please see psych note from 12/01/24) 6. Hypertension, Hyperlipidemia, History of CVA: Continue home medications for blood pressure, lipid management, and secondary stroke prevention (on Plavix). Monitor for any new neurological changes. 7. Prior Substance Use and Alcohol Use Disorder: History noted; no acute withdrawal or related complications during this admission. 8. DVT Prophylaxis: Continue prophylaxis with heparin while inpatient. poor intake Has had adequate nutritional intake p.o. discontinued PPN for now DNR/DNI 9. Disposition: Patient is medically stable after treatment of UTI and BARRIE but remains functionally and cognitively impaired. Not safe for discharge home due to inability to follow directions and limited ADLs. Awaiting placement in a facility capable of providing the necessary level of care and rehabilitation. Case management and social work are actively involved in placement planning. Quality Stroke Does the patient have a stroke diagnosis?: No VTE Prior VTE?: No VTE Risk Level:: Medical - moderate - high VTE Device Contraindication: Treatment Not Indicated VTE Drug Contraindication: N/A - Med Ordered
[2024-12-10 15:34] VITALS: BP 138/63; PULSE 75; RESP 20; TEMP 36.4; O2SAT 98
[2024-12-10] MEDS: traZODone HCL 25 MG HALFTAB PO (19:43)
[2024-12-10 19:54] VITALS: BP 166/69; PULSE 83; RESP 19; TEMP 36.4; O2SAT 97
[2024-12-11 03:36] VITALS: BP 128/58; PULSE 70; RESP 18; TEMP 36.4; O2SAT 97
[2024-12-11 07:49] VITALS: BP 154/67; PULSE 80; RESP 18; TEMP 36.4; O2SAT 97
--- NOTE | 2024-12-11 09:22 | P.PNIM_ITS ---
Subjective Subjective Date of Service: 12/11/24 Interval History: Adequate p.o. nutritional intake Physical Exam 2 Exam: Exam: Appearance: awake , comfortable cvs: rrr, [id number]. res: clear to auscultation ,no rhonchii or wheezing abd: no rebound or guarding ,nt, bs present. ext pulses present , no cyanosis. neuro:moves all ext Vital Signs: Vital Signs: Last Vital Signs Temp 97.5 F 12/11/24 07:49 Pulse 80 12/11/24 07:49 Resp 18 12/11/24 07:49 BP 154/67 H 12/11/24 07:49 Pulse Ox 97 12/11/24 07:49 O2 Del Method Room Air 12/11/24 07:49 O2 Flow Rate 2 11/12/24 09:51 BMI result Body Mass Index 18.4 Objective Data Active Medications Acetaminophen (Acetaminophen 325 Mg Tablet) 650 mg PO Q6H PRN PRN Reason: Pain, Mild 1-3,fever,headache Last Admin: 12/10/24 05:14 Dose: 650 mg Documented By: LOPEZ Amlodipine Besylate (Amlodipine Besylate 5 Mg Tablet) 5 mg PO DAILY [facility]; Protocol Last Admin: 12/11/24 08:30 Dose: 5 mg Documented By: WAQAS Atorvastatin Calcium (Atorvastatin Calcium 80 Mg Tablet) 80 mg PO DAILY [facility] Last Admin: 12/11/24 08:30 Dose: 80 mg Documented By: WAQAS Calcium Carbonate (Calcium Carbonate 750 Mg Tab.Chew) 750 mg PO Q4H PRN PRN Reason: Heartburn Clopidogrel Bisulfate (Clopidogrel Bisulfate 75 Mg Tablet) 75 mg PO DAILY [facility] Last Admin: 12/11/24 08:30 Dose: 75 mg Documented By: WAQAS Finasteride (Finasteride 5 Mg Tablet) 5 mg PO DAILY [facility] Last Admin: 12/11/24 08:30 Dose: 5 mg Documented By: WAQAS Folic Acid (Folic Acid 1 Mg Tablet) 1 mg PO DAILY [facility] Last Admin: 12/11/24 08:30 Dose: 1 mg Documented By: WAQAS Heparin Sodium (Porcine) (Heparin Sodium,Porcine 5,000 Unit/Ml Vial) 5,000 unit SUBCUT Q12H [facility] Last Admin: 12/11/24 08:30 Dose: 5,000 unit Documented By: WAQAS Hydralazine HCl (Hydralazine Hcl 20 Mg/Ml Vial) 5 mg IVPUSH Q6H PRN; Protocol PRN Reason: SBP>190 Magnesium Hydroxide (Milk Of Magnesia 30 Ml Oral.Susp) 30 ml PO DAILY PRN PRN Reason: Constipation Last Admin: 12/03/24 09:09 Dose: 30 ml Documented By: JENNIFER Melatonin (Melatonin 3 Mg Tablet) 6 mg PO BEDTIME PRN PRN Reason: Insomnia Last Admin: 12/10/24 19:43 Dose: 6 mg Documented By: BRIE Quetiapine Fumarate (Quetiapine Fumarate 25 Mg Tablet) 25 mg PO TID [facility] Last Admin: 12/11/24 08:30 Dose: 25 mg Documented By: WAQAS Tamsulosin HCl (Tamsulosin Hcl 0.4 Mg Capsule) 0.4 mg PO DAILY [facility] Last Admin: 12/11/24 08:30 Dose: 0.4 mg Documented By: WAQAS Thiamine HCl (Thiamine Hcl 100 Mg Tablet) 100 mg PO DAILY [facility] Last Admin: 12/11/24 08:30 Dose: 100 mg Documented By: WAQAS Trazodone HCl (Trazodone Hcl 25 Mg Halftab) 25 mg PO BEDTIME [facility] Last Admin: 12/10/24 19:43 Dose: 25 mg Documented By: BRIE Labs 11/23/24 05:33 12/09/24 05:23 Assessment and Plan (1) Frequent falls: Status: Acute Plan Elderly patient with advanced Alzheimer?s dementia, multiple comorbidities, and recent BARRIE/UTI now resolved, but with significant deconditioning and functional decline. Discharge planning is complicated by cognitive impairment and inability to follow directions. Awaiting placement for continued care and rehabilitation. Essentially no new issues Assessment and Plan 1. Acute Kidney Injury (BARRIE): * The patient experienced multifactorial BARRIE (prerenal, postrenal, and possible intrarenal components) in the setting of acute urinary retention and UTI. * Prerenal azotemia likely due to volume depletion and acute urinary retention, resolved with IV fluids. * Intrarenal component (possible ATN) likely secondary to UTI, now resolved after completing a 5-day course of Augmentin (completed 11/21/2024). * Postrenal component due to BPH and urinary retention; Chisholm catheter placed on 11/14/2024. * Plan: Continue to monitor renal function and urine output. Chisholm catheter to remain in place per Urology, with outpatient voiding trials planned after discharge. 2. Benign Prostatic Hyperplasia (BPH) and Acute Urinary Retention: * Acute urinary retention managed with Chisholm catheter. * Started on finasteride and tamsulosin per Urology recommendations. * eventual voiding trial 3. Urinary Tract Infection (UTI): * Streptococcal UTI treated with Augmentin, completed 11/21/2024. * No current signs or symptoms of ongoing infection. * Continue to monitor for recurrence, especially with indwelling Chisholm. 4. Falls and Physical Deconditioning: * Multiple recent falls at home, likely due to advanced cognitive decline, physical deconditioning, and overall declining health. * Patient is unable to follow basic directions, limiting rehabilitation potential and complicating discharge planning. * PT/OT consulted for ongoing assessment and therapy. * Fall precautions in place. * Continue B12 and folate supplementation. 5. Advanced Alzheimer?s Dementia: * Progressive cognitive decline with significant impairment in ADLs. * Daughter is primary historian and healthcare proxy. * Patient unable to participate in care planning or follow instructions, making short-term rehabilitation placement challenging. * Awaiting appropriate placement; case management involved. * adjusted seroquel to 25 mg tid ,may need to add olazapine prn if needed (please see psych note from 12/01/24) 6. Hypertension, Hyperlipidemia, History of CVA: * Continue home medications for blood pressure, lipid management, and secondary stroke prevention (on Plavix). * Monitor for any new neurological changes. 7. Prior Substance Use and Alcohol Use Disorder: * History noted; no acute withdrawal or related complications during this admission. 8. DVT Prophylaxis: * Continue prophylaxis with heparin while inpatient. poor intake Has had adequate nutritional intake p.o. discontinued PPN for now DNR/DNI 9. Disposition: * Patient is medically stable after treatment of UTI and BARRIE but remains functionally and cognitively impaired. * Not safe for discharge home due to inability to follow directions and limited ADLs. * Awaiting placement in a facility capable of providing the necessary level of care and rehabilitation. * Case management and social work are actively involved in placement planning. Quality Stroke Does the patient have a stroke diagnosis?: No VTE Prior VTE?: No VTE Risk Level:: Medical - moderate - high VTE Device Contraindication: Treatment Not Indicated VTE Drug Contraindication: N/A - Med Ordered
--- NOTE | 2024-12-11 10:00 | MHC.CLN ---
F/U DIET RX CHOPPED. ENSURE BID PROVIDES 700 KCALS, 40 G PROTEIN. PO INTAKE VARIABLE WITH MOST MEALS 50-75%. CONTINUE TO MONITOR FOR PO INTAKE AND PLAN OF CARE.
[2024-12-11 15:32] VITALS: BP 131/59; PULSE 79; RESP 18; TEMP 35.9; O2SAT 98
[2024-12-11 20:00] VITALS: BP 146/61; PULSE 102; RESP 20; TEMP 37.2; O2SAT 98
--- NOTE | 2024-12-11 20:17 | P.CDIM_ITS ---
PROVIDER RESPONSE TEXT: To clarify, the appropriate diagnosis supported by the clinical indicators: Clinically unable to determine (explain): Patient is a poor historian with advanced dementia with poor p.o. intake, we do not know his prior baseline BMI QUERY TEXT: >>> Provider Instructions - Do not remove this line >>> PHYSICIAN'S DOCUMENTATION REQUEST Date of Query: 11/15/2024 10:08 AM EDT Patient Name: Bayron Lin Admit Date: 11/12/2024 Dear Geno Guan MD, A review of the medical record indicates additional documentation may be needed. Please review below and update the documentation accordingly. Clinical Indicators: Height: ( ) 5'9 Weight: ( ) 56.4 kg BMI: ( ) 18.4 Other Clinical Notes Supporting Significance of the BMI: Per Clinical Nutrition Assessment 11/13/24: underweight, NA 2 gm diet, mild depletion body fat triceps, mild depletion muscle mass clavicle, yarsanism patient is Moderately malnourished recommend adding Ensure BID If possible, please provide an associated diagnosis related to the abnormal BMI, such as: <<< Provider Instructions - Do not remove this line <<< Underweight Weight loss Cachexia Anorexia Moderate Protein Calorie Malnutrition Other (explain) Clinically unable to determine (explain) >>> Contact Info - Do not remove this line>>> Thank you, Umm Wolff RN Use of terms such as suspected, likely, concern for, or probable (associated with a specific diagnosis that is being evaluated, monitored, or treated as if it exists) are acceptable and can be coded in the inpatient setting, when documented at the time of discharge. Please use your independent medical judgment in providing your response. THIS QUERY IS PART OF THE PERMANENT MEDICAL RECORD <<< Contact Info - Do not remove this line <<< >>> Disclaimer - Do no remove this line>>> Extension: [phone] <<< Disclaimer - Do not remove this line<<<
[2024-12-11] MEDS: traZODone HCL 25 MG HALFTAB PO (21:01)
[2024-12-11 23:45] VITALS: BP 128/60; PULSE 81; RESP 14; TEMP 36.9; O2SAT 98
[2024-12-12 03:02] VITALS: BP 122/56; PULSE 75; RESP 14; TEMP 36.8; O2SAT 97
[2024-12-12 07:25] VITALS: BP 118/60; PULSE 71; RESP 14; TEMP 36.8; O2SAT 94
--- NOTE | 2024-12-12 09:24 | P.PNIM_ITS ---
Subjective Subjective Date of Service: 12/12/24 Interval History: Adequate p.o. nutritional intake Physical Exam 2 Exam: Exam: Appearance: awake , comfortable cvs: rrr, [id number]. res: clear to auscultation ,no rhonchii or wheezing abd: no rebound or guarding ,nt, bs present. ext pulses present , no cyanosis. neuro:moves all ext Vital Signs: Vital Signs: Last Vital Signs Temp 98.3 F 12/12/24 07:25 Pulse 71 12/12/24 07:25 Resp 14 12/12/24 07:25 BP 118/60 12/12/24 07:25 Pulse Ox 94 12/12/24 07:25 O2 Del Method Room Air 12/12/24 07:25 O2 Flow Rate 2 11/12/24 09:51 BMI result Body Mass Index 18.4 Objective Data Active Medications Acetaminophen (Acetaminophen 325 Mg Tablet) 650 mg PO Q6H PRN PRN Reason: Pain, Mild 1-3,fever,headache Last Admin: 12/10/24 05:14 Dose: 650 mg Documented By: LOPEZ Amlodipine Besylate (Amlodipine Besylate 5 Mg Tablet) 5 mg PO DAILY [facility]; Protocol Last Admin: 12/12/24 08:33 Dose: 5 mg Documented By: YOBANI Atorvastatin Calcium (Atorvastatin Calcium 80 Mg Tablet) 80 mg PO DAILY [facility] Last Admin: 12/12/24 08:33 Dose: 80 mg Documented By: YOBANI Calcium Carbonate (Calcium Carbonate 750 Mg Tab.Chew) 750 mg PO Q4H PRN PRN Reason: Heartburn Clopidogrel Bisulfate (Clopidogrel Bisulfate 75 Mg Tablet) 75 mg PO DAILY [facility] Last Admin: 12/12/24 08:33 Dose: 75 mg Documented By: YOBANI Finasteride (Finasteride 5 Mg Tablet) 5 mg PO DAILY [facility] Last Admin: 12/12/24 08:33 Dose: 5 mg Documented By: YOBANI Folic Acid (Folic Acid 1 Mg Tablet) 1 mg PO DAILY [facility] Last Admin: 12/12/24 08:33 Dose: 1 mg Documented By: OYBANI Heparin Sodium (Porcine) (Heparin Sodium,Porcine 5,000 Unit/Ml Vial) 5,000 unit SUBCUT Q12H [facility] Last Admin: 12/12/24 08:33 Dose: 5,000 unit Documented By: YOBANI Hydralazine HCl (Hydralazine Hcl 20 Mg/Ml Vial) 5 mg IVPUSH Q6H PRN; Protocol PRN Reason: SBP>190 Magnesium Hydroxide (Milk Of Magnesia 30 Ml Oral.Susp) 30 ml PO DAILY PRN PRN Reason: Constipation Last Admin: 12/03/24 09:09 Dose: 30 ml Documented By: JENNIFER Melatonin (Melatonin 3 Mg Tablet) 6 mg PO BEDTIME PRN PRN Reason: Insomnia Last Admin: 12/10/24 19:43 Dose: 6 mg Documented By: BRIE Quetiapine Fumarate (Quetiapine Fumarate 25 Mg Tablet) 25 mg PO TID [facility] Last Admin: 12/12/24 08:33 Dose: 25 mg Documented By: YOBANI Tamsulosin HCl (Tamsulosin Hcl 0.4 Mg Capsule) 0.4 mg PO DAILY [facility] Last Admin: 12/12/24 08:33 Dose: 0.4 mg Documented By: YOBANI Thiamine HCl (Thiamine Hcl 100 Mg Tablet) 100 mg PO DAILY [facility] Last Admin: 12/12/24 08:33 Dose: 100 mg Documented By: YOBANI Trazodone HCl (Trazodone Hcl 25 Mg Halftab) 25 mg PO BEDTIME [facility] Last Admin: 12/11/24 21:01 Dose: 25 mg Documented By: NATASHA Mcmanus 11/23/24 05:33 12/09/24 05:23 Assessment and Plan (1) Frequent falls: Status: Acute Plan Elderly patient with advanced Alzheimer?s dementia, multiple comorbidities, and recent BARRIE/UTI now resolved, but with significant deconditioning and functional decline. Discharge planning is complicated by cognitive impairment and inability to follow directions. Awaiting placement for continued care and rehabilitation. Essentially no new issues Assessment and Plan 1. Acute Kidney Injury (BARRIE): * The patient experienced multifactorial BARRIE (prerenal, postrenal, and possible intrarenal components) in the setting of acute urinary retention and UTI. * Prerenal azotemia likely due to volume depletion and acute urinary retention, resolved with IV fluids. * Intrarenal component (possible ATN) likely secondary to UTI, now resolved after completing a 5-day course of Augmentin (completed 11/21/2024). * Postrenal component due to BPH and urinary retention; Chisholm catheter placed on 11/14/2024. * Plan: Continue to monitor renal function and urine output. Chisholm catheter to remain in place per Urology, with outpatient voiding trials planned after discharge. 2. Benign Prostatic Hyperplasia (BPH) and Acute Urinary Retention: * Acute urinary retention managed with Chisholm catheter. * Started on finasteride and tamsulosin per Urology recommendations. * eventual voiding trial 3. Urinary Tract Infection (UTI): * Streptococcal UTI treated with Augmentin, completed 11/21/2024. * No current signs or symptoms of ongoing infection. * Continue to monitor for recurrence, especially with indwelling Chisholm. 4. Falls and Physical Deconditioning: * Multiple recent falls at home, likely due to advanced cognitive decline, physical deconditioning, and overall declining health. * Patient is unable to follow basic directions, limiting rehabilitation potential and complicating discharge planning. * PT/OT consulted for ongoing assessment and therapy. * Fall precautions in place. * Continue B12 and folate supplementation. 5. Advanced Alzheimer?s Dementia: * Progressive cognitive decline with significant impairment in ADLs. * Daughter is primary historian and healthcare proxy. * Patient unable to participate in care planning or follow instructions, making short-term rehabilitation placement challenging. * Awaiting appropriate placement; case management involved. * adjusted seroquel to 25 mg tid ,may need to add olazapine prn if needed (please see psych note from 12/01/24) 6. Hypertension, Hyperlipidemia, History of CVA: * Continue home medications for blood pressure, lipid management, and secondary stroke prevention (on Plavix). * Monitor for any new neurological changes. 7. Prior Substance Use and Alcohol Use Disorder: * History noted; no acute withdrawal or related complications during this admission. 8. DVT Prophylaxis: * Continue prophylaxis with heparin while inpatient. poor intake Has had adequate nutritional intake p.o. discontinued PPN for now DNR/DNI 9. Disposition: * Patient is medically stable after treatment of UTI and BARRIE but remains functionally and cognitively impaired. * Not safe for discharge home due to inability to follow directions and limited ADLs. * Awaiting placement in a facility capable of providing the necessary level of care and rehabilitation. * Case management and social work are actively involved in placement planning. Quality Stroke Does the patient have a stroke diagnosis?: No VTE Prior VTE?: No VTE Risk Level:: Medical - moderate - high VTE Device Contraindication: Treatment Not Indicated VTE Drug Contraindication: N/A - Med Ordered
--- NOTE | 2024-12-12 09:24 | HO.PM.IMPN ---
Subjective Subjective Date of Service: 12/12/24 Interval History: Adequate p.o. nutritional intake Physical Exam Exam: Exam: Appearance: awake , comfortable cvs: [id number], [id number]. res: clear to auscultation ,no rhonchii or wheezing abd: no rebound or guarding ,nt, bs present. ext pulses present , no cyanosis. neuro:moves all ext Vital Signs: Vital Signs: Last Vital Signs Temp 98.3 F 12/12/24 07:25 Pulse 71 12/12/24 07:25 Resp 14 12/12/24 07:25 BP 118/60 12/12/24 07:25 Pulse Ox 94 12/12/24 07:25 O2 Del Method Room Air 12/12/24 07:25 O2 Flow Rate 2 11/12/24 09:51 BMI result Body Mass Index 18.4 Objective Data Active Medications Acetaminophen (Acetaminophen 325 Mg Tablet) 650 mg PO Q6H PRN PRN Reason: Pain, Mild 1-3,fever,headache Last Admin: 12/10/24 05:14 Dose: 650 mg Documented By: LOPEZ Amlodipine Besylate (Amlodipine Besylate 5 Mg Tablet) 5 mg PO DAILY [facility]; Protocol Last Admin: 12/12/24 08:33 Dose: 5 mg Documented By: YOBANI Atorvastatin Calcium (Atorvastatin Calcium 80 Mg Tablet) 80 mg PO DAILY [facility] Last Admin: 12/12/24 08:33 Dose: 80 mg Documented By: YOBANI Calcium Carbonate (Calcium Carbonate 750 Mg Tab.Chew) 750 mg PO Q4H PRN PRN Reason: Heartburn Clopidogrel Bisulfate (Clopidogrel Bisulfate 75 Mg Tablet) 75 mg PO DAILY [facility] Last Admin: 12/12/24 08:33 Dose: 75 mg Documented By: YOBANI Finasteride (Finasteride 5 Mg Tablet) 5 mg PO DAILY [facility] Last Admin: 12/12/24 08:33 Dose: 5 mg Documented By: YOBANI Folic Acid (Folic Acid 1 Mg Tablet) 1 mg PO DAILY [facility] Last Admin: 12/12/24 08:33 Dose: 1 mg Documented By: YOBANI Heparin Sodium (Porcine) (Heparin Sodium,Porcine 5,000 Unit/Ml Vial) 5,000 unit SUBCUT Q12H [facility] Last Admin: 12/12/24 08:33 Dose: 5,000 unit Documented By: YOBANI Hydralazine HCl (Hydralazine Hcl 20 Mg/Ml Vial) 5 mg IVPUSH Q6H PRN; Protocol PRN Reason: SBP>190 Magnesium Hydroxide (Milk Of Magnesia 30 Ml Oral.Susp) 30 ml PO DAILY PRN PRN Reason: Constipation Last Admin: 12/03/24 09:09 Dose: 30 ml Documented By: JENNIFER Melatonin (Melatonin 3 Mg Tablet) 6 mg PO BEDTIME PRN PRN Reason: Insomnia Last Admin: 12/10/24 19:43 Dose: 6 mg Documented By: BRIE Quetiapine Fumarate (Quetiapine Fumarate 25 Mg Tablet) 25 mg PO TID [facility] Last Admin: 12/12/24 08:33 Dose: 25 mg Documented By: YOBANI Tamsulosin HCl (Tamsulosin Hcl 0.4 Mg Capsule) 0.4 mg PO DAILY [facility] Last Admin: 12/12/24 08:33 Dose: 0.4 mg Documented By: YOBANI Thiamine HCl (Thiamine Hcl 100 Mg Tablet) 100 mg PO DAILY [facility] Last Admin: 12/12/24 08:33 Dose: 100 mg Documented By: YOBANI Trazodone HCl (Trazodone Hcl 25 Mg Halftab) 25 mg PO BEDTIME [facility] Last Admin: 12/11/24 21:01 Dose: 25 mg Documented By: NATASHA Mcmanus 11/23/24 05:33 12/09/24 05:23 Assessment and Plan (1) Frequent falls: Status: Acute Plan Elderly patient with advanced Alzheimer?s dementia, multiple comorbidities, and recent BARRIE/UTI now resolved, but with significant deconditioning and functional decline. Discharge planning is complicated by cognitive impairment and inability to follow directions. Awaiting placement for continued care and rehabilitation. Essentially no new issues Assessment and Plan 1. Acute Kidney Injury (BARRIE): The patient experienced multifactorial BARRIE (prerenal, postrenal, and possible intrarenal components) in the setting of acute urinary retention and UTI. Prerenal azotemia likely due to volume depletion and acute urinary retention, resolved with IV fluids. Intrarenal component (possible ATN) likely secondary to UTI, now resolved after completing a 5-day course of Augmentin (completed 11/21/2024). Postrenal component due to BPH and urinary retention; Chisholm catheter placed on 11/14/2024. Plan: Continue to monitor renal function and urine output. Chisholm catheter to remain in place per Urology, with outpatient voiding trials planned after discharge. 2. Benign Prostatic Hyperplasia (BPH) and Acute Urinary Retention: Acute urinary retention managed with Chisholm catheter. Started on finasteride and tamsulosin per Urology recommendations. eventual voiding trial 3. Urinary Tract Infection (UTI): Streptococcal UTI treated with Augmentin, completed 11/21/2024. No current signs or symptoms of ongoing infection. Continue to monitor for recurrence, especially with indwelling Chisholm. 4. Falls and Physical Deconditioning: Multiple recent falls at home, likely due to advanced cognitive decline, physical deconditioning, and overall declining health. Patient is unable to follow basic directions, limiting rehabilitation potential and complicating discharge planning. PT/OT consulted for ongoing assessment and therapy. Fall precautions in place. Continue B12 and folate supplementation. 5. Advanced Alzheimer?s Dementia: Progressive cognitive decline with significant impairment in ADLs. Daughter is primary historian and healthcare proxy. Patient unable to participate in care planning or follow instructions, making short-term rehabilitation placement challenging. Awaiting appropriate placement; case management involved. adjusted seroquel to 25 mg tid ,may need to add olazapine prn if needed (please see psych note from 12/01/24) 6. Hypertension, Hyperlipidemia, History of CVA: Continue home medications for blood pressure, lipid management, and secondary stroke prevention (on Plavix). Monitor for any new neurological changes. 7. Prior Substance Use and Alcohol Use Disorder: History noted; no acute withdrawal or related complications during this admission. 8. DVT Prophylaxis: Continue prophylaxis with heparin while inpatient. poor intake Has had adequate nutritional intake p.o. discontinued PPN for now DNR/DNI 9. Disposition: Patient is medically stable after treatment of UTI and BARRIE but remains functionally and cognitively impaired. Not safe for discharge home due to inability to follow directions and limited ADLs. Awaiting placement in a facility capable of providing the necessary level of care and rehabilitation. Case management and social work are actively involved in placement planning. Quality Stroke Does the patient have a stroke diagnosis?: No VTE Prior VTE?: No VTE Risk Level:: Medical - moderate - high VTE Device Contraindication: Treatment Not Indicated VTE Drug Contraindication: N/A - Med Ordered
[2024-12-12 15:01] VITALS: BP 152/68; PULSE 87; RESP 18; TEMP 36.9; O2SAT 98
--- NOTE | 2024-12-12 16:33 | PC.NURSE ---
Dr. Wise made aware via tiger text at 15:21, pt is noted to have productive cough. LS dim, no S&S of respiratory distress noted, pt 98% on RA. No new orders at this time.
[2024-12-12 20:00] VITALS: RESP 16
[2024-12-12] MEDS: traZODone HCL 25 MG HALFTAB PO (20:53)
[2024-12-13 03:30] VITALS: BP 137/63; PULSE 70; RESP 17; TEMP 36.9; O2SAT 98
[2024-12-13 07:29] VITALS: BP 137/65; PULSE 72; RESP 16; TEMP 36.7; O2SAT 98
--- NOTE | 2024-12-13 12:05 | MHC.CM.PN ---
Per [facility] The MH application has been sent. Per [facility] the application is pending review. Once reviewed any additional information required, will be requested. [facility] is following for discharge. She plans to follow up withwith HCP katherine today. [facility] once MH information + application are in place. Patient will transport via BLS at discharge.
--- NOTE | 2024-12-13 14:59 | MHC.CLN ---
F/U DIET RX CHOPPED. ENSURE BID PROVIDES 700 KCALS, 40 G PROTEIN. PO INTAKE VARIABLE WITH MOST MEALS 50-75%. CONTINUE TO MONITOR FOR PO INTAKE AND PLAN OF CARE. RD TO MONITOR WEEKLY.
[2024-12-13 15:50] VITALS: BP 129/59; PULSE 82; RESP 16; TEMP 36.4; O2SAT 98
--- NOTE | 2024-12-13 16:43 | P.PNIM_ITS ---
Subjective Subjective Date of Service: 12/13/24 Interval History: awake Review of Systems po intake seems better Physical Exam 2 Exam: Exam: Appearance: awake , comfortable cvs: [id number], [id number]. res: clear to auscultation ,no rhonchii or wheezing abd: no rebound or guarding ,nt, bs present. ext pulses present , no cyanosis. neuro:moves all ext Vital Signs: Vital Signs: Last Vital Signs Temp 97.5 F 12/13/24 15:50 Pulse 82 12/13/24 15:50 Resp 16 12/13/24 15:50 BP 129/59 L 12/13/24 15:50 Pulse Ox 98 12/13/24 15:50 O2 Del Method Room Air 12/13/24 15:50 O2 Flow Rate 2 11/12/24 09:51 BMI result Body Mass Index 18.4 Objective Data Active Medications Acetaminophen (Acetaminophen 325 Mg Tablet) 650 mg PO Q6H PRN PRN Reason: Pain, Mild 1-3,fever,headache Last Admin: 12/10/24 05:14 Dose: 650 mg Documented By: LOPEZ Amlodipine Besylate (Amlodipine Besylate 5 Mg Tablet) 5 mg PO DAILY [facility]; Protocol Last Admin: 12/13/24 08:51 Dose: 5 mg Documented By: YOBANI Atorvastatin Calcium (Atorvastatin Calcium 80 Mg Tablet) 80 mg PO DAILY [facility] Last Admin: 12/13/24 08:50 Dose: 80 mg Documented By: YOBANI Calcium Carbonate (Calcium Carbonate 750 Mg Tab.Chew) 750 mg PO Q4H PRN PRN Reason: Heartburn Clopidogrel Bisulfate (Clopidogrel Bisulfate 75 Mg Tablet) 75 mg PO DAILY [facility] Last Admin: 12/13/24 08:50 Dose: 75 mg Documented By: YOBANI Finasteride (Finasteride 5 Mg Tablet) 5 mg PO DAILY [facility] Last Admin: 12/13/24 08:51 Dose: 5 mg Documented By: YOBANI Folic Acid (Folic Acid 1 Mg Tablet) 1 mg PO DAILY [facility] Last Admin: 12/13/24 08:50 Dose: 1 mg Documented By: YOBANI Heparin Sodium (Porcine) (Heparin Sodium,Porcine 5,000 Unit/Ml Vial) 5,000 unit SUBCUT Q12H [facility] Last Admin: 12/13/24 08:50 Dose: 5,000 unit Documented By: YOBANI Hydralazine HCl (Hydralazine Hcl 20 Mg/Ml Vial) 5 mg IVPUSH Q6H PRN; Protocol PRN Reason: SBP>190 Magnesium Hydroxide (Milk Of Magnesia 30 Ml Oral.Susp) 30 ml PO DAILY PRN PRN Reason: Constipation Last Admin: 12/03/24 09:09 Dose: 30 ml Documented By: JENNIFER Melatonin (Melatonin 3 Mg Tablet) 6 mg PO BEDTIME PRN PRN Reason: Insomnia Last Admin: 12/10/24 19:43 Dose: 6 mg Documented By: BRIE Quetiapine Fumarate (Quetiapine Fumarate 25 Mg Tablet) 25 mg PO TID [facility] Last Admin: 12/13/24 14:31 Dose: 25 mg Documented By: YOBANI Tamsulosin HCl (Tamsulosin Hcl 0.4 Mg Capsule) 0.4 mg PO DAILY [facility] Last Admin: 12/13/24 08:50 Dose: 0.4 mg Documented By: YOBANI Thiamine HCl (Thiamine Hcl 100 Mg Tablet) 100 mg PO DAILY [facility] Last Admin: 12/13/24 08:50 Dose: 100 mg Documented By: YOBANI Trazodone HCl (Trazodone Hcl 25 Mg Halftab) 25 mg PO BEDTIME [facility] Last Admin: 12/12/24 20:53 Dose: 25 mg Documented By: PARUL Labs 11/23/24 05:33 12/09/24 05:23 Assessment and Plan (1) Frequent falls: Status: Acute Plan Elderly patient with advanced Alzheimer?s dementia, multiple comorbidities, and recent BARRIE/UTI now resolved, but with significant deconditioning and functional decline. Discharge planning is complicated by cognitive impairment and inability to follow directions. Awaiting placement for continued care and rehabilitation. Essentially no new issues Assessment and Plan 1. Acute Kidney Injury (BARRIE): * The patient experienced multifactorial BARRIE (prerenal, postrenal, and possible intrarenal components) in the setting of acute urinary retention and UTI. * Prerenal azotemia likely due to volume depletion and acute urinary retention, resolved with IV fluids. * Intrarenal component (possible ATN) likely secondary to UTI, now resolved after completing a 5-day course of Augmentin (completed 11/21/2024). * Postrenal component due to BPH and urinary retention; Chisholm catheter placed on 11/14/2024. * Plan: Continue to monitor renal function and urine output. Chisholm catheter to remain in place per Urology, with outpatient voiding trials planned after discharge. 2. Benign Prostatic Hyperplasia (BPH) and Acute Urinary Retention: * Acute urinary retention managed with Chisholm catheter. * Started on finasteride and tamsulosin per Urology recommendations. * eventual voiding trial 3. Urinary Tract Infection (UTI): * Streptococcal UTI treated with Augmentin, completed 11/21/2024. * No current signs or symptoms of ongoing infection. * Continue to monitor for recurrence, especially with indwelling Chisholm. 4. Falls and Physical Deconditioning: * Multiple recent falls at home, likely due to advanced cognitive decline, physical deconditioning, and overall declining health. * Patient is unable to follow basic directions, limiting rehabilitation potential and complicating discharge planning. * PT/OT consulted for ongoing assessment and therapy. * Fall precautions in place. * Continue B12 and folate supplementation. 5. Advanced Alzheimer?s Dementia: * Progressive cognitive decline with significant impairment in ADLs. * Daughter is primary historian and healthcare proxy. * Patient unable to participate in care planning or follow instructions, making short-term rehabilitation placement challenging. * Awaiting appropriate placement; case management involved. * adjusted seroquel to 25 mg tid ,may need to add olazapine prn if needed (please see psych note from 12/01/24) 6. Hypertension, Hyperlipidemia, History of CVA: * Continue home medications for blood pressure, lipid management, and secondary stroke prevention (on Plavix). * Monitor for any new neurological changes. 7. Prior Substance Use and Alcohol Use Disorder: * History noted; no acute withdrawal or related complications during this admission. 8. DVT Prophylaxis: * Continue prophylaxis with heparin while inpatient. poor intake Has had adequate nutritional intake p.o. discontinued PPN for now DNR/DNI 9. Disposition: * Patient is medically stable after treatment of UTI and BARRIE but remains functionally and cognitively impaired. * Not safe for discharge home due to inability to follow directions and limited ADLs. * Awaiting placement in a facility capable of providing the necessary level of care and rehabilitation. * Case management and social work are actively involved in placement planning. Quality Stroke Does the patient have a stroke diagnosis?: No VTE Prior VTE?: No VTE Risk Level:: Medical - moderate - high VTE Device Contraindication: Treatment Not Indicated VTE Drug Contraindication: N/A - Med Ordered
--- NOTE | 2024-12-13 16:43 | HO.PM.IMPN ---
Subjective Subjective Date of Service: 12/13/24 Interval History: awake Review of Systems po intake seems better Physical Exam Exam: Exam: Appearance: awake , comfortable cvs: rrr, [id number]. res: clear to auscultation ,no rhonchii or wheezing abd: no rebound or guarding ,nt, bs present. ext pulses present , no cyanosis. neuro:moves all ext Vital Signs: Vital Signs: Last Vital Signs Temp 97.5 F 12/13/24 15:50 Pulse 82 12/13/24 15:50 Resp 16 12/13/24 15:50 BP 129/59 L 12/13/24 15:50 Pulse Ox 98 12/13/24 15:50 O2 Del Method Room Air 12/13/24 15:50 O2 Flow Rate 2 11/12/24 09:51 BMI result Body Mass Index 18.4 Objective Data Active Medications Acetaminophen (Acetaminophen 325 Mg Tablet) 650 mg PO Q6H PRN PRN Reason: Pain, Mild 1-3,fever,headache Last Admin: 12/10/24 05:14 Dose: 650 mg Documented By: LOPEZ Amlodipine Besylate (Amlodipine Besylate 5 Mg Tablet) 5 mg PO DAILY [facility]; Protocol Last Admin: 12/13/24 08:51 Dose: 5 mg Documented By: YOBANI Atorvastatin Calcium (Atorvastatin Calcium 80 Mg Tablet) 80 mg PO DAILY [facility] Last Admin: 12/13/24 08:50 Dose: 80 mg Documented By: YOBANI Calcium Carbonate (Calcium Carbonate 750 Mg Tab.Chew) 750 mg PO Q4H PRN PRN Reason: Heartburn Clopidogrel Bisulfate (Clopidogrel Bisulfate 75 Mg Tablet) 75 mg PO DAILY [facility] Last Admin: 12/13/24 08:50 Dose: 75 mg Documented By: YOBANI Finasteride (Finasteride 5 Mg Tablet) 5 mg PO DAILY [facility] Last Admin: 12/13/24 08:51 Dose: 5 mg Documented By: YOBANI Folic Acid (Folic Acid 1 Mg Tablet) 1 mg PO DAILY [facility] Last Admin: 12/13/24 08:50 Dose: 1 mg Documented By: YOBANI Heparin Sodium (Porcine) (Heparin Sodium,Porcine 5,000 Unit/Ml Vial) 5,000 unit SUBCUT Q12H [facility] Last Admin: 12/13/24 08:50 Dose: 5,000 unit Documented By: YOBANI Hydralazine HCl (Hydralazine Hcl 20 Mg/Ml Vial) 5 mg IVPUSH Q6H PRN; Protocol PRN Reason: SBP>190 Magnesium Hydroxide (Milk Of Magnesia 30 Ml Oral.Susp) 30 ml PO DAILY PRN PRN Reason: Constipation Last Admin: 12/03/24 09:09 Dose: 30 ml Documented By: JENNIFER Melatonin (Melatonin 3 Mg Tablet) 6 mg PO BEDTIME PRN PRN Reason: Insomnia Last Admin: 12/10/24 19:43 Dose: 6 mg Documented By: BRIE Quetiapine Fumarate (Quetiapine Fumarate 25 Mg Tablet) 25 mg PO TID [facility] Last Admin: 12/13/24 14:31 Dose: 25 mg Documented By: YOBANI Tamsulosin HCl (Tamsulosin Hcl 0.4 Mg Capsule) 0.4 mg PO DAILY [facility] Last Admin: 12/13/24 08:50 Dose: 0.4 mg Documented By: YOBANI Thiamine HCl (Thiamine Hcl 100 Mg Tablet) 100 mg PO DAILY [facility] Last Admin: 12/13/24 08:50 Dose: 100 mg Documented By: YOBANI Trazodone HCl (Trazodone Hcl 25 Mg Halftab) 25 mg PO BEDTIME [facility] Last Admin: 12/12/24 20:53 Dose: 25 mg Documented By: PARUL Labs 11/23/24 05:33 12/09/24 05:23 Assessment and Plan (1) Frequent falls: Status: Acute Plan Elderly patient with advanced Alzheimer?s dementia, multiple comorbidities, and recent BARRIE/UTI now resolved, but with significant deconditioning and functional decline. Discharge planning is complicated by cognitive impairment and inability to follow directions. Awaiting placement for continued care and rehabilitation. Essentially no new issues Assessment and Plan 1. Acute Kidney Injury (BARRIE): The patient experienced multifactorial BARRIE (prerenal, postrenal, and possible intrarenal components) in the setting of acute urinary retention and UTI. Prerenal azotemia likely due to volume depletion and acute urinary retention, resolved with IV fluids. Intrarenal component (possible ATN) likely secondary to UTI, now resolved after completing a 5-day course of Augmentin (completed 11/21/2024). Postrenal component due to BPH and urinary retention; Chisholm catheter placed on 11/14/2024. Plan: Continue to monitor renal function and urine output. Chisholm catheter to remain in place per Urology, with outpatient voiding trials planned after discharge. 2. Benign Prostatic Hyperplasia (BPH) and Acute Urinary Retention: Acute urinary retention managed with Chisholm catheter. Started on finasteride and tamsulosin per Urology recommendations. eventual voiding trial 3. Urinary Tract Infection (UTI): Streptococcal UTI treated with Augmentin, completed 11/21/2024. No current signs or symptoms of ongoing infection. Continue to monitor for recurrence, especially with indwelling Chisholm. 4. Falls and Physical Deconditioning: Multiple recent falls at home, likely due to advanced cognitive decline, physical deconditioning, and overall declining health. Patient is unable to follow basic directions, limiting rehabilitation potential and complicating discharge planning. PT/OT consulted for ongoing assessment and therapy. Fall precautions in place. Continue B12 and folate supplementation. 5. Advanced Alzheimer?s Dementia: Progressive cognitive decline with significant impairment in ADLs. Daughter is primary historian and healthcare proxy. Patient unable to participate in care planning or follow instructions, making short-term rehabilitation placement challenging. Awaiting appropriate placement; case management involved. adjusted seroquel to 25 mg tid ,may need to add olazapine prn if needed (please see psych note from 12/01/24) 6. Hypertension, Hyperlipidemia, History of CVA: Continue home medications for blood pressure, lipid management, and secondary stroke prevention (on Plavix). Monitor for any new neurological changes. 7. Prior Substance Use and Alcohol Use Disorder: History noted; no acute withdrawal or related complications during this admission. 8. DVT Prophylaxis: Continue prophylaxis with heparin while inpatient. poor intake Has had adequate nutritional intake p.o. discontinued PPN for now DNR/DNI 9. Disposition: Patient is medically stable after treatment of UTI and BARRIE but remains functionally and cognitively impaired. Not safe for discharge home due to inability to follow directions and limited ADLs. Awaiting placement in a facility capable of providing the necessary level of care and rehabilitation. Case management and social work are actively involved in placement planning. Quality Stroke Does the patient have a stroke diagnosis?: No VTE Prior VTE?: No VTE Risk Level:: Medical - moderate - high VTE Device Contraindication: Treatment Not Indicated VTE Drug Contraindication: N/A - Med Ordered
[2024-12-13 20:00] VITALS: BP 116/64; PULSE 80; RESP 16; TEMP 36.6; O2SAT 98
[2024-12-13] MEDS: traZODone HCL 25 MG HALFTAB PO (20:02)
[2024-12-14 04:00] VITALS: BP 137/66; PULSE 71; RESP 18; TEMP 36.4; O2SAT 99
[2024-12-14 08:00] VITALS: BP 138/64; PULSE 64; RESP 16; TEMP 36.5; O2SAT 99
--- NOTE | 2024-12-14 14:37 | HO.PM.IMPN ---
Subjective Subjective Date of Service: 12/14/24 Interval History: awake ,comfortable Review of Systems no new events Review of Systems: Yes all other systems are reviewed and are negative Physical Exam Exam: Exam: Appearance: awake , comfortable cvs: [id number], [id number]. res: clear to auscultation ,no rhonchii or wheezing abd: no rebound or guarding ,nt, bs present. ext pulses present , no cyanosis. neuro:moves all ext Vital Signs: Vital Signs: Last Vital Signs Temp 97.7 F 12/14/24 08:00 Pulse 64 12/14/24 08:00 Resp 16 12/14/24 08:00 BP 138/64 12/14/24 08:00 Pulse Ox 99 12/14/24 08:00 O2 Del Method Room Air 12/14/24 08:00 O2 Flow Rate 2 11/12/24 09:51 BMI result Body Mass Index 18.4 Objective Data Active Medications Acetaminophen (Acetaminophen 325 Mg Tablet) 650 mg PO Q6H PRN PRN Reason: Pain, Mild 1-3,fever,headache Last Admin: 12/10/24 05:14 Dose: 650 mg Documented By: LOPEZ Amlodipine Besylate (Amlodipine Besylate 5 Mg Tablet) 5 mg PO DAILY [facility]; Protocol Last Admin: 12/14/24 08:59 Dose: 5 mg Documented By: NA Atorvastatin Calcium (Atorvastatin Calcium 80 Mg Tablet) 80 mg PO DAILY [facility] Last Admin: 12/14/24 08:59 Dose: 80 mg Documented By: NA Calcium Carbonate (Calcium Carbonate 750 Mg Tab.Chew) 750 mg PO Q4H PRN PRN Reason: Heartburn Clopidogrel Bisulfate (Clopidogrel Bisulfate 75 Mg Tablet) 75 mg PO DAILY [facility] Last Admin: 12/14/24 08:59 Dose: 75 mg Documented By: NA Finasteride (Finasteride 5 Mg Tablet) 5 mg PO DAILY [facility] Last Admin: 12/14/24 08:59 Dose: 5 mg Documented By: NA Folic Acid (Folic Acid 1 Mg Tablet) 1 mg PO DAILY [facility] Last Admin: 12/14/24 08:59 Dose: 1 mg Documented By: NA Heparin Sodium (Porcine) (Heparin Sodium,Porcine 5,000 Unit/Ml Vial) 5,000 unit SUBCUT Q12H [facility] Last Admin: 12/14/24 08:59 Dose: 5,000 unit Documented By: NA Hydralazine HCl (Hydralazine Hcl 20 Mg/Ml Vial) 5 mg IVPUSH Q6H PRN; Protocol PRN Reason: SBP>190 Magnesium Hydroxide (Milk Of Magnesia 30 Ml Oral.Susp) 30 ml PO DAILY PRN PRN Reason: Constipation Last Admin: 12/03/24 09:09 Dose: 30 ml Documented By: JENNIFER Melatonin (Melatonin 3 Mg Tablet) 6 mg PO BEDTIME PRN PRN Reason: Insomnia Last Admin: 12/13/24 20:01 Dose: 6 mg Documented By: RAHEL Quetiapine Fumarate (Quetiapine Fumarate 25 Mg Tablet) 25 mg PO TID [facility] Last Admin: 12/14/24 14:13 Dose: 25 mg Documented By: NA Tamsulosin HCl (Tamsulosin Hcl 0.4 Mg Capsule) 0.4 mg PO DAILY [facility] Last Admin: 12/14/24 08:59 Dose: 0.4 mg Documented By: NA Thiamine HCl (Thiamine Hcl 100 Mg Tablet) 100 mg PO DAILY [facility] Last Admin: 12/14/24 08:59 Dose: 100 mg Documented By: NA Trazodone HCl (Trazodone Hcl 25 Mg Halftab) 25 mg PO BEDTIME [facility] Last Admin: 12/13/24 20:02 Dose: 25 mg Documented By: RAHEL Labs 11/23/24 05:33 12/09/24 05:23 Assessment and Plan (1) Frequent falls: Status: Acute Plan Elderly patient with advanced Alzheimer?s dementia, multiple comorbidities, and recent BARRIE/UTI now resolved, but with significant deconditioning and functional decline. Discharge planning is complicated by cognitive impairment and inability to follow directions. Awaiting placement for continued care and rehabilitation. Essentially no new issues Assessment and Plan 1. Acute Kidney Injury (BARRIE): The patient experienced multifactorial BARRIE (prerenal, postrenal, and possible intrarenal components) in the setting of acute urinary retention and UTI. Prerenal azotemia likely due to volume depletion and acute urinary retention, resolved with IV fluids. Intrarenal component (possible ATN) likely secondary to UTI, now resolved after completing a 5-day course of Augmentin (completed 11/21/2024). Postrenal component due to BPH and urinary retention; Chisholm catheter placed on 11/14/2024. Plan: Continue to monitor renal function and urine output. Chisholm catheter to remain in place per Urology, with outpatient voiding trials planned after discharge. 2. Benign Prostatic Hyperplasia (BPH) and Acute Urinary Retention: Acute urinary retention managed with Chisholm catheter. Started on finasteride and tamsulosin per Urology recommendations. eventual voiding trial 3. Urinary Tract Infection (UTI): Streptococcal UTI treated with Augmentin, completed 11/21/2024. No current signs or symptoms of ongoing infection. Continue to monitor for recurrence, especially with indwelling Chisholm. 4. Falls and Physical Deconditioning: Multiple recent falls at home, likely due to advanced cognitive decline, physical deconditioning, and overall declining health. Patient is unable to follow basic directions, limiting rehabilitation potential and complicating discharge planning. PT/OT consulted for ongoing assessment and therapy. Fall precautions in place. Continue B12 and folate supplementation. 5. Advanced Alzheimer?s Dementia: Progressive cognitive decline with significant impairment in ADLs. Daughter is primary historian and healthcare proxy. Patient unable to participate in care planning or follow instructions, making short-term rehabilitation placement challenging. Awaiting appropriate placement; case management involved. adjusted seroquel to 25 mg tid ,may need to add olazapine prn if needed (please see psych note from 12/01/24) 6. Hypertension, Hyperlipidemia, History of CVA: Continue home medications for blood pressure, lipid management, and secondary stroke prevention (on Plavix). Monitor for any new neurological changes. 7. Prior Substance Use and Alcohol Use Disorder: History noted; no acute withdrawal or related complications during this admission. 8. DVT Prophylaxis: Continue prophylaxis with heparin while inpatient. poor intake Has had adequate nutritional intake p.o. discontinued PPN for now DNR/DNI 9. Disposition: Patient is medically stable after treatment of UTI and BARRIE but remains functionally and cognitively impaired. Not safe for discharge home due to inability to follow directions and limited ADLs. Awaiting placement in a facility capable of providing the necessary level of care and rehabilitation. Case management and social work are actively involved in placement planning. Quality Stroke Does the patient have a stroke diagnosis?: No VTE Prior VTE?: No VTE Risk Level:: Medical - moderate - high VTE Device Contraindication: Treatment Not Indicated VTE Drug Contraindication: N/A - Med Ordered
[2024-12-14 15:50] VITALS: BP 129/57; PULSE 75; RESP 12; TEMP 36.5; O2SAT 98
[2024-12-14 19:28] VITALS: BP 162/67; PULSE 93; RESP 18; TEMP 36.9; O2SAT 92
[2024-12-14] MEDS: traZODone HCL 25 MG HALFTAB PO (20:51)
[2024-12-15 08:00] VITALS: BP 149/67; PULSE 64; RESP 16; TEMP 36.7; O2SAT 97
--- NOTE | 2024-12-15 08:06 | P.PNIM_ITS ---
Subjective Subjective Date of Service: 12/15/24 Interval History: awake ,comfortable Review of Systems no new events Review of Systems: Yes all other systems are reviewed and are negative Physical Exam 2 Exam: Exam: Appearance: awake , comfortable cvs: rrr, [id number]. res: clear to auscultation ,no rhonchii or wheezing abd: no rebound or guarding ,nt, bs present. ext pulses present , no cyanosis. neuro:moves all ext Vital Signs: Vital Signs: Last Vital Signs Temp 98.4 F 12/14/24 19:28 Pulse 93 12/14/24 19:28 Resp 18 12/14/24 19:28 BP 162/67 H 12/14/24 19:28 Pulse Ox 92 12/14/24 19:28 O2 Del Method Room Air 12/14/24 19:28 O2 Flow Rate 2 11/12/24 09:51 BMI result Body Mass Index 18.4 Objective Data Active Medications Acetaminophen (Acetaminophen 325 Mg Tablet) 650 mg PO Q6H PRN PRN Reason: Pain, Mild 1-3,fever,headache Last Admin: 12/10/24 05:14 Dose: 650 mg Documented By: LOPEZ Amlodipine Besylate (Amlodipine Besylate 5 Mg Tablet) 5 mg PO DAILY [facility]; Protocol Last Admin: 12/14/24 08:59 Dose: 5 mg Documented By: NA Atorvastatin Calcium (Atorvastatin Calcium 80 Mg Tablet) 80 mg PO DAILY [facility] Last Admin: 12/14/24 08:59 Dose: 80 mg Documented By: NA Calcium Carbonate (Calcium Carbonate 750 Mg Tab.Chew) 750 mg PO Q4H PRN PRN Reason: Heartburn Clopidogrel Bisulfate (Clopidogrel Bisulfate 75 Mg Tablet) 75 mg PO DAILY [facility] Last Admin: 12/14/24 08:59 Dose: 75 mg Documented By: NA Finasteride (Finasteride 5 Mg Tablet) 5 mg PO DAILY [facility] Last Admin: 12/14/24 08:59 Dose: 5 mg Documented By: NA Folic Acid (Folic Acid 1 Mg Tablet) 1 mg PO DAILY [facility] Last Admin: 12/14/24 08:59 Dose: 1 mg Documented By: NA Heparin Sodium (Porcine) (Heparin Sodium,Porcine 5,000 Unit/Ml Vial) 5,000 unit SUBCUT Q12H [facility] Last Admin: 12/14/24 20:51 Dose: 5,000 unit Documented By: KESHA Hydralazine HCl (Hydralazine Hcl 20 Mg/Ml Vial) 5 mg IVPUSH Q6H PRN; Protocol PRN Reason: SBP>190 Magnesium Hydroxide (Milk Of Magnesia 30 Ml Oral.Susp) 30 ml PO DAILY PRN PRN Reason: Constipation Last Admin: 12/03/24 09:09 Dose: 30 ml Documented By: JENNIFER Melatonin (Melatonin 3 Mg Tablet) 6 mg PO BEDTIME PRN PRN Reason: Insomnia Last Admin: 12/14/24 20:51 Dose: 6 mg Documented By: KESHA Quetiapine Fumarate (Quetiapine Fumarate 25 Mg Tablet) 25 mg PO TID [facility] Last Admin: 12/14/24 20:51 Dose: 25 mg Documented By: KESHA Tamsulosin HCl (Tamsulosin Hcl 0.4 Mg Capsule) 0.4 mg PO DAILY [facility] Last Admin: 12/14/24 08:59 Dose: 0.4 mg Documented By: NA Thiamine HCl (Thiamine Hcl 100 Mg Tablet) 100 mg PO DAILY [facility] Last Admin: 12/14/24 08:59 Dose: 100 mg Documented By: NA Trazodone HCl (Trazodone Hcl 25 Mg Halftab) 25 mg PO BEDTIME [facility] Last Admin: 12/14/24 20:51 Dose: 25 mg Documented By: KESHA Labs 11/23/24 05:33 12/09/24 05:23 Assessment and Plan (1) Frequent falls: Status: Acute Plan Elderly patient with advanced Alzheimer?s dementia, multiple comorbidities, and recent BARRIE/UTI now resolved, but with significant deconditioning and functional decline. Discharge planning is complicated by cognitive impairment and inability to follow directions. Awaiting placement for continued care and rehabilitation. Essentially no new issues Assessment and Plan 1. Acute Kidney Injury (BARRIE): * The patient experienced multifactorial BARRIE (prerenal, postrenal, and possible intrarenal components) in the setting of acute urinary retention and UTI. * Prerenal azotemia likely due to volume depletion and acute urinary retention, resolved with IV fluids. * Intrarenal component (possible ATN) likely secondary to UTI, now resolved after completing a 5-day course of Augmentin (completed 11/21/2024). * Postrenal component due to BPH and urinary retention; Chisholm catheter placed on 11/14/2024. * Plan: Continue to monitor renal function and urine output. Chisholm catheter to remain in place per Urology, with outpatient voiding trials planned after discharge. 2. Benign Prostatic Hyperplasia (BPH) and Acute Urinary Retention: * Acute urinary retention managed with Chisholm catheter. * Started on finasteride and tamsulosin per Urology recommendations. * eventual voiding trial 3. Urinary Tract Infection (UTI): * Streptococcal UTI treated with Augmentin, completed 11/21/2024. * No current signs or symptoms of ongoing infection. * Continue to monitor for recurrence, especially with indwelling Chisholm. 4. Falls and Physical Deconditioning: * Multiple recent falls at home, likely due to advanced cognitive decline, physical deconditioning, and overall declining health. * Patient is unable to follow basic directions, limiting rehabilitation potential and complicating discharge planning. * PT/OT consulted for ongoing assessment and therapy. * Fall precautions in place. * Continue B12 and folate supplementation. 5. Advanced Alzheimer?s Dementia: * Progressive cognitive decline with significant impairment in ADLs. * Daughter is primary historian and healthcare proxy. * Patient unable to participate in care planning or follow instructions, making short-term rehabilitation placement challenging. * Awaiting appropriate placement; case management involved. * adjusted seroquel to 25 mg tid ,may need to add olazapine prn if needed (please see psych note from 12/01/24) 6. Hypertension, Hyperlipidemia, History of CVA: * Continue home medications for blood pressure, lipid management, and secondary stroke prevention (on Plavix). * Monitor for any new neurological changes. 7. Prior Substance Use and Alcohol Use Disorder: * History noted; no acute withdrawal or related complications during this admission. 8. DVT Prophylaxis: * Continue prophylaxis with heparin while inpatient. poor intake Has had adequate nutritional intake p.o. discontinued PPN for now DNR/DNI 9. Disposition: * Patient is medically stable after treatment of UTI and BARRIE but remains functionally and cognitively impaired. * Not safe for discharge home due to inability to follow directions and limited ADLs. * Awaiting placement in a facility capable of providing the necessary level of care and rehabilitation. * Case management and social work are actively involved in placement planning. Quality Stroke Does the patient have a stroke diagnosis?: No VTE Prior VTE?: No VTE Risk Level:: Medical - moderate - high VTE Device Contraindication: Treatment Not Indicated VTE Drug Contraindication: N/A - Med Ordered
[2024-12-15 14:48] VITALS: BP 139/65; PULSE 73; RESP 20; TEMP 36.6; O2SAT 98
[2024-12-15 20:00] VITALS: BP 131/60; PULSE 71; RESP 18; TEMP 36.9; O2SAT 96
[2024-12-15] MEDS: traZODone HCL 25 MG HALFTAB PO (20:17)
[2024-12-16 04:00] VITALS: BP 135/60; PULSE 68; RESP 18; TEMP 36.3; O2SAT 96
--- NOTE | 2024-12-16 07:26 | HO.PM.IMPN ---
Subjective Subjective Date of Service: 12/16/24 Interval History: sititng /eating Review of Systems Review of Systems: Yes all other systems are reviewed and are negative Physical Exam Exam: Exam: Appearance: awake , comfortable cvs: rrr, [id number]. res: clear to auscultation ,no rhonchii or wheezing abd: no rebound or guarding ,nt, bs present. ext pulses present , no cyanosis. neuro:moves all ext Vital Signs: Vital Signs: Last Vital Signs Temp 97.3 F 12/16/24 04:00 Pulse 68 12/16/24 04:00 Resp 18 12/16/24 04:00 BP 135/60 12/16/24 04:00 Pulse Ox 96 12/16/24 04:00 O2 Del Method Room Air 12/16/24 04:00 O2 Flow Rate 2 11/12/24 09:51 BMI result Body Mass Index 18.4 Objective Data Active Medications Acetaminophen (Acetaminophen 325 Mg Tablet) 650 mg PO Q6H PRN PRN Reason: Pain, Mild 1-3,fever,headache Last Admin: 12/10/24 05:14 Dose: 650 mg Documented By: LOPEZ Amlodipine Besylate (Amlodipine Besylate 5 Mg Tablet) 5 mg PO DAILY [facility]; Protocol Last Admin: 12/15/24 09:26 Dose: 5 mg Documented By: NA Atorvastatin Calcium (Atorvastatin Calcium 80 Mg Tablet) 80 mg PO DAILY [facility] Last Admin: 12/15/24 09:26 Dose: 80 mg Documented By: NA Calcium Carbonate (Calcium Carbonate 750 Mg Tab.Chew) 750 mg PO Q4H PRN PRN Reason: Heartburn Clopidogrel Bisulfate (Clopidogrel Bisulfate 75 Mg Tablet) 75 mg PO DAILY [facility] Last Admin: 12/15/24 09:26 Dose: 75 mg Documented By: NA Finasteride (Finasteride 5 Mg Tablet) 5 mg PO DAILY [facility] Last Admin: 12/15/24 09:26 Dose: 5 mg Documented By: NA Folic Acid (Folic Acid 1 Mg Tablet) 1 mg PO DAILY [facility] Last Admin: 12/15/24 09:26 Dose: 1 mg Documented By: NA Heparin Sodium (Porcine) (Heparin Sodium,Porcine 5,000 Unit/Ml Vial) 5,000 unit SUBCUT Q12H [facility] Last Admin: 12/15/24 20:17 Dose: 5,000 unit Documented By: YELITZA Hydralazine HCl (Hydralazine Hcl 20 Mg/Ml Vial) 5 mg IVPUSH Q6H PRN; Protocol PRN Reason: SBP>190 Magnesium Hydroxide (Milk Of Magnesia 30 Ml Oral.Susp) 30 ml PO DAILY PRN PRN Reason: Constipation Last Admin: 12/03/24 09:09 Dose: 30 ml Documented By: JENNIFER Melatonin (Melatonin 3 Mg Tablet) 6 mg PO BEDTIME PRN PRN Reason: Insomnia Last Admin: 12/15/24 21:32 Dose: 6 mg Documented By: YELITZA Quetiapine Fumarate (Quetiapine Fumarate 25 Mg Tablet) 25 mg PO TID [facility] Last Admin: 12/15/24 20:17 Dose: 25 mg Documented By: YELITZA Tamsulosin HCl (Tamsulosin Hcl 0.4 Mg Capsule) 0.4 mg PO DAILY [facility] Last Admin: 12/15/24 09:26 Dose: 0.4 mg Documented By: NA Thiamine HCl (Thiamine Hcl 100 Mg Tablet) 100 mg PO DAILY [facility] Last Admin: 12/15/24 09:26 Dose: 100 mg Documented By: NA Trazodone HCl (Trazodone Hcl 25 Mg Halftab) 25 mg PO BEDTIME [facility] Last Admin: 12/15/24 20:17 Dose: 25 mg Documented By: YELITZA Labs 11/23/24 05:33 12/09/24 05:23 Assessment and Plan (1) Frequent falls: Status: Acute Plan Elderly patient with advanced Alzheimer?s dementia, multiple comorbidities, and recent BARRIE/UTI now resolved, but with significant deconditioning and functional decline. Discharge planning is complicated by cognitive impairment and inability to follow directions. Awaiting placement for continued care and rehabilitation. Essentially no new issues Assessment and Plan 1. Acute Kidney Injury (BARRIE): The patient experienced multifactorial BARRIE (prerenal, postrenal, and possible intrarenal components) in the setting of acute urinary retention and UTI. Prerenal azotemia likely due to volume depletion and acute urinary retention, resolved with IV fluids. Intrarenal component (possible ATN) likely secondary to UTI, now resolved after completing a 5-day course of Augmentin (completed 11/21/2024). Postrenal component due to BPH and urinary retention; Chisholm catheter placed on 11/14/2024. Plan: Continue to monitor renal function and urine output. Chisholm catheter to remain in place per Urology, with outpatient voiding trials planned after discharge. 2. Benign Prostatic Hyperplasia (BPH) and Acute Urinary Retention: Acute urinary retention managed with Chisholm catheter. Started on finasteride and tamsulosin per Urology recommendations. eventual voiding trial 3. Urinary Tract Infection (UTI): Streptococcal UTI treated with Augmentin, completed 11/21/2024. No current signs or symptoms of ongoing infection. Continue to monitor for recurrence, especially with indwelling Chisholm. 4. Falls and Physical Deconditioning: Multiple recent falls at home, likely due to advanced cognitive decline, physical deconditioning, and overall declining health. Patient is unable to follow basic directions, limiting rehabilitation potential and complicating discharge planning. PT/OT consulted for ongoing assessment and therapy. Fall precautions in place. Continue B12 and folate supplementation. 5. Advanced Alzheimer?s Dementia: Progressive cognitive decline with significant impairment in ADLs. Daughter is primary historian and healthcare proxy. Patient unable to participate in care planning or follow instructions, making short-term rehabilitation placement challenging. Awaiting appropriate placement; case management involved. adjusted seroquel to 25 mg tid ,may need to add olazapine prn if needed (please see psych note from 12/01/24) 6. Hypertension, Hyperlipidemia, History of CVA: Continue home medications for blood pressure, lipid management, and secondary stroke prevention (on Plavix). Monitor for any new neurological changes. 7. Prior Substance Use and Alcohol Use Disorder: History noted; no acute withdrawal or related complications during this admission. 8. DVT Prophylaxis: Continue prophylaxis with heparin while inpatient. poor intake Has had adequate nutritional intake p.o. discontinued PPN for now DNR/DNI 9. Disposition: Patient is medically stable after treatment of UTI and BARRIE but remains functionally and cognitively impaired. Not safe for discharge home due to inability to follow directions and limited ADLs. Awaiting placement in a facility capable of providing the necessary level of care and rehabilitation. Case management and social work are actively involved in placement planning. Quality Stroke Does the patient have a stroke diagnosis?: No VTE Prior VTE?: No VTE Risk Level:: Medical - moderate - high VTE Device Contraindication: Treatment Not Indicated VTE Drug Contraindication: N/A - Med Ordered
[2024-12-16 07:58] VITALS: BP 128/80; PULSE 77; RESP 18; TEMP 36.2; O2SAT 96
[2024-12-16 09:58] VITALS: BP 131/55
[2024-12-16 15:51] VITALS: BP 135/60; PULSE 83; RESP 18; TEMP 36.6; O2SAT 99
[2024-12-16] MEDS: Milk of Magnesia 30 ML ORAL.SUSP PO (18:26)
[2024-12-16 20:00] VITALS: BP 151/63; PULSE 92; RESP 18; TEMP 36.8; O2SAT 98
[2024-12-16] MEDS: traZODone HCL 25 MG HALFTAB PO (21:10)
[2024-12-17 03:47] VITALS: BP 145/56; PULSE 67; RESP 14; TEMP 36.3; O2SAT 100
--- NOTE | 2024-12-17 07:58 | P.PNIM_ITS ---
Subjective Subjective Date of Service: 12/17/24 Interval History: sititng /eating Review of Systems had fall when off commod , witnessed per staff no bruises ,also to walk up to bed back, did not hit head , move all ext . Review of Systems: Yes all other systems are reviewed and are negative Physical Exam 2 Exam: Exam: Appearance: awake , comfortable cvs: rrr, [id number]. res: clear to auscultation ,no rhonchii or wheezing abd: no rebound or guarding ,nt, bs present. ext pulses present , no cyanosis. neuro:moves all ext Vital Signs: Vital Signs: Last Vital Signs Temp 97.3 F 12/17/24 03:47 Pulse 67 12/17/24 03:47 Resp 14 12/17/24 03:47 BP 145/56 H 12/17/24 03:47 Pulse Ox 100 12/17/24 03:47 O2 Del Method Room Air 12/17/24 03:47 O2 Flow Rate 2 11/12/24 09:51 BMI result Body Mass Index 18.4 Objective Data Active Medications Acetaminophen (Acetaminophen 325 Mg Tablet) 650 mg PO Q6H PRN PRN Reason: Pain, Mild 1-3,fever,headache Last Admin: 12/10/24 05:14 Dose: 650 mg Documented By: LOPEZ Amlodipine Besylate (Amlodipine Besylate 5 Mg Tablet) 5 mg PO DAILY [facility]; Protocol Last Admin: 12/16/24 09:58 Dose: 5 mg Documented By: MIKO Atorvastatin Calcium (Atorvastatin Calcium 80 Mg Tablet) 80 mg PO DAILY [facility] Last Admin: 12/16/24 10:00 Dose: 80 mg Documented By: MIKO Calcium Carbonate (Calcium Carbonate 750 Mg Tab.Chew) 750 mg PO Q4H PRN PRN Reason: Heartburn Clopidogrel Bisulfate (Clopidogrel Bisulfate 75 Mg Tablet) 75 mg PO DAILY [facility] Last Admin: 12/16/24 10:00 Dose: 75 mg Documented By: MIKO Finasteride (Finasteride 5 Mg Tablet) 5 mg PO DAILY [facility] Last Admin: 12/16/24 10:00 Dose: 5 mg Documented By: MIKO Folic Acid (Folic Acid 1 Mg Tablet) 1 mg PO DAILY [facility] Last Admin: 12/16/24 09:58 Dose: 1 mg Documented By: MIKO Heparin Sodium (Porcine) (Heparin Sodium,Porcine 5,000 Unit/Ml Vial) 5,000 unit SUBCUT Q12H [facility] Last Admin: 12/16/24 20:59 Dose: 5,000 unit Documented By: SEJAL Hydralazine HCl (Hydralazine Hcl 20 Mg/Ml Vial) 5 mg IVPUSH Q6H PRN; Protocol PRN Reason: SBP>190 Magnesium Hydroxide (Milk Of Magnesia 30 Ml Oral.Susp) 30 ml PO DAILY PRN PRN Reason: Constipation Last Admin: 12/16/24 18:26 Dose: 30 ml Documented By: NAM Melatonin (Melatonin 3 Mg Tablet) 6 mg PO BEDTIME PRN PRN Reason: Insomnia Last Admin: 12/16/24 21:10 Dose: 6 mg Documented By: SEJAL Quetiapine Fumarate (Quetiapine Fumarate 25 Mg Tablet) 25 mg PO TID [facility] Last Admin: 12/16/24 21:10 Dose: 25 mg Documented By: SEJAL Tamsulosin HCl (Tamsulosin Hcl 0.4 Mg Capsule) 0.4 mg PO DAILY [facility] Last Admin: 12/16/24 09:58 Dose: 0.4 mg Documented By: MIKO Thiamine HCl (Thiamine Hcl 100 Mg Tablet) 100 mg PO DAILY [facility] Last Admin: 12/16/24 10:00 Dose: 100 mg Documented By: MIKO Trazodone HCl (Trazodone Hcl 25 Mg Halftab) 25 mg PO BEDTIME [facility] Last Admin: 12/16/24 21:10 Dose: 25 mg Documented By: SEJAL Labs 11/23/24 05:33 12/09/24 05:23 Assessment and Plan (1) Frequent falls: Status: Acute Plan Elderly patient with advanced Alzheimer?s dementia, multiple comorbidities, and recent BARRIE/UTI now resolved, but with significant deconditioning and functional decline. Discharge planning is complicated by cognitive impairment and inability to follow directions. Awaiting placement for continued care and rehabilitation. Essentially no new issues Assessment and Plan 1. Acute Kidney Injury (BARRIE): * The patient experienced multifactorial BARRIE (prerenal, postrenal, and possible intrarenal components) in the setting of acute urinary retention and UTI. * Prerenal azotemia likely due to volume depletion and acute urinary retention, resolved with IV fluids. * Intrarenal component (possible ATN) likely secondary to UTI, now resolved after completing a 5-day course of Augmentin (completed 11/21/2024). * Postrenal component due to BPH and urinary retention; Chisholm catheter placed on 11/14/2024. * Plan: Continue to monitor renal function and urine output. Chisholm catheter to remain in place per Urology, with outpatient voiding trials planned after discharge. 2. Benign Prostatic Hyperplasia (BPH) and Acute Urinary Retention: * Acute urinary retention managed with Chisholm catheter. * Started on finasteride and tamsulosin per Urology recommendations. * eventual voiding trial 3. Urinary Tract Infection (UTI): * Streptococcal UTI treated with Augmentin, completed 11/21/2024. * No current signs or symptoms of ongoing infection. * Continue to monitor for recurrence, especially with indwelling Chisholm. 4. Falls and Physical Deconditioning: * Multiple recent falls at home, likely due to advanced cognitive decline, physical deconditioning, and overall declining health. * Patient is unable to follow basic directions, limiting rehabilitation potential and complicating discharge planning. * PT/OT consulted for ongoing assessment and therapy. * Fall precautions in place. * Continue B12 and folate supplementation. 5. Advanced Alzheimer?s Dementia: * Progressive cognitive decline with significant impairment in ADLs. * Daughter is primary historian and healthcare proxy. * Patient unable to participate in care planning or follow instructions, making short-term rehabilitation placement challenging. * Awaiting appropriate placement; case management involved. * adjusted seroquel to 25 mg tid ,may need to add olazapine prn if needed (please see psych note from 12/01/24) 6. Hypertension, Hyperlipidemia, History of CVA: * Continue home medications for blood pressure, lipid management, and secondary stroke prevention (on Plavix). * Monitor for any new neurological changes. 7. Prior Substance Use and Alcohol Use Disorder: * History noted; no acute withdrawal or related complications during this admission. 8. DVT Prophylaxis: * Continue prophylaxis with heparin while inpatient. poor intake Has had adequate nutritional intake p.o. discontinued PPN for now DNR/DNI 9. Disposition: * Patient is medically stable after treatment of UTI and BARRIE but remains functionally and cognitively impaired. * Not safe for discharge home due to inability to follow directions and limited ADLs. * Awaiting placement in a facility capable of providing the necessary level of care and rehabilitation. * Case management and social work are actively involved in placement planning. Quality Stroke Does the patient have a stroke diagnosis?: No VTE Prior VTE?: No VTE Risk Level:: Medical - moderate - high VTE Device Contraindication: Treatment Not Indicated VTE Drug Contraindication: N/A - Med Ordered
[2024-12-17 08:00] VITALS: BP 165/69; PULSE 70; RESP 18; TEMP 36.2; O2SAT 97
--- NOTE | 2024-12-17 09:40 | PC.NURSE ---
Patient was placed on bedside commode after attempting to get up and virutal monitor stat alarmed patient. Nurse stayed in room with patient, Provider David came to doorway, nurse went to doorway to talk to Provider. While nurse and provider were conversing, provider saw patient attempting to get up, provider spoke out to patient, before nursing could get to patient, patient had fallen to his knees and hands, then lowered himself to his buttock. Virtual monitor did not alarm or notify staff patient was attempting to get up from bedside commode. No head strike witnessed. Provider David already at bedside,no further intervention at this time per provider. [employer] came and assisted nurse to get patient up off the floor. Patient got up with ease and full strength normal to patient. Patient does not have any indicators of pain, is able to move BLE freely with full strength and range of motion normal to patient. No open skin areas or bruising noted at this time. Patient placed back in bed. Bed alarm on. Call [place] in reach. Virtual monitor in place.
[2024-12-17 09:47] VITALS: BP 139/60; PULSE 83; RESP 18; TEMP 36.1; O2SAT 96
[2024-12-17 12:23] VITALS: BP 143/67; PULSE 66; RESP 18; TEMP 36.1; O2SAT 99
[2024-12-17 15:33] VITALS: BP 133/73; PULSE 80; RESP 18; TEMP 36.2; O2SAT 96
[2024-12-17 19:29] VITALS: BP 123/63; PULSE 65; RESP 18; TEMP 36.3; O2SAT 96
[2024-12-17] MEDS: traZODone HCL 25 MG HALFTAB PO (21:25)
[2024-12-18 03:49] VITALS: BP 130/60; PULSE 65; RESP 18; TEMP 36.4; O2SAT 96
[2024-12-18 08:00] VITALS: BP 152/65; PULSE 69; RESP 18; TEMP 36; O2SAT 98
--- NOTE | 2024-12-18 13:29 | P.PNIM_ITS ---
Subjective Subjective Date of Service: 12/18/24 Interval History: no new events Review of Systems Review of Systems: Yes all other systems are reviewed and are negative Physical Exam 2 Exam: Exam: Appearance: awake , comfortable cvs: rrr, [id number]. res: clear to auscultation ,no rhonchii or wheezing abd: no rebound or guarding ,nt, bs present. ext pulses present , no cyanosis. neuro:moves all ext Vital Signs: Vital Signs: Last Vital Signs Temp 96.8 F 12/18/24 08:00 Pulse 69 12/18/24 08:00 Resp 18 12/18/24 08:00 BP 152/65 H 12/18/24 08:00 Pulse Ox 98 12/18/24 08:00 O2 Del Method Room Air 12/18/24 08:00 O2 Flow Rate 2 11/12/24 09:51 BMI result Body Mass Index 18.4 Objective Data Active Medications Acetaminophen (Acetaminophen 325 Mg Tablet) 650 mg PO Q6H PRN PRN Reason: Pain, Mild 1-3,fever,headache Last Admin: 12/10/24 05:14 Dose: 650 mg Documented By: LOPEZ Amlodipine Besylate (Amlodipine Besylate 5 Mg Tablet) 5 mg PO DAILY [facility]; Protocol Last Admin: 12/18/24 08:26 Dose: 5 mg Documented By: RENATA Atorvastatin Calcium (Atorvastatin Calcium 80 Mg Tablet) 80 mg PO DAILY [facility] Last Admin: 12/18/24 08:27 Dose: 80 mg Documented By: RENATA Calcium Carbonate (Calcium Carbonate 750 Mg Tab.Chew) 750 mg PO Q4H PRN PRN Reason: Heartburn Clopidogrel Bisulfate (Clopidogrel Bisulfate 75 Mg Tablet) 75 mg PO DAILY [facility] Last Admin: 12/18/24 08:26 Dose: 75 mg Documented By: RENATA Finasteride (Finasteride 5 Mg Tablet) 5 mg PO DAILY [facility] Last Admin: 12/18/24 08:27 Dose: 5 mg Documented By: RENATA Folic Acid (Folic Acid 1 Mg Tablet) 1 mg PO DAILY [facility] Last Admin: 12/18/24 08:26 Dose: 1 mg Documented By: RENATA Heparin Sodium (Porcine) (Heparin Sodium,Porcine 5,000 Unit/Ml Vial) 5,000 unit SUBCUT Q12H [facility] Last Admin: 12/18/24 08:24 Dose: 5,000 unit Documented By: RENATA Hydralazine HCl (Hydralazine Hcl 20 Mg/Ml Vial) 5 mg IVPUSH Q6H PRN; Protocol PRN Reason: SBP>190 Magnesium Hydroxide (Milk Of Magnesia 30 Ml Oral.Susp) 30 ml PO DAILY PRN PRN Reason: Constipation Last Admin: 12/16/24 18:26 Dose: 30 ml Documented By: NAM Melatonin (Melatonin 3 Mg Tablet) 6 mg PO BEDTIME PRN PRN Reason: Insomnia Last Admin: 12/17/24 21:26 Dose: 6 mg Documented By: PARUL Quetiapine Fumarate (Quetiapine Fumarate 25 Mg Tablet) 25 mg PO TID [facility] Last Admin: 12/18/24 08:26 Dose: 25 mg Documented By: RENATA Tamsulosin HCl (Tamsulosin Hcl 0.4 Mg Capsule) 0.4 mg PO DAILY [facility] Last Admin: 12/18/24 08:26 Dose: 0.4 mg Documented By: RENATA Thiamine HCl (Thiamine Hcl 100 Mg Tablet) 100 mg PO DAILY [facility] Last Admin: 12/18/24 08:27 Dose: 100 mg Documented By: RENATA Trazodone HCl (Trazodone Hcl 25 Mg Halftab) 25 mg PO BEDTIME [facility] Last Admin: 12/17/24 21:25 Dose: 25 mg Documented By: PARUL Labs 11/23/24 05:33 12/09/24 05:23 Assessment and Plan (1) Frequent falls: Status: Acute Plan Elderly patient with advanced Alzheimer?s dementia, multiple comorbidities, and recent BARRIE/UTI now resolved, but with significant deconditioning and functional decline. Discharge planning is complicated by cognitive impairment and inability to follow directions. Awaiting placement for continued care and rehabilitation. Essentially no new issues Assessment and Plan 1. Acute Kidney Injury (BARRIE): * The patient experienced multifactorial BARRIE (prerenal, postrenal, and possible intrarenal components) in the setting of acute urinary retention and UTI. * Prerenal azotemia likely due to volume depletion and acute urinary retention, resolved with IV fluids. * Intrarenal component (possible ATN) likely secondary to UTI, now resolved after completing a 5-day course of Augmentin (completed 11/21/2024). * Postrenal component due to BPH and urinary retention; Chisholm catheter placed on 11/14/2024. * Plan: Continue to monitor renal function and urine output. Chisholm catheter to remain in place per Urology, with outpatient voiding trials planned after discharge. 2. Benign Prostatic Hyperplasia (BPH) and Acute Urinary Retention: * Acute urinary retention managed with Chisholm catheter. * Started on finasteride and tamsulosin per Urology recommendations. * eventual voiding trial 3. Urinary Tract Infection (UTI): * Streptococcal UTI treated with Augmentin, completed 11/21/2024. * No current signs or symptoms of ongoing infection. * Continue to monitor for recurrence, especially with indwelling Chisholm. 4. Falls and Physical Deconditioning: * Multiple recent falls at home, likely due to advanced cognitive decline, physical deconditioning, and overall declining health. * Patient is unable to follow basic directions, limiting rehabilitation potential and complicating discharge planning. * PT/OT consulted for ongoing assessment and therapy. * Fall precautions in place. * Continue B12 and folate supplementation. 5. Advanced Alzheimer?s Dementia: * Progressive cognitive decline with significant impairment in ADLs. * Daughter is primary historian and healthcare proxy. * Patient unable to participate in care planning or follow instructions, making short-term rehabilitation placement challenging. * Awaiting appropriate placement; case management involved. * adjusted seroquel to 25 mg tid ,may need to add olazapine prn if needed (please see psych note from 12/01/24) 6. Hypertension, Hyperlipidemia, History of CVA: * Continue home medications for blood pressure, lipid management, and secondary stroke prevention (on Plavix). * Monitor for any new neurological changes. 7. Prior Substance Use and Alcohol Use Disorder: * History noted; no acute withdrawal or related complications during this admission. 8. DVT Prophylaxis: * Continue prophylaxis with heparin while inpatient. * poor intake Has had adequate nutritional intake p.o. discontinued PPN for now DNR/DNI 9. Disposition: * Patient is medically stable after treatment of UTI and BARRIE but remains functionally and cognitively impaired. * Not safe for discharge home due to inability to follow directions and limited ADLs. * Awaiting placement in a facility capable of providing the necessary level of care and rehabilitation. * Case management and social work are actively involved in placement planning. Quality Stroke Does the patient have a stroke diagnosis?: No VTE Prior VTE?: No VTE Risk Level:: Medical - moderate - high VTE Device Contraindication: Treatment Not Indicated VTE Drug Contraindication: N/A - Med Ordered
--- NOTE | 2024-12-18 13:29 | HO.PM.IMPN ---
Subjective Subjective Date of Service: 12/18/24 Interval History: no new events Review of Systems Review of Systems: Yes all other systems are reviewed and are negative Physical Exam Exam: Exam: Appearance: awake , comfortable cvs: rrr, [id number]. res: clear to auscultation ,no rhonchii or wheezing abd: no rebound or guarding ,nt, bs present. ext pulses present , no cyanosis. neuro:moves all ext Vital Signs: Vital Signs: Last Vital Signs Temp 96.8 F 12/18/24 08:00 Pulse 69 12/18/24 08:00 Resp 18 12/18/24 08:00 BP 152/65 H 12/18/24 08:00 Pulse Ox 98 12/18/24 08:00 O2 Del Method Room Air 12/18/24 08:00 O2 Flow Rate 2 11/12/24 09:51 BMI result Body Mass Index 18.4 Objective Data Active Medications Acetaminophen (Acetaminophen 325 Mg Tablet) 650 mg PO Q6H PRN PRN Reason: Pain, Mild 1-3,fever,headache Last Admin: 12/10/24 05:14 Dose: 650 mg Documented By: LOPEZ Amlodipine Besylate (Amlodipine Besylate 5 Mg Tablet) 5 mg PO DAILY [facility]; Protocol Last Admin: 12/18/24 08:26 Dose: 5 mg Documented By: RENATA Atorvastatin Calcium (Atorvastatin Calcium 80 Mg Tablet) 80 mg PO DAILY [facility] Last Admin: 12/18/24 08:27 Dose: 80 mg Documented By: RENATA Calcium Carbonate (Calcium Carbonate 750 Mg Tab.Chew) 750 mg PO Q4H PRN PRN Reason: Heartburn Clopidogrel Bisulfate (Clopidogrel Bisulfate 75 Mg Tablet) 75 mg PO DAILY [facility] Last Admin: 12/18/24 08:26 Dose: 75 mg Documented By: RENATA Finasteride (Finasteride 5 Mg Tablet) 5 mg PO DAILY [facility] Last Admin: 12/18/24 08:27 Dose: 5 mg Documented By: RENATA Folic Acid (Folic Acid 1 Mg Tablet) 1 mg PO DAILY [facility] Last Admin: 12/18/24 08:26 Dose: 1 mg Documented By: RENATA Heparin Sodium (Porcine) (Heparin Sodium,Porcine 5,000 Unit/Ml Vial) 5,000 unit SUBCUT Q12H [facility] Last Admin: 12/18/24 08:24 Dose: 5,000 unit Documented By: RENATA Hydralazine HCl (Hydralazine Hcl 20 Mg/Ml Vial) 5 mg IVPUSH Q6H PRN; Protocol PRN Reason: SBP>190 Magnesium Hydroxide (Milk Of Magnesia 30 Ml Oral.Susp) 30 ml PO DAILY PRN PRN Reason: Constipation Last Admin: 12/16/24 18:26 Dose: 30 ml Documented By: NAM Melatonin (Melatonin 3 Mg Tablet) 6 mg PO BEDTIME PRN PRN Reason: Insomnia Last Admin: 12/17/24 21:26 Dose: 6 mg Documented By: PARUL Quetiapine Fumarate (Quetiapine Fumarate 25 Mg Tablet) 25 mg PO TID [facility] Last Admin: 12/18/24 08:26 Dose: 25 mg Documented By: RENATA Tamsulosin HCl (Tamsulosin Hcl 0.4 Mg Capsule) 0.4 mg PO DAILY [facility] Last Admin: 12/18/24 08:26 Dose: 0.4 mg Documented By: RENATA Thiamine HCl (Thiamine Hcl 100 Mg Tablet) 100 mg PO DAILY [facility] Last Admin: 12/18/24 08:27 Dose: 100 mg Documented By: RENATA Trazodone HCl (Trazodone Hcl 25 Mg Halftab) 25 mg PO BEDTIME [facility] Last Admin: 12/17/24 21:25 Dose: 25 mg Documented By: PARUL Labs 11/23/24 05:33 12/09/24 05:23 Assessment and Plan (1) Frequent falls: Status: Acute Plan Elderly patient with advanced Alzheimer?s dementia, multiple comorbidities, and recent BARRIE/UTI now resolved, but with significant deconditioning and functional decline. Discharge planning is complicated by cognitive impairment and inability to follow directions. Awaiting placement for continued care and rehabilitation. Essentially no new issues Assessment and Plan 1. Acute Kidney Injury (BARRIE): The patient experienced multifactorial BARRIE (prerenal, postrenal, and possible intrarenal components) in the setting of acute urinary retention and UTI. Prerenal azotemia likely due to volume depletion and acute urinary retention, resolved with IV fluids. Intrarenal component (possible ATN) likely secondary to UTI, now resolved after completing a 5-day course of Augmentin (completed 11/21/2024). Postrenal component due to BPH and urinary retention; Chisholm catheter placed on 11/14/2024. Plan: Continue to monitor renal function and urine output. Chisholm catheter to remain in place per Urology, with outpatient voiding trials planned after discharge. 2. Benign Prostatic Hyperplasia (BPH) and Acute Urinary Retention: Acute urinary retention managed with Chisholm catheter. Started on finasteride and tamsulosin per Urology recommendations. eventual voiding trial 3. Urinary Tract Infection (UTI): Streptococcal UTI treated with Augmentin, completed 11/21/2024. No current signs or symptoms of ongoing infection. Continue to monitor for recurrence, especially with indwelling Chisholm. 4. Falls and Physical Deconditioning: Multiple recent falls at home, likely due to advanced cognitive decline, physical deconditioning, and overall declining health. Patient is unable to follow basic directions, limiting rehabilitation potential and complicating discharge planning. PT/OT consulted for ongoing assessment and therapy. Fall precautions in place. Continue B12 and folate supplementation. 5. Advanced Alzheimer?s Dementia: Progressive cognitive decline with significant impairment in ADLs. Daughter is primary historian and healthcare proxy. Patient unable to participate in care planning or follow instructions, making short-term rehabilitation placement challenging. Awaiting appropriate placement; case management involved. adjusted seroquel to 25 mg tid ,may need to add olazapine prn if needed (please see psych note from 12/01/24) 6. Hypertension, Hyperlipidemia, History of CVA: Continue home medications for blood pressure, lipid management, and secondary stroke prevention (on Plavix). Monitor for any new neurological changes. 7. Prior Substance Use and Alcohol Use Disorder: History noted; no acute withdrawal or related complications during this admission. 8. DVT Prophylaxis: Continue prophylaxis with heparin while inpatient. poor intake Has had adequate nutritional intake p.o. discontinued PPN for now DNR/DNI 9. Disposition: Patient is medically stable after treatment of UTI and BARRIE but remains functionally and cognitively impaired. Not safe for discharge home due to inability to follow directions and limited ADLs. Awaiting placement in a facility capable of providing the necessary level of care and rehabilitation. Case management and social work are actively involved in placement planning. Quality Stroke Does the patient have a stroke diagnosis?: No VTE Prior VTE?: No VTE Risk Level:: Medical - moderate - high VTE Device Contraindication: Treatment Not Indicated VTE Drug Contraindication: N/A - Med Ordered
[2024-12-18 16:00] VITALS: BP 146/66; PULSE 76; RESP 19; TEMP 36.6; O2SAT 100
[2024-12-18 20:00] VITALS: BP 136/63; PULSE 77; RESP 19; TEMP 36.6; O2SAT 96
[2024-12-18] MEDS: traZODone HCL 25 MG HALFTAB PO (20:02)
[2024-12-19 03:57] VITALS: BP 132/64; PULSE 73; RESP 18; TEMP 36.1; O2SAT 97
[2024-12-19 07:34] VITALS: BP 149/65; PULSE 65; RESP 14; TEMP 36.4; O2SAT 99
--- NOTE | 2024-12-19 14:56 | P.PNIM_ITS ---
Subjective Subjective Date of Service: 12/19/24 Interval History: no new events Review of Systems Review of Systems: Yes all other systems are reviewed and are negative Physical Exam 2 Exam: Exam: Appearance: awake , comfortable cvs: [id number], [id number]. res: clear to auscultation ,no rhonchii or wheezing abd: no rebound or guarding ,nt, bs present. ext pulses present , no cyanosis. neuro:moves all ext Vital Signs: Vital Signs: Last Vital Signs Temp 97.6 F 12/19/24 07:34 Pulse 65 12/19/24 07:34 Resp 14 12/19/24 07:34 BP 149/65 H 12/19/24 07:34 Pulse Ox 99 12/19/24 07:34 O2 Del Method Room Air 12/19/24 07:34 O2 Flow Rate 2 11/12/24 09:51 BMI result Body Mass Index 18.4 Objective Data Active Medications Acetaminophen (Acetaminophen 325 Mg Tablet) 650 mg PO Q6H PRN PRN Reason: Pain, Mild 1-3,fever,headache Last Admin: 12/10/24 05:14 Dose: 650 mg Documented By: LOPEZ Amlodipine Besylate (Amlodipine Besylate 5 Mg Tablet) 5 mg PO DAILY [facility]; Protocol Last Admin: 12/19/24 08:16 Dose: 5 mg Documented By: TAL Atorvastatin Calcium (Atorvastatin Calcium 80 Mg Tablet) 80 mg PO DAILY [facility] Last Admin: 12/19/24 08:16 Dose: 80 mg Documented By: TAL Calcium Carbonate (Calcium Carbonate 750 Mg Tab.Chew) 750 mg PO Q4H PRN PRN Reason: Heartburn Clopidogrel Bisulfate (Clopidogrel Bisulfate 75 Mg Tablet) 75 mg PO DAILY [facility] Last Admin: 12/19/24 08:16 Dose: 75 mg Documented By: TAL Finasteride (Finasteride 5 Mg Tablet) 5 mg PO DAILY [facility] Last Admin: 12/19/24 08:17 Dose: 5 mg Documented By: TAL Folic Acid (Folic Acid 1 Mg Tablet) 1 mg PO DAILY [facility] Last Admin: 12/19/24 08:16 Dose: 1 mg Documented By: TAL Heparin Sodium (Porcine) (Heparin Sodium,Porcine 5,000 Unit/Ml Vial) 5,000 unit SUBCUT Q12H [facility] Last Admin: 12/19/24 08:16 Dose: 5,000 unit Documented By: TAL Hydralazine HCl (Hydralazine Hcl 20 Mg/Ml Vial) 5 mg IVPUSH Q6H PRN; Protocol PRN Reason: SBP>190 Magnesium Hydroxide (Milk Of Magnesia 30 Ml Oral.Susp) 30 ml PO DAILY PRN PRN Reason: Constipation Last Admin: 12/16/24 18:26 Dose: 30 ml Documented By: NAM Melatonin (Melatonin 3 Mg Tablet) 6 mg PO BEDTIME PRN PRN Reason: Insomnia Last Admin: 12/18/24 20:01 Dose: 6 mg Documented By: MILLICENT Quetiapine Fumarate (Quetiapine Fumarate 25 Mg Tablet) 25 mg PO TID [facility] Last Admin: 12/19/24 14:14 Dose: 25 mg Documented By: TAL Tamsulosin HCl (Tamsulosin Hcl 0.4 Mg Capsule) 0.4 mg PO DAILY [facility] Last Admin: 12/19/24 08:16 Dose: 0.4 mg Documented By: TAL Thiamine HCl (Thiamine Hcl 100 Mg Tablet) 100 mg PO DAILY [facility] Last Admin: 12/19/24 08:16 Dose: 100 mg Documented By: TAL Trazodone HCl (Trazodone Hcl 25 Mg Halftab) 25 mg PO BEDTIME [facility] Last Admin: 12/18/24 20:02 Dose: 25 mg Documented By: MILLICENT Labs 11/23/24 05:33 12/09/24 05:23 Assessment and Plan (1) Frequent falls: Status: Acute Plan Elderly patient with advanced Alzheimer?s dementia, multiple comorbidities, and recent BARRIE/UTI now resolved, but with significant deconditioning and functional decline. Discharge planning is complicated by cognitive impairment and inability to follow directions. Awaiting placement for continued care and rehabilitation. Essentially no new issues Assessment and Plan 1. Acute Kidney Injury (BARRIE): * The patient experienced multifactorial BARRIE (prerenal, postrenal, and possible intrarenal components) in the setting of acute urinary retention and UTI. * Prerenal azotemia likely due to volume depletion and acute urinary retention, resolved with IV fluids. * Intrarenal component (possible ATN) likely secondary to UTI, now resolved after completing a 5-day course of Augmentin (completed 11/21/2024). * Postrenal component due to BPH and urinary retention; Chisholm catheter placed on 11/14/2024. * Plan: Continue to monitor renal function and urine output. Chisholm catheter to remain in place per Urology, with outpatient voiding trials planned after discharge. 2. Benign Prostatic Hyperplasia (BPH) and Acute Urinary Retention: * Acute urinary retention managed with Chisholm catheter. * Started on finasteride and tamsulosin per Urology recommendations. * eventual voiding trial 3. Urinary Tract Infection (UTI): * Streptococcal UTI treated with Augmentin, completed 11/21/2024. * No current signs or symptoms of ongoing infection. * Continue to monitor for recurrence, especially with indwelling Chisholm. 4. Falls and Physical Deconditioning: * Multiple recent falls at home, likely due to advanced cognitive decline, physical deconditioning, and overall declining health. * Patient is unable to follow basic directions, limiting rehabilitation potential and complicating discharge planning. * PT/OT consulted for ongoing assessment and therapy. * Fall precautions in place. * Continue B12 and folate supplementation. * fall on 12/17 : no injuries -please see note from same date. 5. Advanced Alzheimer?s Dementia: * Progressive cognitive decline with significant impairment in ADLs. * Daughter is primary historian and healthcare proxy. * Patient unable to participate in care planning or follow instructions, making short-term rehabilitation placement challenging. * Awaiting appropriate placement; case management involved. * adjusted seroquel to 25 mg tid ,may need to add olazapine prn if needed (please see psych note from 12/01/24) 6. Hypertension, Hyperlipidemia, History of CVA: * Continue home medications for blood pressure, lipid management, and secondary stroke prevention (on Plavix). * Monitor for any new neurological changes. 7. Prior Substance Use and Alcohol Use Disorder: * History noted; no acute withdrawal or related complications during this admission. 8. DVT Prophylaxis: * Continue prophylaxis with heparin while inpatient. poor intake Has had adequate nutritional intake p.o. discontinued PPN for now 9. Disposition: * Patient is medically stable after treatment of UTI and BARRIE but remains functionally and cognitively impaired. * Not safe for discharge home due to inability to follow directions and limited ADLs. * Awaiting placement in a facility capable of providing the necessary level of care and rehabilitation. * Case management and social work are actively involved in placement planning. DNR/DNI Quality Stroke Does the patient have a stroke diagnosis?: No VTE Prior VTE?: No VTE Risk Level:: Medical - moderate - high VTE Device Contraindication: Treatment Not Indicated VTE Drug Contraindication: N/A - Med Ordered
[2024-12-19 15:56] VITALS: BP 131/60; PULSE 80; RESP 19; TEMP 37; O2SAT 97
[2024-12-19 20:00] VITALS: BP 134/61; PULSE 85; RESP 19; TEMP 36.7; O2SAT 98
[2024-12-19] MEDS: traZODone HCL 25 MG HALFTAB PO (20:05)
[2024-12-20 03:15] VITALS: BP 121/58; PULSE 78; RESP 18; TEMP 36.9; O2SAT 97
[2024-12-20 07:38] VITALS: BP 134/63; PULSE 62; RESP 14; TEMP 36.5; O2SAT 99
--- NOTE | 2024-12-20 09:49 | P.PNIM_ITS ---
Subjective Subjective Date of Service: 12/20/24 Interval History: no new events Review of Systems Review of Systems: Yes all other systems are reviewed and are negative Physical Exam 2 Exam: Exam: Appearance: awake , comfortable cvs: [id number], [id number]. res: clear to auscultation ,no rhonchii or wheezing abd: no rebound or guarding ,nt, bs present. ext pulses present , no cyanosis. neuro:moves all ext Vital Signs: Vital Signs: Last Vital Signs Temp 97.7 F 12/20/24 07:38 Pulse 62 12/20/24 07:38 Resp 14 12/20/24 07:38 BP 134/63 12/20/24 07:38 Pulse Ox 99 12/20/24 07:38 O2 Del Method Room Air 12/20/24 07:38 O2 Flow Rate 2 11/12/24 09:51 BMI result Body Mass Index 18.4 Objective Data Active Medications Acetaminophen (Acetaminophen 325 Mg Tablet) 650 mg PO Q6H PRN PRN Reason: Pain, Mild 1-3,fever,headache Last Admin: 12/10/24 05:14 Dose: 650 mg Documented By: LOPEZ Amlodipine Besylate (Amlodipine Besylate 5 Mg Tablet) 5 mg PO DAILY [facility] 234 BEDS AT [facility]; Protocol Last Admin: 12/20/24 08:40 Dose: 5 mg Documented By: TAL Atorvastatin Calcium (Atorvastatin Calcium 80 Mg Tablet) 80 mg PO DAILY [facility] 234 BEDS AT [facility] Last Admin: 12/20/24 08:40 Dose: 80 mg Documented By: TAL Calcium Carbonate (Calcium Carbonate 750 Mg Tab.Chew) 750 mg PO Q4H PRN PRN Reason: Heartburn Clopidogrel Bisulfate (Clopidogrel Bisulfate 75 Mg Tablet) 75 mg PO DAILY [facility] 234 BEDS AT [facility] Last Admin: 12/20/24 08:40 Dose: 75 mg Documented By: TAL Finasteride (Finasteride 5 Mg Tablet) 5 mg PO DAILY [facility] 234 BEDS AT [facility] Last Admin: 12/20/24 08:40 Dose: 5 mg Documented By: TAL Folic Acid (Folic Acid 1 Mg Tablet) 1 mg PO DAILY [facility] 234 BEDS AT [facility] Last Admin: 12/20/24 08:41 Dose: 1 mg Documented By: TAL Heparin Sodium (Porcine) (Heparin Sodium,Porcine 5,000 Unit/Ml Vial) 5,000 unit SUBCUT Q12H [facility]CLUDE 234 BEDS AT [facility] Last Admin: 12/20/24 08:40 Dose: 5,000 unit Documented By: TAL Hydralazine HCl (Hydralazine Hcl 20 Mg/Ml Vial) 5 mg IVPUSH Q6H PRN; Protocol PRN Reason: SBP>190 Magnesium Hydroxide (Milk Of Magnesia 30 Ml Oral.Susp) 30 ml PO DAILY PRN PRN Reason: Constipation Last Admin: 12/16/24 18:26 Dose: 30 ml Documented By: NAM Melatonin (Melatonin 3 Mg Tablet) 6 mg PO BEDTIME PRN PRN Reason: Insomnia Last Admin: 12/19/24 20:05 Dose: 6 mg Documented By: MILLICENT Quetiapine Fumarate (Quetiapine Fumarate 25 Mg Tablet) 25 mg PO TID [facility] 234 BEDS AT [facility] Last Admin: 12/20/24 08:41 Dose: 25 mg Documented By: TAL Tamsulosin HCl (Tamsulosin Hcl 0.4 Mg Capsule) 0.4 mg PO DAILY [facility] 234 BEDS AT [facility] Last Admin: 12/20/24 08:41 Dose: 0.4 mg Documented By: TAL Thiamine HCl (Thiamine Hcl 100 Mg Tablet) 100 mg PO DAILY [facility] 234 BEDS AT [facility] Last Admin: 12/20/24 08:41 Dose: 100 mg Documented By: TAL Trazodone HCl (Trazodone Hcl 25 Mg Halftab) 25 mg PO BEDTIME [facility]S INCLUDE 234 BEDS AT [facility] Last Admin: 12/19/24 20:05 Dose: 25 mg Documented By: MILLICENT Labs 11/23/24 05:33 12/09/24 05:23 Assessment and Plan (1) Frequent falls: Status: Acute Plan Elderly patient with advanced Alzheimer?s dementia, multiple comorbidities, and recent BARRIE/UTI now resolved, but with significant deconditioning and functional decline. Discharge planning is complicated by cognitive impairment and inability to follow directions. Awaiting placement for continued care and rehabilitation. Essentially no new issues Assessment and Plan 1. Acute Kidney Injury (BARRIE): * The patient experienced multifactorial BARRIE (prerenal, postrenal, and possible intrarenal components) in the setting of acute urinary retention and UTI. * Prerenal azotemia likely due to volume depletion and acute urinary retention, resolved with IV fluids. * Intrarenal component (possible ATN) likely secondary to UTI, now resolved after completing a 5-day course of Augmentin (completed 11/21/2024). * Postrenal component due to BPH and urinary retention; Chisholm catheter placed on 11/14/2024. * Plan: Continue to monitor renal function and urine output. Chisholm catheter to remain in place per Urology, with outpatient voiding trials planned after discharge. 2. Benign Prostatic Hyperplasia (BPH) and Acute Urinary Retention: * Acute urinary retention managed with Chisholm catheter. * Started on finasteride and tamsulosin per Urology recommendations. * eventual voiding trial 3. Urinary Tract Infection (UTI): * Streptococcal UTI treated with Augmentin, completed 11/21/2024. * No current signs or symptoms of ongoing infection. * Continue to monitor for recurrence, especially with indwelling Chisholm. 4. Falls and Physical Deconditioning: * Multiple recent falls at home, likely due to advanced cognitive decline, physical deconditioning, and overall declining health. * Patient is unable to follow basic directions, limiting rehabilitation potential and complicating discharge planning. * PT/OT consulted for ongoing assessment and therapy. * Fall precautions in place. * Continue B12 and folate supplementation. * fall on 12/17 : no injuries -please see note from same date. 5. Advanced Alzheimer?s Dementia: * Progressive cognitive decline with significant impairment in ADLs. * Daughter is primary historian and healthcare proxy. * Patient unable to participate in care planning or follow instructions, making short-term rehabilitation placement challenging. * Awaiting appropriate placement; case management involved. * adjusted seroquel to 25 mg tid ,may need to add olazapine prn if needed (please see psych note from 12/01/24) 6. Hypertension, Hyperlipidemia, History of CVA: * Continue home medications for blood pressure, lipid management, and secondary stroke prevention (on Plavix). * Monitor for any new neurological changes. 7. Prior Substance Use and Alcohol Use Disorder: * History noted; no acute withdrawal or related complications during this admission. 8. DVT Prophylaxis: * Continue prophylaxis with heparin while inpatient. poor intake Has had adequate nutritional intake p.o. discontinued PPN for now 9. Disposition: * Patient is medically stable after treatment of UTI and BARRIE but remains functionally and cognitively impaired. * Not safe for discharge home due to inability to follow directions and limited ADLs. * Awaiting placement in a facility capable of providing the necessary level of care and rehabilitation. * Case management and social work are actively involved in placement planning. DNR/DNI Quality Stroke Does the patient have a stroke diagnosis?: No VTE Prior VTE?: No VTE Risk Level:: Medical - moderate - high VTE Device Contraindication: Treatment Not Indicated VTE Drug Contraindication: N/A - Med Ordered
--- NOTE | 2024-12-20 11:53 | MHC.CLN ---
F/U DIET RX CHOPPED. ENSURE BID PROVIDES 700 KCALS, 40 G PROTEIN. PO INTAKE VARIABLE, 25-100%. CONTINUE TO MONITOR FOR PO INTAKE. AWAITING PLACEMENT. RD TO MONITOR WEEKLY.
[2024-12-20 16:00] VITALS: BP 110/62; PULSE 60; RESP 16; TEMP 36.6; O2SAT 97
--- NOTE | 2024-12-20 16:30 | MHC.CM.PN ---
DP [facility]TC once [facility] and [facility]. Patient will transport via BLS.
[2024-12-20 19:53] VITALS: BP 156/68; PULSE 89; RESP 16; TEMP 36.8; O2SAT 98
[2024-12-20] MEDS: traZODone HCL 25 MG HALFTAB PO (19:58)
[2024-12-21 04:00] VITALS: BP 160/62; PULSE 80; RESP 16; TEMP 36.4; O2SAT 96
[2024-12-21 07:19] VITALS: BP 129/58; PULSE 70; RESP 16; TEMP 36.3; O2SAT 98
--- NOTE | 2024-12-21 09:25 | P.PNIM_ITS ---
Subjective Subjective Date of Service: 12/21/24 Interval History: no new events Review of Systems Review of Systems: Yes all other systems are reviewed and are negative Physical Exam 2 Exam: Exam: Appearance: awake , comfortable cvs: rrr, [id number]. res: clear to auscultation ,no rhonchii or wheezing abd: no rebound or guarding ,nt, bs present. ext pulses present , no cyanosis. neuro:moves all ext Vital Signs: Vital Signs: Last Vital Signs Temp 97.3 F 12/21/24 07:19 Pulse 70 12/21/24 07:19 Resp 16 12/21/24 07:19 BP 129/58 L 12/21/24 07:19 Pulse Ox 98 12/21/24 07:19 O2 Del Method Room Air 12/21/24 07:19 O2 Flow Rate 2 11/12/24 09:51 BMI result Body Mass Index 18.4 Objective Data Active Medications Acetaminophen (Acetaminophen 325 Mg Tablet) 650 mg PO Q6H PRN PRN Reason: Pain, Mild 1-3,fever,headache Last Admin: 12/10/24 05:14 Dose: 650 mg Documented By: LOPEZ Amlodipine Besylate (Amlodipine Besylate 5 Mg Tablet) 5 mg PO DAILY [facility]; Protocol Last Admin: 12/20/24 08:40 Dose: 5 mg Documented By: TAL Atorvastatin Calcium (Atorvastatin Calcium 80 Mg Tablet) 80 mg PO DAILY [facility] Last Admin: 12/20/24 08:40 Dose: 80 mg Documented By: TAL Calcium Carbonate (Calcium Carbonate 750 Mg Tab.Chew) 750 mg PO Q4H PRN PRN Reason: Heartburn Clopidogrel Bisulfate (Clopidogrel Bisulfate 75 Mg Tablet) 75 mg PO DAILY [facility] Last Admin: 12/20/24 08:40 Dose: 75 mg Documented By: TAL Finasteride (Finasteride 5 Mg Tablet) 5 mg PO DAILY [facility] Last Admin: 12/20/24 08:40 Dose: 5 mg Documented By: TAL Folic Acid (Folic Acid 1 Mg Tablet) 1 mg PO DAILY [facility] Last Admin: 12/20/24 08:41 Dose: 1 mg Documented By: TAL Heparin Sodium (Porcine) (Heparin Sodium,Porcine 5,000 Unit/Ml Vial) 5,000 unit SUBCUT Q12H [facility] Last Admin: 12/20/24 19:59 Dose: 5,000 unit Documented By: RAHEL Hydralazine HCl (Hydralazine Hcl 20 Mg/Ml Vial) 5 mg IVPUSH Q6H PRN; Protocol PRN Reason: SBP>190 Magnesium Hydroxide (Milk Of Magnesia 30 Ml Oral.Susp) 30 ml PO DAILY PRN PRN Reason: Constipation Last Admin: 12/16/24 18:26 Dose: 30 ml Documented By: NAM Melatonin (Melatonin 3 Mg Tablet) 6 mg PO BEDTIME PRN PRN Reason: Insomnia Last Admin: 12/20/24 20:20 Dose: 6 mg Documented By: RAHEL Quetiapine Fumarate (Quetiapine Fumarate 25 Mg Tablet) 25 mg PO TID [facility] Last Admin: 12/20/24 19:59 Dose: 25 mg Documented By: RAHEL Tamsulosin HCl (Tamsulosin Hcl 0.4 Mg Capsule) 0.4 mg PO DAILY [facility] Last Admin: 12/20/24 08:41 Dose: 0.4 mg Documented By: TAL Thiamine HCl (Thiamine Hcl 100 Mg Tablet) 100 mg PO DAILY [facility] Last Admin: 12/20/24 08:41 Dose: 100 mg Documented By: TAL Trazodone HCl (Trazodone Hcl 25 Mg Halftab) 25 mg PO BEDTIME [facility] Last Admin: 12/20/24 19:58 Dose: 25 mg Documented By: RAHEL Labs 11/23/24 05:33 12/09/24 05:23 Assessment and Plan (1) Frequent falls: Status: Acute Plan Elderly patient with advanced Alzheimer?s dementia, multiple comorbidities, and recent BARRIE/UTI now resolved, but with significant deconditioning and functional decline. Discharge planning is complicated by cognitive impairment and inability to follow directions. Awaiting placement for continued care and rehabilitation. Essentially no new issues Assessment and Plan 1. Acute Kidney Injury (BARRIE): * The patient experienced multifactorial BARRIE (prerenal, postrenal, and possible intrarenal components) in the setting of acute urinary retention and UTI. * Prerenal azotemia likely due to volume depletion and acute urinary retention, resolved with IV fluids. * Intrarenal component (possible ATN) likely secondary to UTI, now resolved after completing a 5-day course of Augmentin (completed 11/21/2024). * Postrenal component due to BPH and urinary retention; Chisholm catheter placed on 11/14/2024. * Plan: Continue to monitor renal function and urine output. Chisholm catheter to remain in place per Urology, with outpatient voiding trials planned after discharge. 2. Benign Prostatic Hyperplasia (BPH) and Acute Urinary Retention: * Acute urinary retention managed with Chisholm catheter. * Started on finasteride and tamsulosin per Urology recommendations. * eventual voiding trial 3. Urinary Tract Infection (UTI): * Streptococcal UTI treated with Augmentin, completed 11/21/2024. * No current signs or symptoms of ongoing infection. * Continue to monitor for recurrence, especially with indwelling Chisholm. 4. Falls and Physical Deconditioning: * Multiple recent falls at home, likely due to advanced cognitive decline, physical deconditioning, and overall declining health. * Patient is unable to follow basic directions, limiting rehabilitation potential and complicating discharge planning. * PT/OT consulted for ongoing assessment and therapy. * Fall precautions in place. * Continue B12 and folate supplementation. * fall on 12/17 : no injuries -please see note from same date. 5. Advanced Alzheimer?s Dementia: * Progressive cognitive decline with significant impairment in ADLs. * Daughter is primary historian and healthcare proxy. * Patient unable to participate in care planning or follow instructions, making short-term rehabilitation placement challenging. * Awaiting appropriate placement; case management involved. * adjusted seroquel to 25 mg tid ,may need to add olazapine prn if needed (please see psych note from 12/01/24) 6. Hypertension, Hyperlipidemia, History of CVA: * Continue home medications for blood pressure, lipid management, and secondary stroke prevention (on Plavix). * Monitor for any new neurological changes. 7. Prior Substance Use and Alcohol Use Disorder: * History noted; no acute withdrawal or related complications during this admission. 8. DVT Prophylaxis: * Continue prophylaxis with heparin while inpatient. poor intake Has had adequate nutritional intake p.o. discontinued PPN for now 9. Disposition: * Patient is medically stable after treatment of UTI and BARRIE but remains functionally and cognitively impaired. * Not safe for discharge home due to inability to follow directions and limited ADLs. * Awaiting placement in a facility capable of providing the necessary level of care and rehabilitation. * Case management and social work are actively involved in placement planning. DNR/DNI Quality Stroke Does the patient have a stroke diagnosis?: No VTE Prior VTE?: No VTE Risk Level:: Medical - moderate - high VTE Device Contraindication: Treatment Not Indicated VTE Drug Contraindication: N/A - Med Ordered
--- NOTE | 2024-12-21 09:25 | HO.PM.IMPN ---
Subjective Subjective Date of Service: 12/21/24 Interval History: no new events Review of Systems Review of Systems: Yes all other systems are reviewed and are negative Physical Exam Exam: Exam: Appearance: awake , comfortable cvs: [id number], [id number]. res: clear to auscultation ,no rhonchii or wheezing abd: no rebound or guarding ,nt, bs present. ext pulses present , no cyanosis. neuro:moves all ext Vital Signs: Vital Signs: Last Vital Signs Temp 97.3 F 12/21/24 07:19 Pulse 70 12/21/24 07:19 Resp 16 12/21/24 07:19 BP 129/58 L 12/21/24 07:19 Pulse Ox 98 12/21/24 07:19 O2 Del Method Room Air 12/21/24 07:19 O2 Flow Rate 2 11/12/24 09:51 BMI result Body Mass Index 18.4 Objective Data Active Medications Acetaminophen (Acetaminophen 325 Mg Tablet) 650 mg PO Q6H PRN PRN Reason: Pain, Mild 1-3,fever,headache Last Admin: 12/10/24 05:14 Dose: 650 mg Documented By: LOPEZ Amlodipine Besylate (Amlodipine Besylate 5 Mg Tablet) 5 mg PO DAILY [facility]; Protocol Last Admin: 12/20/24 08:40 Dose: 5 mg Documented By: TAL Atorvastatin Calcium (Atorvastatin Calcium 80 Mg Tablet) 80 mg PO DAILY [facility] Last Admin: 12/20/24 08:40 Dose: 80 mg Documented By: TAL Calcium Carbonate (Calcium Carbonate 750 Mg Tab.Chew) 750 mg PO Q4H PRN PRN Reason: Heartburn Clopidogrel Bisulfate (Clopidogrel Bisulfate 75 Mg Tablet) 75 mg PO DAILY [facility] Last Admin: 12/20/24 08:40 Dose: 75 mg Documented By: TAL Finasteride (Finasteride 5 Mg Tablet) 5 mg PO DAILY [facility] Last Admin: 12/20/24 08:40 Dose: 5 mg Documented By: TAL Folic Acid (Folic Acid 1 Mg Tablet) 1 mg PO DAILY [facility] Last Admin: 12/20/24 08:41 Dose: 1 mg Documented By: TAL Heparin Sodium (Porcine) (Heparin Sodium,Porcine 5,000 Unit/Ml Vial) 5,000 unit SUBCUT Q12H [facility] Last Admin: 12/20/24 19:59 Dose: 5,000 unit Documented By: RAHEL Hydralazine HCl (Hydralazine Hcl 20 Mg/Ml Vial) 5 mg IVPUSH Q6H PRN; Protocol PRN Reason: SBP>190 Magnesium Hydroxide (Milk Of Magnesia 30 Ml Oral.Susp) 30 ml PO DAILY PRN PRN Reason: Constipation Last Admin: 12/16/24 18:26 Dose: 30 ml Documented By: NAM Melatonin (Melatonin 3 Mg Tablet) 6 mg PO BEDTIME PRN PRN Reason: Insomnia Last Admin: 12/20/24 20:20 Dose: 6 mg Documented By: RAHEL Quetiapine Fumarate (Quetiapine Fumarate 25 Mg Tablet) 25 mg PO TID [facility] Last Admin: 12/20/24 19:59 Dose: 25 mg Documented By: RAHEL Tamsulosin HCl (Tamsulosin Hcl 0.4 Mg Capsule) 0.4 mg PO DAILY [facility] Last Admin: 12/20/24 08:41 Dose: 0.4 mg Documented By: TAL Thiamine HCl (Thiamine Hcl 100 Mg Tablet) 100 mg PO DAILY [facility] Last Admin: 12/20/24 08:41 Dose: 100 mg Documented By: TAL Trazodone HCl (Trazodone Hcl 25 Mg Halftab) 25 mg PO BEDTIME [facility] Last Admin: 12/20/24 19:58 Dose: 25 mg Documented By: RAHEL Labs 11/23/24 05:33 12/09/24 05:23 Assessment and Plan (1) Frequent falls: Status: Acute Plan Elderly patient with advanced Alzheimer?s dementia, multiple comorbidities, and recent BARRIE/UTI now resolved, but with significant deconditioning and functional decline. Discharge planning is complicated by cognitive impairment and inability to follow directions. Awaiting placement for continued care and rehabilitation. Essentially no new issues Assessment and Plan 1. Acute Kidney Injury (BARRIE): The patient experienced multifactorial BARRIE (prerenal, postrenal, and possible intrarenal components) in the setting of acute urinary retention and UTI. Prerenal azotemia likely due to volume depletion and acute urinary retention, resolved with IV fluids. Intrarenal component (possible ATN) likely secondary to UTI, now resolved after completing a 5-day course of Augmentin (completed 11/21/2024). Postrenal component due to BPH and urinary retention; Chisholm catheter placed on 11/14/2024. Plan: Continue to monitor renal function and urine output. Chisholm catheter to remain in place per Urology, with outpatient voiding trials planned after discharge. 2. Benign Prostatic Hyperplasia (BPH) and Acute Urinary Retention: Acute urinary retention managed with Chisholm catheter. Started on finasteride and tamsulosin per Urology recommendations. eventual voiding trial 3. Urinary Tract Infection (UTI): Streptococcal UTI treated with Augmentin, completed 11/21/2024. No current signs or symptoms of ongoing infection. Continue to monitor for recurrence, especially with indwelling Chisholm. 4. Falls and Physical Deconditioning: Multiple recent falls at home, likely due to advanced cognitive decline, physical deconditioning, and overall declining health. Patient is unable to follow basic directions, limiting rehabilitation potential and complicating discharge planning. PT/OT consulted for ongoing assessment and therapy. Fall precautions in place. Continue B12 and folate supplementation. fall on 12/17 : no injuries -please see note from same date. 5. Advanced Alzheimer?s Dementia: Progressive cognitive decline with significant impairment in ADLs. Daughter is primary historian and healthcare proxy. Patient unable to participate in care planning or follow instructions, making short-term rehabilitation placement challenging. Awaiting appropriate placement; case management involved. adjusted seroquel to 25 mg tid ,may need to add olazapine prn if needed (please see psych note from 12/01/24) 6. Hypertension, Hyperlipidemia, History of CVA: Continue home medications for blood pressure, lipid management, and secondary stroke prevention (on Plavix). Monitor for any new neurological changes. 7. Prior Substance Use and Alcohol Use Disorder: History noted; no acute withdrawal or related complications during this admission. 8. DVT Prophylaxis: Continue prophylaxis with heparin while inpatient. poor intake Has had adequate nutritional intake p.o. discontinued PPN for now 9. Disposition: Patient is medically stable after treatment of UTI and BARRIE but remains functionally and cognitively impaired. Not safe for discharge home due to inability to follow directions and limited ADLs. Awaiting placement in a facility capable of providing the necessary level of care and rehabilitation. Case management and social work are actively involved in placement planning. DNR/DNI Quality Stroke Does the patient have a stroke diagnosis?: No VTE Prior VTE?: No VTE Risk Level:: Medical - moderate - high VTE Device Contraindication: Treatment Not Indicated VTE Drug Contraindication: N/A - Med Ordered
[2024-12-21 09:57] VITALS: BP 137/63
[2024-12-21 15:04] VITALS: BP 108/56; PULSE 71; RESP 17; TEMP 37.2; O2SAT 97
--- NOTE | 2024-12-21 16:00 | PC.NURSE ---
Patient is confused at baseline, alert and oriented to self only. Patient has been eating meals on his own and consuming 25-50%. Compliant with care and medications and no impulsive or combative behaviors reported or observed.
[2024-12-21 20:00] VITALS: BP 144/67; PULSE 77; RESP 16; TEMP 36.6
[2024-12-21] MEDS: traZODone HCL 25 MG HALFTAB PO (21:11)
[2024-12-22 03:11] VITALS: BP 132/62; PULSE 68; RESP 18; TEMP 35.8; O2SAT 98
[2024-12-22 07:39] VITALS: BP 129/61; PULSE 66; RESP 14; TEMP 36.6; O2SAT 99
--- NOTE | 2024-12-22 09:49 | P.PNIM_ITS ---
Subjective Subjective Date of Service: 12/22/24 Interval History: no new events Review of Systems Review of Systems: Yes all other systems are reviewed and are negative Physical Exam 2 Exam: Exam: Appearance: awake , comfortable cvs: [id number], [id number]. res: clear to auscultation ,no rhonchii or wheezing abd: no rebound or guarding ,nt, bs present. ext pulses present , no cyanosis. neuro:moves all ext Vital Signs: Vital Signs: Last Vital Signs Temp 97.8 F 12/22/24 07:39 Pulse 66 12/22/24 07:39 Resp 14 12/22/24 07:39 BP 129/61 12/22/24 07:39 Pulse Ox 99 12/22/24 07:39 O2 Del Method Room Air 12/22/24 07:39 O2 Flow Rate 2 11/12/24 09:51 BMI result Body Mass Index 18.4 Objective Data Active Medications Acetaminophen (Acetaminophen 325 Mg Tablet) 650 mg PO Q6H PRN PRN Reason: Pain, Mild 1-3,fever,headache Last Admin: 12/10/24 05:14 Dose: 650 mg Documented By: LOPEZ Amlodipine Besylate (Amlodipine Besylate 5 Mg Tablet) 5 mg PO DAILY [facility]; Protocol Last Admin: 12/22/24 08:41 Dose: 5 mg Documented By: NADIR Atorvastatin Calcium (Atorvastatin Calcium 80 Mg Tablet) 80 mg PO DAILY [facility] Last Admin: 12/22/24 08:41 Dose: 80 mg Documented By: NADIR Calcium Carbonate (Calcium Carbonate 750 Mg Tab.Chew) 750 mg PO Q4H PRN PRN Reason: Heartburn Clopidogrel Bisulfate (Clopidogrel Bisulfate 75 Mg Tablet) 75 mg PO DAILY [facility] Last Admin: 12/22/24 08:41 Dose: 75 mg Documented By: NADRI Finasteride (Finasteride 5 Mg Tablet) 5 mg PO DAILY [facility] Last Admin: 12/22/24 08:42 Dose: 5 mg Documented By: ANDIR Folic Acid (Folic Acid 1 Mg Tablet) 1 mg PO DAILY [facility] Last Admin: 12/22/24 08:42 Dose: 1 mg Documented By: NADIR Heparin Sodium (Porcine) (Heparin Sodium,Porcine 5,000 Unit/Ml Vial) 5,000 unit SUBCUT Q12H [facility] Last Admin: 12/22/24 08:42 Dose: 5,000 unit Documented By: NADIR Hydralazine HCl (Hydralazine Hcl 20 Mg/Ml Vial) 5 mg IVPUSH Q6H PRN; Protocol PRN Reason: SBP>190 Magnesium Hydroxide (Milk Of Magnesia 30 Ml Oral.Susp) 30 ml PO DAILY PRN PRN Reason: Constipation Last Admin: 12/16/24 18:26 Dose: 30 ml Documented By: NAM Melatonin (Melatonin 3 Mg Tablet) 6 mg PO BEDTIME PRN PRN Reason: Insomnia Last Admin: 12/20/24 20:20 Dose: 6 mg Documented By: RUSSELV Quetiapine Fumarate (Quetiapine Fumarate 25 Mg Tablet) 25 mg PO TID [facility] Last Admin: 12/22/24 08:41 Dose: 25 mg Documented By: NADIR Tamsulosin HCl (Tamsulosin Hcl 0.4 Mg Capsule) 0.4 mg PO DAILY [facility] Last Admin: 12/22/24 08:41 Dose: 0.4 mg Documented By: NADIR Thiamine HCl (Thiamine Hcl 100 Mg Tablet) 100 mg PO DAILY [facility] Last Admin: 12/22/24 08:42 Dose: 100 mg Documented By: NADIR Trazodone HCl (Trazodone Hcl 25 Mg Halftab) 25 mg PO BEDTIME [facility] Last Admin: 12/21/24 21:11 Dose: 25 mg Documented By: SEXK Labs 11/23/24 05:33 12/09/24 05:23 Assessment and Plan (1) Frequent falls: Status: Acute Plan Elderly patient with advanced Alzheimer?s dementia, multiple comorbidities, and recent BARRIE/UTI now resolved, but with significant deconditioning and functional decline. Discharge planning is complicated by cognitive impairment and inability to follow directions. Awaiting placement for continued care and rehabilitation. Essentially no new issues Assessment and Plan 1. Acute Kidney Injury (BARRIE): * The patient experienced multifactorial BARRIE (prerenal, postrenal, and possible intrarenal components) in the setting of acute urinary retention and UTI. * Prerenal azotemia likely due to volume depletion and acute urinary retention, resolved with IV fluids. * Intrarenal component (possible ATN) likely secondary to UTI, now resolved after completing a 5-day course of Augmentin (completed 11/21/2024). * Postrenal component due to BPH and urinary retention; Chisholm catheter placed on 11/14/2024. * Plan: Continue to monitor renal function and urine output. Chisholm catheter to remain in place per Urology, with outpatient voiding trials planned after discharge. 2. Benign Prostatic Hyperplasia (BPH) and Acute Urinary Retention: * Acute urinary retention managed with Chisholm catheter. * Started on finasteride and tamsulosin per Urology recommendations. * eventual voiding trial 3. Urinary Tract Infection (UTI): * Streptococcal UTI treated with Augmentin, completed 11/21/2024. * No current signs or symptoms of ongoing infection. * Continue to monitor for recurrence, especially with indwelling Chisholm. 4. Falls and Physical Deconditioning: * Multiple recent falls at home, likely due to advanced cognitive decline, physical deconditioning, and overall declining health. * Patient is unable to follow basic directions, limiting rehabilitation potential and complicating discharge planning. * PT/OT consulted for ongoing assessment and therapy. * Fall precautions in place. * Continue B12 and folate supplementation. * fall on 12/17 : no injuries -please see note from same date. 5. Advanced Alzheimer?s Dementia: * Progressive cognitive decline with significant impairment in ADLs. * Daughter is primary historian and healthcare proxy. * Patient unable to participate in care planning or follow instructions, making short-term rehabilitation placement challenging. * Awaiting appropriate placement; case management involved. * adjusted seroquel to 25 mg tid ,may need to add olazapine prn if needed (please see psych note from 12/01/24) 6. Hypertension, Hyperlipidemia, History of CVA: * Continue home medications for blood pressure, lipid management, and secondary stroke prevention (on Plavix). * Monitor for any new neurological changes. 7. Prior Substance Use and Alcohol Use Disorder: * History noted; no acute withdrawal or related complications during this admission. 8. DVT Prophylaxis: * Continue prophylaxis with heparin while inpatient. poor intake Has had adequate nutritional intake p.o. discontinued PPN for now 9. Disposition: * Patient is medically stable after treatment of UTI and BARRIE but remains functionally and cognitively impaired. * Not safe for discharge home due to inability to follow directions and limited ADLs. * Awaiting placement in a facility capable of providing the necessary level of care and rehabilitation. * Case management and social work are actively involved in placement planning. DNR/DNI Quality Stroke Does the patient have a stroke diagnosis?: No VTE Prior VTE?: No VTE Risk Level:: Medical - moderate - high VTE Device Contraindication: Treatment Not Indicated VTE Drug Contraindication: N/A - Med Ordered
--- NOTE | 2024-12-22 09:49 | HO.PM.IMPN ---
Subjective Subjective Date of Service: 12/22/24 Interval History: no new events Review of Systems Review of Systems: Yes all other systems are reviewed and are negative Physical Exam Exam: Exam: Appearance: awake , comfortable cvs: rrr, [id number]. res: clear to auscultation ,no rhonchii or wheezing abd: no rebound or guarding ,nt, bs present. ext pulses present , no cyanosis. neuro:moves all ext Vital Signs: Vital Signs: Last Vital Signs Temp 97.8 F 12/22/24 07:39 Pulse 66 12/22/24 07:39 Resp 14 12/22/24 07:39 BP 129/61 12/22/24 07:39 Pulse Ox 99 12/22/24 07:39 O2 Del Method Room Air 12/22/24 07:39 O2 Flow Rate 2 11/12/24 09:51 BMI result Body Mass Index 18.4 Objective Data Active Medications Acetaminophen (Acetaminophen 325 Mg Tablet) 650 mg PO Q6H PRN PRN Reason: Pain, Mild 1-3,fever,headache Last Admin: 12/10/24 05:14 Dose: 650 mg Documented By: LOPEZ Amlodipine Besylate (Amlodipine Besylate 5 Mg Tablet) 5 mg PO DAILY [facility]; Protocol Last Admin: 12/22/24 08:41 Dose: 5 mg Documented By: NADIR Atorvastatin Calcium (Atorvastatin Calcium 80 Mg Tablet) 80 mg PO DAILY [facility] Last Admin: 12/22/24 08:41 Dose: 80 mg Documented By: NADIR Calcium Carbonate (Calcium Carbonate 750 Mg Tab.Chew) 750 mg PO Q4H PRN PRN Reason: Heartburn Clopidogrel Bisulfate (Clopidogrel Bisulfate 75 Mg Tablet) 75 mg PO DAILY [facility] Last Admin: 12/22/24 08:41 Dose: 75 mg Documented By: NADIR Finasteride (Finasteride 5 Mg Tablet) 5 mg PO DAILY [facility] Last Admin: 12/22/24 08:42 Dose: 5 mg Documented By: NADIR Folic Acid (Folic Acid 1 Mg Tablet) 1 mg PO DAILY [facility] Last Admin: 12/22/24 08:42 Dose: 1 mg Documented By: NADIR Heparin Sodium (Porcine) (Heparin Sodium,Porcine 5,000 Unit/Ml Vial) 5,000 unit SUBCUT Q12H [facility] Last Admin: 12/22/24 08:42 Dose: 5,000 unit Documented By: NADIR Hydralazine HCl (Hydralazine Hcl 20 Mg/Ml Vial) 5 mg IVPUSH Q6H PRN; Protocol PRN Reason: SBP>190 Magnesium Hydroxide (Milk Of Magnesia 30 Ml Oral.Susp) 30 ml PO DAILY PRN PRN Reason: Constipation Last Admin: 12/16/24 18:26 Dose: 30 ml Documented By: NAM Melatonin (Melatonin 3 Mg Tablet) 6 mg PO BEDTIME PRN PRN Reason: Insomnia Last Admin: 12/20/24 20:20 Dose: 6 mg Documented By: RUSSELV Quetiapine Fumarate (Quetiapine Fumarate 25 Mg Tablet) 25 mg PO TID [facility] Last Admin: 12/22/24 08:41 Dose: 25 mg Documented By: NADIR Tamsulosin HCl (Tamsulosin Hcl 0.4 Mg Capsule) 0.4 mg PO DAILY [facility] Last Admin: 12/22/24 08:41 Dose: 0.4 mg Documented By: NADIR Thiamine HCl (Thiamine Hcl 100 Mg Tablet) 100 mg PO DAILY [facility] Last Admin: 12/22/24 08:42 Dose: 100 mg Documented By: NADIR Trazodone HCl (Trazodone Hcl 25 Mg Halftab) 25 mg PO BEDTIME [facility] Last Admin: 12/21/24 21:11 Dose: 25 mg Documented By: SEXK Labs 11/23/24 05:33 12/09/24 05:23 Assessment and Plan (1) Frequent falls: Status: Acute Plan Elderly patient with advanced Alzheimer?s dementia, multiple comorbidities, and recent BARRIE/UTI now resolved, but with significant deconditioning and functional decline. Discharge planning is complicated by cognitive impairment and inability to follow directions. Awaiting placement for continued care and rehabilitation. Essentially no new issues Assessment and Plan 1. Acute Kidney Injury (BARRIE): The patient experienced multifactorial BARRIE (prerenal, postrenal, and possible intrarenal components) in the setting of acute urinary retention and UTI. Prerenal azotemia likely due to volume depletion and acute urinary retention, resolved with IV fluids. Intrarenal component (possible ATN) likely secondary to UTI, now resolved after completing a 5-day course of Augmentin (completed 11/21/2024). Postrenal component due to BPH and urinary retention; Chisholm catheter placed on 11/14/2024. Plan: Continue to monitor renal function and urine output. Chisholm catheter to remain in place per Urology, with outpatient voiding trials planned after discharge. 2. Benign Prostatic Hyperplasia (BPH) and Acute Urinary Retention: Acute urinary retention managed with Chisholm catheter. Started on finasteride and tamsulosin per Urology recommendations. eventual voiding trial 3. Urinary Tract Infection (UTI): Streptococcal UTI treated with Augmentin, completed 11/21/2024. No current signs or symptoms of ongoing infection. Continue to monitor for recurrence, especially with indwelling Chisholm. 4. Falls and Physical Deconditioning: Multiple recent falls at home, likely due to advanced cognitive decline, physical deconditioning, and overall declining health. Patient is unable to follow basic directions, limiting rehabilitation potential and complicating discharge planning. PT/OT consulted for ongoing assessment and therapy. Fall precautions in place. Continue B12 and folate supplementation. fall on 12/17 : no injuries -please see note from same date. 5. Advanced Alzheimer?s Dementia: Progressive cognitive decline with significant impairment in ADLs. Daughter is primary historian and healthcare proxy. Patient unable to participate in care planning or follow instructions, making short-term rehabilitation placement challenging. Awaiting appropriate placement; case management involved. adjusted seroquel to 25 mg tid ,may need to add olazapine prn if needed (please see psych note from 12/01/24) 6. Hypertension, Hyperlipidemia, History of CVA: Continue home medications for blood pressure, lipid management, and secondary stroke prevention (on Plavix). Monitor for any new neurological changes. 7. Prior Substance Use and Alcohol Use Disorder: History noted; no acute withdrawal or related complications during this admission. 8. DVT Prophylaxis: Continue prophylaxis with heparin while inpatient. poor intake Has had adequate nutritional intake p.o. discontinued PPN for now 9. Disposition: Patient is medically stable after treatment of UTI and BARRIE but remains functionally and cognitively impaired. Not safe for discharge home due to inability to follow directions and limited ADLs. Awaiting placement in a facility capable of providing the necessary level of care and rehabilitation. Case management and social work are actively involved in placement planning. DNR/DNI Quality Stroke Does the patient have a stroke diagnosis?: No VTE Prior VTE?: No VTE Risk Level:: Medical - moderate - high VTE Device Contraindication: Treatment Not Indicated VTE Drug Contraindication: N/A - Med Ordered
--- NOTE | 2024-12-22 13:02 | MHC.CLN ---
F/U DIET RX CHOPPED. ENSURE BID PROVIDES 700 KCALS, 40 G PROTEIN. PO INTAKE VARIABLE, 50-100%. CONTINUE TO MONITOR FOR PO INTAKE. AWAITING PLACEMENT. RD TO MONITOR WEEKLY.
[2024-12-22 16:00] VITALS: BP 114/55; PULSE 72; RESP 16; TEMP 36.6; O2SAT 97
--- NOTE | 2024-12-22 16:19 | PC.NURSE ---
Pt is in good spirits today, smiling and interacting with staff. Resting quietly, appropriate and cooperative with all care. Pt refused breakfast but did eat his yogurt and an ice cream, ate 50% of lunch and continues to accept snacks when offered.
[2024-12-22 19:34] VITALS: BP 154/69; PULSE 94; RESP 17; TEMP 36.8; O2SAT 99
[2024-12-22] MEDS: traZODone HCL 25 MG HALFTAB PO (19:56)
[2024-12-23 03:06] VITALS: BP 158/70; PULSE 87; RESP 18; TEMP 36.1; O2SAT 95
[2024-12-23 08:00] VITALS: BP 128/62; PULSE 63; RESP 18; TEMP 36.9; O2SAT 98
--- NOTE | 2024-12-23 09:35 | P.PNIM_ITS ---
Subjective Subjective Date of Service: 12/23/24 Interval History: no new events Review of Systems Review of Systems: Yes all other systems are reviewed and are negative Physical Exam 2 Exam: Exam: Appearance: awake , comfortable cvs: [id number], [id number]. res: clear to auscultation ,no rhonchii or wheezing abd: no rebound or guarding ,nt, bs present. ext pulses present , no cyanosis. neuro:moves all ext Vital Signs: Vital Signs: Last Vital Signs Temp 98.4 F 12/23/24 08:00 Pulse 63 12/23/24 08:00 Resp 18 12/23/24 08:00 BP 128/62 12/23/24 08:00 Pulse Ox 98 12/23/24 08:00 O2 Del Method Room Air 12/23/24 08:00 O2 Flow Rate 2 11/12/24 09:51 BMI result Body Mass Index 18.4 Objective Data Active Medications Acetaminophen (Acetaminophen 325 Mg Tablet) 650 mg PO Q6H PRN PRN Reason: Pain, Mild 1-3,fever,headache Last Admin: 12/10/24 05:14 Dose: 650 mg Documented By: LOPEZ Amlodipine Besylate (Amlodipine Besylate 5 Mg Tablet) 5 mg PO DAILY [facility]; Protocol Last Admin: 12/23/24 08:49 Dose: 5 mg Documented By: NA Atorvastatin Calcium (Atorvastatin Calcium 80 Mg Tablet) 80 mg PO DAILY [facility] Last Admin: 12/23/24 08:49 Dose: 80 mg Documented By: NA Calcium Carbonate (Calcium Carbonate 750 Mg Tab.Chew) 750 mg PO Q4H PRN PRN Reason: Heartburn Clopidogrel Bisulfate (Clopidogrel Bisulfate 75 Mg Tablet) 75 mg PO DAILY [facility] Last Admin: 12/23/24 08:49 Dose: 75 mg Documented By: NA Finasteride (Finasteride 5 Mg Tablet) 5 mg PO DAILY [facility] Last Admin: 12/23/24 08:49 Dose: 5 mg Documented By: NA Folic Acid (Folic Acid 1 Mg Tablet) 1 mg PO DAILY [facility] Last Admin: 12/23/24 08:49 Dose: 1 mg Documented By: NA Heparin Sodium (Porcine) (Heparin Sodium,Porcine 5,000 Unit/Ml Vial) 5,000 unit SUBCUT Q12H [facility] Last Admin: 12/23/24 08:54 Dose: 5,000 unit Documented By: AN Hydralazine HCl (Hydralazine Hcl 20 Mg/Ml Vial) 5 mg IVPUSH Q6H PRN; Protocol PRN Reason: SBP>190 Magnesium Hydroxide (Milk Of Magnesia 30 Ml Oral.Susp) 30 ml PO DAILY PRN PRN Reason: Constipation Last Admin: 12/16/24 18:26 Dose: 30 ml Documented By: NAM Melatonin (Melatonin 3 Mg Tablet) 6 mg PO BEDTIME PRN PRN Reason: Insomnia Last Admin: 12/22/24 19:56 Dose: 6 mg Documented By: JACEY Quetiapine Fumarate (Quetiapine Fumarate 25 Mg Tablet) 25 mg PO TID [facility] Last Admin: 12/23/24 08:49 Dose: 25 mg Documented By: NA Tamsulosin HCl (Tamsulosin Hcl 0.4 Mg Capsule) 0.4 mg PO DAILY [facility] Last Admin: 12/23/24 08:49 Dose: 0.4 mg Documented By: NA Thiamine HCl (Thiamine Hcl 100 Mg Tablet) 100 mg PO DAILY [facility] Last Admin: 12/23/24 08:49 Dose: 100 mg Documented By: NA Trazodone HCl (Trazodone Hcl 25 Mg Halftab) 25 mg PO BEDTIME [facility] Last Admin: 12/22/24 19:56 Dose: 25 mg Documented By: JACEY Labs 11/23/24 05:33 12/09/24 05:23 Assessment and Plan (1) Frequent falls: Status: Acute Plan Elderly patient with advanced Alzheimer?s dementia, multiple comorbidities, and recent BARRIE/UTI now resolved, but with significant deconditioning and functional decline. Discharge planning is complicated by cognitive impairment and inability to follow directions. Awaiting placement for continued care and rehabilitation. Essentially no new issues Assessment and Plan 1. Acute Kidney Injury (BARRIE): * The patient experienced multifactorial BARRIE (prerenal, postrenal, and possible intrarenal components) in the setting of acute urinary retention and UTI. * Prerenal azotemia likely due to volume depletion and acute urinary retention, resolved with IV fluids. * Intrarenal component (possible ATN) likely secondary to UTI, now resolved after completing a 5-day course of Augmentin (completed 11/21/2024). * Postrenal component due to BPH and urinary retention; Chisholm catheter placed on 11/14/2024. * Plan: Continue to monitor renal function and urine output. Chisholm catheter to remain in place per Urology, with outpatient voiding trials planned after discharge. 2. Benign Prostatic Hyperplasia (BPH) and Acute Urinary Retention: * Acute urinary retention managed with Chisholm catheter. * Started on finasteride and tamsulosin per Urology recommendations. * eventual voiding trial 3. Urinary Tract Infection (UTI): * Streptococcal UTI treated with Augmentin, completed 11/21/2024. * No current signs or symptoms of ongoing infection. * Continue to monitor for recurrence, especially with indwelling Chisholm. 4. Falls and Physical Deconditioning: * Multiple recent falls at home, likely due to advanced cognitive decline, physical deconditioning, and overall declining health. * Patient is unable to follow basic directions, limiting rehabilitation potential and complicating discharge planning. * PT/OT consulted for ongoing assessment and therapy. * Fall precautions in place. * Continue B12 and folate supplementation. * fall on 12/17 : no injuries -please see note from same date. 5. Advanced Alzheimer?s Dementia: * Progressive cognitive decline with significant impairment in ADLs. * Daughter is primary historian and healthcare proxy. * Patient unable to participate in care planning or follow instructions, making short-term rehabilitation placement challenging. * Awaiting appropriate placement; case management involved. * adjusted seroquel to 25 mg tid ,may need to add olazapine prn if needed (please see psych note from 12/01/24) 6. Hypertension, Hyperlipidemia, History of CVA: * Continue home medications for blood pressure, lipid management, and secondary stroke prevention (on Plavix). * Monitor for any new neurological changes. 7. Prior Substance Use and Alcohol Use Disorder: * History noted; no acute withdrawal or related complications during this admission. 8. DVT Prophylaxis: * Continue prophylaxis with heparin while inpatient. poor intake Has had adequate nutritional intake p.o. discontinued PPN for now 9. Disposition: * Patient is medically stable after treatment of UTI and BARRIE but remains functionally and cognitively impaired. * Not safe for discharge home due to inability to follow directions and limited ADLs. * Awaiting placement in a facility capable of providing the necessary level of care and rehabilitation. * Case management and social work are actively involved in placement planning. DNR/DNI Quality Stroke Does the patient have a stroke diagnosis?: No VTE Prior VTE?: No VTE Risk Level:: Medical - moderate - high VTE Device Contraindication: Treatment Not Indicated VTE Drug Contraindication: N/A - Med Ordered
--- NOTE | 2024-12-23 09:35 | HO.PM.IMPN ---
Subjective Subjective Date of Service: 12/23/24 Interval History: no new events Review of Systems Review of Systems: Yes all other systems are reviewed and are negative Physical Exam Exam: Exam: Appearance: awake , comfortable cvs: rrr, [id number]. res: clear to auscultation ,no rhonchii or wheezing abd: no rebound or guarding ,nt, bs present. ext pulses present , no cyanosis. neuro:moves all ext Vital Signs: Vital Signs: Last Vital Signs Temp 98.4 F 12/23/24 08:00 Pulse 63 12/23/24 08:00 Resp 18 12/23/24 08:00 BP 128/62 12/23/24 08:00 Pulse Ox 98 12/23/24 08:00 O2 Del Method Room Air 12/23/24 08:00 O2 Flow Rate 2 11/12/24 09:51 BMI result Body Mass Index 18.4 Objective Data Active Medications Acetaminophen (Acetaminophen 325 Mg Tablet) 650 mg PO Q6H PRN PRN Reason: Pain, Mild 1-3,fever,headache Last Admin: 12/10/24 05:14 Dose: 650 mg Documented By: LOPEZ Amlodipine Besylate (Amlodipine Besylate 5 Mg Tablet) 5 mg PO DAILY [facility]; Protocol Last Admin: 12/23/24 08:49 Dose: 5 mg Documented By: NA Atorvastatin Calcium (Atorvastatin Calcium 80 Mg Tablet) 80 mg PO DAILY [facility] Last Admin: 12/23/24 08:49 Dose: 80 mg Documented By: NA Calcium Carbonate (Calcium Carbonate 750 Mg Tab.Chew) 750 mg PO Q4H PRN PRN Reason: Heartburn Clopidogrel Bisulfate (Clopidogrel Bisulfate 75 Mg Tablet) 75 mg PO DAILY [facility] Last Admin: 12/23/24 08:49 Dose: 75 mg Documented By: NA Finasteride (Finasteride 5 Mg Tablet) 5 mg PO DAILY [facility] Last Admin: 12/23/24 08:49 Dose: 5 mg Documented By: NA Folic Acid (Folic Acid 1 Mg Tablet) 1 mg PO DAILY [facility] Last Admin: 12/23/24 08:49 Dose: 1 mg Documented By: NA Heparin Sodium (Porcine) (Heparin Sodium,Porcine 5,000 Unit/Ml Vial) 5,000 unit SUBCUT Q12H [facility] Last Admin: 12/23/24 08:54 Dose: 5,000 unit Documented By: NA Hydralazine HCl (Hydralazine Hcl 20 Mg/Ml Vial) 5 mg IVPUSH Q6H PRN; Protocol PRN Reason: SBP>190 Magnesium Hydroxide (Milk Of Magnesia 30 Ml Oral.Susp) 30 ml PO DAILY PRN PRN Reason: Constipation Last Admin: 12/16/24 18:26 Dose: 30 ml Documented By: MAYITONM Melatonin (Melatonin 3 Mg Tablet) 6 mg PO BEDTIME PRN PRN Reason: Insomnia Last Admin: 12/22/24 19:56 Dose: 6 mg Documented By: JACEY Quetiapine Fumarate (Quetiapine Fumarate 25 Mg Tablet) 25 mg PO TID [facility] Last Admin: 12/23/24 08:49 Dose: 25 mg Documented By: NA Tamsulosin HCl (Tamsulosin Hcl 0.4 Mg Capsule) 0.4 mg PO DAILY [facility] Last Admin: 12/23/24 08:49 Dose: 0.4 mg Documented By: NA Thiamine HCl (Thiamine Hcl 100 Mg Tablet) 100 mg PO DAILY [facility] Last Admin: 12/23/24 08:49 Dose: 100 mg Documented By: NA Trazodone HCl (Trazodone Hcl 25 Mg Halftab) 25 mg PO BEDTIME [facility] Last Admin: 12/22/24 19:56 Dose: 25 mg Documented By: JACEY Labs 11/23/24 05:33 12/09/24 05:23 Assessment and Plan (1) Frequent falls: Status: Acute Plan Elderly patient with advanced Alzheimer?s dementia, multiple comorbidities, and recent BARRIE/UTI now resolved, but with significant deconditioning and functional decline. Discharge planning is complicated by cognitive impairment and inability to follow directions. Awaiting placement for continued care and rehabilitation. Essentially no new issues Assessment and Plan 1. Acute Kidney Injury (BARRIE): The patient experienced multifactorial BARRIE (prerenal, postrenal, and possible intrarenal components) in the setting of acute urinary retention and UTI. Prerenal azotemia likely due to volume depletion and acute urinary retention, resolved with IV fluids. Intrarenal component (possible ATN) likely secondary to UTI, now resolved after completing a 5-day course of Augmentin (completed 11/21/2024). Postrenal component due to BPH and urinary retention; Chisholm catheter placed on 11/14/2024. Plan: Continue to monitor renal function and urine output. Chisholm catheter to remain in place per Urology, with outpatient voiding trials planned after discharge. 2. Benign Prostatic Hyperplasia (BPH) and Acute Urinary Retention: Acute urinary retention managed with Chisholm catheter. Started on finasteride and tamsulosin per Urology recommendations. eventual voiding trial 3. Urinary Tract Infection (UTI): Streptococcal UTI treated with Augmentin, completed 11/21/2024. No current signs or symptoms of ongoing infection. Continue to monitor for recurrence, especially with indwelling Chisholm. 4. Falls and Physical Deconditioning: Multiple recent falls at home, likely due to advanced cognitive decline, physical deconditioning, and overall declining health. Patient is unable to follow basic directions, limiting rehabilitation potential and complicating discharge planning. PT/OT consulted for ongoing assessment and therapy. Fall precautions in place. Continue B12 and folate supplementation. fall on 12/17 : no injuries -please see note from same date. 5. Advanced Alzheimer?s Dementia: Progressive cognitive decline with significant impairment in ADLs. Daughter is primary historian and healthcare proxy. Patient unable to participate in care planning or follow instructions, making short-term rehabilitation placement challenging. Awaiting appropriate placement; case management involved. adjusted seroquel to 25 mg tid ,may need to add olazapine prn if needed (please see psych note from 12/01/24) 6. Hypertension, Hyperlipidemia, History of CVA: Continue home medications for blood pressure, lipid management, and secondary stroke prevention (on Plavix). Monitor for any new neurological changes. 7. Prior Substance Use and Alcohol Use Disorder: History noted; no acute withdrawal or related complications during this admission. 8. DVT Prophylaxis: Continue prophylaxis with heparin while inpatient. poor intake Has had adequate nutritional intake p.o. discontinued PPN for now 9. Disposition: Patient is medically stable after treatment of UTI and BARRIE but remains functionally and cognitively impaired. Not safe for discharge home due to inability to follow directions and limited ADLs. Awaiting placement in a facility capable of providing the necessary level of care and rehabilitation. Case management and social work are actively involved in placement planning. DNR/DNI Quality Stroke Does the patient have a stroke diagnosis?: No VTE Prior VTE?: No VTE Risk Level:: Medical - moderate - high VTE Device Contraindication: Treatment Not Indicated VTE Drug Contraindication: N/A - Med Ordered
[2024-12-23 16:00] VITALS: BP 148/66; PULSE 74; RESP 18; TEMP 36.2; O2SAT 99
--- NOTE | 2024-12-23 18:32 | PC.NURSE ---
Pt calm and cooperative with care this shift.
[2024-12-23 19:49] VITALS: BP 161/72; PULSE 84; RESP 18; TEMP 36.2; O2SAT 98
[2024-12-23] MEDS: traZODone HCL 25 MG HALFTAB PO (21:31)
[2024-12-24 04:00] VITALS: BP 133/62; PULSE 66; RESP 18; TEMP 36.2; O2SAT 93
[2024-12-24 08:00] VITALS: BP 133/61; PULSE 66; RESP 18; TEMP 36.7; O2SAT 98
--- NOTE | 2024-12-24 09:54 | P.PNIM_ITS ---
Subjective Subjective Date of Service: 12/24/24 Interval History: no new events Review of Systems Review of Systems: Yes all other systems are reviewed and are negative Physical Exam 2 Exam: Exam: Appearance: awake , comfortable cvs: rrr, [id number]. res: clear to auscultation ,no rhonchii or wheezing abd: no rebound or guarding ,nt, bs present. ext pulses present , no cyanosis. neuro:moves all ext Vital Signs: Vital Signs: Last Vital Signs Temp 98.1 F 12/24/24 08:00 Pulse 66 12/24/24 08:00 Resp 18 12/24/24 08:00 BP 133/61 12/24/24 08:00 Pulse Ox 98 12/24/24 08:00 O2 Del Method Room Air 12/24/24 08:00 O2 Flow Rate 2 11/12/24 09:51 BMI result Body Mass Index 18.4 Objective Data Active Medications Acetaminophen (Acetaminophen 325 Mg Tablet) 650 mg PO Q6H PRN PRN Reason: Pain, Mild 1-3,fever,headache Last Admin: 12/23/24 21:30 Dose: 650 mg Documented By: JACEY Amlodipine Besylate (Amlodipine Besylate 5 Mg Tablet) 5 mg PO DAILY [facility]; Protocol Last Admin: 12/24/24 08:42 Dose: 5 mg Documented By: NA Atorvastatin Calcium (Atorvastatin Calcium 80 Mg Tablet) 80 mg PO DAILY [facility] Last Admin: 12/24/24 08:42 Dose: 80 mg Documented By: NA Calcium Carbonate (Calcium Carbonate 750 Mg Tab.Chew) 750 mg PO Q4H PRN PRN Reason: Heartburn Clopidogrel Bisulfate (Clopidogrel Bisulfate 75 Mg Tablet) 75 mg PO DAILY [facility] Last Admin: 12/24/24 08:42 Dose: 75 mg Documented By: NA Finasteride (Finasteride 5 Mg Tablet) 5 mg PO DAILY [facility] Last Admin: 12/24/24 08:42 Dose: 5 mg Documented By: NA Folic Acid (Folic Acid 1 Mg Tablet) 1 mg PO DAILY [facility] Last Admin: 12/24/24 08:42 Dose: 1 mg Documented By: NA Heparin Sodium (Porcine) (Heparin Sodium,Porcine 5,000 Unit/Ml Vial) 5,000 unit SUBCUT Q12H [facility] Last Admin: 12/24/24 08:49 Dose: 5,000 unit Documented By: NA Hydralazine HCl (Hydralazine Hcl 20 Mg/Ml Vial) 5 mg IVPUSH Q6H PRN; Protocol PRN Reason: SBP>190 Magnesium Hydroxide (Milk Of Magnesia 30 Ml Oral.Susp) 30 ml PO DAILY PRN PRN Reason: Constipation Last Admin: 12/16/24 18:26 Dose: 30 ml Documented By: NAM Melatonin (Melatonin 3 Mg Tablet) 6 mg PO BEDTIME PRN PRN Reason: Insomnia Last Admin: 12/23/24 21:30 Dose: 6 mg Documented By: JACEY Quetiapine Fumarate (Quetiapine Fumarate 25 Mg Tablet) 25 mg PO TID [facility] Last Admin: 12/24/24 08:41 Dose: 25 mg Documented By: NA Tamsulosin HCl (Tamsulosin Hcl 0.4 Mg Capsule) 0.4 mg PO DAILY [facility] Last Admin: 12/24/24 08:42 Dose: 0.4 mg Documented By: NA Thiamine HCl (Thiamine Hcl 100 Mg Tablet) 100 mg PO DAILY [facility] Last Admin: 12/24/24 08:42 Dose: 100 mg Documented By: NA Trazodone HCl (Trazodone Hcl 25 Mg Halftab) 25 mg PO BEDTIME [facility] Last Admin: 12/23/24 21:31 Dose: 25 mg Documented By: JACEY Labs 11/23/24 05:33 12/09/24 05:23 Assessment and Plan (1) Frequent falls: Status: Acute Plan Elderly patient with advanced Alzheimer?s dementia, multiple comorbidities, and recent BARRIE/UTI now resolved, but with significant deconditioning and functional decline. Discharge planning is complicated by cognitive impairment and inability to follow directions. Awaiting placement for continued care and rehabilitation. Essentially no new issues Assessment and Plan 1. Acute Kidney Injury (BARRIE): * The patient experienced multifactorial BARRIE (prerenal, postrenal, and possible intrarenal components) in the setting of acute urinary retention and UTI. * Prerenal azotemia likely due to volume depletion and acute urinary retention, resolved with IV fluids. * Intrarenal component (possible ATN) likely secondary to UTI, now resolved after completing a 5-day course of Augmentin (completed 11/21/2024). * Postrenal component due to BPH and urinary retention; Chisholm catheter placed on 11/14/2024. * Plan: Continue to monitor renal function and urine output. Chisholm catheter to remain in place per Urology, with outpatient voiding trials planned after discharge. 2. Benign Prostatic Hyperplasia (BPH) and Acute Urinary Retention: * Acute urinary retention managed with Chisholm catheter. * Started on finasteride and tamsulosin per Urology recommendations. * eventual voiding trial 3. Urinary Tract Infection (UTI): * Streptococcal UTI treated with Augmentin, completed 11/21/2024. * No current signs or symptoms of ongoing infection. * Continue to monitor for recurrence, especially with indwelling Chisholm. 4. Falls and Physical Deconditioning: * Multiple recent falls at home, likely due to advanced cognitive decline, physical deconditioning, and overall declining health. * Patient is unable to follow basic directions, limiting rehabilitation potential and complicating discharge planning. * PT/OT consulted for ongoing assessment and therapy. * Fall precautions in place. * Continue B12 and folate supplementation. * fall on 12/17 : no injuries -please see note from same date. 5. Advanced Alzheimer?s Dementia: * Progressive cognitive decline with significant impairment in ADLs. * Daughter is primary historian and healthcare proxy. * Patient unable to participate in care planning or follow instructions, making short-term rehabilitation placement challenging. * Awaiting appropriate placement; case management involved. * adjusted seroquel to 25 mg tid ,may need to add olazapine prn if needed (please see psych note from 12/01/24) 6. Hypertension, Hyperlipidemia, History of CVA: * Continue home medications for blood pressure, lipid management, and secondary stroke prevention (on Plavix). * Monitor for any new neurological changes. 7. Prior Substance Use and Alcohol Use Disorder: * History noted; no acute withdrawal or related complications during this admission. 8. DVT Prophylaxis: * Continue prophylaxis with heparin while inpatient. poor intake Has had adequate nutritional intake p.o. discontinued PPN for now 9. Disposition: * Patient is medically stable after treatment of UTI and BARRIE but remains functionally and cognitively impaired. * Not safe for discharge home due to inability to follow directions and limited ADLs. * Awaiting placement in a facility capable of providing the necessary level of care and rehabilitation. * Case management and social work are actively involved in placement planning. DNR/DNI Quality Stroke Does the patient have a stroke diagnosis?: No VTE Prior VTE?: No VTE Risk Level:: Medical - moderate - high VTE Device Contraindication: Treatment Not Indicated VTE Drug Contraindication: N/A - Med Ordered
--- NOTE | 2024-12-24 09:54 | HO.PM.IMPN ---
Subjective Subjective Date of Service: 12/24/24 Interval History: no new events Review of Systems Review of Systems: Yes all other systems are reviewed and are negative Physical Exam Exam: Exam: Appearance: awake , comfortable cvs: [id number], [id number]. res: clear to auscultation ,no rhonchii or wheezing abd: no rebound or guarding ,nt, bs present. ext pulses present , no cyanosis. neuro:moves all ext Vital Signs: Vital Signs: Last Vital Signs Temp 98.1 F 12/24/24 08:00 Pulse 66 12/24/24 08:00 Resp 18 12/24/24 08:00 BP 133/61 12/24/24 08:00 Pulse Ox 98 12/24/24 08:00 O2 Del Method Room Air 12/24/24 08:00 O2 Flow Rate 2 11/12/24 09:51 BMI result Body Mass Index 18.4 Objective Data Active Medications Acetaminophen (Acetaminophen 325 Mg Tablet) 650 mg PO Q6H PRN PRN Reason: Pain, Mild 1-3,fever,headache Last Admin: 12/23/24 21:30 Dose: 650 mg Documented By: JACEY Amlodipine Besylate (Amlodipine Besylate 5 Mg Tablet) 5 mg PO DAILY [facility]; Protocol Last Admin: 12/24/24 08:42 Dose: 5 mg Documented By: NA Atorvastatin Calcium (Atorvastatin Calcium 80 Mg Tablet) 80 mg PO DAILY [facility] Last Admin: 12/24/24 08:42 Dose: 80 mg Documented By: NA Calcium Carbonate (Calcium Carbonate 750 Mg Tab.Chew) 750 mg PO Q4H PRN PRN Reason: Heartburn Clopidogrel Bisulfate (Clopidogrel Bisulfate 75 Mg Tablet) 75 mg PO DAILY [facility] Last Admin: 12/24/24 08:42 Dose: 75 mg Documented By: NA Finasteride (Finasteride 5 Mg Tablet) 5 mg PO DAILY [facility] Last Admin: 12/24/24 08:42 Dose: 5 mg Documented By: NA Folic Acid (Folic Acid 1 Mg Tablet) 1 mg PO DAILY [facility] Last Admin: 12/24/24 08:42 Dose: 1 mg Documented By: NA Heparin Sodium (Porcine) (Heparin Sodium,Porcine 5,000 Unit/Ml Vial) 5,000 unit SUBCUT Q12H [facility] Last Admin: 12/24/24 08:49 Dose: 5,000 unit Documented By: NA Hydralazine HCl (Hydralazine Hcl 20 Mg/Ml Vial) 5 mg IVPUSH Q6H PRN; Protocol PRN Reason: SBP>190 Magnesium Hydroxide (Milk Of Magnesia 30 Ml Oral.Susp) 30 ml PO DAILY PRN PRN Reason: Constipation Last Admin: 12/16/24 18:26 Dose: 30 ml Documented By: MAYITONM Melatonin (Melatonin 3 Mg Tablet) 6 mg PO BEDTIME PRN PRN Reason: Insomnia Last Admin: 12/23/24 21:30 Dose: 6 mg Documented By: JACEY Quetiapine Fumarate (Quetiapine Fumarate 25 Mg Tablet) 25 mg PO TID [facility] Last Admin: 12/24/24 08:41 Dose: 25 mg Documented By: NA Tamsulosin HCl (Tamsulosin Hcl 0.4 Mg Capsule) 0.4 mg PO DAILY [facility] Last Admin: 12/24/24 08:42 Dose: 0.4 mg Documented By: NA Thiamine HCl (Thiamine Hcl 100 Mg Tablet) 100 mg PO DAILY [facility] Last Admin: 12/24/24 08:42 Dose: 100 mg Documented By: NA Trazodone HCl (Trazodone Hcl 25 Mg Halftab) 25 mg PO BEDTIME [facility] Last Admin: 12/23/24 21:31 Dose: 25 mg Documented By: JACEY Labs 11/23/24 05:33 12/09/24 05:23 Assessment and Plan (1) Frequent falls: Status: Acute Plan Elderly patient with advanced Alzheimer?s dementia, multiple comorbidities, and recent BARRIE/UTI now resolved, but with significant deconditioning and functional decline. Discharge planning is complicated by cognitive impairment and inability to follow directions. Awaiting placement for continued care and rehabilitation. Essentially no new issues Assessment and Plan 1. Acute Kidney Injury (BARRIE): The patient experienced multifactorial BARRIE (prerenal, postrenal, and possible intrarenal components) in the setting of acute urinary retention and UTI. Prerenal azotemia likely due to volume depletion and acute urinary retention, resolved with IV fluids. Intrarenal component (possible ATN) likely secondary to UTI, now resolved after completing a 5-day course of Augmentin (completed 11/21/2024). Postrenal component due to BPH and urinary retention; Chisholm catheter placed on 11/14/2024. Plan: Continue to monitor renal function and urine output. Chisholm catheter to remain in place per Urology, with outpatient voiding trials planned after discharge. 2. Benign Prostatic Hyperplasia (BPH) and Acute Urinary Retention: Acute urinary retention managed with Chisholm catheter. Started on finasteride and tamsulosin per Urology recommendations. eventual voiding trial 3. Urinary Tract Infection (UTI): Streptococcal UTI treated with Augmentin, completed 11/21/2024. No current signs or symptoms of ongoing infection. Continue to monitor for recurrence, especially with indwelling Chisholm. 4. Falls and Physical Deconditioning: Multiple recent falls at home, likely due to advanced cognitive decline, physical deconditioning, and overall declining health. Patient is unable to follow basic directions, limiting rehabilitation potential and complicating discharge planning. PT/OT consulted for ongoing assessment and therapy. Fall precautions in place. Continue B12 and folate supplementation. fall on 12/17 : no injuries -please see note from same date. 5. Advanced Alzheimer?s Dementia: Progressive cognitive decline with significant impairment in ADLs. Daughter is primary historian and healthcare proxy. Patient unable to participate in care planning or follow instructions, making short-term rehabilitation placement challenging. Awaiting appropriate placement; case management involved. adjusted seroquel to 25 mg tid ,may need to add olazapine prn if needed (please see psych note from 12/01/24) 6. Hypertension, Hyperlipidemia, History of CVA: Continue home medications for blood pressure, lipid management, and secondary stroke prevention (on Plavix). Monitor for any new neurological changes. 7. Prior Substance Use and Alcohol Use Disorder: History noted; no acute withdrawal or related complications during this admission. 8. DVT Prophylaxis: Continue prophylaxis with heparin while inpatient. poor intake Has had adequate nutritional intake p.o. discontinued PPN for now 9. Disposition: Patient is medically stable after treatment of UTI and BARRIE but remains functionally and cognitively impaired. Not safe for discharge home due to inability to follow directions and limited ADLs. Awaiting placement in a facility capable of providing the necessary level of care and rehabilitation. Case management and social work are actively involved in placement planning. DNR/DNI Quality Stroke Does the patient have a stroke diagnosis?: No VTE Prior VTE?: No VTE Risk Level:: Medical - moderate - high VTE Device Contraindication: Treatment Not Indicated VTE Drug Contraindication: N/A - Med Ordered
[2024-12-24 16:00] VITALS: BP 139/60; PULSE 77; RESP 18; TEMP 36.2; O2SAT 98
[2024-12-24 19:50] VITALS: BP 137/63; PULSE 89; RESP 16; TEMP 36.7; O2SAT 99
[2024-12-24] MEDS: traZODone HCL 25 MG HALFTAB PO (20:05)
[2024-12-25 03:14] VITALS: BP 115/55; PULSE 62; RESP 15; TEMP 36.1; O2SAT 99
[2024-12-25 07:56] VITALS: BP 113/57; PULSE 63; RESP 12; TEMP 36.6; O2SAT 98
--- NOTE | 2024-12-25 08:05 | P.PNIM_ITS ---
Subjective Subjective Date of Service: 12/25/24 Interval History: no new events Review of Systems Review of Systems: Yes all other systems are reviewed and are negative Physical Exam 2 Exam: Exam: Appearance: awake , comfortable cvs: [id number], [id number]. res: clear to auscultation ,no rhonchii or wheezing abd: no rebound or guarding ,nt, bs present. ext pulses present , no cyanosis. neuro:moves all ext Vital Signs: Vital Signs: Last Vital Signs Temp 97.9 F 12/25/24 07:56 Pulse 63 12/25/24 07:56 Resp 12 12/25/24 07:56 BP 113/57 L 12/25/24 07:56 Pulse Ox 98 12/25/24 07:56 O2 Del Method Room Air 12/25/24 07:56 O2 Flow Rate 2 11/12/24 09:51 BMI result Body Mass Index 18.4 Objective Data Active Medications Acetaminophen (Acetaminophen 325 Mg Tablet) 650 mg PO Q6H PRN PRN Reason: Pain, Mild 1-3,fever,headache Last Admin: 12/24/24 20:05 Dose: 650 mg Documented By: BRIE Amlodipine Besylate (Amlodipine Besylate 5 Mg Tablet) 5 mg PO DAILY [facility]; Protocol Last Admin: 12/24/24 08:42 Dose: 5 mg Documented By: NA Atorvastatin Calcium (Atorvastatin Calcium 80 Mg Tablet) 80 mg PO DAILY [facility] Last Admin: 12/24/24 08:42 Dose: 80 mg Documented By: NA Calcium Carbonate (Calcium Carbonate 750 Mg Tab.Chew) 750 mg PO Q4H PRN PRN Reason: Heartburn Clopidogrel Bisulfate (Clopidogrel Bisulfate 75 Mg Tablet) 75 mg PO DAILY [facility] Last Admin: 12/24/24 08:42 Dose: 75 mg Documented By: NA Finasteride (Finasteride 5 Mg Tablet) 5 mg PO DAILY [facility] Last Admin: 12/24/24 08:42 Dose: 5 mg Documented By: NA Folic Acid (Folic Acid 1 Mg Tablet) 1 mg PO DAILY [facility] Last Admin: 12/24/24 08:42 Dose: 1 mg Documented By: NA Heparin Sodium (Porcine) (Heparin Sodium,Porcine 5,000 Unit/Ml Vial) 5,000 unit SUBCUT Q12H [facility] Last Admin: 12/24/24 20:04 Dose: 5,000 unit Documented By: BRIE Hydralazine HCl (Hydralazine Hcl 20 Mg/Ml Vial) 5 mg IVPUSH Q6H PRN; Protocol PRN Reason: SBP>190 Magnesium Hydroxide (Milk Of Magnesia 30 Ml Oral.Susp) 30 ml PO DAILY PRN PRN Reason: Constipation Last Admin: 12/16/24 18:26 Dose: 30 ml Documented By: NAM Melatonin (Melatonin 3 Mg Tablet) 6 mg PO BEDTIME PRN PRN Reason: Insomnia Last Admin: 12/24/24 20:05 Dose: 6 mg Documented By: BRIE Quetiapine Fumarate (Quetiapine Fumarate 25 Mg Tablet) 25 mg PO TID [facility] Last Admin: 12/24/24 20:05 Dose: 25 mg Documented By: BRIE Tamsulosin HCl (Tamsulosin Hcl 0.4 Mg Capsule) 0.4 mg PO DAILY [facility] Last Admin: 12/24/24 08:42 Dose: 0.4 mg Documented By: NA Thiamine HCl (Thiamine Hcl 100 Mg Tablet) 100 mg PO DAILY [facility] Last Admin: 12/24/24 08:42 Dose: 100 mg Documented By: NA Trazodone HCl (Trazodone Hcl 25 Mg Halftab) 25 mg PO BEDTIME [facility] Last Admin: 12/24/24 20:05 Dose: 25 mg Documented By: BRIE Labs 11/23/24 05:33 12/09/24 05:23 Assessment and Plan (1) Frequent falls: Status: Acute Plan Elderly patient with advanced Alzheimer?s dementia, multiple comorbidities, and recent BARRIE/UTI now resolved, but with significant deconditioning and functional decline. Discharge planning is complicated by cognitive impairment and inability to follow directions. Awaiting placement for continued care and rehabilitation. Essentially no new issues Assessment and Plan 1. Acute Kidney Injury (BARRIE): * The patient experienced multifactorial BARRIE (prerenal, postrenal, and possible intrarenal components) in the setting of acute urinary retention and UTI. * Prerenal azotemia likely due to volume depletion and acute urinary retention, resolved with IV fluids. * Intrarenal component (possible ATN) likely secondary to UTI, now resolved after completing a 5-day course of Augmentin (completed 11/21/2024). * Postrenal component due to BPH and urinary retention; Chisholm catheter placed on 11/14/2024. * Plan: Continue to monitor renal function and urine output. Chisholm catheter to remain in place per Urology, with outpatient voiding trials planned after discharge. 2. Benign Prostatic Hyperplasia (BPH) and Acute Urinary Retention: * Acute urinary retention managed with Chisholm catheter. * Started on finasteride and tamsulosin per Urology recommendations. * eventual voiding trial 3. Urinary Tract Infection (UTI): * Streptococcal UTI treated with Augmentin, completed 11/21/2024. * No current signs or symptoms of ongoing infection. * Continue to monitor for recurrence, especially with indwelling Chisholm. 4. Falls and Physical Deconditioning: * Multiple recent falls at home, likely due to advanced cognitive decline, physical deconditioning, and overall declining health. * Patient is unable to follow basic directions, limiting rehabilitation potential and complicating discharge planning. * PT/OT consulted for ongoing assessment and therapy. * Fall precautions in place. * Continue B12 and folate supplementation. * fall on 12/17 : no injuries -please see note from same date. 5. Advanced Alzheimer?s Dementia: * Progressive cognitive decline with significant impairment in ADLs. * Daughter is primary historian and healthcare proxy. * Patient unable to participate in care planning or follow instructions, making short-term rehabilitation placement challenging. * Awaiting appropriate placement; case management involved. * adjusted seroquel to 25 mg tid ,may need to add olazapine prn if needed (please see psych note from 12/01/24) 6. Hypertension, Hyperlipidemia, History of CVA: * Continue home medications for blood pressure, lipid management, and secondary stroke prevention (on Plavix). * Monitor for any new neurological changes. 7. Prior Substance Use and Alcohol Use Disorder: * History noted; no acute withdrawal or related complications during this admission. 8. DVT Prophylaxis: * Continue prophylaxis with heparin while inpatient. poor intake Has had adequate nutritional intake p.o. discontinued PPN for now 9. Disposition: * Patient is medically stable after treatment of UTI and BARRIE but remains functionally and cognitively impaired. * Not safe for discharge home due to inability to follow directions and limited ADLs. * Awaiting placement in a facility capable of providing the necessary level of care and rehabilitation. * Case management and social work are actively involved in placement planning. DNR/DNI Quality Stroke Does the patient have a stroke diagnosis?: No VTE Prior VTE?: No VTE Risk Level:: Medical - moderate - high VTE Device Contraindication: Treatment Not Indicated VTE Drug Contraindication: N/A - Med Ordered
--- NOTE | 2024-12-25 08:05 | HO.PM.IMPN ---
Subjective Subjective Date of Service: 12/25/24 Interval History: no new events Review of Systems Review of Systems: Yes all other systems are reviewed and are negative Physical Exam Exam: Exam: Appearance: awake , comfortable cvs: rrr, [id number]. res: clear to auscultation ,no rhonchii or wheezing abd: no rebound or guarding ,nt, bs present. ext pulses present , no cyanosis. neuro:moves all ext Vital Signs: Vital Signs: Last Vital Signs Temp 97.9 F 12/25/24 07:56 Pulse 63 12/25/24 07:56 Resp 12 12/25/24 07:56 BP 113/57 L 12/25/24 07:56 Pulse Ox 98 12/25/24 07:56 O2 Del Method Room Air 12/25/24 07:56 O2 Flow Rate 2 11/12/24 09:51 BMI result Body Mass Index 18.4 Objective Data Active Medications Acetaminophen (Acetaminophen 325 Mg Tablet) 650 mg PO Q6H PRN PRN Reason: Pain, Mild 1-3,fever,headache Last Admin: 12/24/24 20:05 Dose: 650 mg Documented By: BRIE Amlodipine Besylate (Amlodipine Besylate 5 Mg Tablet) 5 mg PO DAILY [facility]; Protocol Last Admin: 12/24/24 08:42 Dose: 5 mg Documented By: NA Atorvastatin Calcium (Atorvastatin Calcium 80 Mg Tablet) 80 mg PO DAILY [facility] Last Admin: 12/24/24 08:42 Dose: 80 mg Documented By: NA Calcium Carbonate (Calcium Carbonate 750 Mg Tab.Chew) 750 mg PO Q4H PRN PRN Reason: Heartburn Clopidogrel Bisulfate (Clopidogrel Bisulfate 75 Mg Tablet) 75 mg PO DAILY [facility] Last Admin: 12/24/24 08:42 Dose: 75 mg Documented By: NA Finasteride (Finasteride 5 Mg Tablet) 5 mg PO DAILY [facility] Last Admin: 12/24/24 08:42 Dose: 5 mg Documented By: NA Folic Acid (Folic Acid 1 Mg Tablet) 1 mg PO DAILY [facility] Last Admin: 12/24/24 08:42 Dose: 1 mg Documented By: NA Heparin Sodium (Porcine) (Heparin Sodium,Porcine 5,000 Unit/Ml Vial) 5,000 unit SUBCUT Q12H [facility] Last Admin: 12/24/24 20:04 Dose: 5,000 unit Documented By: BRIE Hydralazine HCl (Hydralazine Hcl 20 Mg/Ml Vial) 5 mg IVPUSH Q6H PRN; Protocol PRN Reason: SBP>190 Magnesium Hydroxide (Milk Of Magnesia 30 Ml Oral.Susp) 30 ml PO DAILY PRN PRN Reason: Constipation Last Admin: 12/16/24 18:26 Dose: 30 ml Documented By: NAM Melatonin (Melatonin 3 Mg Tablet) 6 mg PO BEDTIME PRN PRN Reason: Insomnia Last Admin: 12/24/24 20:05 Dose: 6 mg Documented By: BRIE Quetiapine Fumarate (Quetiapine Fumarate 25 Mg Tablet) 25 mg PO TID [facility] Last Admin: 12/24/24 20:05 Dose: 25 mg Documented By: BRIE Tamsulosin HCl (Tamsulosin Hcl 0.4 Mg Capsule) 0.4 mg PO DAILY [facility] Last Admin: 12/24/24 08:42 Dose: 0.4 mg Documented By: NA Thiamine HCl (Thiamine Hcl 100 Mg Tablet) 100 mg PO DAILY [facility] Last Admin: 12/24/24 08:42 Dose: 100 mg Documented By: NA Trazodone HCl (Trazodone Hcl 25 Mg Halftab) 25 mg PO BEDTIME [facility] Last Admin: 12/24/24 20:05 Dose: 25 mg Documented By: BRIE Labs 11/23/24 05:33 12/09/24 05:23 Assessment and Plan (1) Frequent falls: Status: Acute Plan Elderly patient with advanced Alzheimer?s dementia, multiple comorbidities, and recent BARRIE/UTI now resolved, but with significant deconditioning and functional decline. Discharge planning is complicated by cognitive impairment and inability to follow directions. Awaiting placement for continued care and rehabilitation. Essentially no new issues Assessment and Plan 1. Acute Kidney Injury (BARRIE): The patient experienced multifactorial BARRIE (prerenal, postrenal, and possible intrarenal components) in the setting of acute urinary retention and UTI. Prerenal azotemia likely due to volume depletion and acute urinary retention, resolved with IV fluids. Intrarenal component (possible ATN) likely secondary to UTI, now resolved after completing a 5-day course of Augmentin (completed 11/21/2024). Postrenal component due to BPH and urinary retention; Chisholm catheter placed on 11/14/2024. Plan: Continue to monitor renal function and urine output. Chisholm catheter to remain in place per Urology, with outpatient voiding trials planned after discharge. 2. Benign Prostatic Hyperplasia (BPH) and Acute Urinary Retention: Acute urinary retention managed with Chisholm catheter. Started on finasteride and tamsulosin per Urology recommendations. eventual voiding trial 3. Urinary Tract Infection (UTI): Streptococcal UTI treated with Augmentin, completed 11/21/2024. No current signs or symptoms of ongoing infection. Continue to monitor for recurrence, especially with indwelling Chisholm. 4. Falls and Physical Deconditioning: Multiple recent falls at home, likely due to advanced cognitive decline, physical deconditioning, and overall declining health. Patient is unable to follow basic directions, limiting rehabilitation potential and complicating discharge planning. PT/OT consulted for ongoing assessment and therapy. Fall precautions in place. Continue B12 and folate supplementation. fall on 12/17 : no injuries -please see note from same date. 5. Advanced Alzheimer?s Dementia: Progressive cognitive decline with significant impairment in ADLs. Daughter is primary historian and healthcare proxy. Patient unable to participate in care planning or follow instructions, making short-term rehabilitation placement challenging. Awaiting appropriate placement; case management involved. adjusted seroquel to 25 mg tid ,may need to add olazapine prn if needed (please see psych note from 12/01/24) 6. Hypertension, Hyperlipidemia, History of CVA: Continue home medications for blood pressure, lipid management, and secondary stroke prevention (on Plavix). Monitor for any new neurological changes. 7. Prior Substance Use and Alcohol Use Disorder: History noted; no acute withdrawal or related complications during this admission. 8. DVT Prophylaxis: Continue prophylaxis with heparin while inpatient. poor intake Has had adequate nutritional intake p.o. discontinued PPN for now 9. Disposition: Patient is medically stable after treatment of UTI and BARRIE but remains functionally and cognitively impaired. Not safe for discharge home due to inability to follow directions and limited ADLs. Awaiting placement in a facility capable of providing the necessary level of care and rehabilitation. Case management and social work are actively involved in placement planning. DNR/DNI Quality Stroke Does the patient have a stroke diagnosis?: No VTE Prior VTE?: No VTE Risk Level:: Medical - moderate - high VTE Device Contraindication: Treatment Not Indicated VTE Drug Contraindication: N/A - Med Ordered
[2024-12-25 16:00] VITALS: BP 122/61; PULSE 76; RESP 19; TEMP 36.3; O2SAT 99
--- NOTE | 2024-12-25 16:11 | MHC.CM.PN ---
PT AWAITING [facility] FOR LTC PLACEMENT PER [facility] [place] FS, ALL PIECES RECEIVED BY EXCEPT APPLICATION WHICH WAS RESENT FS WILL FOLLOW UP ONCE CONFIRMATION OF RECEIPT IS RECEIVED FROM [facility]
[2024-12-25 19:27] VITALS: BP 110/54; PULSE 85; RESP 16; TEMP 36.8; O2SAT 96
[2024-12-25] MEDS: traZODone HCL 25 MG HALFTAB PO (20:21)
[2024-12-26 04:00] VITALS: RESP 16
--- NOTE | 2024-12-26 08:40 | P.PNIM_ITS ---
Subjective Subjective Date of Service: 12/26/24 Interval History: no new events Review of Systems Review of Systems: Yes all other systems are reviewed and are negative Physical Exam 2 Exam: Exam: Appearance: awake , comfortable cvs: rrr, [id number]. res: clear to auscultation ,no rhonchii or wheezing abd: no rebound or guarding ,nt, bs present. ext pulses present , no cyanosis. neuro:moves all ext Vital Signs: Vital Signs: Last Vital Signs Temp 98.2 F 12/25/24 19: Pulse 85 12/25/24 19: Resp 16 12/26/24 04:00 BP 110/54 L 12/25/24 19: Pulse Ox 96 12/25/24 19: O2 Del Method Room Air 12/25/24 19: O2 Flow Rate 2 11/12/24 09:51 BMI result Body Mass Index 18.4 Objective Data Active Medications Acetaminophen (Acetaminophen 325 Mg Tablet) 650 mg PO Q6H PRN PRN Reason: Pain, Mild 1-3,fever,headache Last Admin: 12/25/24 20:21 Dose: 650 mg Documented By: BRIE Amlodipine Besylate (Amlodipine Besylate 5 Mg Tablet) 5 mg PO DAILY [facility]; Protocol Last Admin: 12/25/24 08:56 Dose: 5 mg Documented By: NADIR Atorvastatin Calcium (Atorvastatin Calcium 80 Mg Tablet) 80 mg PO DAILY [facility] Last Admin: 12/25/24 08:56 Dose: 80 mg Documented By: NADIR Calcium Carbonate (Calcium Carbonate 750 Mg Tab.Chew) 750 mg PO Q4H PRN PRN Reason: Heartburn Clopidogrel Bisulfate (Clopidogrel Bisulfate 75 Mg Tablet) 75 mg PO DAILY [facility] Last Admin: 12/25/24 08:56 Dose: 75 mg Documented By: NADIR Finasteride (Finasteride 5 Mg Tablet) 5 mg PO DAILY [facility] Last Admin: 12/25/24 08:56 Dose: 5 mg Documented By: NADIR Folic Acid (Folic Acid 1 Mg Tablet) 1 mg PO DAILY [facility] Last Admin: 12/25/24 08:56 Dose: 1 mg Documented By: NADIR Heparin Sodium (Porcine) (Heparin Sodium,Porcine 5,000 Unit/Ml Vial) 5,000 unit SUBCUT Q12H [facility] Last Admin: 12/25/24 20:22 Dose: 5,000 unit Documented By: BRIE Hydralazine HCl (Hydralazine Hcl 20 Mg/Ml Vial) 5 mg IVPUSH Q6H PRN; Protocol PRN Reason: SBP>190 Magnesium Hydroxide (Milk Of Magnesia 30 Ml Oral.Susp) 30 ml PO DAILY PRN PRN Reason: Constipation Last Admin: 12/16/24 18:26 Dose: 30 ml Documented By: NAM Melatonin (Melatonin 3 Mg Tablet) 6 mg PO BEDTIME PRN PRN Reason: Insomnia Last Admin: 12/25/24 20:21 Dose: 6 mg Documented By: BRIE Quetiapine Fumarate (Quetiapine Fumarate 25 Mg Tablet) 25 mg PO TID [facility] Last Admin: 12/25/24 20:22 Dose: 25 mg Documented By: BRIE Tamsulosin HCl (Tamsulosin Hcl 0.4 Mg Capsule) 0.4 mg PO DAILY [facility] Last Admin: 12/25/24 08:56 Dose: 0.4 mg Documented By: NADIR Thiamine HCl (Thiamine Hcl 100 Mg Tablet) 100 mg PO DAILY [facility] Last Admin: 12/25/24 08:56 Dose: 100 mg Documented By: NADIR Trazodone HCl (Trazodone Hcl 25 Mg Halftab) 25 mg PO BEDTIME [facility] Last Admin: 12/25/24 20:21 Dose: 25 mg Documented By: BRIE Labs 11/23/24 05:33 12/09/24 05:23 Assessment and Plan (1) Frequent falls: Status: Acute Plan Elderly patient with advanced Alzheimer?s dementia, multiple comorbidities, and recent BARRIE/UTI now resolved, but with significant deconditioning and functional decline. Discharge planning is complicated by cognitive impairment and inability to follow directions. Awaiting placement for continued care and rehabilitation. Essentially no new issues Assessment and Plan 1. Acute Kidney Injury (BARRIE): * The patient experienced multifactorial BARRIE (prerenal, postrenal, and possible intrarenal components) in the setting of acute urinary retention and UTI. * Prerenal azotemia likely due to volume depletion and acute urinary retention, resolved with IV fluids. * Intrarenal component (possible ATN) likely secondary to UTI, now resolved after completing a 5-day course of Augmentin (completed 11/21/2024). * Postrenal component due to BPH and urinary retention; Chisholm catheter placed on 11/14/2024. * Plan: Continue to monitor renal function and urine output. Chisholm catheter to remain in place per Urology, with outpatient voiding trials planned after discharge. 2. Benign Prostatic Hyperplasia (BPH) and Acute Urinary Retention: * Acute urinary retention managed with Chisholm catheter. * Started on finasteride and tamsulosin per Urology recommendations. * eventual voiding trial 3. Urinary Tract Infection (UTI): * Streptococcal UTI treated with Augmentin, completed 11/21/2024. * No current signs or symptoms of ongoing infection. * Continue to monitor for recurrence, especially with indwelling Chisholm. 4. Falls and Physical Deconditioning: * Multiple recent falls at home, likely due to advanced cognitive decline, physical deconditioning, and overall declining health. * Patient is unable to follow basic directions, limiting rehabilitation potential and complicating discharge planning. * PT/OT consulted for ongoing assessment and therapy. * Fall precautions in place. * Continue B12 and folate supplementation. * fall on 12/17 : no injuries -please see note from same date. 5. Advanced Alzheimer?s Dementia: * Progressive cognitive decline with significant impairment in ADLs. * Daughter is primary historian and healthcare proxy. * Patient unable to participate in care planning or follow instructions, making short-term rehabilitation placement challenging. * Awaiting appropriate placement; case management involved. * adjusted seroquel to 25 mg tid ,may need to add olazapine prn if needed (please see psych note from 12/01/24) 6. Hypertension, Hyperlipidemia, History of CVA: * Continue home medications for blood pressure, lipid management, and secondary stroke prevention (on Plavix). * Monitor for any new neurological changes. 7. Prior Substance Use and Alcohol Use Disorder: * History noted; no acute withdrawal or related complications during this admission. 8. DVT Prophylaxis: * Continue prophylaxis with heparin while inpatient. poor intake Has had adequate nutritional intake p.o. discontinued PPN for now 9. Disposition: * Patient is medically stable after treatment of UTI and BARRIE but remains functionally and cognitively impaired. * Not safe for discharge home due to inability to follow directions and limited ADLs. * Awaiting placement in a facility capable of providing the necessary level of care and rehabilitation. * Case management and social work are actively involved in placement planning. DNR/DNI Quality Stroke Does the patient have a stroke diagnosis?: No VTE Prior VTE?: No VTE Risk Level:: Medical - moderate - high VTE Device Contraindication: Treatment Not Indicated VTE Drug Contraindication: N/A - Med Ordered
--- NOTE | 2024-12-26 08:40 | HO.PM.IMPN ---
Subjective Subjective Date of Service: 12/26/24 Interval History: no new events Review of Systems Review of Systems: Yes all other systems are reviewed and are negative Physical Exam Exam: Exam: Appearance: awake , comfortable cvs: rrr, [id number]. res: clear to auscultation ,no rhonchii or wheezing abd: no rebound or guarding ,nt, bs present. ext pulses present , no cyanosis. neuro:moves all ext Vital Signs: Vital Signs: Last Vital Signs Temp 98.2 F 12/25/24 19: Pulse 85 12/25/24 19:27 Resp 16 12/26/24 04:00 BP 110/54 L 12/25/24 19: Pulse Ox 96 12/25/24 19: O2 Del Method Room Air 12/25/24 19: O2 Flow Rate 2 11/12/24 09:51 BMI result Body Mass Index 18.4 Objective Data Active Medications Acetaminophen (Acetaminophen 325 Mg Tablet) 650 mg PO Q6H PRN PRN Reason: Pain, Mild 1-3,fever,headache Last Admin: 12/25/24 20:21 Dose: 650 mg Documented By: BRIE Amlodipine Besylate (Amlodipine Besylate 5 Mg Tablet) 5 mg PO DAILY [facility]; Protocol Last Admin: 12/25/24 08:56 Dose: 5 mg Documented By: NADIR Atorvastatin Calcium (Atorvastatin Calcium 80 Mg Tablet) 80 mg PO DAILY [facility] Last Admin: 12/25/24 08:56 Dose: 80 mg Documented By: NADIR Calcium Carbonate (Calcium Carbonate 750 Mg Tab.Chew) 750 mg PO Q4H PRN PRN Reason: Heartburn Clopidogrel Bisulfate (Clopidogrel Bisulfate 75 Mg Tablet) 75 mg PO DAILY [facility] Last Admin: 12/25/24 08:56 Dose: 75 mg Documented By: NADIR Finasteride (Finasteride 5 Mg Tablet) 5 mg PO DAILY [facility] Last Admin: 12/25/24 08:56 Dose: 5 mg Documented By: NADIR Folic Acid (Folic Acid 1 Mg Tablet) 1 mg PO DAILY [facility] Last Admin: 12/25/24 08:56 Dose: 1 mg Documented By: NADIR Heparin Sodium (Porcine) (Heparin Sodium,Porcine 5,000 Unit/Ml Vial) 5,000 unit SUBCUT Q12H [facility] Last Admin: 12/25/24 20:22 Dose: 5,000 unit Documented By: BRIE Hydralazine HCl (Hydralazine Hcl 20 Mg/Ml Vial) 5 mg IVPUSH Q6H PRN; Protocol PRN Reason: SBP>190 Magnesium Hydroxide (Milk Of Magnesia 30 Ml Oral.Susp) 30 ml PO DAILY PRN PRN Reason: Constipation Last Admin: 12/16/24 18:26 Dose: 30 ml Documented By: NAM Melatonin (Melatonin 3 Mg Tablet) 6 mg PO BEDTIME PRN PRN Reason: Insomnia Last Admin: 12/25/24 20:21 Dose: 6 mg Documented By: BRIE Quetiapine Fumarate (Quetiapine Fumarate 25 Mg Tablet) 25 mg PO TID [facility] Last Admin: 12/25/24 20:22 Dose: 25 mg Documented By: BRIE Tamsulosin HCl (Tamsulosin Hcl 0.4 Mg Capsule) 0.4 mg PO DAILY [facility] Last Admin: 12/25/24 08:56 Dose: 0.4 mg Documented By: NADIR Thiamine HCl (Thiamine Hcl 100 Mg Tablet) 100 mg PO DAILY [facility] Last Admin: 12/25/24 08:56 Dose: 100 mg Documented By: NADRI Trazodone HCl (Trazodone Hcl 25 Mg Halftab) 25 mg PO BEDTIME [facility] Last Admin: 12/25/24 20:21 Dose: 25 mg Documented By: BRIE Labs 11/23/24 05:33 12/09/24 05:23 Assessment and Plan (1) Frequent falls: Status: Acute Plan Elderly patient with advanced Alzheimer?s dementia, multiple comorbidities, and recent BARRIE/UTI now resolved, but with significant deconditioning and functional decline. Discharge planning is complicated by cognitive impairment and inability to follow directions. Awaiting placement for continued care and rehabilitation. Essentially no new issues Assessment and Plan 1. Acute Kidney Injury (BARRIE): The patient experienced multifactorial BARRIE (prerenal, postrenal, and possible intrarenal components) in the setting of acute urinary retention and UTI. Prerenal azotemia likely due to volume depletion and acute urinary retention, resolved with IV fluids. Intrarenal component (possible ATN) likely secondary to UTI, now resolved after completing a 5-day course of Augmentin (completed 11/21/2024). Postrenal component due to BPH and urinary retention; Chisholm catheter placed on 11/14/2024. Plan: Continue to monitor renal function and urine output. Chisholm catheter to remain in place per Urology, with outpatient voiding trials planned after discharge. 2. Benign Prostatic Hyperplasia (BPH) and Acute Urinary Retention: Acute urinary retention managed with Chisholm catheter. Started on finasteride and tamsulosin per Urology recommendations. eventual voiding trial 3. Urinary Tract Infection (UTI): Streptococcal UTI treated with Augmentin, completed 11/21/2024. No current signs or symptoms of ongoing infection. Continue to monitor for recurrence, especially with indwelling Chisholm. 4. Falls and Physical Deconditioning: Multiple recent falls at home, likely due to advanced cognitive decline, physical deconditioning, and overall declining health. Patient is unable to follow basic directions, limiting rehabilitation potential and complicating discharge planning. PT/OT consulted for ongoing assessment and therapy. Fall precautions in place. Continue B12 and folate supplementation. fall on 12/17 : no injuries -please see note from same date. 5. Advanced Alzheimer?s Dementia: Progressive cognitive decline with significant impairment in ADLs. Daughter is primary historian and healthcare proxy. Patient unable to participate in care planning or follow instructions, making short-term rehabilitation placement challenging. Awaiting appropriate placement; case management involved. adjusted seroquel to 25 mg tid ,may need to add olazapine prn if needed (please see psych note from 12/01/24) 6. Hypertension, Hyperlipidemia, History of CVA: Continue home medications for blood pressure, lipid management, and secondary stroke prevention (on Plavix). Monitor for any new neurological changes. 7. Prior Substance Use and Alcohol Use Disorder: History noted; no acute withdrawal or related complications during this admission. 8. DVT Prophylaxis: Continue prophylaxis with heparin while inpatient. poor intake Has had adequate nutritional intake p.o. discontinued PPN for now 9. Disposition: Patient is medically stable after treatment of UTI and BARRIE but remains functionally and cognitively impaired. Not safe for discharge home due to inability to follow directions and limited ADLs. Awaiting placement in a facility capable of providing the necessary level of care and rehabilitation. Case management and social work are actively involved in placement planning. DNR/DNI Quality Stroke Does the patient have a stroke diagnosis?: No VTE Prior VTE?: No VTE Risk Level:: Medical - moderate - high VTE Device Contraindication: Treatment Not Indicated VTE Drug Contraindication: N/A - Med Ordered
[2024-12-26 09:10] VITALS: BP 123/60; PULSE 80; RESP 18; TEMP 37; O2SAT 96
[2024-12-26 15:17] VITALS: BP 135/60; PULSE 74; RESP 17; TEMP 37.2; O2SAT 97
--- NOTE | 2024-12-26 15:48 | PC.NURSE ---
Chisholm removed and voiding trial started at 10:30 AM. by 3:30 pm patient has not voided and bladder was scanned for 140ml. Will continue to monitor for urine output and rescan in 6 hours (9:30pm)
[2024-12-26 18:55] VITALS: BP 120/60; PULSE 79; RESP 17; TEMP 37.1; O2SAT 96
[2024-12-26] MEDS: traZODone HCL 25 MG HALFTAB PO (20:10)
[2024-12-27 04:00] VITALS: BP 114/55; PULSE 66; RESP 18; TEMP 36.8; O2SAT 98
[2024-12-27 07:08] VITALS: BP 120/64; PULSE 68; RESP 16; TEMP 36.6; O2SAT 98
--- NOTE | 2024-12-27 07:57 | P.PNIM_ITS ---
Subjective Subjective Date of Service: 12/27/24 Interval History: no new evn Review of Systems Review of Systems: Yes all other systems are reviewed and are negative Physical Exam 2 Exam: Exam: Appearance: awake , comfortable cvs: rrr, [id number]. res: clear to auscultation ,no rhonchii or wheezing abd: no rebound or guarding ,nt, bs present. ext pulses present , no cyanosis. neuro:moves all ext Vital Signs: Vital Signs: Last Vital Signs Temp 98 F 12/27/24 07:08 Pulse 68 12/27/24 07:08 Resp 16 12/27/24 07:08 BP 120/64 12/27/24 07:08 Pulse Ox 98 12/27/24 07:08 O2 Del Method Room Air 12/27/24 07:08 O2 Flow Rate 2 11/12/24 09:51 BMI result Body Mass Index 18.4 Objective Data Active Medications Acetaminophen (Acetaminophen 325 Mg Tablet) 650 mg PO Q6H PRN PRN Reason: Pain, Mild 1-3,fever,headache Last Admin: 12/25/24 20:21 Dose: 650 mg Documented By: BRIE Amlodipine Besylate (Amlodipine Besylate 5 Mg Tablet) 5 mg PO DAILY [facility]; Protocol Last Admin: 12/26/24 09:15 Dose: 5 mg Documented By: NADIR Atorvastatin Calcium (Atorvastatin Calcium 80 Mg Tablet) 80 mg PO DAILY [facility] Last Admin: 12/26/24 09:15 Dose: 80 mg Documented By: NADIR Calcium Carbonate (Calcium Carbonate 750 Mg Tab.Chew) 750 mg PO Q4H PRN PRN Reason: Heartburn Clopidogrel Bisulfate (Clopidogrel Bisulfate 75 Mg Tablet) 75 mg PO DAILY [facility] Last Admin: 12/26/24 09:15 Dose: 75 mg Documented By: NADIR Finasteride (Finasteride 5 Mg Tablet) 5 mg PO DAILY [facility] Last Admin: 12/26/24 09:15 Dose: 5 mg Documented By: NADIR Folic Acid (Folic Acid 1 Mg Tablet) 1 mg PO DAILY [facility] Last Admin: 12/26/24 09:15 Dose: 1 mg Documented By: NADIR Heparin Sodium (Porcine) (Heparin Sodium,Porcine 5,000 Unit/Ml Vial) 5,000 unit SUBCUT Q12H [facility] Last Admin: 12/26/24 20:10 Dose: 5,000 unit Documented By: YELITZA Hydralazine HCl (Hydralazine Hcl 20 Mg/Ml Vial) 5 mg IVPUSH Q6H PRN; Protocol PRN Reason: SBP>190 Magnesium Hydroxide (Milk Of Magnesia 30 Ml Oral.Susp) 30 ml PO DAILY PRN PRN Reason: Constipation Last Admin: 12/16/24 18:26 Dose: 30 ml Documented By: NAM Melatonin (Melatonin 3 Mg Tablet) 6 mg PO BEDTIME PRN PRN Reason: Insomnia Last Admin: 12/25/24 20:21 Dose: 6 mg Documented By: BRIE Quetiapine Fumarate (Quetiapine Fumarate 25 Mg Tablet) 25 mg PO TID [facility] Last Admin: 12/26/24 20:10 Dose: 25 mg Documented By: YELITZA Tamsulosin HCl (Tamsulosin Hcl 0.4 Mg Capsule) 0.4 mg PO DAILY [facility] Last Admin: 12/26/24 09:15 Dose: 0.4 mg Documented By: NADIR Thiamine HCl (Thiamine Hcl 100 Mg Tablet) 100 mg PO DAILY [facility] Last Admin: 12/26/24 09:15 Dose: 100 mg Documented By: NADIR Trazodone HCl (Trazodone Hcl 25 Mg Halftab) 25 mg PO BEDTIME [facility] Last Admin: 12/26/24 20:10 Dose: 25 mg Documented By: YELITZA Labs 12/27/24 07:44 12/27/24 07:44 Assessment and Plan (1) Frequent falls: Status: Acute Plan Elderly patient with advanced Alzheimer?s dementia, multiple comorbidities, and recent BARRIE/UTI now resolved, but with significant deconditioning and functional decline. Discharge planning is complicated by cognitive impairment and inability to follow directions. Awaiting placement for continued care and rehabilitation. Essentially no new issues Assessment and Plan 1. Acute Kidney Injury (BARRIE): * The patient experienced multifactorial BARRIE (prerenal, postrenal, and possible intrarenal components) in the setting of acute urinary retention and UTI. * Prerenal azotemia likely due to volume depletion and acute urinary retention, resolved with IV fluids. * Intrarenal component (possible ATN) likely secondary to UTI, now resolved after completing a 5-day course of Augmentin (completed 11/21/2024). * Postrenal component due to BPH and urinary retention; Chisholm catheter placed on 11/14/2024. * Plan: Continue to monitor renal function and urine output. Chisholm catheter to remain in place per Urology, with outpatient voiding trials planned after discharge. 2. Benign Prostatic Hyperplasia (BPH) and Acute Urinary Retention: * Acute urinary retention managed with Chisholm catheter. * Started on finasteride and tamsulosin per Urology recommendations. * eventual voiding trial 3. Urinary Tract Infection (UTI): * Streptococcal UTI treated with Augmentin, completed 11/21/2024. * No current signs or symptoms of ongoing infection. * Continue to monitor for recurrence, especially with indwelling Chisholm. 4. Falls and Physical Deconditioning: * Multiple recent falls at home, likely due to advanced cognitive decline, physical deconditioning, and overall declining health. * Patient is unable to follow basic directions, limiting rehabilitation potential and complicating discharge planning. * PT/OT consulted for ongoing assessment and therapy. * Fall precautions in place. * Continue B12 and folate supplementation. * fall on 12/17 : no injuries -please see note from same date. 5. Advanced Alzheimer?s Dementia: * Progressive cognitive decline with significant impairment in ADLs. * Daughter is primary historian and healthcare proxy. * Patient unable to participate in care planning or follow instructions, making short-term rehabilitation placement challenging. * Awaiting appropriate placement; case management involved. * adjusted seroquel to 25 mg tid ,may need to add olazapine prn if needed (please see psych note from 12/01/24) 6. Hypertension, Hyperlipidemia, History of CVA: * Continue home medications for blood pressure, lipid management, and secondary stroke prevention (on Plavix). * Monitor for any new neurological changes. 7. Prior Substance Use and Alcohol Use Disorder: * History noted; no acute withdrawal or related complications during this admission. 8. DVT Prophylaxis: * Continue prophylaxis with heparin while inpatient. poor intake Has had adequate nutritional intake p.o. discontinued PPN for now 9. Disposition: * Patient is medically stable after treatment of UTI and BARRIE but remains functionally and cognitively impaired. * Not safe for discharge home due to inability to follow directions and limited ADLs. * Awaiting placement in a facility capable of providing the necessary level of care and rehabilitation. * Case management and social work are actively involved in placement planning. DNR/DNI Quality Stroke Does the patient have a stroke diagnosis?: No VTE Prior VTE?: No VTE Risk Level:: Medical - moderate - high VTE Device Contraindication: Treatment Not Indicated VTE Drug Contraindication: N/A - Med Ordered
[2024-12-27 08:42] LABS: Hematocrit 30.7 % (42.0-52.0); Hemoglobin 10.4 g/dl (14.0-18.0); Mean Corpuscular HGB Conc 33.9 g/dl (31.0-36.0); Mean Corpuscular Hemoglobin 35.0 pg (27.0-33.0); Mean Corpuscular Volume 103.4 fL (80.0-98.0); NRBC Abs Auto 0.000 X10*3/uL (0.0-0.012); NRBC Pct Auto 0.0 /100WBC (0.0-0.2); Platelet Count 321 X10*3/uL (160-400); Red Blood Count 2.97 X10*6/uL (4.60-5.80); White Blood Count 10.3 X10*3/uL (4.8-10.8)
[2024-12-27 08:53] LABS: Alanine Aminotransferase 23 U/L (0-40); Albumin Level 3.4 g/dL (3.5-5.0); Alkaline Phosphatase 86 U/L (39-117); Anion Gap 11 (12-20); Aspartate Amino Transferase 26 U/L (5-37); Blood Urea Nitrogen 35 mg/dL (9-16); Calcium 9.3 mg/dL (8.4-10.2); Carbon Dioxide 23 mmol/L (22-29); Chloride 109 mmol/L (96-108); Creatinine Clr Calc Pharmacy 42.0; Estimated Glomerular Filt Rate 58; Magnesium 2.2 mg/dL (1.6-2.6); Potassium 4.4 mmol/L (3.3-5.1); Sodium 139 mmol/L (135-145); Total Protein 6.9 g/dL (6.5-8.0)
--- NOTE | 2024-12-27 09:51 | PC.NURSE ---
Calm and cooperative with care this AM.
--- NOTE | 2024-12-27 14:10 | P.DS_ITS ---
DS: Providers Provider Date of Service: 12/27/24 Date of admission: 11/12/24 10:38 Date of discharge: 12/27/24 Primary care physician: Cielo Skinner MD Consults: 11/08/24 10:15 Consult to Psychiatry Stat Consulting [place] [facility] Reason for consultation: PROB UNDIAGNOSED DEMENTIA. MED REC FOR BEHAVIORS FOR LTC PLACEMENT Has provider been notified: Yes 11/15/24 08:15 Consult to Nephrology Routine Consulting Provider[place] [facility] Reason for consultation: Worsening BARRIE ? 11/15/24 08:43 Consult to Urology Routine Consulting Provider: [facility] Reason for consultation: acute urinary retension 12/01/24 07:43 Consult to Psychiatry Routine Consulting Provider: [facility] Reason for consultation: ?dementia /behavioural agitation Has provider been notified: No 12/01/24 13:10 Consult for Sitter Routine Reason for consultation: agiatated Has provider been notified: No Attending physician on discharge: Milagros Hernandez Discharging clinician: Milagros Hernandez DS: Diagnosis Discharge Diagnosis (1) Frequent falls: Status: Acute DS: Summary Hospital Course Hospital Course: HPI:74-year-old male with a history of HTN, HLD, PAD, CVA on Plavix, tobacco use, presenting after an unwitnessed fall that occurred at home. EMS reports they were called to the scene for patient that was falling with a right elbow injury. Found sitting on his doorstep with slight confusion. According to his neighbors, this is his baseline. Patient unable to give any information sec ondary to his altered mental status. He did not even know his name or . Head CT negative, elevated blood pressure readings, creat 1.82, potassium 3.2. He was given IV fluids, IV potassium in the ED. Hospital course: Hospital course:Elderly patient with advanced Alzheimer?s dementia, multiple comorbidities, and recent BARRIE/UTI now resolved, but with significant deconditioning and functional decline. Discharge planning is complicated by cognitive impairment and inability to follow directions. patient had long stay admitted on 11/12/24 , Please see below: Assessment and Plan 1. Acute Kidney Injury (BARRIE): * The patient experienced multifactorial BARRIE (prerenal, postrenal, and possible intrarenal components) in the setting of acute urinary retention and UTI. * Prerenal azotemia likely due to volume depletion and acute urinary retention, resolved with IV fluids. * Intrarenal component (possible ATN) likely secondary to UTI, now resolved after completing a 5-day course of Augmentin (completed 11/21/2024). * Postrenal component due to BPH and urinary retention; Chisholm catheter placed on 11/14/2024. * cr seems stablw in 1 to 1.2 range ,Plan: Continue to monitor renal function and urine output. Chisholm catheter to remain in placed, which was subsequently out, patient voiding fine as per the staff-monitor p.o. intake and output closely as well as Bmp, consider outpatient Nephrology and Urology follow-up if needed. 2. Benign Prostatic Hyperplasia (BPH) and Acute Urinary Retention: * Acute urinary retention managed with Chisholm catheter. * Started on finasteride and tamsulosin per Urology recommendations. * eventual voiding trial. 3. Urinary Tract Infection (UTI): * Streptococcal UTI treated with Augmentin, completed 11/21/2024. * No current signs or symptoms of ongoing infection. * Continue to monitor for recurrence, especially with indwelling Chisholm. 4. Falls and Physical Deconditioning: * Multiple recent falls at home, likely due to advanced cognitive decline, physical deconditioning, and overall declining health. * Patient is unable to follow basic directions, limiting rehabilitation potential and complicating discharge planning. * PT/OT consulted for ongoing assessment and therapy. * Fall precautions in place. * Continue B12 and folate supplementation. * fall on 12/17 : no injuries . 5. Advanced Alzheimer?s Dementia: * Progressive cognitive decline with significant impairment in ADLs. * Daughter is primary historian and healthcare proxy. * Patient unable to participate in care planning or follow instructions, making short-term rehabilitation placement challenging. * Awaiting appropriate placement; case management involved. * Patient was seen by psych: Started on seroquel and subsequently adjusted to 25 mg tid . Currently patient is calm and cooperative, Consider outpatient psych follow-up if needed. 6. Hypertension, Hyperlipidemia, History of CVA: * Continue home medications for blood pressure, lipid management, and secondary stroke prevention (on Plavix). * Monitor for any new neurological changes. 7. Prior Substance Use and Alcohol Use Disorder: * History noted; no acute withdrawal or related complications during this admission. 8. Disposition: * Patient is medically stable after treatment of UTI and BARRIE but remains functionally and cognitively impaired. * Not safe for discharge home due to inability to follow directions and limited ADLs. * Patient will be going to the rehab. Above management assessment and plan coordination time spent 50 minute. Time Attestation Total time managing care of this patient today: 50 mintues. Discharge Coordination Time (in mins): 50 min Quality: Safe Use of Opioids Does Pt have an Active Cancer Diagnosis on the Problem List?: No Quality: Stroke Does the patient have a stroke diagnosis?: No Physical Exam Exam: Exam: Appearance: awake , comfortable cvs: [id number], [id number]. res: clear to auscultation ,no rhonchii or wheezing abd: no rebound or guarding ,nt, bs present. ext pulses present , no cyanosis. neuro:moves all ext Vital Signs: Vital Signs: Last Vital Signs Temp 98 F 12/27/24 07:08 Pulse 68 12/27/24 07:08 Resp 16 12/27/24 07:08 BP 120/64 12/27/24 07:08 Pulse Ox 98 12/27/24 07:08 O2 Del Method Room Air 12/27/24 07:08 O2 Flow Rate 2 11/12/24 09:51 BMI result Body Mass Index 18.4 DS: Data Data Completed and Pending Labs on day of discharge: Laboratory Results - last 24 hr 12/27/24 07:44 WBC 10.3 RBC 2.97 L Hgb 10.4 L Hct 30.7 L MCV 103.4 H MCH 35.0 H MCHC 33.9 RDW 15.1 Plt Count 321 MPV 9.4 Absolute Nucleated RBC 0.000 Nucleated RBC % (auto) 0.0 Sodium 139 Potassium 4.4 Chloride 109 H Carbon Dioxide 23 Anion Gap 11 L BUN 35 H Creatinine 1.23 Estim Creat Clear Calc 42.0 Estimated GFR 58 Random Glucose 97 Calcium 9.3 Phosphorus 3.4 Magnesium 2.2 Total Bilirubin 0.3 Direct Bilirubin 0.1 AST 26 ALT 23 Alkaline Phosphatase 86 Total Protein 6.9 [address]in [address] scan - head: Radiologist's impression: ITS Impressions Renal Ultrasound 11/15/24 13:53 IMPRESSION: Unremarkable renal ultrasound. Ct head 11/12: No acute abnormality of the brain. Atrophy and advanced white matter ct head :11/06: 1. No acute intracranial findings, specifically no acute intracranial hemorrhage. 2. Moderate atrophy-like change or white matter disease. cervical Ct : No evidence of acute fracture or traumatic listhesis of the cervical spine. Moderate multilevel spondylosis. right elbow xray: 1. No acute findings. cxr: 1. No acute findings Discharge Plan Discharge Anticipated Discharge Date/Time: 12/27/24 13:47 Patient Disposition: Xfer SNF Discharge Diagnosis: barrie, fall Referrals: [facility] [Outside] - 1 Week Cielo Skinner MD [Primary Care Provider, Family Practice] Joshua Spangler MD [Physician, Urology] - 1 Week Discharge Medications: New amlodipine 5 mg Tablet 5 mg PO DAILY Qty: 90 0RF Protocol: Hold for SBP< HOLD for SBP < : 90 finasteride 5 mg Tablet 5 mg PO DAILY Qty: 1 0RF thiamine mononitrate (vit B1) 100 mg Tablet 100 mg PO DAILY Qty: 1 0RF Continued clopidogrel 75 mg tablet 75 mg PO DAILY tamsulosin 0.4 mg capsule 0.4 mg PO DAILY rosuvastatin 40 mg tablet 40 mg PO DAILY Discontinued lisinopril 30 mg tablet 30 mg PO DAILY Discharge Orders: Discharge Order (Routine); Ordered 12/28/24 Ordered By: Milagros Hernandez Diet: Advance to usual diet Activity on Discharge: As tolerated Stand Alone Forms: Patient Portal Discharge page Print Language: Chinese Care Plan Goals: continue flomax/finestride . amlodipine as prescribed. moniter bmp closely. encouarge for po intake and hydration Health Concerns: as above. Plan of Treatment: as above. Assessment: as above.
--- NOTE | 2024-12-27 15:15 | MHC.CM.PN ---
[facility] [employer] The discharge is anticipated later today vs tomorrow.
[2024-12-27 15:35] VITALS: BP 132/60; PULSE 76; RESP 16; TEMP 36.8; O2SAT 97
--- NOTE | 2024-12-27 18:22 | PC.NURSE ---
Bladder scan at 11am for 139, watch and wait per protocol. Pt voided on commode at 1700,
[2024-12-27 19:55] VITALS: BP 132/61; PULSE 91; RESP 18; TEMP 36.7; O2SAT 95
[2024-12-27] MEDS: traZODone HCL 25 MG HALFTAB PO (19:59)
[2024-12-28 03:14] VITALS: BP 140/68; PULSE 64; RESP 18; TEMP 36.2; O2SAT 98
[2024-12-28 07:40] VITALS: BP 134/61; PULSE 71; RESP 18; TEMP 36.4; O2SAT 97
--- NOTE | 2024-12-28 08:45 | PC.NURSE ---
Pt Calm and cooperative with AM care this AM.
--- NOTE | 2024-12-28 10:34 | PC.NURSE ---
Pt pleasant and cooperative, easily to redirect if confused.
--- NOTE | 2024-12-28 12:18 | MHC.CM.PN ---
IMM 12/28/24 Patient is planned for discharge today. He will dc to [facility] via BLS. Transport is booked for 4pm picker/puller. [facility] and patients Bindu mario are aware of the discharge and picker/puller time. DC info has been faxed to the facility.
[2024-12-28 15:22] VITALS: BP 127/60; PULSE 76; RESP 12; TEMP 37.2; O2SAT 98
[2024-12-28 15:42] VITALS: TEMP 37.1
--- NOTE | 2024-12-28 15:50 | P.PNIM_ITS ---
Subjective Subjective Date of Service: 12/29/24 Interval History: no new events Review of Systems Review of Systems: Yes all other systems are reviewed and are negative Physical Exam 2 Exam: Exam: Appearance: awake , comfortable cvs: rrr, [id number]. res: clear to auscultation ,no rhonchii or wheezing abd: no rebound or guarding ,nt, bs present. ext pulses present , no cyanosis. neuro:moves all ext Vital Signs: Vital Signs: Last Vital Signs Temp 98.7 F 12/28/24 15:42 Pulse 76 12/28/24 15:22 Resp 12 12/28/24 15:22 BP 127/60 12/28/24 15:22 Pulse Ox 98 12/28/24 15:22 O2 Del Method Room Air 12/28/24 15:22 O2 Flow Rate 2 11/12/24 09:51 BMI result Body Mass Index 18.4 Objective Data Active Medications Acetaminophen (Acetaminophen 325 Mg Tablet) 650 mg PO Q6H PRN PRN Reason: Pain, Mild 1-3,fever,headache Last Admin: 12/25/24 20:21 Dose: 650 mg Documented By: BRIE Amlodipine Besylate (Amlodipine Besylate 5 Mg Tablet) 5 mg PO DAILY [facility]; Protocol Last Admin: 12/28/24 08:14 Dose: 5 mg Documented By: RENATA Atorvastatin Calcium (Atorvastatin Calcium 80 Mg Tablet) 80 mg PO DAILY [facility] Last Admin: 12/28/24 08:14 Dose: 80 mg Documented By: RENATA Calcium Carbonate (Calcium Carbonate 750 Mg Tab.Chew) 750 mg PO Q4H PRN PRN Reason: Heartburn Clopidogrel Bisulfate (Clopidogrel Bisulfate 75 Mg Tablet) 75 mg PO DAILY [facility] Last Admin: 12/28/24 08:14 Dose: 75 mg Documented By: RENATA Finasteride (Finasteride 5 Mg Tablet) 5 mg PO DAILY [facility] Last Admin: 12/28/24 08:15 Dose: 5 mg Documented By: RENATA Folic Acid (Folic Acid 1 Mg Tablet) 1 mg PO DAILY [facility] Last Admin: 12/28/24 08:14 Dose: 1 mg Documented By: RENATA Heparin Sodium (Porcine) (Heparin Sodium,Porcine 5,000 Unit/Ml Vial) 5,000 unit SUBCUT Q12H [facility] Last Admin: 12/28/24 08:10 Dose: 5,000 unit Documented By: RENATA Hydralazine HCl (Hydralazine Hcl 20 Mg/Ml Vial) 5 mg IVPUSH Q6H PRN; Protocol PRN Reason: SBP>190 Magnesium Hydroxide (Milk Of Magnesia 30 Ml Oral.Susp) 30 ml PO DAILY PRN PRN Reason: Constipation Last Admin: 12/16/24 18:26 Dose: 30 ml Documented By: NAM Melatonin (Melatonin 3 Mg Tablet) 6 mg PO BEDTIME PRN PRN Reason: Insomnia Last Admin: 12/25/24 20:21 Dose: 6 mg Documented By: BRIE Quetiapine Fumarate (Quetiapine Fumarate 25 Mg Tablet) 25 mg PO TID [facility] Last Admin: 12/28/24 15:33 Dose: 25 mg Documented By: RENATA Tamsulosin HCl (Tamsulosin Hcl 0.4 Mg Capsule) 0.4 mg PO DAILY [facility] Last Admin: 12/28/24 08:14 Dose: 0.4 mg Documented By: RENATA Thiamine HCl (Thiamine Hcl 100 Mg Tablet) 100 mg PO DAILY [facility] Last Admin: 12/28/24 08:14 Dose: 100 mg Documented By: RENATA Trazodone HCl (Trazodone Hcl 25 Mg Halftab) 25 mg PO BEDTIME [facility] Last Admin: 12/27/24 19:59 Dose: 25 mg Documented By: ZEN Labs 12/27/24 07:44 12/27/24 07:44 Assessment and Plan (1) Frequent falls: Status: Acute Plan Elderly patient with advanced Alzheimer?s dementia, multiple comorbidities, and recent BARRIE/UTI now resolved, but with significant deconditioning and functional decline. Discharge planning is complicated by cognitive impairment and inability to follow directions. Awaiting placement for continued care and rehabilitation. Essentially no new issues Assessment and Plan 1. Acute Kidney Injury (BARRIE): * The patient experienced multifactorial BARRIE (prerenal, postrenal, and possible intrarenal components) in the setting of acute urinary retention and UTI. * Prerenal azotemia likely due to volume depletion and acute urinary retention, resolved with IV fluids. * Intrarenal component (possible ATN) likely secondary to UTI, now resolved after completing a 5-day course of Augmentin (completed 11/21/2024). * Postrenal component due to BPH and urinary retention; Chisholm catheter placed on 11/14/2024. * Plan: Continue to monitor renal function and urine output. Chisholm catheter to remain in place per Urology, with outpatient voiding trials planned after discharge. 2. Benign Prostatic Hyperplasia (BPH) and Acute Urinary Retention: * Acute urinary retention managed with Chisholm catheter. * Started on finasteride and tamsulosin per Urology recommendations. * eventual voiding trial 3. Urinary Tract Infection (UTI): * Streptococcal UTI treated with Augmentin, completed 11/21/2024. * No current signs or symptoms of ongoing infection. * Continue to monitor for recurrence, especially with indwelling Chisholm. 4. Falls and Physical Deconditioning: * Multiple recent falls at home, likely due to advanced cognitive decline, physical deconditioning, and overall declining health. * Patient is unable to follow basic directions, limiting rehabilitation potential and complicating discharge planning. * PT/OT consulted for ongoing assessment and therapy. * Fall precautions in place. * Continue B12 and folate supplementation. * fall on 12/17 : no injuries -please see note from same date. 5. Advanced Alzheimer?s Dementia: * Progressive cognitive decline with significant impairment in ADLs. * Daughter is primary historian and healthcare proxy. * Patient unable to participate in care planning or follow instructions, making short-term rehabilitation placement challenging. * Awaiting appropriate placement; case management involved. * adjusted seroquel to 25 mg tid ,may need to add olazapine prn if needed (please see psych note from 12/01/24) 6. Hypertension, Hyperlipidemia, History of CVA: * Continue home medications for blood pressure, lipid management, and secondary stroke prevention (on Plavix). * Monitor for any new neurological changes. 7. Prior Substance Use and Alcohol Use Disorder: * History noted; no acute withdrawal or related complications during this admission. 8. DVT Prophylaxis: * Continue prophylaxis with heparin while inpatient. poor intake Has had adequate nutritional intake p.o. discontinued PPN for now 9. Disposition: * Patient is medically stable after treatment of UTI and BARRIE but remains functionally and cognitively impaired. * Not safe for discharge home due to inability to follow directions and limited ADLs. * Awaiting placement in a facility capable of providing the necessary level of care and rehabilitation. * Case management and social work are actively involved in placement planning. DNR/DNI Quality Stroke Does the patient have a stroke diagnosis?: No VTE Prior VTE?: No VTE Risk Level:: Medical - moderate - high VTE Device Contraindication: Treatment Not Indicated VTE Drug Contraindication: N/A - Med Ordered
--- NOTE | 2024-12-28 15:50 | HO.PM.IMPN ---
Subjective Subjective Date of Service: 12/29/24 Interval History: no new events Review of Systems Review of Systems: Yes all other systems are reviewed and are negative Physical Exam Exam: Exam: Appearance: awake , comfortable cvs: rrr, [id number]. res: clear to auscultation ,no rhonchii or wheezing abd: no rebound or guarding ,nt, bs present. ext pulses present , no cyanosis. neuro:moves all ext Vital Signs: Vital Signs: Last Vital Signs Temp 98.7 F 12/28/24 15:42 Pulse 76 12/28/24 15:22 Resp 12 12/28/24 15:22 BP 127/60 12/28/24 15:22 Pulse Ox 98 12/28/24 15:22 O2 Del Method Room Air 12/28/24 15:22 O2 Flow Rate 2 11/12/24 09:51 BMI result Body Mass Index 18.4 Objective Data Active Medications Acetaminophen (Acetaminophen 325 Mg Tablet) 650 mg PO Q6H PRN PRN Reason: Pain, Mild 1-3,fever,headache Last Admin: 12/25/24 20:21 Dose: 650 mg Documented By: BRIE Amlodipine Besylate (Amlodipine Besylate 5 Mg Tablet) 5 mg PO DAILY [facility]; Protocol Last Admin: 12/28/24 08:14 Dose: 5 mg Documented By: RENATA Atorvastatin Calcium (Atorvastatin Calcium 80 Mg Tablet) 80 mg PO DAILY [facility] Last Admin: 12/28/24 08:14 Dose: 80 mg Documented By: RENATA Calcium Carbonate (Calcium Carbonate 750 Mg Tab.Chew) 750 mg PO Q4H PRN PRN Reason: Heartburn Clopidogrel Bisulfate (Clopidogrel Bisulfate 75 Mg Tablet) 75 mg PO DAILY [facility] Last Admin: 12/28/24 08:14 Dose: 75 mg Documented By: RENATA Finasteride (Finasteride 5 Mg Tablet) 5 mg PO DAILY [facility] Last Admin: 12/28/24 08:15 Dose: 5 mg Documented By: RENATA Folic Acid (Folic Acid 1 Mg Tablet) 1 mg PO DAILY [facility] Last Admin: 12/28/24 08:14 Dose: 1 mg Documented By: RENATA Heparin Sodium (Porcine) (Heparin Sodium,Porcine 5,000 Unit/Ml Vial) 5,000 unit SUBCUT Q12H [facility] Last Admin: 12/28/24 08:10 Dose: 5,000 unit Documented By: RENATA Hydralazine HCl (Hydralazine Hcl 20 Mg/Ml Vial) 5 mg IVPUSH Q6H PRN; Protocol PRN Reason: SBP>190 Magnesium Hydroxide (Milk Of Magnesia 30 Ml Oral.Susp) 30 ml PO DAILY PRN PRN Reason: Constipation Last Admin: 12/16/24 18:26 Dose: 30 ml Documented By: NAM Melatonin (Melatonin 3 Mg Tablet) 6 mg PO BEDTIME PRN PRN Reason: Insomnia Last Admin: 12/25/24 20:21 Dose: 6 mg Documented By: BRIE Quetiapine Fumarate (Quetiapine Fumarate 25 Mg Tablet) 25 mg PO TID [facility] Last Admin: 12/28/24 15:33 Dose: 25 mg Documented By: RENATA Tamsulosin HCl (Tamsulosin Hcl 0.4 Mg Capsule) 0.4 mg PO DAILY [facility] Last Admin: 12/28/24 08:14 Dose: 0.4 mg Documented By: RENATA Thiamine HCl (Thiamine Hcl 100 Mg Tablet) 100 mg PO DAILY [facility] Last Admin: 12/28/24 08:14 Dose: 100 mg Documented By: RENATA Trazodone HCl (Trazodone Hcl 25 Mg Halftab) 25 mg PO BEDTIME [facility] Last Admin: 12/27/24 19:59 Dose: 25 mg Documented By: ZEN Labs 12/27/24 07:44 12/27/24 07:44 Assessment and Plan (1) Frequent falls: Status: Acute Plan Elderly patient with advanced Alzheimer?s dementia, multiple comorbidities, and recent BARRIE/UTI now resolved, but with significant deconditioning and functional decline. Discharge planning is complicated by cognitive impairment and inability to follow directions. Awaiting placement for continued care and rehabilitation. Essentially no new issues Assessment and Plan 1. Acute Kidney Injury (BARRIE): The patient experienced multifactorial BARRIE (prerenal, postrenal, and possible intrarenal components) in the setting of acute urinary retention and UTI. Prerenal azotemia likely due to volume depletion and acute urinary retention, resolved with IV fluids. Intrarenal component (possible ATN) likely secondary to UTI, now resolved after completing a 5-day course of Augmentin (completed 11/21/2024). Postrenal component due to BPH and urinary retention; Chisholm catheter placed on 11/14/2024. Plan: Continue to monitor renal function and urine output. Chisholm catheter to remain in place per Urology, with outpatient voiding trials planned after discharge. 2. Benign Prostatic Hyperplasia (BPH) and Acute Urinary Retention: Acute urinary retention managed with Chisholm catheter. Started on finasteride and tamsulosin per Urology recommendations. eventual voiding trial 3. Urinary Tract Infection (UTI): Streptococcal UTI treated with Augmentin, completed 11/21/2024. No current signs or symptoms of ongoing infection. Continue to monitor for recurrence, especially with indwelling Chisholm. 4. Falls and Physical Deconditioning: Multiple recent falls at home, likely due to advanced cognitive decline, physical deconditioning, and overall declining health. Patient is unable to follow basic directions, limiting rehabilitation potential and complicating discharge planning. PT/OT consulted for ongoing assessment and therapy. Fall precautions in place. Continue B12 and folate supplementation. fall on 12/17 : no injuries -please see note from same date. 5. Advanced Alzheimer?s Dementia: Progressive cognitive decline with significant impairment in ADLs. Daughter is primary historian and healthcare proxy. Patient unable to participate in care planning or follow instructions, making short-term rehabilitation placement challenging. Awaiting appropriate placement; case management involved. adjusted seroquel to 25 mg tid ,may need to add olazapine prn if needed (please see psych note from 12/01/24) 6. Hypertension, Hyperlipidemia, History of CVA: Continue home medications for blood pressure, lipid management, and secondary stroke prevention (on Plavix). Monitor for any new neurological changes. 7. Prior Substance Use and Alcohol Use Disorder: History noted; no acute withdrawal or related complications during this admission. 8. DVT Prophylaxis: Continue prophylaxis with heparin while inpatient. poor intake Has had adequate nutritional intake p.o. discontinued PPN for now 9. Disposition: Patient is medically stable after treatment of UTI and BARRIE but remains functionally and cognitively impaired. Not safe for discharge home due to inability to follow directions and limited ADLs. Awaiting placement in a facility capable of providing the necessary level of care and rehabilitation. Case management and social work are actively involved in placement planning. DNR/DNI Quality Stroke Does the patient have a stroke diagnosis?: No VTE Prior VTE?: No VTE Risk Level:: Medical - moderate - high VTE Device Contraindication: Treatment Not Indicated VTE Drug Contraindication: N/A - Med Ordered
[2024-12-28] MEDS: traZODone HCL 25 MG HALFTAB PO (19:22)
[2024-12-28 20:00] VITALS: BP 123/60; PULSE 76; RESP 18; TEMP 36.6; O2SAT 97
[2024-12-29 03:05] VITALS: BP 130/62; PULSE 74; RESP 18; TEMP 36.2; O2SAT 98
--- NOTE | 2024-12-29 07:33 | HO.PM.IMPN ---
Subjective Subjective Date of Service: 12/29/24 Physical Exam Vital Signs: Vital Signs: Last Vital Signs Temp 97.2 F 12/29/24 03:05 Pulse 74 12/29/24 03:05 Resp 18 12/29/24 03:05 BP 130/62 12/29/24 03:05 Pulse Ox 98 12/29/24 03:05 O2 Del Method Room Air 12/29/24 03:05 O2 Flow Rate 2 11/12/24 09:51 BMI result Body Mass Index 18.4 Objective Data Active Medications Acetaminophen (Acetaminophen 325 Mg Tablet) 650 mg PO Q6H PRN PRN Reason: Pain, Mild 1-3,fever,headache Last Admin: 12/25/24 20:21 Dose: 650 mg Documented By: BRIE Amlodipine Besylate (Amlodipine Besylate 5 Mg Tablet) 5 mg PO DAILY [facility] [place]; Protocol Last Admin: 12/28/24 08:14 Dose: 5 mg Documented By: RENATA Atorvastatin Calcium (Atorvastatin Calcium 80 Mg Tablet) 80 mg PO DAILY [facility] [place] Last Admin: 12/28/24 08:14 Dose: 80 mg Documented By: RENATA Calcium Carbonate (Calcium Carbonate 750 Mg Tab.Chew) 750 mg PO Q4H PRN PRN Reason: Heartburn Clopidogrel Bisulfate (Clopidogrel Bisulfate 75 Mg Tablet) 75 mg PO DAILY [facility] [place] Last Admin: 12/28/24 08:14 Dose: 75 mg Documented By: RENATA Finasteride (Finasteride 5 Mg Tablet) 5 mg PO DAILY [facility] [place] Last Admin: 12/28/24 08:15 Dose: 5 mg Documented By: RENATA Folic Acid (Folic Acid 1 Mg Tablet) 1 mg PO DAILY [facility] [place] Last Admin: 12/28/24 08:14 Dose: 1 mg Documented By: RENATA Heparin Sodium (Porcine) (Heparin Sodium,Porcine 5,000 Unit/Ml Vial) 5,000 unit SUBCUT Q12H [facility] [place] Last Admin: 12/28/24 19:22 Dose: 5,000 unit Documented By: ZEN Hydralazine HCl (Hydralazine Hcl 20 Mg/Ml Vial) 5 mg IVPUSH Q6H PRN; Protocol PRN Reason: SBP>190 Magnesium Hydroxide (Milk Of Magnesia 30 Ml Oral.Susp) 30 ml PO DAILY PRN PRN Reason: Constipation Last Admin: 12/16/24 18:26 Dose: 30 ml Documented By: NAM Melatonin (Melatonin 3 Mg Tablet) 6 mg PO BEDTIME PRN PRN Reason: Insomnia Last Admin: 12/25/24 20:21 Dose: 6 mg Documented By: BRIE Quetiapine Fumarate (Quetiapine Fumarate 25 Mg Tablet) 25 mg PO TID [facility] [place] Last Admin: 12/28/24 19:22 Dose: 25 mg Documented By: ZEN Tamsulosin HCl (Tamsulosin Hcl 0.4 Mg Capsule) 0.4 mg PO DAILY [facility] [place] Last Admin: 12/28/24 08:14 Dose: 0.4 mg Documented By: RENATA Thiamine HCl (Thiamine Hcl 100 Mg Tablet) 100 mg PO DAILY [facility] [place] Last Admin: 12/28/24 08:14 Dose: 100 mg Documented By: RENATA Trazodone HCl (Trazodone Hcl 25 Mg Halftab) 25 mg PO BEDTIME [facility] [place] Last Admin: 12/28/24 19:22 Dose: 25 mg Documented By: ZEN Labs 12/27/24 07:44 12/27/24 07:44 Quality Stroke Does the patient have a stroke diagnosis?: No VTE Prior VTE?: No VTE Risk Level:: Medical - moderate - high VTE Device Contraindication: Treatment Not Indicated VTE Drug Contraindication: N/A - Med Ordered
[2024-12-29 08:00] VITALS: BP 135/62; PULSE 60; RESP 18; TEMP 36.2; O2SAT 98
--- NOTE | 2024-12-29 11:02 | MHC.CLN ---
F/U DIET RX CHOPPED. ENSURE BID PROVIDES 700 KCALS, 40 G PROTEIN. PO INTAKE VARIABLE, WITH MOST MEALS 50-100%. CONTINUE TO MONITOR FOR PO INTAKE. AWAITING PLACEMENT. RD TO MONITOR WEEKLY.
--- NOTE | 2024-12-29 12:09 | MHC.CM.PN ---
DP: PT HAS BEEN MEDICALLY CLEARED FOR DC TO [facility]. BLS TRANSPORT BOOKED FOR 3 PM VIA [facility]. RN/PROVIDER UPDATED. HCP/DAUGHTER CARIN UPDATED ON TRANSFER. FINAL IMM DELIVERED.
[2024-12-29 16:00] VITALS: BP 110/59; PULSE 66; RESP 18; TEMP 36.8; O2SAT 97
== END 2024-12-29 16:22 | disposition skilled nursing facility (03) | DRG 689 ==
LOC: HO.ED 11-12 10:42 → HO.EDOVER 11-12 10:48 → HO.IMC 11-12 19:37 → HO.S3 11-17 14:53
PROVIDERS: Emergency Medicine; Internal Medicine; Nurse Practitioner Family; Physician Assistant Medical; Student in an Organized Health Care Education/Training Program; Admitting Provider Nurse Practitioner Acute Care; Emergency Provider Emergency Medicine; PCP Student in an Organized Health Care Education/Training Program; Visit Provider Internal Medicine
DX: N39.0 Urinary tract infection, site not specified (principal); N17.0 Acute kidney failure with tubular necrosis; E51.2 Wernicke's encephalopathy; E87.6 Hypokalemia; N40.1 Benign prostatic hyperplasia with lower urinary tract symptoms; R33.8 Other retention of urine; Z66 Do not resuscitate; E78.5 Hyperlipidemia, unspecified; G30.9 Alzheimer's disease, unspecified; F02.80 Dementia in other diseases classified elsewhere, unspecified severity, without behavioral disturbance, psychotic disturbance, mood disturbance, and anxiety; R56.9 Unspecified convulsions; E86.0 Dehydration; E86.1 Hypovolemia; D64.9 Anemia, unspecified; I10 Essential (primary) hypertension; R53.81 Other malaise; W19.XXXA Unspecified fall, initial encounter; F10.91 Alcohol use, unspecified, in remission; W18.11XA Fall from or off toilet without subsequent striking against object, initial encounter; Y92.231 Patient bathroom in hospital as the place of occurrence of the external cause; Z20.822 Contact with and (suspected) exposure to COVID-19; Z86.73 Personal history of transient ischemic attack (TIA), and cerebral infarction without residual deficits; Z87.440 Personal history of urinary (tract) infections; Z75.1 Person awaiting admission to adequate facility elsewhere; Z79.02 Long term (current) use of antithrombotics/antiplatelets; Z79.899 Other long term (current) drug therapy
CPT/HCPCS: 36415; 70450; 71045; 72125; 73080; 76775; 80048; 80053; 80076; 80307; 81001; 82040; 82550; 82570; 82607; 82746; 82947; 83735; 84100; 84156; 84478; 84484; 85025; 85027; 87086; 87088; 87186; 87637; 92526; 92610; 93005; 97110; 97161; 97162; 99285; J0696; J1630; J1644; J2359; J3480; J7120

== ENCOUNTER → 2024-11-06 19:45 | Outpatient (BNV) | payer SELFPAY | PROVIDERS: Emergency Provider Emergency Medicine; Visit Provider Student in an Organized Health Care Education/Training Program | DX: M47.892 Other spondylosis, cervical region (principal); R41.82 Altered mental status, unspecified; S59.901A Unspecified injury of right elbow, initial encounter; W19.XXXA Unspecified fall, initial encounter | CPT/HCPCS: 70450; 71045; 72125; 73080 ==

== ENCOUNTER → 2024-11-06 19:58 | Outpatient (BNV) | payer SELFPAY | PROVIDERS: Emergency Provider Emergency Medicine; Visit Provider Internal Medicine Cardiovascular Disease | DX: R94.31 Abnormal electrocardiogram [ECG] [EKG] (principal); R41.82 Altered mental status, unspecified | CPT/HCPCS: 93010 ==

== ENCOUNTER → 2024-11-06 20:42 | Outpatient (BNV) | payer SELFPAY | PROVIDERS: Emergency Provider Emergency Medicine; PCP Student in an Organized Health Care Education/Training Program; Visit Provider Nurse Practitioner Family | DX: R41.82 Altered mental status, unspecified (principal) | CPT/HCPCS: 99283 ==

== ENCOUNTER → 2024-11-12 08:09 | Outpatient (BNV) | payer MEDICARE, SELFPAY | PROVIDERS: Emergency Provider Emergency Medicine; PCP Student in an Organized Health Care Education/Training Program; Visit Provider Radiology Diagnostic Radiology | DX: G40.89 Other seizures (principal) | CPT/HCPCS: 70450 ==

== ENCOUNTER → 2024-11-12 08:10 | Outpatient (BNV) | payer MEDICARE, SELFPAY | PROVIDERS: Admitting Provider Nurse Practitioner Acute Care; Emergency Provider Emergency Medicine; PCP Student in an Organized Health Care Education/Training Program; Visit Provider Internal Medicine Cardiovascular Disease | DX: R94.31 Abnormal electrocardiogram [ECG] [EKG] (principal); R56.9 Unspecified convulsions | CPT/HCPCS: 93010 ==

== ENCOUNTER 2024-11-12 10:38 | Outpatient (BNV) | payer MEDICARE, SELFPAY | END 2024-11-15 13:53 | PROVIDERS: Admitting Provider Nurse Practitioner Acute Care; Emergency Provider Emergency Medicine; PCP Student in an Organized Health Care Education/Training Program; Visit Provider Radiology Diagnostic Radiology | DX: N17.9 Acute kidney failure, unspecified (principal); N39.0 Urinary tract infection, site not specified | CPT/HCPCS: 76775 ==

== ENCOUNTER → 2024-11-12 10:38 | Outpatient (BNV) | payer SELFPAY | PROVIDERS: Admitting Provider Nurse Practitioner Acute Care; Emergency Provider Emergency Medicine; PCP Student in an Organized Health Care Education/Training Program; Visit Provider Urology | DX: N13.9 Obstructive and reflux uropathy, unspecified (principal) | CPT/HCPCS: 99222 ==

== ENCOUNTER → 2024-11-12 10:38 | Outpatient (BNV) | payer MEDICARE, SELFPAY | PROVIDERS: Admitting Provider Nurse Practitioner Acute Care; Emergency Provider Emergency Medicine; PCP Student in an Organized Health Care Education/Training Program; Visit Provider Nurse Practitioner Family | DX: N17.9 Acute kidney failure, unspecified (principal); N13.9 Obstructive and reflux uropathy, unspecified | CPT/HCPCS: 99222; 99232 ==

== ENCOUNTER → 2024-11-12 10:38 | Outpatient (BNV) | payer MEDICARE, SELFPAY | PROVIDERS: Admitting Provider Nurse Practitioner Acute Care; Emergency Provider Emergency Medicine; PCP Student in an Organized Health Care Education/Training Program; Visit Provider Student in an Organized Health Care Education/Training Program | DX: R29.6 Repeated falls (principal) | CPT/HCPCS: 99223; 99232; 99499 ==